=== PATIENT | female | born 1955 | race Caucasian/White ===

== ENCOUNTER 2020-09-18 14:07 | Outpatient (REF) | payer MEDICARE, MEDICAID, SELFPAY ==
--- NOTE | 2020-09-18 14:17 | XR_ITS ---
EXAMINATION: CHEST AND RIGHT RIB X-RAY CLINICAL INFORMATION: Fluoroscopy tiny COMPARISON: Previous chest x-ray October 2019 TECHNIQUE: PA and lateral chest and 4 views right RIBS FINDINGS: Chest: The cardiac and mediastinal contours are stable. The lungs are clear. There is a small right pleural effusion. There is left no pleural effusion or pneumothorax. There are old right-sided rib fractures. There is an old right clavicle fracture. There are degenerative changes of the spine. Right RIBS: There are old right second through sixth rib fractures. These appear similar to previous chest x-ray from October 2019. No acute fracture is seen. XR/XR chest 2V IMPRESSION: Small right pleural effusion. Multiple old right-sided rib fractures and right clavicle fracture similar to previous chest x-ray October 2019. No acute fracture seen.
--- NOTE | 2020-09-18 14:18 | XR_ITS ---
EXAMINATION: CHEST AND RIGHT RIB X-RAY CLINICAL INFORMATION: Fluoroscopy tiny COMPARISON: Previous chest x-ray October 2019 TECHNIQUE: PA and lateral chest and 4 views right RIBS FINDINGS: Chest: The cardiac and mediastinal contours are stable. The lungs are clear. There is a small right pleural effusion. There is left no pleural effusion or pneumothorax. There are old right-sided rib fractures. There is an old right clavicle fracture. There are degenerative changes of the spine. Right RIBS: There are old right second through sixth rib fractures. These appear similar to previous chest x-ray from October 2019. No acute fracture is seen. XR/XR ribs RT 2V IMPRESSION: Small right pleural effusion. Multiple old right-sided rib fractures and right clavicle fracture similar to previous chest x-ray October 2019. No acute fracture seen.
== END 2020-09-18 14:08 | disposition home or self-care (01) ==
LOC: HO.XRAY 14:07
PROVIDERS: PCP Internal Medicine; Visit Provider Internal Medicine
DX: R07.81 Pleurodynia (principal)
CPT/HCPCS: 71046; 71100

== ENCOUNTER 2020-10-11 13:10 | Outpatient (REF) | payer MEDICARE, SELFPAY ==
--- NOTE | 2020-10-11 13:20 | MM_ITS ---
EXAMINATION: MM SCREENING DIGITAL BREAST TOMOSYNTHESIS, BILATERAL CLINICAL INFORMATION: Screening. Asymptomatic. The lifetime risk of breast cancer based on the Tyrer-Cuzick Model is 3%. COMPARISON: Mammography: 03/01/2019, 12/24/2017, 10/30/2016. TECHNIQUE: Digital breast tomosynthesis is performed in both the craniocaudal and mediolateral oblique views along with computer-aided detection (CAD). Synthesized 2D images are generated from the tomosynthesis. Additional left MLO view is provided. FINDINGS: There are scattered areas of fibroglandular density (ACR BI-RADS breast composition Category b). There are no significant masses, abnormal calcifications, or other abnormalities. The axilla and skin contours are unremarkable. No significant changes from prior study. MM/MM tomosynthesis screening BI IMPRESSION: No mammographic evidence of malignancy. ASSESSMENT: BI-RADS 1: Negative RECOMMENDATION: Routine annual mammography screening. This patient's information was entered into a reminder system with a target due date for their next mammogram.
== END 2020-10-11 13:11 | disposition home or self-care (01) ==
LOC: HO.MAMMO 13:10
PROVIDERS: PCP Internal Medicine; Visit Provider Internal Medicine
DX: Z12.31 Encounter for screening mammogram for malignant neoplasm of breast (principal)
CPT/HCPCS: 77063; 77067

== ENCOUNTER 2021-07-18 12:04 | Outpatient (REF) | payer MEDICARE, SELFPAY ==
--- NOTE | ~2021-07-18 | XR_ITS ---
EXAMINATION: XR HAND, RIGHT CLINICAL INFORMATION: Pain right hand COMPARISON: None TECHNIQUE: PA, lateral, and oblique views of the right hand. FINDINGS: There is no acute or healing fracture, dislocation, or destructive process. The lateral view shows punctate corticated ossicle dorsum wrist and punctate corticated ossicle palmar side breast, possibly related to remote injury. The ulnar variance is borderline negative, near neutral. There is a mild broad-based short exostosis from the lateral distal ulnar head at level of radial sigmoid notch. The cortex is intact. There is small benign subcortical cyst. No reactive changes medial radius. The carpus shows no joint narrowing or erosive change or chondrocalcinosis. The MCP and interphalangeal joints show no focal narrowing or erosive change. XR/XR hand RT min 3V IMPRESSION: 1. No acute or healing fracture or destructive process. 2. No focal joint narrowing or erosive changes. 3. Punctate corticated ossicle dorsum wrist and punctate corticated ossicle volar side wrist. Short broad-based exostosis distal ulnar at the sigmoid notch.
== END 2021-07-18 12:05 | disposition home or self-care (01) ==
LOC: HO.XRAY 12:04
PROVIDERS: PCP Internal Medicine; Visit Provider Internal Medicine
DX: M79.641 Pain in right hand (principal)
CPT/HCPCS: 73130

== ENCOUNTER 2021-08-19 18:24 | Emergency (ER) | payer MEDICARE, SELFPAY ==
--- NOTE | ~2021-08-19 | CT_ITS ---
EXAMINATION: CT ABDOMEN AND PELVIS WITHOUT CONTRAST CLINICAL INFORMATION: Abdominal pain. COMPARISON: Multiple priors, most recent CT abdomen/pelvis dated 07/13/2019. TECHNIQUE: Multidetector volumetric imaging was performed from the superior aspect of the liver through the pubic symphysis. Sagittal and coronal reformatted images were obtained on the technologist's workstation. This CT examination was performed using dose optimization techniques as appropriate, variously including the following: *Automated exposure control *Adjustment of mA and/or kV according to patient size (this includes techniques or standardized protocols for targeted exams where dose is matched to indication/reason for exam; i.e. extremities or head) *Use of iterative reconstruction technique DLP: 774 mGy-cm FINDINGS: LUNG BASES: The visualized lung bases are unremarkable. LIVER, GALLBLADDER, AND BILIARY TREE: The liver is normal in size, shape, and attenuation. No focal hepatic lesion or biliary ductal dilatation is present. Status post cholecystectomy. PANCREAS: Atrophic. SPLEEN: Unremarkable. ADRENAL GLANDS: Unremarkable. KIDNEYS AND URETERS: The kidneys are normal in size, shape, and attenuation. No hydronephrosis, hydroureter, or calculi seen. No perinephric stranding. BLADDER: Partially distended with circumferential wall thickening and prominent adjacent inflammatory change, consistent with acute cystitis. No associated calcification. GASTROINTESTINAL TRACT: No bowel wall thickening or associated inflammatory change. No small or large bowel obstruction. Appendix not seen, however, no right lower quadrant inflammatory change to suggest acute appendicitis. PERITONEAL CAVITY: No intra-abdominal free air or free fluid. No intra-abdominal mass or organized fluid collection/abscess formation. ABDOMINAL WALL: No significant hernia is appreciated. LYMPH NODES: No significant lymphadenopathy. Central mesenteric stranding is unchanged. VASCULAR: Unremarkable. PELVIC VISCERA: The uterus and adnexa are unremarkable. OSSEOUS STRUCTURES: Redemonstration of a right hip effusion and right pelvic deformity. No new lytic or blastic osseous lesion. CT/CT abdomen pelvis wo con IMPRESSION: 1. Circumferential urinary bladder wall thickening with prominent adjacent fat stranding, consistent with acute cystitis. No hydronephrosis or hydroureter. No evidence of pyelonephritis. 2. No bowel wall thickening or inflammatory change. No small or large bowel obstruction. 3. No intra-abdominal mass, lymphadenopathy, or ascites.
[2021-08-19 18:36] VITALS: BP 150/80; BP 156/78; PULSE 80; RESP 18; TEMP 37; O2SAT 97; O2SAT 98; BMI 30.9
[2021-08-19 18:47] VITALS: BP 156/78; PULSE 80; RESP 18; TEMP 37; O2SAT 97
--- NOTE | 2021-08-19 18:58 | ED_ITS ---
HPI - Abdominal Pain General Chief Complaint: Abdominal Pain Stated Complaint: FLANK, PELVIC PAIN Time Seen by Provider: 08/19/21 18:52 Source: patient Mode of arrival: ambulatory Limitations: no limitations History of Present Illness HPI narrative: This is a 65 years old the female who presented to the emergency department with a chief complaint of lower abdominal pain and dysuria MD elicited complaint: abdominal pain Pertinent past history: none Onset (ago): hour(s) (12) Pain Consistency: constant Location: suprapubic Severity: moderate Radiation: none Migration to: no migration Exacerbating factors: nothing Relieving factors: nothing Related Data Previous Rx's Medication Instructions Recorded cephalexin 500 mg capsule 500 mg PO Q8H #21 cap 08/19/21 phenazopyridine 100 mg tablet 100 mg PO TID PRN #6 tab 08/19/21 (Pyridium) Allergies Allergy/AdvReac Type Severity Reaction Status Date / Time No Known Allergies Allergy Unverified 06/14/20 14:38 [No Known Allergies*] Review of Systems Review of Systems Yes all other systems are reviewed and are negative Constitutional: Reports no additional constitutional complaints and Denies fever(s) Cardiovascular: Reports no additional cardiovascular complaints Gastrointestinal: Reports no additional gastrointestinal complaints Musculoskeletal: Reports no additional musculoskeletal complaints Physical Exam Vital Signs: Vital Signs: Last Vital Signs Temp 98.6 F 08/19/21 18:47 Pulse 80 08/19/21 18:47 Resp 18 08/19/21 18:47 BP 156/78 H 08/19/21 18:47 Pulse Ox 97 08/19/21 18:47 Body Mass Index 30.9 Const: General: cooperative, no acute distress, well developed and alert Nutritional Appearance: well nourished Orientation/consciousness: patient oriented x3 HENMT: Head: Yes normal to inspection and Yes normocephalic Face and sinus: Yes normal facial exam Mouth: Normal oral and palatal mucosa present Throat: Yes posterior oropharynx normal Neck: Neck: Yes normal visual inspection and Yes full ROM Chest: Chest palpation & inspection: normal inspection of the chest Resp: Effort & Inspection: normal respiratory effort Auscultation: clear to auscultation bilaterally Cardio: Jugular venous distension: no JVD Rate: regular rate Rhythm: regular rhythm GI: Inspection: Yes normal to inspection Palpation (GI): Soft to palpation, not firm, nontender and no guarding Auscultation: normal bowel sounds Skin: General skin exam: no rashes or lesions noted, elasticity normal and turgor normal Neuro: General: patient oriented x3 Course Reevaluation(s) Reevaluation #1: THE CT SCAN OF THE ABDOMEN AND PELVIS SHOWS URINARY BLADDER WALL THICKENING CONSISTENT WITH ACUTE CYSTITIS, THE URINALYSIS SHOWS HEMATURIA 30-49 RED CELL, 1-4 WBC I WILL GIVEN THE PATIENT PYRIDIUM OF DISCOMFORT AND I WILL GIVE A COURSE OF ANTIBIOTIC WELL GIVEN THE FINDING ON THE CT MDM - Abdominal Pain Lab Data Result diagrams: 08/19/21 20:15 08/19/21 20:15 Labs: Lab Results 08/19/21 08/19/21 08/19/21 Range/Units 20:15 20:15 20:15 WBC 11.1 H (4.8-10.8) X10*3/uL RBC 4.52 (4.20-5.50) X10*6/uL Hgb 12.6 (12.0-16.0) g/dl Hct 38.7 (37.0-47.0) % MCV 85.6 (80.0-98.0) fL MCH 27.9 (27.0-33.0) pg MCHC 32.6 (31.0-35.0) g/dl RDW 13.0 (11.0-16.0) % Plt Count 271 (160-400) X10*3/uL MPV 10.3 (9.4-12.3) fL Immature Gran % (Auto) 0.4 (0.0-0.4) % Neut % (Auto) 68.4 (45-73) % Lymph % (Auto) 21.9 (20-40) % [place] % (Auto) 5.9 (2-11) % Eos % (Auto) 3.2 (0-4) % Baso % (Auto) 0.2 (0-2) % Lymph # (Auto) 2.4 (1.2-4.9) X10*3/uL [place] # (Auto) 0.7 (0.1-1.2) X10*3/uL Eos # (Auto) 0.4 (0.0-0.4) X10*3/uL Baso # (Auto) 0.0 (0.0-0.2) X10*3/uL Abs Immat Gran (auto) 0.04 H (0.00-0.03) X10*3/uL Absolute Neuts (auto) 7.6 (2.0-8.3) x10*3/uL Absolute Nucleated RBC 0.000 (0.0-0.012) X10*3/uL Nucleated RBC % (auto) 0.0 (0.0-0.2) /100WBC Sodium 139 (135-145) mmol/L Potassium 4.9 (3.3-5.1) mmol/L Chloride 100 (96-108) mmol/L Carbon Dioxide 29 (22-29) mmol/L Anion Gap 15 (12-20) BUN 8 L (9-16) mg/dL Creatinine 0.88 (0.5-1.4) mg/dL Estim Creat Clear Calc 64.9 Estimated GFR > 60 Random Glucose 321 H (60-115) mg/dL Calcium 9.7 (8.4-10.2) mg/dL Total Bilirubin 0.4 (0.0-1.0) mg/dL AST 10 (5-31) U/L ALT 11 (0-31) U/L Alkaline Phosphatase 135 H (39-117) U/L Total Protein 7.6 (6.5-8.0) g/dL Albumin 4.1 (3.5-5.0) g/dL Urine Color STRAW Urine Appearance HAZY Urine pH 6.5 (5.0-8.0) Ur Specific [place] 1.010 (1.005-1.025) Urine Protein 2+ H (NEG-TRACE) MG/DL Urine Glucose (UA) >=1000 H (NEG) MG/DL Urine Ketones NEG (NEG) MG/DL Urine Blood 3+ H (NEG) Urine Nitrite NEG (NEG) Ur Leukocyte Esterase NEG (NEG) Urine RBC 30-49 H (0) /HPF Urine WBC 1-4 (0-4) /HPF Ur Squamous Epith Cells 1+ /LPF Urine Bacteria NONE /LPF Imaging Data CT scan - abdomen: Radiologist's impression: seen, however, no right lower quadrant inflammatory change to suggest acute appendicitis. PERITONEAL CAVITY: No intra-abdominal free air or free fluid. No intra-abdominal mass or organized fluid collection/abscess formation.? ABDOMINAL WALL: No significant hernia is appreciated.? LYMPH NODES: No significant lymphadenopathy. Central mesenteric stranding is unchanged. VASCULAR: Unremarkable. PELVIC VISCERA: The uterus and adnexa are unremarkable.? OSSEOUS STRUCTURES: Redemonstration of a right hip effusion and right pelvic deformity. No new lytic or blastic osseous lesion.? CT/CT abdomen pelvis wo con IMPRESSION: ? 1. Circumferential urinary bladder wall thickening with prominent adjacent fat stranding, consistent with acute cystitis. No hydronephrosis or hydroureter. No evidence of pyelonephritis. 2. No bowel wall thickening or inflammatory change. No small or large bowel obstruction. 3. No intra-abdominal mass, lymphadenopathy, or ascites.? ? Discharge Plan Discharge Clinical Impression: Cystitis Patient Disposition: Home, Self-Care Instructions: Hematuria (ED), Dysuria (ED) Prescriptions: New cephalexin 500 mg capsule 500 mg PO Q8H Qty: 21 RF: 0 phenazopyridine [Pyridium] 100 mg tablet 100 mg PO TID PRN (Reason: pain) Qty: 6 RF: 0 Referrals: Fransisco Baires MD [Primary Care Provider] - 2 days [facility] Past Medical History Medical History Diabetes HTN (hypertension) Social History Social History Advance Directives: No
[2021-08-19 20:20] LABS: MANUAL DIFF FLAG NO
[2021-08-19 20:21] LABS: Basophils Percent Auto 0.2 % (0-2); Eosinophils Absolute Auto 0.4 X10*3/uL (0.0-0.4); Eosinophils Percent Auto 3.2 % (0-4); Hematocrit 38.7 % (37.0-47.0); Hemoglobin 12.6 g/dl (12.0-16.0); Imm Gran Abs Auto 0.04 X10*3/uL (0.00-0.03); Imm Gran Pct Auto 0.4 % (0.0-0.4); Lymphocytes Absolute Auto 2.4 X10*3/uL (1.2-4.9); Lymphocytes Percent Auto 21.9 % (20-40); Mean Corpuscular HGB Conc 32.6 g/dl (31.0-35.0); Mean Corpuscular Hemoglobin 27.9 pg (27.0-33.0); Mean Corpuscular Volume 85.6 fL (80.0-98.0); Mean Platelet Volume 10.3 fL (9.4-12.3); Monocytes Absolute Auto 0.7 X10*3/uL (0.1-1.2); Monocytes Percent Auto 5.9 % (2-11); Neutrophils Absolute Auto 7.6 x10*3/uL (2.0-8.3); Neutrophils Percent Auto 68.4 % (45-73); Platelet Count 271 X10*3/uL (160-400); Red Blood Count 4.52 X10*6/uL (4.20-5.50); White Blood Count 11.1 X10*3/uL (4.8-10.8)
[2021-08-19 20:22] LABS: Appearance Urine HAZY; Color Urine STRAW; Glucose Urine UA >=1000 MG/DL (NEG); Leukocyte Esterase Urine NEG (NEG); Nitrite Urine NEG (NEG); PH 6.5 (5.0-8.0); UACC Culture Trigger NO; Urine Blood 3+ (NEG); Urine Ketones NEG (NEG); Urine Protein 2+ MG/DL (NEG-TRACE)
[2021-08-19 20:29] LABS: RBC Urine 30-49 /HPF (0); Squamous Epithelial Cell Urine 1+ /LPF
[2021-08-19 20:36] LABS: Alanine Aminotransferase 11 U/L (0-31); Albumin Level 4.1 g/dL (3.5-5.0); Alkaline Phosphatase 135 U/L (39-117); Anion Gap 15 (12-20); Aspartate Amino Transferase 10 U/L (5-31); Bilirubin Total 0.4 mg/dL (0.0-1.0); Blood Urea Nitrogen 8 mg/dL (9-16); Calcium 9.7 mg/dL (8.4-10.2); Carbon Dioxide 29 mmol/L (22-29); Chloride 100 mmol/L (96-108); Creatinine Clr Calc Pharmacy 64.9; Estimated Glomerular Filt Rate > 60; Glucose Random 321 mg/dL (60-115); Potassium 4.9 mmol/L (3.3-5.1); Sodium 139 mmol/L (135-145); Total Protein 7.6 g/dL (6.5-8.0)
[2021-08-19] MEDS: Phenazopyridine HCL 200 MG TABLET PO (21:17)
[2021-08-19] MEDS: cephALEXin 500 MG CAPSULE PO (21:17)
== END 2021-08-19 21:59 | disposition home or self-care (01) ==
PROVIDERS: Emergency Provider Emergency Medicine; PCP Internal Medicine
DX: N30.00 Acute cystitis without hematuria (principal); E11.9 Type 2 diabetes mellitus without complications; I10 Essential (primary) hypertension
CPT/HCPCS: 36415; 74176; 80053; 81001; 85025; 99284

== ENCOUNTER 2021-08-23 21:53 | Emergency (ER) | payer MEDICARE, SELFPAY ==
[2021-08-23 22:05] VITALS: BP 127/69; PULSE 84; RESP 18; TEMP 37.3; O2SAT 95; BMI 30.1
--- NOTE | 2021-08-23 22:46 | ED_ITS ---
HPI - Female Genitourinary General Chief complaint: Urogenital-Female Stated complaint: uti Time Seen by Provider: 08/23/21 22:46 Source: patient Limitations: no limitations History of Present Illness HPI Narrative: Patient is 65 years old was seen here on 08/19 for hematuria and dysuria noticed to have circumferential urinary bladder wall thickening with prominent adjacent fat stranding consider acute cystitis although urine was negative for UTI patient started on cephalexin and Pyridium patient comes back for continued discomfort in the suprapubic area and dysuria no fever no chills no vomiting Related Data Previous Rx's Medication Instructions Recorded cephalexin 500 mg capsule 500 mg PO Q8H #21 cap 08/19/21 phenazopyridine 100 mg tablet 100 mg PO TID PRN #6 tab 08/19/21 (Pyridium) cefpodoxime 200 mg tablet 200 mg PO BID #20 tab 08/24/21 oxycodone 5 mg tablet 5 mg PO Q6H PRN #20 tab 08/24/21 Allergies Allergy/AdvReac Type Severity Reaction Status Date / Time No Known Allergies Allergy Verified 08/23/21 22:17 [No Known Allergies*] Review of Systems Review of Systems: Yes all other systems are reviewed and are negative PMFSH Past Medical History Medical History Diabetes HTN (hypertension) Social History Social History Patient Tobacco Use Status: Former Tobacco user Use of substances other than those prescribed or required for medical reasons: No Advance Directives: No Patient : No Physical Exam Vital Signs: Vital Signs: Last Vital Signs Temp 99.2 F 08/23/21 22:05 Pulse 87 08/24/21 00:40 Resp 16 08/24/21 00:40 BP 138/72 08/24/21 00:40 Pulse Ox 94 08/24/21 00:40 Body Mass Index 30.1 Appearance: Alert. Oriented X3. No acute distress. ENT: Pharynx normal. Oral Mucosa moist Neck: Normal inspection. Neck supple. CVS: Normal heart rate and rhythm. Pulses normal. Respiratory: No respiratory distress. Equal air entry bilateral, no wheezing/rales/rhonchi Abdomen: Soft , mild suprapubic tenderness, no guarding or rebound tenderness, Bowel sounds are present, no mass palpable, no CVA tenderness Skin: Skin warm and dry. Normal skin color. Normal skin turgor. Extremities: No lower extremity edema. No calf tenderness Neuro: Oriented X 3. MDM - Female Genitourinary MDM Narrative Medical decision making narrative: Patient with acute cystitis urine positive for nitrite this time on cephalexin likely resistant to the cephalexin urine cultures was ordered CBC counts are normal will discharge patient home on cefpodoxime patient already knows and aware that she has to follow with urologist Lab Data Attestation: I reviewed the patient's lab results. Result diagrams: 08/23/21 22:53 08/23/21 22:53 Labs: Lab Results 08/23/21 08/23/21 08/24/21 Range/Units 22:53 22:53 00:32 WBC 10.1 (4.8-10.8) X10*3/uL RBC 4.37 (4.20-5.50) X10*6/uL Hgb 12.1 (12.0-16.0) g/dl Hct 37.5 (37.0-47.0) % MCV 85.8 (80.0-98.0) fL MCH 27.7 (27.0-33.0) pg MCHC 32.3 (31.0-35.0) g/dl RDW 12.9 (11.0-16.0) % Plt Count 300 (160-400) X10*3/uL MPV 9.9 (9.4-12.3) fL Immature Gran % (Auto) 0.4 (0.0-0.4) % Neut % (Auto) 63.2 (45-73) % Lymph % (Auto) 24.8 (20-40) % [place] % (Auto) 7.0 (2-11) % Eos % (Auto) 4.3 H (0-4) % Baso % (Auto) 0.3 (0-2) % Lymph # (Auto) 2.5 (1.2-4.9) X10*3/uL [place] # (Auto) 0.7 (0.1-1.2) X10*3/uL Eos # (Auto) 0.4 (0.0-0.4) X10*3/uL Baso # (Auto) 0.0 (0.0-0.2) X10*3/uL Abs Immat Gran (auto) 0.04 H (0.00-0.03) X10*3/uL Absolute Neuts (auto) 6.4 (2.0-8.3) x10*3/uL Absolute Nucleated RBC 0.000 (0.0-0.012) X10*3/uL Nucleated RBC % (auto) 0.0 (0.0-0.2) /100WBC Sodium 138 (135-145) mmol/L Potassium 4.3 (3.3-5.1) mmol/L Chloride 103 (96-108) mmol/L Carbon Dioxide 26 (22-29) mmol/L Anion Gap 13 (12-20) BUN 18 H D (9-16) mg/dL Creatinine 1.03 (0.5-1.4) mg/dL Estim Creat Clear Calc 52.8 Estimated GFR 54 Random Glucose 265 H (60-115) mg/dL Calcium 9.1 D (8.4-10.2) mg/dL Total Bilirubin 0.3 (0.0-1.0) mg/dL AST 18 D (5-31) U/L ALT 16 (0-31) U/L Alkaline Phosphatase 120 H (39-117) U/L Total Protein 7.2 (6.5-8.0) g/dL Albumin 3.8 (3.5-5.0) g/dL Urine Color YELLOW Urine Appearance CLEAR Urine pH 6.0 (5.0-8.0) Ur Specific [place] 1.025 (1.005-1.025) Urine Protein NEG (NEG-TRACE) MG/DL Urine Glucose (UA) NEG (NEG) MG/DL Urine Ketones NEG (NEG) MG/DL Urine Blood 2+ H (NEG) Urine Nitrite POS H (NEG) Ur Leukocyte Esterase NEG (NEG) Urine RBC 30-49 H (0) /HPF Urine WBC 1-4 (0-4) /HPF Ur Squamous Epith Cells 1+ /LPF Urine Bacteria 1+ /LPF Discharge Plan Discharge Clinical Impression: Cystitis Patient Disposition: Home, Self-Care Instructions: Urinary Tract Infection in Women (ED) Additional Instructions: Drink plenty of water Pain medication advised Start the new antibiotic as prescribed and stop the cephalexin And follow-up with PCP/urologist for further workup 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
[2021-08-23 22:59] LABS: Basophils Percent Auto 0.3 % (0-2); Eosinophils Absolute Auto 0.4 X10*3/uL (0.0-0.4); Eosinophils Percent Auto 4.3 % (0-4); Hematocrit 37.5 % (37.0-47.0); Hemoglobin 12.1 g/dl (12.0-16.0); Imm Gran Abs Auto 0.04 X10*3/uL (0.00-0.03); Imm Gran Pct Auto 0.4 % (0.0-0.4); Lymphocytes Absolute Auto 2.5 X10*3/uL (1.2-4.9); Lymphocytes Percent Auto 24.8 % (20-40); MANUAL DIFF FLAG NO; Mean Corpuscular HGB Conc 32.3 g/dl (31.0-35.0); Mean Corpuscular Hemoglobin 27.7 pg (27.0-33.0); Mean Corpuscular Volume 85.8 fL (80.0-98.0); Mean Platelet Volume 9.9 fL (9.4-12.3); Monocytes Absolute Auto 0.7 X10*3/uL (0.1-1.2); Neutrophils Absolute Auto 6.4 x10*3/uL (2.0-8.3); Neutrophils Percent Auto 63.2 % (45-73); Platelet Count 300 X10*3/uL (160-400); Red Blood Count 4.37 X10*6/uL (4.20-5.50); Red Cell Distribution Width 12.9 % (11.0-16.0); White Blood Count 10.1 X10*3/uL (4.8-10.8)
[2021-08-23 23:17] LABS: Alanine Aminotransferase 16 U/L (0-31); Albumin Level 3.8 g/dL (3.5-5.0); Alkaline Phosphatase 120 U/L (39-117); Anion Gap 13 (12-20); Aspartate Amino Transferase 18 U/L (5-31); Bilirubin Total 0.3 mg/dL (0.0-1.0); Blood Urea Nitrogen 18 mg/dL (9-16); Calcium 9.1 mg/dL (8.4-10.2); Carbon Dioxide 26 mmol/L (22-29); Chloride 103 mmol/L (96-108); Creatinine Clr Calc Pharmacy 52.8; Estimated Glomerular Filt Rate 54; Glucose Random 265 mg/dL (60-115); Potassium 4.3 mmol/L (3.3-5.1); Sodium 138 mmol/L (135-145); Total Protein 7.2 g/dL (6.5-8.0)
[2021-08-24 00:37] LABS: Appearance Urine CLEAR; Color Urine YELLOW; Glucose Urine UA NEG (NEG); Leukocyte Esterase Urine NEG (NEG); Nitrite Urine POS (NEG); Specific Gravity - Urine 1.025 (1.005-1.025); UACC Culture Trigger YES; Urine Blood 2+ (NEG); Urine Ketones NEG (NEG); Urine Protein NEG (NEG-TRACE)
[2021-08-24] MEDS: Ketorolac Tromethamine 15 MG/ML VIAL 30 MG IVPUSH (00:38)
[2021-08-24 00:40] VITALS: BP 138/72; PULSE 87; RESP 16; O2SAT 94
[2021-08-24 00:44] LABS: RBC Urine 30-49 /HPF (0)
[2021-08-24 00:45] LABS: Bacteria Urine 1+ /LPF; Squamous Epithelial Cell Urine 1+ /LPF
--- NOTE | 2021-08-24 00:45 | PC.NURSE ---
pt a&o, no sob or chest pain. pt has no sign of distress. quach is placed. medicated per mar. Will continue to monitor.
[2021-08-24] MEDS: cefTRIAXone sodium 1 GM in 0.9 % Sodium Chloride 50 ML IV (00:56)
--- NOTE | 2021-08-24 01:41 | PC.NURSE ---
pt reports no pain. Will discharge as soon as antibiotic is completed per provider.
[2021-08-24 02:35] VITALS: RESP 20
== END 2021-08-24 02:36 | disposition home or self-care (01) ==
PROVIDERS: Emergency Provider Internal Medicine; PCP Internal Medicine
DX: N30.00 Acute cystitis without hematuria (principal); R10.30 Lower abdominal pain, unspecified; E11.9 Type 2 diabetes mellitus without complications; I10 Essential (primary) hypertension
CPT/HCPCS: 36415; 80053; 81001; 85025; 87086; 96365; 96372; 99284; 99285; J0696; J1885

== ENCOUNTER 2021-09-17 09:39 | Outpatient (REF) | payer MEDICARE, SELFPAY | END 2021-09-17 09:40 | disposition home or self-care (01) | LOC: HO.LAB 09:39 | PROVIDERS: Visit Provider Internal Medicine | DX: Z20.822 Contact with and (suspected) exposure to COVID-19 (principal) | CPT/HCPCS: C9803; U0003; U0005 ==

== ENCOUNTER 2022-10-29 14:48 | Emergency (ER) | payer MEDICARE, SELFPAY ==
--- NOTE | ~2022-10-29 | CT_ITS ---
Indication: Fall EXAMINATION: CT brain, CT facial bones, CT cervical spine. Axial imaging with coronal and sagittal reformatted images. This CT examination was performed using dose optimization techniques as appropriate, variously including the following: *Automated exposure control *Adjustment of mA and/or kV according to patient size (this includes techniques or standardized protocols for targeted exams where dose is matched to indication/reason for exam; i.e. extremities or head) *Use of iterative reconstruction technique. Radiation dose 655, [address] brain; There is no midline shift. There is no mass effect. There is no hemorrhage. The basal cisterns appear patent. The posterior fossa is grossly within normal limits. There is no extra-axial collection. White matter ischemic changes are noted. Probable soft tissue hematoma anterior. No fracture is seen on the bone windows. CT cervical spine; Straightening of the normal lordosis and degenerative changes. No acute fracture or dislocation. CT facial bones; Limitation from motion. Fracture of the medial orbital wall. Os.. This could possibly involve a small amount of the medial rectus muscle on the left. CT/CT head/brain wo IV con IMPRESSION: Negative acute noncontrast CT of the brain. Soft tissue hematoma seen anterior. No acute fracture or dislocation of the cervical spine. Posterior medial orbital wall fracture on the left with displacement of bone into the ethmoid region. This could possibly involve part of the left medial rectus muscle
--- NOTE | ~2022-10-29 | XR_ITS ---
EXAMINATION: XR BILATERAL HIPS WITH AP PELVIS CLINICAL INFORMATION: Fall, trauma, pain COMPARISON: CT abdomen and pelvis 07/30/2021, radiographs right hip 08/13/2018, lumbar radiographs 10/26/2017 TECHNIQUE: AP pelvis is performed along with bilateral AP and frog-lateral projections of each hip. There are a total of 5 views. FINDINGS: There is a partially corticated triangular ossification between the lower sacrum and left bony pelvis approximately 0.8 x 1.2 cm and new finding from CT pelvis 08/19/2021. The location may correspond to the course of the sacro-spinous ligament, possibly avulsion of the left ischial spine. This could be further correlated with pelvic CT. There is no other acute fracture or dislocation. Multilevel degenerative changes are present lower lumbar spine. The SI joints and pubis show no diastases. The left hip shows no fracture or dislocation. There is incidental chronic small oval mineralization adjacent to the ischial tuberosity likely related to calcific tendinosis. The right hip again shows chronic deformity with bony ankylosis. Bowel gas is unremarkable. XR/XR hips KATERINA min 3V IMPRESSION: 1. New triangular ossification between lower sacrum and left bony pelvis 0.8 x 1.2 cm, possibly avulsion of the left ischial spine. This could be further correlated with pelvic CT. 2. No other acute fracture or dislocation. 3. 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
--- NOTE | ~2022-10-29 | CT_ITS ---
Indication: Fall EXAMINATION: CT brain, CT facial bones, CT cervical spine. Axial imaging with coronal and sagittal reformatted images. This CT examination was performed using dose optimization techniques as appropriate, variously including the following: *Automated exposure control *Adjustment of mA and/or kV according to patient size (this includes techniques or standardized protocols for targeted exams where dose is matched to indication/reason for exam; i.e. extremities or head) *Use of iterative reconstruction technique. Radiation dose 655, [address] brain; There is no midline shift. There is no mass effect. There is no hemorrhage. The basal cisterns appear patent. The posterior fossa is grossly within normal limits. There is no extra-axial collection. White matter ischemic changes are noted. Probable soft tissue hematoma anterior. No fracture is seen on the bone windows. CT cervical spine; Straightening of the normal lordosis and degenerative changes. No acute fracture or dislocation. CT facial bones; Limitation from motion. Fracture of the medial orbital wall. Os.. This could possibly involve a small amount of the medial rectus muscle on the left. CT/CT cervical spine wo IV con IMPRESSION: Negative acute noncontrast CT of the brain. Soft tissue hematoma seen anterior. No acute fracture or dislocation of the cervical spine. Posterior medial orbital wall fracture on the left with displacement of bone into the ethmoid region. This could possibly involve part of the left medial rectus muscle
--- NOTE | ~2022-10-29 | CT_ITS ---
EXAMINATION: CT CHEST, ABDOMEN AND PELVIS WITHOUT CONTRAST CLINICAL INFORMATION: Fall. COMPARISON: CT abdomen pelvis 08/19/2021. Chest x-ray 11/22/2019 TECHNIQUE: Multidetector volumetric CT imaging of the chest, abdomen and pelvis was obtained without oral or intravenous contrast. Coronal and sagittal reformatted images are performed at CT scanner [This CT examination was performed using dose optimization techniques as appropriate, variously including the following: *Automated exposure control *Adjustment of mA and/or kV according to patient size (this includes techniques or standardized protocols for targeted exams where dose is matched to indication/reason for exam; i.e. extremities or head) *Use of iterative reconstruction technique] DLP: 1617 mGy-cm. FINDINGS: CT CHEST: Lungs: Breathing motion limits detail. No acute airspace disease. No bronchiectasis. Central bronchial airways are open. Mediastinum: Heart size is prominent. No pericardial effusion. Aorta and great vessels unremarkable. Thyroid normal. No mediastinal mass or significant lymphadenopathy Pleura: There is no pleural effusion. No pleural mass or thickening. Axilla: No lymphadenopathy. CT ABDOMEN AND PELVIS: Liver, Gallbladder and Biliary Tree: The liver is normal in size, shape, and attenuation. No focal hepatic lesion or biliary ductal dilatation is present. The gallbladder is unremarkable with no evidence of radiopaque gallstones, gallbladder wall thickening, or obvious pericholecystic inflammatory changes. Pancreas: No acute change of the pancreas. No mass. No pancreatic duct dilatation. Spleen: Spleen normal in size and contour. No focal lesion. Adrenal Glands: Adrenal glands are normal in size. No focal mass. Kidneys and Ureters: Right kidney and ureter are normal. No hydronephrosis or calculus. In the left kidney there is a 1 mm stone in the lower pole. 1 mm stone at the upper pole left kidney. There is no ureteral stone. There is no hydronephrosis. Compared to the CAT scan 08/19/2021 there is no change. Bladder: Unremarkable. Gastrointestinal Tract: There are scattered diverticula of the colon. There is no diverticulitis. There is no bowel wall thickening /edema. There is no bowel obstruction. There is a moderate to large volume of stool in the colon. The appendix is normal . The small bowel loops are unremarkable. The stomach is normal. There is no hiatal hernia. Mesentery: Subtle haziness in the mid mesentery similar prior CAT scan 2020. No mass or significant lymphadenopathy. No focal fluid collection. No free air or free fluid. Abdominal Wall: No significant hernia is appreciated. Lymph Nodes: Normal. Vascular: Unremarkable. Pelvic Viscera: Unremarkable. Osseous Structures: Multilevel degenerative spondylosis spine. No acute osseous abnormality. There are old healed fracture with residual deformity of the right anterior second through fifth ribs. There is osseous fusion of the right hip which is old. There is associated atrophy of the surrounding muscles of the right hip and gluteal region. CT/CT abdomen pelvis wo IV con IMPRESSION: CT CHEST: No acute abnormality. CT ABDOMEN PELVIS: No acute abnormality the abdomen or pelvis.
--- NOTE | ~2022-10-29 | CT_ITS ---
Indication: Fall EXAMINATION: CT brain, CT facial bones, CT cervical spine. Axial imaging with coronal and sagittal reformatted images. This CT examination was performed using dose optimization techniques as appropriate, variously including the following: *Automated exposure control *Adjustment of mA and/or kV according to patient size (this includes techniques or standardized protocols for targeted exams where dose is matched to indication/reason for exam; i.e. extremities or head) *Use of iterative reconstruction technique. Radiation dose 655, [address] brain; There is no midline shift. There is no mass effect. There is no hemorrhage. The basal cisterns appear patent. The posterior fossa is grossly within normal limits. There is no extra-axial collection. White matter ischemic changes are noted. Probable soft tissue hematoma anterior. No fracture is seen on the bone windows. CT cervical spine; Straightening of the normal lordosis and degenerative changes. No acute fracture or dislocation. CT facial bones; Limitation from motion. Fracture of the medial orbital wall. Os.. This could possibly involve a small amount of the medial rectus muscle on the left. CT/CT facial bones wo IV con IMPRESSION: Negative acute noncontrast CT of the brain. Soft tissue hematoma seen anterior. No acute fracture or dislocation of the cervical spine. Posterior medial orbital wall fracture on the left with displacement of bone into the ethmoid region. This could possibly involve part of the left medial rectus muscle
--- NOTE | ~2022-10-29 | XR_ITS ---
EXAMINATION: XR KNEE, RIGHT XR KNEE, LEFT CLINICAL INFORMATION: Fall, trauma, pain COMPARISON: Radiographs right knee 12/29/2016 and left knee 06/30/2013. TECHNIQUE: Each knee is imaged in 4 views. There are a total of 8 views. FINDINGS: Right: There is no fracture or dislocation. No bony destructive process. There is an old healed fracture involving the proximal right fibula similar to prior exam 2017. There is no joint narrowing or erosive change. There is spurring at the quadriceps insertion patella. No gross effusion. Left: No fracture or dislocation or destructive process. No joint narrowing or erosive change. Mild thickening distal quadriceps with spurring at the insertion patella. There is also spurring at the origin and insertion patella tendon. Deep infrapatellar recess is preserved. No gross effusion. XR/XR knee RT 4V IMPRESSION: 1. No fracture or dislocation or definite effusion. 2. Old healed fracture proximal right fibula.
--- NOTE | ~2022-10-29 | XR_ITS ---
EXAMINATION: XR KNEE, RIGHT XR KNEE, LEFT CLINICAL INFORMATION: Fall, trauma, pain COMPARISON: Radiographs right knee 12/29/2016 and left knee 06/30/2013. TECHNIQUE: Each knee is imaged in 4 views. There are a total of 8 views. FINDINGS: Right: There is no fracture or dislocation. No bony destructive process. There is an old healed fracture involving the proximal right fibula similar to prior exam 2017. There is no joint narrowing or erosive change. There is spurring at the quadriceps insertion patella. No gross effusion. Left: No fracture or dislocation or destructive process. No joint narrowing or erosive change. Mild thickening distal quadriceps with spurring at the insertion patella. There is also spurring at the origin and insertion patella tendon. Deep infrapatellar recess is preserved. No gross effusion. XR/XR knee LT 4V IMPRESSION: 1. No fracture or dislocation or definite effusion. 2. Old healed fracture proximal right fibula.
[2022-10-29 15:07] VITALS: BP 184/120; PULSE 92; O2SAT 98
[2022-10-29 15:09] VITALS: BP 198/97; PULSE 95; RESP 17; O2SAT 97
[2022-10-29 16:59] VITALS: BP 172/89; PULSE 82; RESP 16; O2SAT 95
[2022-10-29] MEDS: Ondansetron ODT 4 MG TAB.RAPDIS TRANSLINGU (17:12)
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
--- NOTE | 2022-10-29 17:24 | PC.NURSE ---
pt stated that she wanted to leave, refuses PT at this time. pt was able to get oob with very minimal assistance in WC- pt only complaint at this time is the pain in her left eye. provider aware- awaiting new orders
--- NOTE | 2022-10-29 17:25 | MHC.EDTECH ---
patient refused PT/ and wanted to go home. she walked to the wheelchair with minimal assistance , to show us she could walk.
[2022-10-29] MEDS: oxyCODONE HCl Immed Release 5 MG TABLET PO (17:38)
[2022-10-29] MEDS: Erythromycin Base 0.5% Oph Oin 1 GM TUBE 1 CM EYE-LEFT (17:39)
--- NOTE | 2022-10-29 17:40 | PC.NURSE ---
pt given medication for pain per order. reports 9/10 pain around eye injury. Local antibiotic given.
== END 2022-10-29 18:33 | disposition home or self-care (01) ==
PROVIDERS: Emergency Provider Student in an Organized Health Care Education/Training Program; PCP Internal Medicine
DX: S02.85XA Fracture of orbit, unspecified, initial encounter for closed fracture (principal); S32.602A Unspecified fracture of left ischium, initial encounter for closed fracture; R51.9 Headache, unspecified; M54.2 Cervicalgia; R10.2 Pelvic and perineal pain; M25.562 Pain in left knee; M25.561 Pain in right knee; M54.6 Pain in thoracic spine; W01.0XXA Fall on same level from slipping, tripping and stumbling without subsequent striking against object, initial encounter; Y93.9 Activity, unspecified; Y92.9 Unspecified place or not applicable; Y99.9 Unspecified external cause status; Z79.899 Other long term (current) drug therapy
CPT/HCPCS: 70450; 70486; 71250; 72125; 73522; 73564; 74176; 99284

== ENCOUNTER 2023-01-16 08:45 | Outpatient (REF) | payer MEDICARE, SELFPAY ==
--- NOTE | ~2023-01-16 | XR_ITS ---
EXAMINATION: XR HIP, RIGHT CLINICAL INFORMATION: Pain COMPARISON: Previous hip x-ray most recent October 2012 TECHNIQUE: Two views of the right hip and one view of the pelvis. FINDINGS: There is chronic deformity with the bony ankylosis at the right hip joint. Similar to previous exam. The previously identified triangular shaped ossification in the left pelvis on October 2022 exam is no longer seen. The left hip joint is normal. Bones of the pelvis are normal. There is arthritis of the visualized lower lumbar spine. Soft tissues are unremarkable. 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
== END 2023-01-16 08:46 | disposition home or self-care (01) ==
LOC: HO.HOSX 08:45
PROVIDERS: Visit Provider Physician Assistant
DX: M24.651 Ankylosis, right hip (principal)
CPT/HCPCS: 73502; 99202

== ENCOUNTER 2023-05-28 02:28 | Emergency (ER) | payer MEDICARE, SELFPAY ==
--- NOTE | ~2023-05-28 | XR_ITS ---
EXAMINATION: XR CHEST CLINICAL INFORMATION: Pain. COMPARISON: 09/18/2020 TECHNIQUE: 2 views of the chest were obtained. FINDINGS: The cardiomediastinal silhouette is normal. There is no focal lung consolidation or pleural effusion. The bony structures and soft tissues are stable in appearance. Old right rib and right clavicular fractures are again seen. The soft tissues are unremarkable. XR/XR chest 2V IMPRESSION: No active cardiopulmonary disease. No significant change
--- NOTE | ~2023-05-28 | XR_ITS ---
EXAMINATION: XR HIP, RIGHT CLINICAL INFORMATION: Pain. COMPARISON: 01/16/2023. TECHNIQUE: Two views of the right hip. FINDINGS: There is again seen deformity of the right femoral head with bony ankylosis of the right hip/acetabulum. There is no acute fracture. The soft tissues are unremarkable. 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 No fracture seen.
--- NOTE | 2023-05-28 02:28 | ECG_ITS ---
Test Reason : CHEST PAIN Blood Pressure : / mmHG Vent. Rate : 087 BPM Atrial Rate : 087 BPM P-R Int : 182 ms QRS Dur : 070 ms QT Int : 350 ms P-R-T Axes : 034 013 070 degrees QTc Int : 421 ms Sinus rhythm with Premature atrial complexes Low voltage QRS Cannot rule out Anterior infarct , age undetermined Abnormal ECG When compared with ECG of 09-FEB-2019 21:53, Premature atrial complexes are now Present Referred By: Generic ED Physician Electronically Signed By:SALENA CONSTANTINO
[2023-05-28 02:35] VITALS: BP 159/70; PULSE 70; O2SAT 99; BMI 28.3
[2023-05-28 02:39] VITALS: BP 126/61; PULSE 84; PULSE 86; RESP 19; TEMP 36.6; O2SAT 96
[2023-05-28 02:44] LABS: MANUAL DIFF FLAG NO
[2023-05-28 02:46] LABS: Basophils Percent Auto 0.2 % (0-2); Eosinophils Absolute Auto 0.4 X10*3/uL (0.0-0.4); Eosinophils Percent Auto 3.1 % (0-4); Hemoglobin 12.5 g/dl (12.0-16.0); Imm Gran Abs Auto 0.03 X10*3/uL (0.00-0.03); Imm Gran Pct Auto 0.3 % (0.0-0.4); Lymphocytes Absolute Auto 3.2 X10*3/uL (1.2-4.9); Mean Corpuscular HGB Conc 32.1 g/dl (31.0-35.0); Mean Corpuscular Hemoglobin 27.3 pg (27.0-33.0); Mean Corpuscular Volume 85.2 fL (80.0-98.0); Mean Platelet Volume 9.5 fL (9.4-12.3); Monocytes Absolute Auto 0.8 X10*3/uL (0.1-1.2); Monocytes Percent Auto 7.2 % (2-11); Neutrophils Absolute Auto 6.7 x10*3/uL (2.0-8.3); Neutrophils Percent Auto 60.2 % (45-73); Platelet Count 299 X10*3/uL (160-400); Red Blood Count 4.58 X10*6/uL (4.20-5.50); Red Cell Distribution Width 13.2 % (11.0-16.0); White Blood Count 11.1 X10*3/uL (4.8-10.8)
--- NOTE | 2023-05-28 02:47 | PC.NURSE ---
Pt aox4 resting at the bedside. No apparent distress noted. VSS. NSR on monitor with HR 86. Breaths are even regular and unlabored. Skin wpd. Reports chest pain, 9/10, with LUE numbness that began while resting about an hour ago. Pt also reports chronic right hip pain. 20G IV line place on the R AC. Labs drawn and sent. Pending lab results and physician melquiades.
[2023-05-28 03:09] LABS: Alanine Aminotransferase 23 U/L (0-31); Albumin Level 3.9 g/dL (3.5-5.0); Alkaline Phosphatase 147 U/L (39-117); Anion Gap 15 (12-20); Aspartate Amino Transferase 28 U/L (5-31); Bilirubin Total 0.2 mg/dL (0.0-1.0); Blood Urea Nitrogen 14 mg/dL (9-16); Carbon Dioxide 25 mmol/L (22-29); Chloride 106 mmol/L (96-108); Creatinine Clr Calc Pharmacy 62.5; Estimated Glomerular Filt Rate > 60; Glucose Random 162 mg/dL (60-115); Potassium 4.3 mmol/L (3.3-5.1); Sodium 142 mmol/L (135-145); Total Protein 7.9 g/dL (6.5-8.0); Troponin-I High Sensitivity < 2.7 ng/L (<3.5-17.0)
--- NOTE | 2023-05-28 03:19 | ED_ITS ---
HPI - Chest Pain General Chief Complaint: Chest Pain Stated Complaint: cp Time Seen by Provider: 05/28/23 03:18 Source: patient Mode of arrival: ambulatory Limitations: no limitations History of Present Illness HPI narrative: Patient with history of hypertension diabetes anxiety depression high cholesterol comes here with midsternal chest pain started at midnight while watching TV at rest patient feels burning pain with numbness in the left arm slight shortness of breath no diaphoresis felt slightly nauseated patient felt better after taking nitroglycerin given by EMS no known coronary artery disease patient pain get worse on movements and taking deep breath no cough also patient complaining of right hip pain for some time no known injury Related Data Previous Rx's Medication Instructions Recorded cephalexin 500 mg capsule 500 mg PO Q8H #21 caps 08/19/21 phenazopyridine 100 mg tablet 100 mg PO TID PRN pain 6 doses #6 08/19/21 (Pyridium) tabs cefpodoxime 200 mg tablet 200 mg PO BID #20 tabs 08/24/21 oxycodone 5 mg tablet 5 mg PO Q6H PRN Pain, Moderate #20 08/24/21 tabs amoxicillin 875 mg-potassium 1 tab PO BID 10 days #20 tabs 10/29/22 clavulanate 125 mg tablet oxycodone 5 mg tablet 5 mg PO Q6H PRN pain #14 tabs 10/29/22 ibuprofen 600 mg tablet 600 mg PO Q6H PRN fever or pain 05/28/23 #30 tabs tramadol 50 mg tablet 50 mg PO Q6H PRN pain #20 tabs 05/28/23 Allergies Allergy/AdvReac Type Severity Reaction Status Date / Time No Known Allergies Allergy Verified 08/23/21 22:17 [No Known Allergies*] Review of Systems Review of Systems: Yes all other systems are reviewed and are negative PMFSH Past Medical History Medical History Diabetes HTN (hypertension) Social History Social History Patient Tobacco Use Status: Former Tobacco user Smoked in Last 30 Days: No Use of substances other than those prescribed or required for medical reasons: No Advance Directives: No Advance Directives Information Provided: No Physical Exam Vital Signs: Vital Signs: Last Vital Signs Temp 97.9 F 08/31/23 06:18 Pulse 77 05/28/23 06:18 Resp 14 05/28/23 06:18 BP 96/51 L 05/28/23 06:18 Pulse Ox 97 05/28/23 06:18 O2 Del Method Room Air 05/28/23 06:18 BMI result Body Mass Index 28.3 Appearance: Alert. Oriented X3. No acute distress. Eyes: PERRLA, No Nystagmus ENT: Pharynx normal. Oral Mucosa moist Neck: Normal inspection. Neck supple. CVS: Normal heart rate and rhythm. Pulses normal. Chest wall tenderness Respiratory: No respiratory distress. Equal air entry bilateral, no wheezing/rales/rhonchi Abdomen: Soft and nontender. Bowel sounds are present, no mass palpable, no CVA tenderness Skin: Skin warm and dry. Normal skin color. Normal skin turgor. Extremities: No lower extremity edema. No calf tenderness tenderness at right lateral aspect of the hip especially on abduction Neuro: Oriented X 3. No motor deficit. No sensory deficit.No cerebellar signs , cranial nerves II-XII intact Medications Administered Discontinued Medications Generic Name Dose Route Start Last Admin Trade Name Freq PRN Reason Stop Dose Admin Ketorolac Tromethamine 30 mg 05/28/23 03:33 05/28/23 03:48 Ketorolac Tromethamine 30 Mg/Ml Vial IVPUSH 05/28/23 03:34 30 mg ONCE ONE Administration Medical Decision Making Medical Decision Making [facility] Narrative: Patient clinically with mid chest pain EKG was negative chest pain reproducible on palpation likely costochondritis. Repeat troponin to rule out ACS patient has pain and slight lateral aspect of the right hip likely iliotibial band syndrome , NO BUBBLE TEST WAS POSITIVE ON THE RIGHT HIP will give her tramadol for pain, 2 sets of troponin negative patient chest pain-free at time of discharge Differential Diagnosis Differential Diagnoses: The differential diagnosis associated with the presentation includes Iliotibial band syndrome/arthritis of right hip/ACS/anxiety/costochondritis Admission/Observation Consideration of admission/observation: Escalation of care including admission/observation considered Lab Data [facility] Lab Attestation statement: I reviewed the patient's lab results. 05/28/23 02:35 05/28/23 02:35 Labs: Lab Results 05/28/23 05/28/23 05/28/23 Range/Units 02:35 02:35 02:35 WBC 11.1 H (4.8-10.8) X10*3/uL RBC 4.58 (4.20-5.50) X10*6/uL Hgb 12.5 (12.0-16.0) g/dl Hct 39.0 (37.0-47.0) % MCV 85.2 (80.0-98.0) fL MCH 27.3 (27.0-33.0) pg MCHC 32.1 (31.0-35.0) g/dl RDW 13.2 (11.0-16.0) % Plt Count 299 (160-400) X10*3/uL MPV 9.5 (9.4-12.3) fL Immature Gran % (Auto) 0.3 (0.0-0.4) % Neut % (Auto) 60.2 (45-73) % Lymph % (Auto) 29.0 (20-40) % [place] % (Auto) 7.2 (2-11) % Eos % (Auto) 3.1 (0-4) % Baso % (Auto) 0.2 (0-2) % Lymph # (Auto) 3.2 (1.2-4.9) X10*3/uL [place] # (Auto) 0.8 (0.1-1.2) X10*3/uL Eos # (Auto) 0.4 (0.0-0.4) X10*3/uL Baso # (Auto) 0.0 (0.0-0.2) X10*3/uL Abs Immat Gran (auto) 0.03 (0.00-0.03) X10*3/uL Absolute Neuts (auto) 6.7 (2.0-8.3) x10*3/uL Absolute Nucleated RBC 0.000 (0.0-0.012) X10*3/uL Nucleated RBC % (auto) 0.0 (0.0-0.2) /100WBC Sodium 142 (135-145) mmol/L Potassium 4.3 (3.3-5.1) mmol/L Chloride 106 (96-108) mmol/L Carbon Dioxide 25 (22-29) mmol/L Anion Gap 15 (12-20) BUN 14 (9-16) mg/dL Creatinine 0.76 (0.5-1.4) mg/dL Estim Creat Clear Calc 62.5 Estimated GFR > 60 Random Glucose 162 H (60-115) mg/dL Calcium 10.0 D (8.4-10.2) mg/dL Total Bilirubin 0.2 (0.0-1.0) mg/dL AST 28 (5-31) U/L ALT 23 (0-31) U/L Alkaline Phosphatase 147 H (39-117) U/L Troponin I High Sens < 2.7 (<3.5-17.0) ng/L Total Protein 7.9 (6.5-8.0) g/dL Albumin 3.9 (3.5-5.0) g/dL 05/28/23 Range/Units 04:44 WBC (4.8-10.8) X10*3/uL RBC (4.20-5.50) X10*6/uL Hgb (12.0-16.0) g/dl Hct (37.0-47.0) % MCV (80.0-98.0) fL MCH (27.0-33.0) pg MCHC (31.0-35.0) g/dl RDW (11.0-16.0) % Plt Count (160-400) X10*3/uL MPV (9.4-12.3) fL Immature Gran % (Auto) (0.0-0.4) % Neut % (Auto) (45-73) % Lymph % (Auto) (20-40) % [place] % (Auto) (2-11) % Eos % (Auto) (0-4) % Baso % (Auto) (0-2) % Lymph # (Auto) (1.2-4.9) X10*3/uL [place] # (Auto) (0.1-1.2) X10*3/uL Eos # (Auto) (0.0-0.4) X10*3/uL Baso # (Auto) (0.0-0.2) X10*3/uL Abs Immat Gran (auto) (0.00-0.03) X10*3/uL Absolute Neuts (auto) (2.0-8.3) x10*3/uL Absolute Nucleated RBC (0.0-0.012) X10*3/uL Nucleated RBC % (auto) (0.0-0.2) /100WBC Sodium (135-145) mmol/L Potassium (3.3-5.1) mmol/L Chloride (96-108) mmol/L Carbon Dioxide (22-29) mmol/L Anion Gap (12-20) BUN (9-16) mg/dL Creatinine (0.5-1.4) mg/dL Estim Creat Clear Calc Estimated GFR Random Glucose (60-115) mg/dL Calcium (8.4-10.2) mg/dL Total Bilirubin (0.0-1.0) mg/dL AST (5-31) U/L ALT (0-31) U/L Alkaline Phosphatase (39-117) U/L Troponin I High Sens < 2.7 (<3.5-17.0) ng/L Total Protein (6.5-8.0) g/dL Albumin (3.5-5.0) g/dL Independent Interpretation I performed an independent interpretation of an: EKG Interpretation: Sinus rhythm heart rate 87 beats per minute few PACs no acute ST T wave changes no acute ischemic Discharge Plan Discharge Clinical Impression: Chest pain, Iliotibial band syndrome affecting right lower leg Patient Disposition: Home, Self-Care Instructions: Chest Pain (ED), Iliotibial Band Syndrome (ED) Additional Instructions: APPLY ICE AND TAKE PAIN MEDICATION FOR HIP PAIN follow-up with PCP for chest pain for further evaluation including stress test APLICAR HIELO Y GWYN MEDICAMENTOS PARA EL DOLOR DE CADERA seguimiento con el PCP por dolor en el pecho para thania evaluaci?n adicional, incluida thania prueba de esfuerzo Prescriptions: New tramadol 50 mg tablet 50 mg PO Q6H PRN (Reason: pain) Qty: 20 0RF ibuprofen 600 mg tablet 600 mg PO Q6H PRN (Reason: fever or pain) Qty: 30 0RF No Action cephalexin 500 mg capsule 500 mg PO Q8H Qty: 21 0RF phenazopyridine [Pyridium] 100 mg tablet 100 mg PO TID PRN (Reason: pain) Qty: 6 0RF amoxicillin-pot clavulanate 875-125 mg tablet 1 tab PO BID 10 Days Qty: 20 0RF oxycodone 5 mg tablet 5 mg PO Q6H PRN (Reason: pain) Qty: 14 0RF Rx Instructions: Partial Fill upon patient request. cefpodoxime 200 mg tablet 200 mg PO BID Qty: 20 0RF Rx Instructions: must administer with a meal/food oxycodone 5 mg tablet 5 mg PO Q6H PRN (Reason: Pain, Moderate) Qty: 20 0RF Interventions: ED Discharge Assessment Last Done: 05/28/23 06:53 Discharge Date/Time: 05/28/23 06:54 Print Language: Swedish
[2023-05-28] MEDS: Ketorolac Tromethamine 30 MG/ML VIAL IVPUSH (03:48)
--- NOTE | 2023-05-28 04:06 | PC.NURSE ---
Pt ambulatory with walker to the bathroom.
[2023-05-28 04:07] VITALS: BP 104/54; PULSE 82; RESP 20
[2023-05-28 05:08] LABS: Troponin-I High Sensitivity < 2.7 ng/L (<3.5-17.0)
[2023-05-28 06:18] VITALS: BP 96/51; PULSE 77; RESP 14; TEMP 36.6; O2SAT 97
== END 2023-05-28 06:54 | disposition home or self-care (01) ==
PROVIDERS: Emergency Provider Internal Medicine; PCP Internal Medicine
DX: R07.9 Chest pain, unspecified (principal); M76.31 Iliotibial band syndrome, right leg; R06.02 Shortness of breath; E11.9 Type 2 diabetes mellitus without complications; I10 Essential (primary) hypertension; E78.5 Hyperlipidemia, unspecified; Z79.899 Other long term (current) drug therapy
CPT/HCPCS: 36415; 71046; 73502; 80053; 84484; 85025; 93005; 96374; 99284; 99285; J1885

== ENCOUNTER 2023-06-24 10:08 | Outpatient (REF) | payer MEDICARE, SELFPAY | END 2023-06-24 10:09 | disposition home or self-care (01) | LOC: HO.MAMMO 10:08 | PROVIDERS: PCP Internal Medicine; Visit Provider Internal Medicine | DX: Z12.31 Encounter for screening mammogram for malignant neoplasm of breast (principal) | CPT/HCPCS: 77063; 77067 ==

== ENCOUNTER → 2023-06-24 10:30 | Outpatient (BNV) | payer MEDICARE, SELFPAY | PROVIDERS: PCP Internal Medicine; Visit Provider Radiology Diagnostic Radiology | DX: Z12.31 Encounter for screening mammogram for malignant neoplasm of breast (principal) | CPT/HCPCS: 77063; 77067 ==

== ENCOUNTER 2024-01-02 20:27 | Inpatient (IN) | payer OTHER, SELFPAY ==
--- NOTE | ~2024-01-02 | XR_ITS ---
EXAMINATION: XR CHEST CLINICAL INFORMATION: Shortness of breath COMPARISON: 05/28/2023 TECHNIQUE: Frontal view of the chest was obtained. FINDINGS: Heart is top normal in size. No acute vascular congestion. No focal opacities or pleural effusions. XR/XR chest 1V IMPRESSION: No acute process
--- NOTE | ~2024-01-02 | CT_ITS ---
EXAMINATION: CT ABDOMEN AND PELVIS WITHOUT CONTRAST CLINICAL INFORMATION: Abdominal pain. COMPARISON: CT abdomen/pelvis 10/29/2022. TECHNIQUE: Multidetector volumetric imaging was performed from the superior aspect of the liver through the pubic symphysis. Sagittal and coronal reformatted images were obtained on the technologist's workstation. This CT examination was performed using dose optimization techniques as appropriate, variously including the following: *Automated exposure control *Adjustment of mA and/or kV according to patient size (this includes techniques or standardized protocols for targeted exams where dose is matched to indication/reason for exam; i.e. extremities or head) *Use of iterative reconstruction technique DLP: 703 mGy-cm FINDINGS: The lack of intravenous contrast limits evaluation of the solid visceral organs including the liver, spleen, pancreas, and kidneys. LUNG BASES: Bronchial wall thickening with bibasilar subsegmental atelectasis. LIVER, GALLBLADDER, AND BILIARY TREE: Liver is normal in size, morphology and attenuation. The gallbladder is not seen, presumed to be surgically removed versus under distended. Stable extrahepatic biliary ductal dilatation with CBD measuring up to 1.2 cm in diameter. No significant intrahepatic biliary ductal dilatation. PANCREAS: Stable mild diffuse parenchymal atrophy. No main ductal dilatation. No peripancreatic inflammatory changes. SPLEEN: Unremarkable. ADRENAL GLANDS: Unremarkable. KIDNEYS AND URETERS: Nonobstructive left-sided renal calculi. BLADDER: Decompressed with a balloon of [place] place. Intraluminal air is nonspecific in the context of the following. Equivocal diffuse wall thickening, suboptimally assessed due to underdistention. No intraluminal calculi. No perivesical inflammatory changes. GASTROINTESTINAL TRACT: The stomach and the small bowel are nondilated. The appendix is not visualized, though there are no regional inflammatory changes to suspect acute appendicitis. Large amount of stool throughout the colon and rectum. No significant pericolonic inflammatory changes. No evidence of bowel obstruction. ABDOMINAL WALL: No significant hernia is appreciated. LYMPH NODES: No lymphadenopathy. Stable mild fatty haziness of the central mesentery. VASCULAR: Atherosclerotic disease. Normal caliber abdominal aorta. PELVIC VISCERA: Stable coarse calcifications in the uterine fundus, most likely associated with degenerative uterine fibroids and/or vascular calcifications. OSSEOUS STRUCTURES: Stable mild superior endplate deformity at L1. Degenerative changes of the spine. Chronic ankylosis/fusion of the right hip with atrophy of the surrounding muscles. CT/CT abdomen pelvis wo IV con IMPRESSION: 1. Large amount of stool in the colon and rectum suggesting constipation. 2. Nonobstructive left-sided renal calculi. 3. Stable nonspecific extrahepatic biliary ductal dilatation, possibly secondary to post cholecystectomy state. Correlate clinically. Further evaluation with MRCP could be obtained as clinically warranted. 4. Stable mild central mesenteric fatty haziness that could be seen in the context with chronic mesenteric panniculitis. 5. Bronchial wall thickening suggesting small airways disease. 6. Again noted fused/ankylotic right hip with associated muscular atrophy.
[2024-01-02 20:58] VITALS: BP 107/85; BP 152/96; PULSE 97; RESP 24; TEMP 37; O2SAT 99; BMI 35.9
[2024-01-02 21:01] VITALS: BP 118/68; PULSE 98; RESP 16; TEMP 37.2; O2SAT 97
--- NOTE | 2024-01-02 21:19 | ED.GENADULT ---
HPI - General Adult General Chief complaint: General Medical Stated complaint: NVD, chest pain, on 3L O2 via NRB Time Seen by Provider: 01/02/24 21:16 Source: patient and EMS Mode of arrival: EMS Limitations: no limitations History of Present Illness HPI narrative: Patient with history of asthma comes here for nausea vomiting for last 3 days with cough nasal congestion and fever saturating 93% at room air diffuse abdominal pain patient has vomited about 2 times today and 3 times yesterday had 2 loose bowels yesterday complaining of headache Related Data Home Medications ?Medication ?Instructions ?Recorded ?Confirmed aspirin 81 mg tablet,delayed 81 mg PO QAM 01/03/24 01/03/24 release atorvastatin 80 mg tablet 80 mg PO QAM 01/03/24 01/03/24 celecoxib 100 mg capsule 100 mg PO DAILY 01/03/24 01/03/24 dulaglutide 3 mg/0.5 mL mg subcut QWEEK 01/03/24 subcutaneous pen injector (Trulicity) gabapentin 600 mg tablet 600 mg PO TID 01/03/24 01/03/24 lisinopril 10 mg tablet 10 mg PO BEDTIME 01/03/24 01/03/24 metoprolol succinate 25 mg 25 mg PO DAILY 01/03/24 01/03/24 tablet,extended release 24 hr montelukast 10 mg tablet 10 mg PO QPM 01/03/24 01/03/24 pantoprazole 40 mg tablet,delayed 40 mg PO QAM 01/03/24 01/03/24 release sertraline 100 mg tablet 100 mg PO DAILY 01/03/24 01/03/24 Previous Rx's ?Medication ?Instructions ?Recorded cephalexin 500 mg capsule 500 mg PO Q8H #21 caps 08/19/21 phenazopyridine 100 mg tablet 100 mg PO TID PRN pain 6 doses #6 08/19/21 (Pyridium) tabs cefpodoxime 200 mg tablet 200 mg PO BID #20 tabs 08/24/21 oxycodone 5 mg tablet 5 mg PO Q6H PRN Pain, Moderate #20 08/24/21 tabs amoxicillin 875 mg-potassium 1 tab PO BID 10 days #20 tabs 10/29/22 clavulanate 125 mg tablet oxycodone 5 mg tablet 5 mg PO Q6H PRN pain #14 tabs 10/29/22 ibuprofen 600 mg tablet 600 mg PO Q6H PRN fever or pain 05/28/23 #30 tabs tramadol 50 mg tablet 50 mg PO Q6H PRN pain #20 tabs 05/28/23 Allergies Allergy/AdvReac Type Severity Reaction Status Date / Time No Known Allergies Allergy Verified 01/02/24 21:00 [No Known Allergies*] Review of Systems Review of Systems: Yes all other systems are reviewed and are negative [facility] Past Medical History Medical History HTN (hypertension) Diabetes Social History Social History Patient Tobacco Use Status: Former Tobacco user Advance Directives: No Advance Directives Information Provided: No Nutrition Risks: Acute nausea or vomiting x1 week Physical Exam ED Vital Signs: Vital Signs - 24 hr 01/02/24 20:58 01/02/24 21:01 01/02/24 21:48 Temperature 98.6 F 99.0 F Pulse Rate 97 98 97 Respiratory Rate 24 H 16 22 H Blood Pressure 107/85 118/68 Pulse Oximetry 99 97 Oxygen Delivery Method Non-Rebreather Mask Room Air Oxygen Flow Rate 01/02/24 23:40 01/03/24 01:56 Temperature 98.9 F Pulse Rate 105 H 95 Respiratory Rate 21 H 17 Blood Pressure 115/65 111/42 L Pulse Oximetry 96 94 Oxygen Delivery Method Nasal Cannula Room Air Oxygen Flow Rate 2 BMI result Body Mass Index 35.9 Appearance: Alert. Oriented X3. No acute distress. Eyes: PERRLA, No Nystagmus ENT: Pharynx normal. Oral Mucosa moist Neck: Normal inspection. Neck supple. CVS: Normal heart rate and rhythm. Pulses normal. Respiratory: No respiratory distress. Equal air entry bilateral, bilateral wheezing Abdomen: Soft and nontender. Bowel sounds are present, no mass palpable, no CVA tenderness Skin: Skin warm and dry. Normal skin color. Normal skin turgor. Extremities: No lower extremity edema. No calf tenderness Neuro: Oriented X 3. No motor deficit. Medications Administered Generic Name Dose Route Start Last Admin Trade Name Freq PRN Reason Stop Dose Admin Albuterol Sulfate 4 puff 01/03/24 02:30 01/03/24 03:46 Albuterol Sulfate 90 Mcg 8 Gm Inhaler INHALE Not Given RQ4H WHILE AWAKE ENEDINA Guaifenesin/Dextromethorphan 2 tab 01/03/24 02:30 01/03/24 03:16 Guaifenesin Dm 600/30 1 Tab Tab.Er.12h PO Not Given BID ENEDINA Lactated Ringer's 1,000 mls @ 100 mls/hr 01/03/24 02:30 01/03/24 03:00 Lr IVCONT 100 mls/hr .Q10H ENEDINA Administration Insulin Human Lispro 0 unit 01/03/24 02:45 01/03/24 03:26 Insulin Lispro 100 Unit/Ml 3 Ml Vial SUBCUT 8 unit Q6H ENEDINA Administration Protocol Ondansetron HCl 4 mg 01/03/24 02:30 01/03/24 02:59 Ondansetron Hcl 4 Mg/2 Ml Vial IVPUSH 4 mg Q8H ENEDINA Administration Pantoprazole Sodium 40 mg 01/03/24 02:25 01/03/24 03:00 Pantoprazole Sodium 40 Mg/10 Ml Vial IVPUSH 40 mg DAILY ENEDINA Administration Discontinued Medications Generic Name Dose Route Start Last Admin Trade Name Freq PRN Reason Stop Dose Admin Benzonatate 200 mg 01/02/24 23:54 01/03/24 00:24 Benzonatate 100 Mg Capsule PO 01/02/24 23:55 200 mg ONCE ONE Administration Albuterol Sulfate 2.5 mg/ 0 mg 01/02/24 21:31 01/02/24 21:47 Albuterol/Ipratropium 3 ml INHALE 01/02/24 21:32 2.5 dose ONCE ONE Administration Hydromorphone HCl 1 mg 01/03/24 02:17 01/03/24 02:59 Hydromorphone Hcl 1 Mg/Ml Syringe IVPUSH 01/03/24 02:18 1 mg ONCE STA Administration Protocol Sodium Chloride 1,000 mls @ 999 mls/hr 01/02/24 21:31 01/02/24 23:15 Ns IV 01/02/24 22:31 Infused .Q1H1M ONE Infusion Lactated Ringer's 1,000 mls @ 999 mls/hr 01/03/24 02:30 01/03/24 04:00 Lr IV 01/03/24 03:30 Infused .Q1H1M ENEDINA Infusion Methylprednisolone Sodium Succinate 125 mg 01/02/24 23:54 01/03/24 00:24 Methylprednisolone Sod Succ 125 Mg/2 Ml Vial IVPUSH 01/02/24 23:55 125 mg ONCE ONE Administration Morphine Sulfate 4 mg 01/02/24 23:13 01/02/24 23:39 Morphine Sulfate 4 Mg/Ml Cartridge IVPUSH 01/02/24 23:14 4 mg ONCE ONE Administration Protocol Ondansetron HCl 4 mg 01/02/24 21:31 01/02/24 22:14 Ondansetron Hcl 4 Mg/2 Ml Vial IVPUSH 01/02/24 21:32 4 mg ONCE ONE Administration Oseltamivir Phosphate 75 mg 01/02/24 23:53 01/03/24 00:24 Oseltamivir Phosphate 75 Mg Capsule PO 01/02/24 23:54 75 mg ONCE ONE Administration Medical Decision Making Medical Decision Making [facility] Narrative: Patient with influenza a with nausea vomiting weakness cough with history of asthma lives alone feeling very weak in the ER patient was unable to go to the bathroom of her own , 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 will admit patient for supportive treatment started Tamiflu Patient's symptoms are from viral infection influenza a not bacterial infection patient does not not meet the criteria for bacterial sepsis Differential Diagnosis Differential Diagnoses: The differential diagnosis associated with the presentation includes Asthma/pneumonia/influenza/COVID/CHF/bronchitis Admission/Observation Consideration of admission/observation: Escalation of care including admission/observation considered Consult Healthcare Provider Management of the patient was discussed with: Hospitalist Lab Data [facility] Lab Attestation statement: I reviewed the patient's lab results. 01/02/24 22:03 01/02/24 22:03 Labs: Lab Results 01/02/24 Range/Units 22:03 WBC 5.9 (4.8-10.8) X10*3/uL RBC 5.03 (4.20-5.50) X10*6/uL Hgb 14.0 (12.0-16.0) g/dl Hct 42.5 (37.0-47.0) % MCV 84.5 (80.0-98.0) fL MCH 27.8 (27.0-33.0) pg MCHC 32.9 (31.0-35.0) g/dl RDW 13.7 (11.0-16.0) % Plt Count 248 (160-400) X10*3/uL MPV 9.3 L (9.4-12.3) fL Immature Gran % (Auto) 0.3 (0.0-0.4) % Neut % (Auto) 52.9 (45-73) % Lymph % (Auto) 29.3 (20-40) % [place] % (Auto) 17.3 H (2-11) % Eos % (Auto) 0.0 (0-4) % Baso % (Auto) 0.2 (0-2) % Lymph # (Auto) 1.7 (1.2-4.9) X10*3/uL Early # (Auto) 1.0 (0.1-1.2) X10*3/uL Eos # (Auto) 0.0 (0.0-0.4) X10*3/uL Baso # (Auto) 0.0 (0.0-0.2) X10*3/uL Abs Immat Gran (auto) 0.02 (0.00-0.03) X10*3/uL Absolute Neuts (auto) 3.1 (2.0-8.3) x10*3/uL Absolute Nucleated RBC 0.000 (0.0-0.012) X10*3/uL Nucleated RBC % (auto) 0.0 (0.0-0.2) /100WBC Sodium 137 (135-145) mmol/L Potassium 3.5 (3.3-5.1) mmol/L Chloride 102 (96-108) mmol/L Carbon Dioxide 22 (22-29) mmol/L Anion Gap 17 (12-20) BUN 26 H (9-16) mg/dL Creatinine 0.86 (0.5-1.4) mg/dL Estim Creat Clear Calc 59.1 Estimated GFR > 60 Random Glucose 165 H (60-115) mg/dL Calcium 9.6 (8.4-10.2) mg/dL Magnesium 2.2 (1.6-2.6) mg/dL Total Bilirubin 0.4 (0.0-1.0) mg/dL AST 54 H (5-31) U/L ALT 38 H (0-31) U/L Alkaline Phosphatase 98 (39-117) U/L Troponin I High Sens 8.2 D (<3.5-17.0) ng/L B-Natriuretic Peptide 11 (<100) pg/mL Total Protein 8.6 H (6.5-8.0) g/dL Albumin 4.2 (3.5-5.0) g/dL Influenza Type A (PCR) POSITIVE A (Negative) Influenza Type B (PCR) NEGATIVE (Negative) RSV RNA Qual (PCR) NEGATIVE (Negative) SARS-CoV-2 RNA (RT-PCR) NEGATIVE (Negative) Independent Interpretation I performed an independent interpretation of an: EKG and Plain X-Ray Interpretation: Sinus tachycardia with heart rate [address]-T changes no acute ischemia Radiology Impression Discussion of test interpretation with radiology: I have reviewed the radiologist's reading. Radiologist Impression: Negative chest x-ray Discharge Plan Discharge Clinical Impression: Influenza A, Weakness Patient Disposition: Admitted As Inpatient
--- NOTE | 2024-01-02 21:31 | ECG_ITS ---
Test Reason : SOB Blood Pressure : / mmHG Vent. Rate : 114 BPM Atrial Rate : 114 BPM P-R Int : 136 ms QRS Dur : 078 ms QT Int : 326 ms P-R-T Axes : 036 014 039 degrees QTc Int : 449 ms Sinus tachycardia Nonspecific ST and T wave abnormality Abnormal ECG When compared with ECG of 28-MAY-2023 02:35, Premature atrial complexes are no longer Present Nonspecific T wave abnormality now evident in Inferior leads Nonspecific T wave abnormality now evident in Lateral leads Referred By: Kris Redd Electronically Signed By:INDIRA PALMER MD
[2024-01-02] MEDS: Albuterol Sulfate 2.5 MG, Albuterol/Iprat 2.5/0.5MG 3 ML 3 ML INHALE (21:47)
[2024-01-02 21:48] VITALS: PULSE 97; RESP 22; O2SAT 95
[2024-01-02 22:11] LABS: MANUAL DIFF FLAG NO
[2024-01-02 22:12] LABS: Basophils Percent Auto 0.2 % (0-2); Hematocrit 42.5 % (37.0-47.0); Imm Gran Abs Auto 0.02 X10*3/uL (0.00-0.03); Imm Gran Pct Auto 0.3 % (0.0-0.4); Lymphocytes Absolute Auto 1.7 X10*3/uL (1.2-4.9); Lymphocytes Percent Auto 29.3 % (20-40); Mean Corpuscular HGB Conc 32.9 g/dl (31.0-35.0); Mean Corpuscular Hemoglobin 27.8 pg (27.0-33.0); Mean Corpuscular Volume 84.5 fL (80.0-98.0); Mean Platelet Volume 9.3 fL (9.4-12.3); Monocytes Percent Auto 17.3 % (2-11); Neutrophils Absolute Auto 3.1 x10*3/uL (2.0-8.3); Neutrophils Percent Auto 52.9 % (45-73); Platelet Count 248 X10*3/uL (160-400); Red Blood Count 5.03 X10*6/uL (4.20-5.50); Red Cell Distribution Width 13.7 % (11.0-16.0); White Blood Count 5.9 X10*3/uL (4.8-10.8)
[2024-01-02] MEDS: 0.9 % Sodium Chloride 1,000 ML 999 ML IV (22:14)
[2024-01-02] MEDS: ondansetron HCL 4 MG/2 ML VIAL IVPUSH (22:14)
[2024-01-02 22:26] LABS: Alanine Aminotransferase 38 U/L (0-31); Albumin Level 4.2 g/dL (3.5-5.0); Alkaline Phosphatase 98 U/L (39-117); Anion Gap 17 (12-20); Aspartate Amino Transferase 54 U/L (5-31); Bilirubin Total 0.4 mg/dL (0.0-1.0); Blood Urea Nitrogen 26 mg/dL (9-16); Calcium 9.6 mg/dL (8.4-10.2); Carbon Dioxide 22 mmol/L (22-29); Chloride 102 mmol/L (96-108); Creatinine Clr Calc Pharmacy 59.1; Estimated Glomerular Filt Rate > 60; Glucose Random 165 mg/dL (60-115); Magnesium 2.2 mg/dL (1.6-2.6); Potassium 3.5 mmol/L (3.3-5.1); Sodium 137 mmol/L (135-145); Total Protein 8.6 g/dL (6.5-8.0)
[2024-01-02 22:32] LABS: B Type Natriuretic Peptide 11 pg/mL (<100); Troponin-I High Sensitivity 8.2 ng/L (<3.5-17.0)
[2024-01-02 23:25] LABS: Influenza A PCR POSITIVE (Negative); Influenza B PCR NEGATIVE (Negative); Resp Syncy Virus RNA Qual PCR NEGATIVE (Negative); SARS COV2 PCR INHOUSE NEGATIVE (Negative)
[2024-01-02] MEDS: Morphine Sulfate 4 MG/ML CARTRIDGE IVPUSH (23:39)
[2024-01-02 23:40] VITALS: BP 115/65; PULSE 105; RESP 21; O2SAT 96
[2024-01-03] VITALS (12 sets, daily range): BP systolic 105–149; BP diastolic 42–113; PULSE 75–95; RESP 16–22; TEMP 36.6–37.2; O2SAT 91–97
[2024-01-03] MEDS: methylPREDNISolone Sod Succ 125 MG/2 ML VIAL IVPUSH (00:24)
[2024-01-03] MEDS: Benzonatate 100 MG CAPSULE 200 MG PO (00:24)
[2024-01-03] MEDS: Oseltamivir Phosphate 75 MG CAPSULE PO ×3 (00:24→20:58)
[2024-01-03] MEDS: HYDROmorphone HCl 1 MG/ML SYRINGE IVPUSH (02:59)
[2024-01-03] MEDS: ondansetron HCL 4 MG/2 ML VIAL IVPUSH ×3 (02:59→18:58)
[2024-01-03] MEDS: Pantoprazole Sodium 40 MG/10 ML VIAL IVPUSH (03:00)
[2024-01-03] MEDS: Lactated Ringers 1,000 ML 100 ML IVCONT ×2 (03:00→11:57)
[2024-01-03] MEDS: Lactated Ringers 1,000 ML 999 ML IV (03:00)
[2024-01-03 03:05] LABS: Glucose, Whole Blood 331 mg/dL (60-115)
[2024-01-03 03:24] LABS: Appearance Urine Clear; Color Urine Yellow; Glucose Urine UA Negative (Negative); Leukocyte Esterase Urine Negative (Negative); Nitrite Urine Negative (Negative); Specific Gravity - Urine 1.025 (1.005-1.025); Urine Blood Negative (Negative); Urine Ketones Trace mg/dL (Negative); Urine Protein Trace mg/dL (Neg-Trace)
[2024-01-03] MEDS: Insulin Lispro 100 UNIT/ML 3 ML VIAL SUBCUT ×4 (03:26→20:58)
--- NOTE | 2024-01-03 04:00 | PC.NURSE ---
Radha Willams, sister [phone]. can call her with updates.
[2024-01-03 07:05] LABS: Hematocrit 36.9 % (37.0-47.0); Hemoglobin 12.2 g/dl (12.0-16.0); Mean Corpuscular HGB Conc 33.1 g/dl (31.0-35.0); Mean Corpuscular Hemoglobin 27.9 pg (27.0-33.0); Mean Corpuscular Volume 84.4 fL (80.0-98.0); Mean Platelet Volume 9.7 fL (9.4-12.3); Platelet Count 216 X10*3/uL (160-400); Red Blood Count 4.37 X10*6/uL (4.20-5.50); Red Cell Distribution Width 13.5 % (11.0-16.0); White Blood Count 5.2 X10*3/uL (4.8-10.8)
[2024-01-03 07:15] LABS: Glucose, Whole Blood 273 mg/dL (60-115)
[2024-01-03] MEDS: Albuterol Sulfate 90 MCG 8 GM INHALER 4 PUFF INHALE ×4 (08:01→19:54)
--- NOTE | 2024-01-03 08:34 | PM.IMHP ---
History of Present Illness Date of Service: 01/03/24 Attending physician on admission: Jesus Montez Chief Complaint: Shortness of breaths Esthela Flannery is [place]raltarian-speaking 67 years old woman with past medical history significant for type 2 diabetes mellitus and essential hypertension presents to the emergency department complaining of sore throat, worsening shortness of breath, cough, headache, nasal congestion or wheezing. She also complained of abdominal pain, nausea, vomiting, diarrhea and inability to urinate. She reported subjective fever and chills. She denied chest pain, palpitations or dizziness. Denies alcohol abuse, tobacco smoking or illicit drug use. In the ED, she was found to tachycardia and tachypnea. Oxygen saturation room air is 91%. Blood workup showed no leukocytosis. Hemoglobin and platelets are normal. Electrolytes are normal. Creatinine is 0.86. Transaminases are elevated. Bilirubin and alk phos are normal. Troponin and BNP are negative. Urinalysis showed. Viral testing is positive for influenza A. CXR is negative. ED tx: Tamiflu 75 mg p.o. daily, morphine 4 mg IV, albuterol headache, Zofran 4 mg IV, NS 1 L bolus and Solu-Medrol 125 mg IV. Review of Systems Review of Systems: All 12 systems were reviewed and normal except as noted in HPI. [facility] Medical History HTN (hypertension) Diabetes Social History Patient Tobacco Use Status: Former Tobacco user Advance Directives: No Advance Directives Information Provided: No Nutrition Risks: Acute nausea or vomiting x1 week Meds Allergies Allergy/AdvReac Type Severity Reaction Status Date / Time No Known Allergies Allergy Verified 01/02/24 21:00 [No Known Allergies*] Active Medications: Current Medications Acetaminophen (Acetaminophen 325 Mg Tablet) 975 mg PO Q6H PRN PRN Reason: Pain, Mild (Pain Scale 1-3) Albuterol Sulfate (Albuterol Sulfate 90 Mcg 8 Gm Inhaler) 4 puff INHALE RQ4H WHILE AWAKE [facility] Last Admin: 01/03/24 08:01 Dose: 4 puff Atorvastatin Calcium (Atorvastatin Calcium 80 Mg Tablet) 80 mg PO DAILY [facility] Glucose (Glucose Gel 15 Gm Gel..Gram.) 15 gm PO Q15M PRN; Protocol PRN Reason: per Hypoglycemia Standing Ord. Guaifenesin/Dextromethorphan (Guaifenesin Dm 600/30 1 Tab Tab.Er.12h) 2 tab PO BID [facility] Last Admin: 01/03/24 03:16 Dose: Not Given Heparin Sodium (Porcine) (Heparin Sodium,Porcine 5,000 Unit/Ml Vial) 5,000 unit SUBCUT Q8H [facility] Lactated Ringer's (Lr) 1,000 mls @ 100 mls/hr IVCONT .Q10H [facility] Last Admin: 01/03/24 03:00 Dose: 100 mls/hr Dextrose (D10) 250 mls @ 750 mls/hr IV Q15M PRN; Protocol PRN Reason: per Hypoglycemia Standing Ord. Insulin Human Lispro (Insulin Lispro 100 Unit/Ml 3 Ml Vial) 0 unit SUBCUT Q6H [facility]; Protocol Last Admin: 01/03/24 03:26 Dose: 8 unit Methylprednisolone Sodium Succinate (Methylprednisolone Sod Succ 40 Mg/Ml Vial) 40 mg IVPUSH BID [facility] Montelukast Sodium (Montelukast Sodium 10 Mg Tablet) 10 mg PO BEDTIME [facility] Ondansetron HCl (Ondansetron Hcl 4 Mg/2 Ml Vial) 4 mg IVPUSH Q8H [facility] Last Admin: 01/03/24 02:59 Dose: 4 mg Oseltamivir Phosphate (Oseltamivir Phosphate 75 Mg Capsule) 75 mg PO BID [facility] Stop: 01/07/24 09:01 Pantoprazole Sodium (Pantoprazole Sodium 40 Mg/10 Ml Vial) 40 mg IVPUSH DAILY [facility] Last Admin: 01/03/24 03:00 Dose: 40 mg Sertraline HCl (Sertraline Hcl 100 Mg Tablet) 100 mg PO DAILY [facility] Sodium Chloride (0.9 % Sodium Chloride Flush 3 Ml Syringe) 3 ml IVFLUSH QSHIFT [facility] Home Medications ?Medication ?Instructions ?Recorded ?Confirmed ?Last Taken ?Type aspirin 81 mg tablet,delayed 81 mg PO DAILY 01/03/24 01/03/24 Unknown History release atorvastatin 80 mg tablet 80 mg PO DAILY 01/03/24 01/03/24 Unknown History calcium carbonate 600 mg-vitamin 1 tab PO BID 01/03/24 01/03/24 Unknown History D3 10 mcg (400 unit) tablet calcium polycarbophil 625 mg 625 mg PO BID 01/03/24 01/03/24 Unknown History tablet (Fiber-Lax) celecoxib 100 mg capsule 100 mg PO DAILY 01/03/24 01/03/24 Unknown History docusate sodium 100 mg capsule 100 mg PO BID 01/03/24 Unknown History dulaglutide 3 mg/0.5 mL 3 mg subcut QWEEK 01/03/24 Unknown History subcutaneous pen injector (Trulicity) gabapentin 600 mg tablet 600 mg PO TID 01/03/24 01/03/24 Unknown History insulin glargine 100 unit/mL (3 10 unit subcut DAILY 01/03/24 Unknown History mL) subcutaneous pen (Lantus Solostar U-100 Insulin) lisinopril 10 mg tablet 10 mg PO BEDTIME 01/03/24 01/03/24 Unknown History melatonin 5 mg tablet 5 mg PO BEDTIME 01/03/24 01/03/24 Unknown History metoprolol succinate 25 mg 25 mg PO DAILY 01/03/24 01/03/24 Unknown History tablet,extended release 24 hr montelukast 10 mg tablet 10 mg PO QPM 01/03/24 01/03/24 Unknown History pantoprazole 40 mg tablet,delayed 40 mg PO DAILY@0630 01/03/24 01/03/24 Unknown History release sertraline 100 mg tablet 100 mg PO DAILY 01/03/24 01/03/24 Unknown History Physical Exam Vital Signs and Narrative: Vital Signs: Last Vital Signs Temp 98.9 F 01/03/24 05:45 Pulse 80 01/03/24 08:03 Resp 18 01/03/24 08:03 BP 123/66 01/03/24 05:45 Pulse Ox 91 L 01/03/24 05:45 O2 Del Method Room Air 01/03/24 05:45 O2 Flow Rate 2 01/02/24 23:40 BMI result Body Mass Index 35.9 Constitutional - Awake and Alert. Looks in distress due to severe abdominal pain. Afebrile. HEENT - pupils equally round. Normal sclerae. Hyperemic oropharynx. Heart r - S1S2, RRR. Lungs - Normal lung expansion, Normal respiratory effort, No respiratory distress. Tachypnea. End expiratory wheezes. Abdomen - pelvic tenderness. Normal bowel sounds. No rebound. No guarding Extremities - no calf tenderness bilaterally, no swelling Musculoskeletal - Normal inspection, normal ROM Skin - Warm/Dry Neurological - Alert & oriented x3. No focal weakness. Normal speech Psychological - Appropriate affect Results Labs 01/03/24 05:47 01/02/24 22:03 Labs: Laboratory Results - last 24 hr 01/02/24 01/03/24 01/03/24 22:03 03:00 03:14 MCV 84.5 MCH 27.8 MCHC 32.9 RDW 13.7 Plt Count 248 MPV 9.3 L Immature Gran % (Auto) 0.3 Neut % (Auto) 52.9 Lymph % (Auto) 29.3 [place] % (Auto) 17.3 H Eos % (Auto) 0.0 Baso % (Auto) 0.2 Lymph # (Auto) 1.7 [place] # (Auto) 1.0 Eos # (Auto) 0.0 Baso # (Auto) 0.0 Abs Immat Gran (auto) 0.02 Absolute Neuts (auto) 3.1 Absolute Nucleated RBC 0.000 Nucleated RBC % (auto) 0.0 Anion Gap 17 Estim Creat Clear Calc 59.1 Estimated GFR > 60 POC Glucose 331 H Random Glucose 165 H Calcium 9.6 Magnesium 2.2 Total Bilirubin 0.4 AST 54 H ALT 38 H Alkaline Phosphatase 98 Troponin I High Sens 8.2 D B-Natriuretic Peptide 11 Total Protein 8.6 H Albumin 4.2 Urine Color Yellow Urine Appearance Clear Urine pH 6.0 Ur Specific [place] 1.025 Urine Protein Trace Urine Glucose (UA) Negative Urine Ketones Trace Urine Blood Negative Urine Nitrite Negative Ur Leukocyte Esterase Negative Influenza Type A (PCR) POSITIVE A Influenza Type B (PCR) NEGATIVE RSV RNA Qual (PCR) NEGATIVE SARS-CoV-2 RNA (RT-PCR) NEGATIVE 01/03/24 01/03/24 05:47 07:07 MCV 84.4 MCH 27.9 MCHC 33.1 RDW 13.5 Plt Count 216 MPV 9.7 Immature Gran % (Auto) Neut % (Auto) Lymph % (Auto) [place] % (Auto) Eos % (Auto) Baso % (Auto) Lymph # (Auto) [place] # (Auto) Eos # (Auto) Baso # (Auto) Abs Immat Gran (auto) Absolute Neuts (auto) Absolute Nucleated RBC 0.000 Nucleated RBC % (auto) 0.0 Anion Gap Estim Creat Clear Calc Estimated GFR POC Glucose 273 H Random Glucose Calcium Magnesium Total Bilirubin AST ALT Alkaline Phosphatase Troponin I High Sens B-Natriuretic Peptide Total Protein Albumin Urine Color Urine Appearance Urine pH Ur Specific [place] Urine Protein Urine Glucose (UA) Urine Ketones Urine Blood Urine Nitrite Ur Leukocyte Esterase Influenza Type A (PCR) Influenza Type B (PCR) RSV RNA Qual (PCR) SARS-CoV-2 RNA (RT-PCR) Imaging Radiologist's Impressions: Impressions Chest X-Ray 01/02/24 21:51 IMPRESSION: No acute process Assessment and Plan (1) Influenza A: Status: Acute (2) HTN (hypertension): Status: Acute (3) Diabetes: Status: Acute Plan Esthela Flannery is [place]ralt[place]-speaking 67 years old woman admitted with: Acute bronchitis secondary to influenza infection, persistent bronchospasm. Admit to hospitalist service. Telemetry. Pulse oximetry. Supplemental oxygen. Complete Tamiflu course. Continue bronchodilator and IV steroids therapy. Mucinex 2 tablets p.o. b.i.d. continue montelukast. Abdominal pain, nausea, vomiting and diarrhea. Gastroenteritis secondary to influenza infection. IV fluids and symptomatic therapy as needed. Urinary retention. Status post indwelling urinary catheter placement. Hyperlipidemia. Continue statin. Depression. Mood disorder. Type 2 diabetes mellitus. Blood glucose monitoring before meals at bedtime. Diabetic diet. Continue Trulicity and Lantus. Insulin sliding scale. DVT prophylaxis: Heparin Code status: Full Patient will need hospitalization for at least 2 midnights for acute bronchitis therapy with Quality Stroke Does the patient have a stroke diagnosis?: No VTE Prior VTE?: No VTE Risk Level:: Medical - moderate - high VTE Device Contraindication: Treatment Not Indicated VTE Drug Contraindication: N/A - Med Ordered
[2024-01-03] MEDS: Heparin Sodium,Porcine 5,000 UNIT/ML VIAL 5000 UNIT SUBCUT ×2 (08:43→18:57)
[2024-01-03] MEDS: 0.9 % Sodium Chloride Flush 3 ML SYRINGE IVFLUSH (08:43)
[2024-01-03] MEDS: methylPREDNISolone Sod Succ 40 MG/ML VIAL IVPUSH ×2 (08:44→20:58)
[2024-01-03] MEDS: Sertraline HCL 100 MG TABLET PO (08:44)
[2024-01-03] MEDS: Atorvastatin Calcium 80 MG TABLET PO (08:44)
--- NOTE | 2024-01-03 08:59 | PC.NURSE ---
pt is alert but appears slightly confused at times, is able to state that she is in a [place] hospital but does not know the day or year, not sure of pt's baseline, skin appropriate for ethnicity, respirations even and unlabored, but ls wheezing through out, pt is sating 91-92% on room air, pt put on 2l via nasal cannual, pt is reporting back pain/headache at 9/10, quach in place and draining well at this time. vs stable and ns on the monitor
--- NOTE | 2024-01-03 09:26 | P.PNIM_ITS ---
Subjective Subjective Date of Service: 01/03/24 Interval History: f/u on asthma exacerbation d/t influenza, abdominal pain, n/v Physical Exam 2 Vital Signs: Vital Signs: Last Vital Signs Temp 97.8 F 01/03/24 08:55 Pulse 75 01/03/24 08:55 Resp 20 01/03/24 08:55 BP 132/68 01/03/24 08:55 Pulse Ox 92 01/03/24 08:55 O2 Del Method Room Air 01/03/24 08:55 O2 Flow Rate 2 01/02/24 23:40 BMI result Body Mass Index 35.9 General: AO X 3, no acute distress Resp: CTA bilateral CVS: S1,S2,RRR GI: +BS, non specific tenderness, no distention Skin: No rash Neuro: motor grossly intact Psych: appropriate affect Objective Data Active Medications Acetaminophen (Acetaminophen 325 Mg Tablet) 975 mg PO Q6H PRN PRN Reason: Pain, Mild (Pain Scale 1-3) Albuterol Sulfate (Albuterol Sulfate 90 Mcg 8 Gm Inhaler) 4 puff INHALE RQ4H WHILE AWAKE [facility] Last Admin: 01/03/24 08:01 Dose: 4 puff Documented By: SHONA Atorvastatin Calcium (Atorvastatin Calcium 80 Mg Tablet) 80 mg PO DAILY [facility] Last Admin: 01/03/24 08:44 Dose: 80 mg Documented By: PRINCE Diphenoxylate HCl/Atropine (Diphenoxylate/Atrop 2.5/0.025 Tablet) 1 tab PO QID PRN PRN Reason: Diarrhea Glucose (Glucose Gel 15 Gm Gel..Gram.) 15 gm PO Q15M PRN; Protocol PRN Reason: per Hypoglycemia Standing Ord. Guaifenesin/Dextromethorphan (Guaifenesin Dm 600/30 1 Tab Tab.Er.12h) 2 tab PO BID [facility] Last Admin: 01/03/24 03:16 Dose: Not Given Documented By: SONG Non-Admin Reason: Med Not Available Heparin Sodium (Porcine) (Heparin Sodium,Porcine 5,000 Unit/Ml Vial) 5,000 unit SUBCUT Q8H [facility] Last Admin: 01/03/24 08:43 Dose: 5,000 unit Documented By: PRINCE Lactated Ringer's (Lr) 1,000 mls @ 100 mls/hr IVCONT .Q10H [facility] Last Admin: 01/03/24 03:00 Dose: 100 mls/hr Documented By: SONG Dextrose (D10) 250 mls @ 750 mls/hr IV Q15M PRN; Protocol PRN Reason: per Hypoglycemia Standing Ord. Lactated Ringer's (Lr) 1,000 mls @ 100 mls/hr IVCONT .Q10H [facility] Insulin Human Lispro (Insulin Lispro 100 Unit/Ml 3 Ml Vial) 0 unit SUBCUT Q6H [facility]; Protocol Last Admin: 01/03/24 08:42 Dose: 6 unit Documented By: PRINCE Methylprednisolone Sodium Succinate (Methylprednisolone Sod Succ 40 Mg/Ml Vial) 40 mg IVPUSH BID [facility] Last Admin: 01/03/24 08:44 Dose: 40 mg Documented By: PRINCE Metoprolol Succinate (Metoprolol Succinate Er 25 Mg Tab.Er.24h) 25 mg PO DAILY [facility]; Protocol Montelukast Sodium (Montelukast Sodium 10 Mg Tablet) 10 mg PO BEDTIME [facility] Ondansetron HCl (Ondansetron Hcl 4 Mg/2 Ml Vial) 4 mg IVPUSH Q8H [facility] Last Admin: 01/03/24 02:59 Dose: 4 mg Documented By: SONG Ondansetron HCl (Ondansetron Hcl 4 Mg/2 Ml Vial) 4 mg IVPUSH Q4H PRN PRN Reason: Nausea and Vomiting Oseltamivir Phosphate (Oseltamivir Phosphate 75 Mg Capsule) 75 mg PO BID [facility] Stop: 01/07/24 09:01 Last Admin: 01/03/24 08:44 Dose: 75 mg Documented By: PRINCE Pantoprazole Sodium (Pantoprazole Sodium 40 Mg/10 Ml Vial) 40 mg IVPUSH DAILY [facility] Last Admin: 01/03/24 03:00 Dose: 40 mg Documented By: SONG Sertraline HCl (Sertraline Hcl 100 Mg Tablet) 100 mg PO DAILY [facility] Last Admin: 01/03/24 08:44 Dose: 100 mg Documented By: PRINCE Sodium Chloride (0.9 % Sodium Chloride Flush 3 Ml Syringe) 3 ml IVFLUSH QSHIFT [facility] Last Admin: 01/03/24 08:43 Dose: 3 ml Documented By: PRINCE Labs 01/03/24 05:47 01/02/24 22:03 Labs: Laboratory Results - last 24 hr 01/02/24 01/03/24 01/03/24 22:03 03:00 03:14 MCV 84.5 MCH 27.8 MCHC 32.9 RDW 13.7 Plt Count 248 MPV 9.3 L Immature Gran % (Auto) 0.3 Neut % (Auto) 52.9 Lymph % (Auto) 29.3 [place] % (Auto) 17.3 H Eos % (Auto) 0.0 Baso % (Auto) 0.2 Lymph # (Auto) 1.7 [place] # (Auto) 1.0 Eos # (Auto) 0.0 Baso # (Auto) 0.0 Abs Immat Gran (auto) 0.02 Absolute Neuts (auto) 3.1 Absolute Nucleated RBC 0.000 Nucleated RBC % (auto) 0.0 Anion Gap 17 Estim Creat Clear Calc 59.1 Estimated GFR > 60 POC Glucose 331 H Random Glucose 165 H Calcium 9.6 Magnesium 2.2 Total Bilirubin 0.4 AST 54 H ALT 38 H Alkaline Phosphatase 98 Troponin I High Sens 8.2 D B-Natriuretic Peptide 11 Total Protein 8.6 H Albumin 4.2 Urine Color Yellow Urine Appearance Clear Urine pH 6.0 Ur Specific [place] 1.025 Urine Protein Trace Urine Glucose (UA) Negative Urine Ketones Trace Urine Blood Negative Urine Nitrite Negative Ur Leukocyte Esterase Negative Influenza Type A (PCR) POSITIVE A Influenza Type B (PCR) NEGATIVE RSV RNA Qual (PCR) NEGATIVE SARS-CoV-2 RNA (RT-PCR) NEGATIVE 01/03/24 01/03/24 05:47 07:07 MCV 84.4 MCH 27.9 MCHC 33.1 RDW 13.5 Plt Count 216 MPV 9.7 Immature Gran % (Auto) Neut % (Auto) Lymph % (Auto) [place] % (Auto) Eos % (Auto) Baso % (Auto) Lymph # (Auto) [place] # (Auto) Eos # (Auto) Baso # (Auto) Abs Immat Gran (auto) Absolute Neuts (auto) Absolute Nucleated RBC 0.000 Nucleated RBC % (auto) 0.0 Anion Gap Estim Creat Clear Calc Estimated GFR POC Glucose 273 H Random Glucose Calcium Magnesium Total Bilirubin AST ALT Alkaline Phosphatase Troponin I High Sens B-Natriuretic Peptide Total Protein Albumin Urine Color Urine Appearance Urine pH Ur Specific [place] Urine Protein Urine Glucose (UA) Urine Ketones Urine Blood Urine Nitrite Ur Leukocyte Esterase Influenza Type A (PCR) Influenza Type B (PCR) RSV RNA Qual (PCR) SARS-CoV-2 RNA (RT-PCR) Assessment and Plan (1) Weakness: Status: Acute (2) Influenza A: Status: Acute Plan 68/F with HTN, HLD, depression here with SOB, abd pain mild persistent asthma with acute exacerbation d/t influenza -Bronchidlators by Neb -IV Steroid -Mucinex Influenza--Tamiflu x 5 days Abdominal pain, nausea, vomiting and diarrhea suspect Gastroenteritis secondary to influenza infection. IV fluids and symptomatic therapy as needed. -CT of abdomen, IVF, pain medicaiton and advance diet Urinary retention. Status post indwelling urinary catheter placement. Hyperlipidemia. Continue statin. Depression. Mood disorder. Type 2 diabetes mellitus. Blood glucose monitoring before meals at bedtime. -diabetic diet when eating, SSI insulin and restart lantus when eating and med reconciled DVT prophylaxis: Heparin Code status: Full need for inpatient: Influenza causing asthma exacerbation requiring iv steroid, bronchodilators by Neb, and frequent O2 check Quality Stroke Does the patient have a stroke diagnosis?: No VTE Prior VTE?: No VTE Risk Level:: Medical - moderate - high VTE Device Contraindication: Treatment Not Indicated VTE Drug Contraindication: N/A - Med Ordered
[2024-01-03] MEDS: guaiFENesin DM 600/30 1 TAB TAB.ER.12H 2 TAB PO ×2 (09:28→20:58)
[2024-01-03] MEDS: Metoprolol Succinate ER 25 MG TAB.ER.24H PO (09:40)
--- NOTE | 2024-01-03 09:45 | PC.NURSE ---
pt had duplicate orders for lactated ringers 100ml/hr, dr roth d/c one of the orders, pt also was made npo but not clear why, new order for clear liquids until ct scan results
--- NOTE | 2024-01-03 10:30 | PC.NURSE ---
pt keeps crying out that she needs to have a bowel movement, has been on the bed cabral x2, each time a very hard small amount of stool, the second time the pct reports that when she wiped the pt noticed a large hard ball of stool in the pt's rectum
[2024-01-03 11:04] LABS: Alanine Aminotransferase 264 U/L (0-31); Albumin Level 3.5 g/dL (3.5-5.0); Alkaline Phosphatase 211 U/L (39-117); Anion Gap 14 (12-20); Aspartate Amino Transferase 680 U/L (5-31); Bilirubin Total 0.8 mg/dL (0.0-1.0); Blood Urea Nitrogen 22 mg/dL (9-16); Calcium 8.6 mg/dL (8.4-10.2); Carbon Dioxide 21 mmol/L (22-29); Chloride 102 mmol/L (96-108); Creatinine Clr Calc Pharmacy 60.4; Estimated Glomerular Filt Rate > 60; Glucose Random 303 mg/dL (60-115); Potassium 3.7 mmol/L (3.3-5.1); Sodium 133 mmol/L (135-145); Total Protein 7.2 g/dL (6.5-8.0)
--- NOTE | 2024-01-03 11:45 | PHA.MEDREC ---
Pharmacy Consult ? Medication Reconciliation Pharmacy has completed the medication reconciliation. Patient poor historian of medications. Utilized route clerk services. Patient was able to state 46 units of Lantus daily and Trulicity 3 mg every Thursday. All other meds confirmed through claim history. Left note for pharmacy to follow up with patient's pharmacy in the AM.
[2024-01-03 12:05] LABS: Alanine Aminotransferase 250 U/L (0-31); Albumin Level 3.6 g/dL (3.5-5.0); Alkaline Phosphatase 215 U/L (39-117); Anion Gap 14 (12-20); Aspartate Amino Transferase 427 U/L (5-31); Bilirubin Direct 0.2 mg/dL (0.0-0.5); Bilirubin Total 0.3 mg/dL (0.0-1.0); Blood Urea Nitrogen 19 mg/dL (9-16); Calcium 8.9 mg/dL (8.4-10.2); Carbon Dioxide 22 mmol/L (22-29); Chloride 101 mmol/L (96-108); Creatinine Clr Calc Pharmacy 59.1; Estimated Glomerular Filt Rate > 60; Glucose Random 292 mg/dL (60-115); Sodium 133 mmol/L (135-145); Total Protein 7.2 g/dL (6.5-8.0)
[2024-01-03] MEDS: Barium Sulfate Oral (Berry) 450 ML ORAL.SUSP PO (12:59)
[2024-01-03] MEDS: Barium Sulfate Oral (Mocha) 450 ML ORAL.SUSP PO (12:59)
--- NOTE | 2024-01-03 13:47 | PC.NURSE ---
pt 2 assist to bedside commode, large firm formed bowel movement. repositioned back into bed, pt reporting improvement in pain, endorsing hunger, lunch tray provided.
[2024-01-03 13:49] LABS: Glucose, Whole Blood 226 mg/dL (60-115)
[2024-01-03 19:07] LABS: Glucose, Whole Blood 312 mg/dL (60-115)
[2024-01-03 20:55] LABS: Glucose, Whole Blood 296 mg/dL (60-115)
[2024-01-03] MEDS: Montelukast Sodium 10 MG TABLET PO (20:58)
[2024-01-04] VITALS (12 sets, daily range): BP systolic 102–127; BP diastolic 50–96; PULSE 71–101; RESP 16–20; TEMP 36.8–37.7; O2SAT 92–96; BMI 37.9
[2024-01-04] MEDS: Lactated Ringers 1,000 ML 100 ML IVCONT ×3 (00:35→22:20)
[2024-01-04] MEDS: Heparin Sodium,Porcine 5,000 UNIT/ML VIAL 5000 UNIT SUBCUT ×3 (00:51→18:39)
[2024-01-04 02:38] LABS: Glucose, Whole Blood 252 mg/dL (60-115)
[2024-01-04] MEDS: Insulin Lispro 100 UNIT/ML 3 ML VIAL SUBCUT ×4 (03:25→22:21)
[2024-01-04] MEDS: ondansetron HCL 4 MG/2 ML VIAL IVPUSH (03:25)
[2024-01-04 07:14] LABS: Glucose, Whole Blood 150 mg/dL (60-115)
[2024-01-04] MEDS: Albuterol Sulfate 90 MCG 8 GM INHALER 4 PUFF INHALE ×4 (07:49→19:20)
[2024-01-04] MEDS: Oseltamivir Phosphate 75 MG CAPSULE PO ×2 (08:19→22:20)
[2024-01-04] MEDS: Atorvastatin Calcium 80 MG TABLET PO (08:19)
[2024-01-04] MEDS: Sertraline HCL 100 MG TABLET PO (08:19)
[2024-01-04] MEDS: Metoprolol Succinate ER 25 MG TAB.ER.24H PO (08:19)
[2024-01-04] MEDS: Pantoprazole Sodium 40 MG/10 ML VIAL IVPUSH (08:19)
[2024-01-04] MEDS: guaiFENesin DM 600/30 1 TAB TAB.ER.12H 2 TAB PO ×2 (08:19→22:20)
[2024-01-04] MEDS: methylPREDNISolone Sod Succ 40 MG/ML VIAL IVPUSH ×2 (08:43→22:21)
--- NOTE | 2024-01-04 09:34 | HO.PM.IMPN ---
Subjective Subjective Date of Service: 01/04/24 Interval History: f/u on asthma exacerbation d/t influenza, abdominal pain no sob, ct of abd show severe constipation.. abd is soft, pain is beter Physical Exam Vital Signs: Vital Signs: Last Vital Signs Temp 98.3 F 01/04/24 05:15 Pulse 74 01/04/24 08:23 Resp 17 01/04/24 08:23 BP 109/50 L 01/04/24 08:23 Pulse Ox 95 01/04/24 08:23 O2 Del Method Room Air 01/04/24 08:23 O2 Flow Rate 1 01/04/24 05:15 BMI result Body Mass Index 35.9 General: AO X 3, no acute distress Resp: CTA bilateral CVS: S1,S2,RRR GI: +BS, NT, no distention Skin: No rash Neuro: motor grossly intact Psych: appropriate affect Objective Data Active Medications Acetaminophen (Acetaminophen 325 Mg Tablet) 975 mg PO Q6H PRN PRN Reason: Pain, Mild (Pain Scale 1-3) Albuterol Sulfate (Albuterol Sulfate 90 Mcg 8 Gm Inhaler) 4 puff INHALE RQ4H WHILE AWAKE [facility] Last Admin: 01/04/24 07:49 Dose: 4 puff Documented By: SHONA Atorvastatin Calcium (Atorvastatin Calcium 80 Mg Tablet) 80 mg PO DAILY [facility] Last Admin: 01/04/24 08:19 Dose: 80 mg Documented By: JOSE JUAN Diphenoxylate HCl/Atropine (Diphenoxylate/Atrop 2.5/0.025 Tablet) 1 tab PO QID PRN PRN Reason: Diarrhea Glucose (Glucose Gel 15 Gm Gel..Gram.) 15 gm PO Q15M PRN; Protocol PRN Reason: per Hypoglycemia Standing Ord. Guaifenesin/Dextromethorphan (Guaifenesin Dm 600/30 1 Tab Tab.Er.12h) 2 tab PO BID [facility] Last Admin: 01/04/24 08:19 Dose: 2 tab Documented By: JOSE JUAN Heparin Sodium (Porcine) (Heparin Sodium,Porcine 5,000 Unit/Ml Vial) 5,000 unit SUBCUT Q8H [facility] Last Admin: 01/04/24 08:19 Dose: 5,000 unit Documented By: JOSE JUAN Dextrose (D10) 250 mls @ 750 mls/hr IV Q15M PRN; Protocol PRN Reason: per Hypoglycemia Standing Ord. Lactated Ringer's (Lr) 1,000 mls @ 100 mls/hr IVCONT .Q10H [facility] Last Admin: 01/04/24 00:35 Dose: 100 mls/hr Documented By: CARLOS Insulin Human Lispro (Insulin Lispro 100 Unit/Ml 3 Ml Vial) 0 unit SUBCUT Q6H [facility]; Protocol Last Admin: 01/04/24 07:17 Dose: Not Given Documented By: JOSE JUAN Non-Admin Reason: No Insulin Coverage Methylprednisolone Sodium Succinate (Methylprednisolone Sod Succ 40 Mg/Ml Vial) 40 mg IVPUSH BID [facility] Last Admin: 01/04/24 08:43 Dose: 40 mg Documented By: JOSE JUAN Metoprolol Succinate (Metoprolol Succinate Er 25 Mg Tab.Er.24h) 25 mg PO DAILY [facility]; Protocol Last Admin: 01/04/24 08:19 Dose: 25 mg Documented By: JOSE JUAN Montelukast Sodium (Montelukast Sodium 10 Mg Tablet) 10 mg PO BEDTIME [facility] Last Admin: 01/03/24 20:58 Dose: 10 mg Documented By: MAURICE Ondansetron HCl (Ondansetron Hcl 4 Mg/2 Ml Vial) 4 mg IVPUSH Q8H [facility] Last Admin: 01/04/24 03:25 Dose: 4 mg Documented By: CARLOS Ondansetron HCl (Ondansetron Hcl 4 Mg/2 Ml Vial) 4 mg IVPUSH Q4H PRN PRN Reason: Nausea and Vomiting Oseltamivir Phosphate (Oseltamivir Phosphate 75 Mg Capsule) 75 mg PO BID [facility] Stop: 01/07/24 09:01 Last Admin: 01/04/24 08:19 Dose: 75 mg Documented By: JOSE JUAN Pantoprazole Sodium (Pantoprazole Sodium 40 Mg/10 Ml Vial) 40 mg IVPUSH DAILY [facility] Last Admin: 01/04/24 08:19 Dose: 40 mg Documented By: JOSE JUAN Sertraline HCl (Sertraline Hcl 100 Mg Tablet) 100 mg PO DAILY [facility] Last Admin: 01/04/24 08:19 Dose: 100 mg Documented By: JOSE JUAN Sodium Biphosphate/Sodium Phosphate (Sodium Phosphate,[place]-Dibasic 133 Ml Enema) 133 ml DE ONCE PRN PRN Reason: Constipation Sodium Chloride (0.9 % Sodium Chloride Flush 3 Ml Syringe) 3 ml IVFLUSH QSHIFT [facility] Last Admin: 01/04/24 08:06 Dose: Not Given Documented By: JOSE JUAN Non-Admin Reason: IV Running Labs 01/03/24 05:47 01/03/24 11:34 Labs: Laboratory Results - last 24 hr 01/03/24 01/03/24 01/03/24 05:47 11:34 13:45 Anion Gap 14 14 Estim Creat Clear Calc 60.4 59.1 Estimated GFR > 60 > 60 POC Glucose 226 H Random Glucose 303 H 292 H Calcium 8.6 D 8.9 Total Bilirubin 0.8 0.3 Direct Bilirubin 0.2 AST 680 H 427 H ALT 264 H 250 H Alkaline Phosphatase 211 H 215 H Total Protein 7.2 7.2 Albumin 3.5 3.6 01/03/24 01/03/24 01/04/24 19:04 20:52 02:34 Anion Gap Estim Creat Clear Calc Estimated GFR POC Glucose 312 H 296 H 252 H Random Glucose Calcium Total Bilirubin Direct Bilirubin AST ALT Alkaline Phosphatase Total Protein Albumin 01/04/24 07:11 Anion Gap Estim Creat Clear Calc Estimated GFR POC Glucose 150 H Random Glucose Calcium Total Bilirubin Direct Bilirubin AST ALT Alkaline Phosphatase Total Protein Albumin Assessment and Plan (1) Weakness: Status: Acute (2) Influenza A: Status: Acute Plan 68/F with HTN, HLD, depression here with SOB, abd pain mild persistent asthma with acute exacerbation d/t influenza -Bronchidlators by Neb -IV Steroid -Mucinex Influenza--Tamiflu x 5 days Abdominal pain, nausea, vomiting--CT show constipation, add bowel regimen with Enema, lactulose or Miralax Urinary retention, likely casused by constipation, remove catheter once moving bowel. Hyperlipidemia. Continue statin. Elevated LFTs with rapid rise ALT 38 --> 264--> 250, AST 54-->680-->427 ? passed stone, hold Lipitor, repeat LFTs, and GI input Depression. Mood disorder. Sertraline Type 2 diabetes mellitus. Blood glucose monitoring before meals at bedtime. -diabetic diet when eating, SSI insulin, on Lantus 46 at home and presently on liquid diet. Fasting glucse of 150.. Add Lantus 10 and monitor DVT prophylaxis: Heparin Code status: Full need for inpatient: Influenza causing asthma exacerbation requiring iv steroid, bronchodilators by Neb, and frequent O2 check Quality Stroke Does the patient have a stroke diagnosis?: No VTE Prior VTE?: No VTE Risk Level:: Medical - moderate - high VTE Device Contraindication: Treatment Not Indicated VTE Drug Contraindication: N/A - Med Ordered
[2024-01-04 10:12] LABS: Alanine Aminotransferase 161 U/L (0-31); Albumin Level 3.5 g/dL (3.5-5.0); Alkaline Phosphatase 168 U/L (39-117); Aspartate Amino Transferase 150 U/L (5-31); Bilirubin Direct 0.2 mg/dL (0.0-0.5); Bilirubin Total 0.3 mg/dL (0.0-1.0); Total Protein 6.7 g/dL (6.5-8.0)
--- NOTE | 2024-01-04 10:48 | PM.GICN ---
History of Present Illness Data of Consult Service Date: 01/04/24 Requesting physician: Nga Luciano Primary Care Provider: Unknown Physician HPI Reason for consult: Elevated LFTs This is a 68-year-old female with past medical history of type 2 diabetes, hypertension, who presented to the hospital yesterday for shortness of breath, cough and headache. Was found to have influenza a infection. Gastroenterology has been consulted for elevated LFTs. Patient thinks that likely contracted influenza due to contact with a sick tenant in her building. Otherwise, does not report any abdominal pain, nausea, vomiting to me. Although, was seen to be documented at the time of admission. Initially tachycardic but now stable vitals. Labs significant for rapidly climbing LFTs that are now down trending within [address] abdomen pelvis without IV contrast did not show any significant CBD dilation compared to before. No distinct CBD obstruction noted. Review of Systems Review of Systems: Yes all other systems are reviewed and are negative PMF Past Medical History Medical History HTN (hypertension) Diabetes Social History Social History Patient Tobacco Use Status: Former Tobacco user Advance Directives: No Advance Directives Information Provided: No Nutrition Risks: Acute nausea or vomiting x1 week Meds Allergies Allergy/AdvReac Type Severity Reaction Status Date / Time No Known Allergies Allergy Verified 01/02/24 21:00 [No Known Allergies*] Active Medications: Current Medications Acetaminophen (Acetaminophen 325 Mg Tablet) 975 mg PO Q6H PRN PRN Reason: Pain, Mild (Pain Scale 1-3) Albuterol Sulfate (Albuterol Sulfate 90 Mcg 8 Gm Inhaler) 4 puff INHALE RQ4H WHILE AWAKE [facility] Last Admin: 01/04/24 07:49 Dose: 4 puff Diphenoxylate HCl/Atropine (Diphenoxylate/Atrop 2.5/0.025 Tablet) 1 tab PO QID PRN PRN Reason: Diarrhea Glucose (Glucose Gel 15 Gm Gel..Gram.) 15 gm PO Q15M PRN; Protocol PRN Reason: per Hypoglycemia Standing Ord. Guaifenesin/Dextromethorphan (Guaifenesin Dm 600/30 1 Tab Tab.Er.12h) 2 tab PO BID [facility] Last Admin: 01/04/24 08:19 Dose: 2 tab Heparin Sodium (Porcine) (Heparin Sodium,Porcine 5,000 Unit/Ml Vial) 5,000 unit SUBCUT Q8H [facility] Last Admin: 01/04/24 08:19 Dose: 5,000 unit Dextrose (D10) 250 mls @ 750 mls/hr IV Q15M PRN; Protocol PRN Reason: per Hypoglycemia Standing Ord. Lactated Ringer's (Lr) 1,000 mls @ 100 mls/hr IVCONT .Q10H [facility] Last Admin: 01/04/24 10:36 Dose: 100 mls/hr Insulin Glargine (Insulin Glargine,Hum.Rec.Anlog 100 Unit/Ml 10 Ml Vial) 10 unit SUBCUT DAILY [facility] Insulin Human Lispro (Insulin Lispro 100 Unit/Ml 3 Ml Vial) 0 unit SUBCUT Q6H [facility]; Protocol Last Admin: 01/04/24 07:17 Dose: Not Given Methylprednisolone Sodium Succinate (Methylprednisolone Sod Succ 40 Mg/Ml Vial) 40 mg IVPUSH BID [facility] Last Admin: 01/04/24 08:43 Dose: 40 mg Metoprolol Succinate (Metoprolol Succinate Er 25 Mg Tab.Er.24h) 25 mg PO DAILY [facility]; Protocol Last Admin: 01/04/24 08:19 Dose: 25 mg Montelukast Sodium (Montelukast Sodium 10 Mg Tablet) 10 mg PO BEDTIME [facility] Last Admin: 01/03/24 20:58 Dose: 10 mg Ondansetron HCl (Ondansetron Hcl 4 Mg/2 Ml Vial) 4 mg IVPUSH Q8H [facility] Last Admin: 01/04/24 03:25 Dose: 4 mg Ondansetron HCl (Ondansetron Hcl 4 Mg/2 Ml Vial) 4 mg IVPUSH Q4H PRN PRN Reason: Nausea and Vomiting Oseltamivir Phosphate (Oseltamivir Phosphate 75 Mg Capsule) 75 mg PO BID [facility] Stop: 01/07/24 09:01 Last Admin: 01/04/24 08:19 Dose: 75 mg Pantoprazole Sodium (Pantoprazole Sodium 40 Mg/10 Ml Vial) 40 mg IVPUSH DAILY [facility] Last Admin: 01/04/24 08:19 Dose: 40 mg Sertraline HCl (Sertraline Hcl 100 Mg Tablet) 100 mg PO DAILY [facility] Last Admin: 01/04/24 08:19 Dose: 100 mg Sodium Biphosphate/Sodium Phosphate (Sodium Phosphate,[place]-Dibasic 133 Ml Enema) 133 ml MD ONCE PRN PRN Reason: Constipation Sodium Chloride (0.9 % Sodium Chloride Flush 3 Ml Syringe) 3 ml IVFLUSH QSHIFT [facility] Last Admin: 01/04/24 08:06 Dose: Not Given Home Medications ?Medication ?Instructions ?Recorded ?Confirmed ?Last Taken ?Type aspirin 81 mg tablet,delayed 81 mg PO DAILY 01/03/24 01/03/24 01/03/24 06:00 History release atorvastatin 80 mg tablet 80 mg PO DAILY 01/03/24 01/03/24 01/03/24 06:00 History calcium carbonate 600 mg-vitamin 1 tab PO BID 01/03/24 01/03/24 01/03/24 06:00 History D3 10 mcg (400 unit) tablet calcium polycarbophil 625 mg 625 mg PO BID 01/03/24 01/03/24 01/03/24 06:00 History tablet (Fiber-Lax) celecoxib 100 mg capsule 100 mg PO DAILY 01/03/24 01/03/24 01/03/24 06:00 History docusate sodium 100 mg capsule 100 mg PO BID 01/03/24 01/03/24 01/03/24 06:00 History dulaglutide 3 mg/0.5 mL 3 mg subcut SA@0900 01/03/24 01/03/24 01/02/24 History subcutaneous pen injector (Trulicity) gabapentin 600 mg tablet 600 mg PO TID 01/03/24 01/03/24 01/03/24 06:00 History insulin glargine 100 unit/mL (3 46 unit subcut DAILY 01/03/24 01/03/24 Unknown History mL) subcutaneous pen (Lantus Solostar U-100 Insulin) lisinopril 10 mg tablet 10 mg PO BEDTIME 01/03/24 01/03/24 Unknown History melatonin 5 mg tablet 5 mg PO BEDTIME 01/03/24 01/03/24 Unknown History metoprolol succinate 25 mg 25 mg PO DAILY 01/03/24 01/03/24 01/03/24 06:00 History tablet,extended release 24 hr montelukast 10 mg tablet 10 mg PO BEDTIME 01/03/24 01/03/24 Unknown History pantoprazole 40 mg tablet,delayed 40 mg PO DAILY@0630 01/03/24 01/03/24 01/03/24 06:00 History release sertraline 100 mg tablet 100 mg PO DAILY 01/03/24 01/03/24 01/03/24 06:00 History Physical Exam Vital Signs: Vital Signs: Last Vital Signs Temp 98.3 F 01/04/24 05:15 Pulse 74 01/04/24 08:23 Resp 17 01/04/24 08:23 BP 109/50 L 01/04/24 08:23 Pulse Ox 95 01/04/24 08:23 O2 Del Method Room Air 01/04/24 08:23 O2 Flow Rate 1 01/04/24 05:15 BMI result Body Mass Index 35.9 No acute distress Nonicteric No overt respiratory distress Abdomen soft, nontender, nondistended Mild lower extremity edema Results Labs 01/03/24 05:47 01/03/24 11:34 Labs: BMP 01/03/24 01/03/24 05:47 11:34 Sodium 133 L 133 L Potassium 3.7 4.0 Chloride 102 101 Carbon Dioxide 21 L 22 BUN 22 H 19 H Creatinine 0.84 0.86 Calcium 8.6 D 8.9 Liver Function 01/03/24 01/03/24 01/04/24 Range/Units 05:47 11:34 09:51 Total Bilirubin 0.8 0.3 0.3 (0.0-1.0) mg/dL Direct Bilirubin 0.2 0.2 (0.0-0.5) mg/dL AST 680 H 427 H 150 H (5-31) U/L ALT 264 H 250 H 161 H (0-31) U/L Alkaline Phosphatase 211 H 215 H 168 H (39-117) U/L Albumin 3.5 3.6 3.5 (3.5-5.0) g/dL Assessment and Plan (1) Elevated LFTs: Status: Acute (2) Influenza A: Status: Acute (3) Asthma exacerbation: Status: Acute Plan Overall clinical picture consistent with mild hypoxic hepatitis secondary to ongoing infection and asthma exacerbation. LFTs kamlesh sharply and are now downtrending already which is also characteristic of hypoxic hepatitis. No clinical evidence of biliary obstruction at this time. Monitor LFTs, and if continue to normalize, no further workup warranted at this time Thank you for allowing me to participate in her care. Please do not hesitate to reach out for any questions or concerns Procedures Date of Service Date of Service: 01/04/24
--- NOTE | 2024-01-04 11:21 | PC.NURSE ---
spoke with pt using science interpreter. pt reports that she wants food now. t/w requested diet order from MD Tellez. informed of order change to diabetic diet 1800 calories. pt denies having BM today but reports yesterday she had 4 BM. pt refused her lantus as she reports it makes her sick - offered zofran as pt has is scheduled and she refused that as well. MD Tellez made aware
--- NOTE | 2024-01-04 12:54 | MHC.CM.PN ---
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 Original Note: Attempted to meet with patient in regards to discharge planning. Patient currently sleeping. No family present. Will attempt to meet again. Continue to monitor for d/c needs.
[2024-01-04 13:10] LABS: Glucose, Whole Blood 247 mg/dL (60-115)
[2024-01-04 16:50] LABS: Glucose, Whole Blood 337 mg/dL (60-115)
[2024-01-04 18:43] LABS: Glucose, Whole Blood 290 mg/dL (60-115)
[2024-01-04 22:06] LABS: Glucose, Whole Blood 213 mg/dL (60-115)
[2024-01-04] MEDS: Melatonin 3 MG TABLET 6 MG PO (22:20)
[2024-01-04] MEDS: Montelukast Sodium 10 MG TABLET PO (22:20)
[2024-01-04] MEDS: Acetaminophen 325 MG TABLET 975 MG PO (22:20)
[2024-01-04] MEDS: 0.9 % Sodium Chloride Flush 3 ML SYRINGE IVFLUSH (22:21)
[2024-01-05] VITALS (9 sets, daily range): BP systolic 117–158; BP diastolic 58–81; PULSE 63–82; RESP 14–20; TEMP 36.2–37; O2SAT 94–97
[2024-01-05] MEDS: Heparin Sodium,Porcine 5,000 UNIT/ML VIAL 5000 UNIT SUBCUT ×3 (01:12→16:48)
--- NOTE | 2024-01-05 06:23 | PC.NURSE ---
Patient admitted to s4 from ED at 20:40 via stretcher. Pt seen this admission for acute asthma exacerbation, +Flu found in ED. Patient continues on droplet precautions, on scheduled tamiflu. A&Ox4, [place] speaking only. Billing Representative used at bedside. Pt requesting something for sleep due to pt reported insomnia at baseline. Covering Dr. Mcdonald notified, melatonin ordered and given with +effect. SR with occassional PACs on tele. Denies chest pain and sob. Breathing is even and unlabored without distress on RA. Spo2 maintained low to mid 90's on continuous spo2 monitoring as ordered. 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 Reported pain described in sides/ribs due to coughing, given prn tylenol with +effect and educated on splinting with coughing. Patient repositions herself in bed without issues. Rand placed in ED for retention remains patent of odorless cyu. POC ACHS was 213. Continues on LR at 100/hr as ordered. Bed alarm on and safety measures in place.
[2024-01-05 06:59] LABS: Glucose, Whole Blood 257 mg/dL (60-115)
[2024-01-05 07:21] LABS: Blood Urea Nitrogen 23 mg/dL (9-16); Calcium 9.5 mg/dL (8.4-10.2); Creatinine Clr Calc Pharmacy 62.3; Estimated Glomerular Filt Rate > 60; Glucose Random 293 mg/dL (60-115)
[2024-01-05 07:47] LABS: Anion Gap 16 (12-20); Carbon Dioxide 25 mmol/L (22-29); Chloride 104 mmol/L (96-108); Potassium 4.9 mmol/L (3.3-5.1); Sodium 140 mmol/L (135-145)
[2024-01-05] MEDS: methylPREDNISolone Sod Succ 40 MG/ML VIAL IVPUSH ×2 (07:53→20:51)
[2024-01-05] MEDS: guaiFENesin DM 600/30 1 TAB TAB.ER.12H 2 TAB PO ×2 (07:53→20:50)
[2024-01-05] MEDS: Pantoprazole Sodium 40 MG/10 ML VIAL IVPUSH (07:53)
[2024-01-05] MEDS: Metoprolol Succinate ER 25 MG TAB.ER.24H PO (07:54)
[2024-01-05] MEDS: Oseltamivir Phosphate 75 MG CAPSULE PO ×2 (07:54→20:50)
[2024-01-05] MEDS: Sertraline HCL 100 MG TABLET PO (07:54)
[2024-01-05] MEDS: 0.9 % Sodium Chloride Flush 3 ML SYRINGE IVFLUSH ×3 (07:55→20:51)
[2024-01-05] MEDS: Insulin Glargine,Hum.rec.anlog 100 UNIT/ML 10 ML VIAL 10 UNIT SUBCUT (08:10)
[2024-01-05] MEDS: Insulin Lispro 100 UNIT/ML 3 ML VIAL SUBCUT ×4 (08:11→20:51)
--- NOTE | 2024-01-05 08:15 | P.DS_ITS ---
DS: Providers Provider Date of Service: 01/06/24 Date of admission: 01/03/24 02:20 Primary care physician: Fransisco Baires MD Consults: 01/03/24 12:45 Consult to Gastroenterology Routine Consulting Provider: Kasey Benitez Reason for consultation: acute hepatitis, abdominal pain Has provider been notified: No DS: Diagnosis Discharge Diagnosis (1) Elevated LFTs: Status: Resolved (2) Influenza A: Status: Acute (3) Asthma exacerbation: Status: Resolved DS: Summary Hospital Course Hospital Course: admission hpi Chief Complaint: Shortness of breaths Esthela Flannery is Polish-speaking 67 years old woman with past medical history significant for type 2 diabetes mellitus and essential hypertension presents to the emergency department complaining of sore throat, worsening shortness of breath, cough, headache, nasal congestion or wheezing. She also complained of abdominal pain, nausea, vomiting, diarrhea and inability to urinate. She reported subjective fever and chills. She denied chest pain, palpitations or dizziness. Denies alcohol abuse, tobacco smoking or illicit drug use. In the ED, she was found to tachycardia and tachypnea. Oxygen saturation room air is 91%. Blood workup showed no leukocytosis. Hemoglobin and platelets are normal. Electrolytes are normal. Creatinine is 0.86. Transaminases are elevated. Bilirubin and alk phos are normal. Troponin and BNP are negative. Urinalysis showed. Viral testing is positive for influenza A. CXR is negative. ED tx: Tamiflu 75 mg p.o. daily, morphine 4 mg IV, albuterol headache, Zofran 4 mg IV, NS 1 L bolus and Solu-Medrol 125 mg IV. Hospital course: persistent asthma with acute exacerbation d/t influenza, treated with bronchodilators by Neb, IV steroid and doing better, no wheezing no O2 need, transition to oral steroid for 5 days total. Duoneb PRN Influenza-- to complete Tamiflu x 5 days Abdominal pain, nausea, vomiting--CT show constipation, improved with bowel regimen and will prescribe colace, miralax as needed Urinary retention, likely caused by constipation, had a catheter, and later did well with voiding trial Hyperlipidemia. Continue statin. Elevated LFTs with rapid rise ALT 38 --> 264--> 250-->161, AST 54-->680-->427--> 150? passed stone, hold Lipitor, repeat LFTs. Was seen by GI, LFTs pattern suggestive of Hypoxic hepatitis and labs improving and therefore no further testing at this time Depression. Mood disorder. Sertraline Type 2 diabetes mellitus. Patient has been getting less insulin while in the hospital with Lantus 10 and now sugars are going up, confirmed with VNA she was getting 56 units, at this time will discharge with 25 units and adding sliding sclae and will be given by VNA, she has in the past about her given herself insulin but is now agreable for VNA to give it to her. Ultimately she may nee more insulin if sugars are high Dispo: PT saw her and recommends home with services Time Attestation Discharge Coordination Time (in mins): 35 Quality: Safe Use of Opioids Does Pt have an Active Cancer Diagnosis on the Problem List?: No Quality: Stroke Does the patient have a stroke diagnosis?: No Physical Exam Vital Signs: Vital Signs: Selected Entries 01/06/24 07:03 01/06/24 08:02 Temperature 97.1 F Pulse Rate 65 Respiratory Rate 20 Blood Pressure 147/76 H Pulse Oximetry 95 Oxygen Delivery Me thod Room Air General: AO X 3, no acute distress Resp: CTA bilateral CVS: S1,S2,RRR GI: +BS, NT, no distention Skin: No rash Neuro: motor grossly intact Psych: appropriate affect DS: Data Data Completed and Pending Labs on day of discharge: Laboratory Results - last 24 hr 01/04/24 01/04/24 01/04/24 09:51 13:06 16:42 Hold Purple Top Sodium Potassium Chloride Carbon Dioxide Anion Gap BUN Creatinine Estim Creat Clear Calc Estimated GFR POC Glucose 247 H 337 H Random Glucose Calcium Total Bilirubin 0.3 Direct Bilirubin 0.2 AST 150 H ALT 161 H Alkaline Phosphatase 168 H Total Protein 6.7 Albumin 3.5 01/04/24 01/04/24 01/05/24 18:25 22:03 06:48 Hold Purple Top SEE NOTE Sodium 140 Potassium 4.9 D Chloride 104 Carbon Dioxide 25 Anion Gap 16 BUN 23 H Creatinine 0.84 Estim Creat Clear Calc 62.3 Estimated GFR > 60 POC Glucose 290 H 213 H Random Glucose 293 H Calcium 9.5 D Total Bilirubin Direct Bilirubin AST ALT Alkaline Phosphatase Total Protein Albumin 01/05/24 06:54 Hold Purple Top Sodium Potassium Chloride Carbon Dioxide Anion Gap BUN Creatinine Estim Creat Clear Calc Estimated GFR POC Glucose 257 H Random Glucose Calcium Total Bilirubin Direct Bilirubin AST ALT Alkaline Phosphatase Total Protein Albumin Discharge Plan Discharge Anticipated Discharge Date/Time: 01/06/24 10:46 Patient Disposition: Home Health Service Discharge Diagnosis: Influenza A, asthma exacerbation, constipation, elevated LfTs Referrals: [facility] [Outside] - 1 Week Frasnisco Baires MD [Primary Care Provider] - 1 Week Discharge Medications: New oseltamivir [Tamiflu] 75 mg Capsule 75 mg PO BID Qty: 2 0RF prednisone 20 mg tablet 20 mg PO DAILY Qty: 2 0RF polyethylene glycol 3350 [Miralax] 17 gram/dose powder 17 g PO DAILY PRN (Reason: constipation) Qty: 238 0RF docusate sodium [Colace] 100 mg capsule 100 mg PO BID Qty: 60 0RF ipratropium-albuterol 0.5 mg-3 mg(2.5 mg base)/3 mL Solution For Nebulization 3 ml inhalation Q4H PRN (Reason: Wheezing) Qty: 120 3RF insulin lispro [Admelog SoloStar U-100 Insulin] 100 unit/mL insulin pen 1 sliding scale dose subcut USEASDIRECTD MDD 40 Qty: 15 0RF Rx Instructions: BG <111 0 units, 111-150 - 0 units, 151-200 2 units, 201-250 4 units, 251-300 6 units, 301-350 8 units, >350 10 units Continued aspirin 81 mg tablet,delayed release (DR/EC) 81 mg PO DAILY atorvastatin 80 mg tablet 80 mg PO DAILY celecoxib 100 mg capsule 100 mg PO DAILY gabapentin 600 mg tablet 600 mg PO TID lisinopril 10 mg tablet 10 mg PO BEDTIME metoprolol succinate 25 mg tablet extended release 24 hr 25 mg PO DAILY Trulicity 3 mg/0.5 mL pen injector 3 mg subcut SA@0900 sertraline 100 mg tablet 100 mg PO DAILY pantoprazole 40 mg tablet,delayed release (DR/EC) 40 mg PO DAILY@0630 montelukast 10 mg tablet 10 mg PO BEDTIME calcium polycarbophil [Fiber-Lax] 625 mg tablet 625 mg PO BID docusate sodium 100 mg capsule 100 mg PO BID calcium carbonate-vitamin D3 600 mg-10 mcg (400 unit) tablet 1 tab PO BID melatonin 5 mg tablet 5 mg PO BEDTIME Changed insulin glargine [Lantus Solostar U-100 Insulin] 100 unit/mL (3 mL) insulin pen 25 unit subcut DAILY Qty: 15 0RF Rx Instructions: to be given between 10 and 11 Discharge Orders: Discharge Order (Routine); Ordered 01/06/24 Ordered By: Mode Tellez Diet: Diabetic diet Activity on Discharge: As tolerated Stand Alone Forms: Patient Portal Discharge page Print Language: Polish Care Plan Goals: recovery from influenza, asthma exacerbation a Health Concerns: asthma influenza constipation elevated LFTs Plan of Treatment: take tamiflu for flu take Prednisone for asthma use inhalers as directed follow up with your doctor in a week Please note that insulin dose has been modified You will take Lantus 25 units in the morning to be given by nurse and insulin sliding scale twice daily per scale as below to be given by nurse BG <111 0 units, 111-150 - 0 units, 151-200 2 units, 201-250 4 units, 251-300 6 units, 301-350 8 units, >350 10 units Please check sugars before meals and at bedtime Assessment: see above Discharge Date/Time: 01/06/24 14:20
--- NOTE | 2024-01-05 09:41 | MHC.CM.PN ---
IMM 01/05/24, Pt lives alone, she has BOARD WORKER services 22 hours a week. She said that she does not have some medical supplies at home, namely, diabetic supplies and a nebulizer, CM will follow up with provider to see if we can help her get these things. CM discussed HCP with pt. and she declined to complete one. BOARD WORKER can transport home at DC. PCP is confirmed: Fransisco Baires. DC plan is home, resume services. CM will follow and assist as needed with DC plan.
[2024-01-05] MEDS: Docusate Sodium 100 MG CAPSULE PO ×2 (10:31→20:51)
[2024-01-05] MEDS: ondansetron HCL 4 MG/2 ML VIAL IVPUSH (10:31)
[2024-01-05 10:56] LABS: Glucose, Whole Blood 223 mg/dL (60-115)
[2024-01-05] MEDS: Albuterol Sulfate 90 MCG 8 GM INHALER 4 PUFF INHALE ×3 (11:54→19:33)
[2024-01-05 16:35] LABS: Glucose, Whole Blood 317 mg/dL (60-115)
[2024-01-05 19:38] LABS: Glucose, Whole Blood 245 mg/dL (60-115)
[2024-01-05] MEDS: Montelukast Sodium 10 MG TABLET PO (20:50)
[2024-01-05] MEDS: Acetaminophen 325 MG TABLET 975 MG PO (20:51)
[2024-01-06] MEDS: Heparin Sodium,Porcine 5,000 UNIT/ML VIAL 5000 UNIT SUBCUT ×2 (00:41→08:03)
[2024-01-06 04:00] VITALS: BP 135/72; PULSE 73; RESP 16; TEMP 36.8; O2SAT 94
[2024-01-06 06:58] LABS: Glucose, Whole Blood 223 mg/dL (60-115)
[2024-01-06 07:03] VITALS: BP 147/76; PULSE 65; RESP 20; TEMP 36.2; O2SAT 95
[2024-01-06] MEDS: Albuterol Sulfate 90 MCG 8 GM INHALER 4 PUFF INHALE ×2 (08:01→11:38)
[2024-01-06 08:02] VITALS: PULSE 65; RESP 20; O2SAT 96
[2024-01-06] MEDS: Insulin Glargine,Hum.rec.anlog 100 UNIT/ML 10 ML VIAL 10 UNIT SUBCUT (08:02)
[2024-01-06] MEDS: Insulin Lispro 100 UNIT/ML 3 ML VIAL SUBCUT ×2 (08:02→11:59)
[2024-01-06] MEDS: methylPREDNISolone Sod Succ 40 MG/ML VIAL IVPUSH (08:03)
[2024-01-06] MEDS: guaiFENesin DM 600/30 1 TAB TAB.ER.12H 2 TAB PO (08:03)
[2024-01-06] MEDS: 0.9 % Sodium Chloride Flush 3 ML SYRINGE IVFLUSH (08:03)
[2024-01-06] MEDS: Metoprolol Succinate ER 25 MG TAB.ER.24H PO (08:04)
[2024-01-06] MEDS: Oseltamivir Phosphate 75 MG CAPSULE PO (08:04)
[2024-01-06] MEDS: Docusate Sodium 100 MG CAPSULE PO (08:04)
[2024-01-06] MEDS: Sertraline HCL 100 MG TABLET PO (08:04)
[2024-01-06] MEDS: Acetaminophen 325 MG TABLET 975 MG PO (08:12)
[2024-01-06 10:56] LABS: Glucose, Whole Blood 267 mg/dL (60-115)
[2024-01-06 11:03] VITALS: BP 156/82; PULSE 69; RESP 20; TEMP 36.7; O2SAT 94
--- NOTE | 2024-01-06 11:03 | MHC.CM.PN ---
Pt has been medically cleared for DC, she will go home and resume her [employer] Her PRODUCT SUPPORT CONSULTANT will bring her home.
[2024-01-06 11:39] VITALS: PULSE 69; RESP 20; O2SAT 96
[2024-01-06] MEDS: Insulin Glargine,Hum.rec.anlog 100 UNIT/ML 10 ML VIAL SUBCUT (14:06)
--- NOTE | 2024-01-06 15:25 | P.F2F_ITS ---
Service Date Service Date: 01/06/24 Encounter Date of encounter: 01/06/24 Reasons for Services Signs and symptoms assessed: weakness from asthma and influenza Reason for long term: diabetic teaching, medication treatment and teach disease management Homebound: Leaving the home is medically contraindicated at this time without the asist of a device and/or another person due th the listed conditions above and below. Reason homebound: weakness related to hospital stay and unable to drive Homebound supporting statement: homebound due to weakness from hospitalization, influenza and therefor needs the assistance of another person Certification: Based on the above findings, I certify that this patient is confined to the home and needs intermittent long term care, physical therapy and/or speech therapy, or continues to need occupational therapy. The patient is under my care, and I have initiated the establishment of the plan of care. The patient will be followed by a physician who will periodically review the plan of care. Time Spent With Patient Time: Total time managing care of this patient today ____ minutes.
== END 2024-01-06 14:20 | disposition home health service (06) | DRG 194 ==
LOC: HO.ED 21:29 → HO.EDOVER 01-03 02:24 → HO.IMC 01-04 19:38
PROVIDERS: Internal Medicine; Admitting Provider Internal Medicine; Emergency Provider Internal Medicine; PCP Internal Medicine; Visit Provider Internal Medicine
DX: J10.1 Influenza due to other identified influenza virus with other respiratory manifestations (principal); J45.31 Mild persistent asthma with (acute) exacerbation; J10.2 Influenza due to other identified influenza virus with gastrointestinal manifestations; J20.8 Acute bronchitis due to other specified organisms; E78.5 Hyperlipidemia, unspecified; I10 Essential (primary) hypertension; R33.9 Retention of urine, unspecified; F32.A Depression, unspecified; E11.9 Type 2 diabetes mellitus without complications; Z20.822 Contact with and (suspected) exposure to COVID-19; Z87.891 Personal history of nicotine dependence; Z79.4 Long term (current) use of insulin; Z79.82 Long term (current) use of aspirin; Z79.85 Long-term (current) use of injectable non-insulin antidiabetic drugs; Z79.899 Other long term (current) drug therapy
CPT/HCPCS: 0241U; 36415; 71045; 74176; 80048; 80053; 80076; 81003; 82947; 83735; 83880; 84484; 85025; 85027; 93005; 94640; 97162; 99285; C1758; C9113; J1170; J1644; J2270; J2405; J2920; J2930; J7120

== ENCOUNTER → 2024-01-02 21:31 | Outpatient (BNV) | payer MEDICARE, SELFPAY | PROVIDERS: Admitting Provider Internal Medicine; Emergency Provider Internal Medicine; Visit Provider Internal Medicine Cardiovascular Disease | DX: R06.02 Shortness of breath (principal) | CPT/HCPCS: 93010 ==

== ENCOUNTER → 2024-01-03 02:20 | Outpatient (BNV) | payer MEDICARE, SELFPAY | PROVIDERS: Admitting Provider Internal Medicine; Emergency Provider Internal Medicine; Visit Provider Internal Medicine | DX: J10.1 Influenza due to other identified influenza virus with other respiratory manifestations (principal); R74.01 Elevation of levels of liver transaminase levels; J45.901 Unspecified asthma with (acute) exacerbation | CPT/HCPCS: 99223; 99232; 99239; 99499; G0180 ==

== ENCOUNTER → 2024-01-03 02:20 | Outpatient (BNV) | payer OTHER, SELFPAY | PROVIDERS: Admitting Provider Internal Medicine; Emergency Provider Internal Medicine; PCP Internal Medicine; Visit Provider Internal Medicine | DX: R74.01 Elevation of levels of liver transaminase levels (principal); J10.1 Influenza due to other identified influenza virus with other respiratory manifestations; J45.901 Unspecified asthma with (acute) exacerbation | CPT/HCPCS: 99222 ==

== ENCOUNTER 2024-04-18 12:47 | Outpatient (REF) | payer OTHER, SELFPAY ==
[2024-04-18 16:18] LABS: Estimated Average Glucose 177 mg/dL; Hemoglobin A1c % 7.8 % (<6.0)
[2024-04-18 16:22] LABS: Alanine Aminotransferase 27 U/L (0-31); Albumin Level 4.1 g/dL (3.5-5.0); Alkaline Phosphatase 104 U/L (39-117); Anion Gap 14 (12-20); Aspartate Amino Transferase 29 U/L (5-31); Bilirubin Direct 0.2 mg/dL (0.0-0.5); Bilirubin Total 0.5 mg/dL (0.0-1.0); Blood Urea Nitrogen 21 mg/dL (9-16); Calcium 10.1 mg/dL (8.4-10.2); Carbon Dioxide 26 mmol/L (22-29); Chloride 107 mmol/L (96-108); Cholesterol 142 mg/dL (<200); Estimated Glomerular Filt Rate > 60; Glucose Fasting 62 mg/dL (60-99); HDL Cholesterol 58 mg/dL (>40); LDL Cholesterol Calculated 65 mg/dL (<100); Potassium 3.7 mmol/L (3.3-5.1); Sodium 143 mmol/L (135-145); Total Protein 7.6 g/dL (6.5-8.0); Triglycerides 95 mg/dL (<150)
[2024-04-18 16:28] LABS: Thyroid Stimulating Hormone 2.06 uIU/mL (0.32-4.0)
[2024-04-18 16:44] LABS: Folate 7.6 ng/mL (> or = 4.0); Vitamin B12 336 pg/mL (200-900)
== END 2024-04-18 12:48 | disposition home or self-care (01) ==
LOC: HO.HHCL 12:47
PROVIDERS: Visit Provider Internal Medicine
DX: E11.42 Type 2 diabetes mellitus with diabetic polyneuropathy (principal); Z79.4 Long term (current) use of insulin
CPT/HCPCS: 36415; 80048; 80061; 80076; 82607; 82746; 83036; 84443

== ENCOUNTER 2024-04-19 09:43 | Outpatient (REF) | payer OTHER, SELFPAY ==
[2024-04-19 12:19] LABS: Creatinine Urine 159.36 mg/dL; Microalbum/Creatinine Ratio Ur 23.8 ug/mg cr (<30)
== END 2024-04-19 09:44 | disposition home or self-care (01) ==
LOC: HO.HHCLNP 09:43
PROVIDERS: Visit Provider Internal Medicine
DX: E11.42 Type 2 diabetes mellitus with diabetic polyneuropathy (principal); Z79.4 Long term (current) use of insulin
CPT/HCPCS: 82043; 82570

== ENCOUNTER 2024-06-02 10:31 | Outpatient (REF) | payer OTHER, SELFPAY ==
--- NOTE | ~2024-06-02 | XR_ITS ---
EXAMINATION: XR CHEST CLINICAL INFORMATION: Shortness of breath, cough, mild persistent asthma with acute exacerbation. COMPARISON: X-ray chest 05/28/2023, 01/02/2024. TECHNIQUE: 3 views of the chest. FINDINGS: Redemonstration of old right rib and right clavicular fractures. Lung volumes are low. There is no gross pneumothorax. Heart size upper limits of normal. Degenerative changes in the thoracic spine. No pleural effusion. No focal consolidation. XR/XR chest 2V IMPRESSION: No evidence of pneumonia. Electronically signed by: Mariya Parry MD 06/20/2024 10:55 AM EDT
== END 2024-06-02 10:32 | disposition home or self-care (01) ==
LOC: HO.HHCX 10:31
PROVIDERS: Visit Provider Internal Medicine
DX: J45.31 Mild persistent asthma with (acute) exacerbation (principal)
CPT/HCPCS: 71046

== ENCOUNTER 2024-09-13 23:38 | Emergency (ER) | payer OTHER, SELFPAY ==
--- NOTE | 2024-09-13 | ECG_ITS ---
Test Reason : ABDOMINAL PAIN Blood Pressure : / mmHG Vent. Rate : 073 BPM Atrial Rate : 073 BPM P-R Int : 164 ms QRS Dur : 080 ms QT Int : 362 ms P-R-T Axes : 020 016 034 degrees QTc Int : 398 ms Normal sinus rhythm Normal ECG When compared with ECG of 02-JAN-2024 21:59, Vent. rate has decreased BY 41 BPM Nonspecific T wave abnormality no longer evident in Lateral leads Referred By: Generic ED Physician Electronically Signed By:ADA TOLLIVER
--- NOTE | ~2024-09-13 | XR_ITS ---
EXAMINATION: XR ABDOMEN KUB CLINICAL INDICATION: abd distension COMPARISON: None available. TECHNIQUE: AP view of the abdomen. FINDINGS: There is gas seen throughout large and small bowel loops in a nonspecific bowel gas pattern. No unusual soft tissue calcifications are noted. There is no acute osseous abnormality. XR/XR KUB IMPRESSION: Nonspecific bowel gas pattern with gas seen throughout large and small bowel loops. Electronically signed by: Silver Waldron MD 09/14/2024 04:41 AM [facility]
--- OUTSIDE RECORDS SUMMARY | 2024-09-13 23:31 | XMS_ITS | Data Portability ---
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 I provided real -time medical direction via phone for this encounter, and was available for additional phone based assistance as needed. Patient given the opportunity to ask questions. Medic had very little phone service- unable to stack supervisor Language line. I was able to converse with the patient in Ethiopian- explain possible dx/ need to stay on light diet/ stay hydrated janis w/ clear liquids / review concerns and red flags. Patient unable to give a urine spec but did not appear dehydrated and has no UTI s/s. Medic did not have I-stat or lev to check chemistries in home. Pat denies hx allergies or kidney issues Not available 07/11/2022 15:55:54 Plan of Treatment Reminders Order Date Submit Date Provider Last Modified By Organization Details Last Modified Time Details Appointments None recorded. Lab None recorded. Referral None recorded. Procedures None recorded. Surgeries None recorded. Imaging None recorded. Medication Orders ketorolac 30 mg/mL (1 mL) injection solution 2021 022 [email or web address] [id number] Not available 14:22:03 Patient TargetsNo targets recorded. Patient InstructionsNo instructions recorded. Reason for Referral None Reported. Medical Equipment None Reported. Allergies No known drug allergies Medications Name Sig Start Date Stop Date Status Note LastModified by Organization Details LastModified Time atorvastatin 80 mg tablet TAKE 1 TABLET BY MOUTH EVERY MORNING active Not Available Not Available No t Available gabapentin 600 mg tablet TAKE 1 TABLET BY MOUTH THREE TIMES DAILY IN THE MORNING, AT NOON, AND AT BEDTIME active Not Available Not Available N ot Available albuterol sulfate 2.5 mg/3 mL (0.083 %) solution for nebulization INHALE 1 AMPULE USING A NEBULIZER FOUR TIMES DAILY NEEDED active Not Available Not Available No t Available cefpodoxime 200 mg tablet TAKE 1 TABLET BY MOUTH TWICE DAILY UNTIL GONE. TAKE WITH FOOD active Not Available Not Available No t Available sertraline 100 mg tablet TAKE 1 TABLET BY MOUTH EVERY MORNING active Not Available Not Available No t Available glipizide ER 5 mg tablet, extended release 24 hr TAKE 1 TABLET BY MOUTH EVERY MORNING active Not Available Not Available No t Available aspirin 81 mg tablet,delay ed release TAKE 1 TABLET BY MOUTH EVERY MORNING active Not Available Not Available No t Available ketorolac 30 mg/mL (1 mL) injection solution 30 mg IM x1 2021 active Not Available Not Available Not Avai lable phenazopyrid ine 100 mg tablet TAKE 1 TABLET BY MOUTH THREE TIMES DAILY AFTER MEALS NEEDED FOR PAIN active Not Available Not Available No t Available cephalexin 500 mg capsule TAKE 1 CAPSULE BY MOUTH EVERY 8 HOURS UNTIL FINISHED active Not Available Not Available No t Available pantoprazole 40 mg tablet,delay ed release TAKE 1 TABLET BY MOUTH EVERY MORNING active Not Available Not Available No t Available lisinopril 10 mg tablet TAKE 1 TABLET BY MOUTH AT BEDTIME active Not Available Not Available No t Available docusate sodium 100 mg capsule TAKE 1 CAPSULE BY MOUTH TWICE DAILY IN THE MORNING AND AT BEDTIME active Not Available Not Available No t Available montelukast 10 mg tablet TAKE 1 TABLET BY MOUTH EVERY EVENING active Not Available Not Available No t Available zolpidem 5 mg tablet TAKE 1 TABLET BY MOUTH AT BEDTIME active Not Available Not Available No t Available metoprolol succinate ER 25 mg tablet,exten ded release 24 hr TAKE 1 TABLET BY MOUTH EVERY MORNING active Not Available Not Available No t Available celecoxib 100 mg capsule TAKE 1 CAPSULE BY MOUTH ONCE DAILY active Not Available Not Available No t Available oxycodone 5 mg tablet TOME AKILA TABLETA CADA SEIS HORAS CUANDO SEA NECESARIO PARA [place] DOLOR active Not Available Not Available No t Available Fiber-Lax 625 mg tablet TAKE 1 TABLET BY MOUTH TWICE DAILY IN THE MORNING AND IN THE EVENING active Not Available Not Available No t Available calcium 600 mg (as carbonate)-v itamin D3 10 mcg (400 unit) tablet TAKE 1 TABLET BY MOUTH TWICE DAILY IN THE MORNING AND IN THE EVENING active Not Available Not Available No t Available FreeStyle Lite Strips TEST BLOOD SUGAR THREE TIMES DAILY active Not Available Not Available Not Available Lantus Solostar U-100 Insulin 100 unit/mL (3 mL) subcutaneous pen INJECT 56 UNITS SUBCUTANEOU SLY ONCE DAILY active Not Available Not Available No t Available TRUEplus Lancets 33 gauge TEST BLOOD SUGAR THREE TIMES DAILY active Not Available Not Available Not Available Trulicity 0.75 mg/0.5 mL subcutaneous pen injector INJECT ONE PEN (=0.75MG) SUBCUTANEOU SLY ONCE A WEEK DIRECTED active Not Available Not Available No t Available Pentips Pen Needle 32 gauge x / USE DIRECTED active Not Available Not Available No t Available Vitals Date Recorded Respiratory rate Oxygen saturation Oxygen saturation in Arterial blood by Pulse oximetry Heart rate Body temperature Systolic blood pressure Diastolic blood pressure Provider Name and Address Organization Details Last Updated DateTime 2 18 /min 98 % 98 % 76 /min 97.8 [degF] 132 mm[Hg] 78 mm[Hg] Not Available [facility] - production 2 14:15:12 Social History None recorded. Functional Status None recorded. Mental Status None recorded. Family History Nothing Reported. Medical History No medical history recorded. Gynecological HistoryNo gynecological history recorded. Obstetrics History GPAL:G 0 P 0 0 0 0 Past Encounters Encounter ID Performer Location Encounter Start Date Encounter Closed Date Diagnosis/Indication Diagnosis SNOMED-CT Code Diagnosis ICD10 Code [id number] Nay Acosta MD [facility] [address] [place] [phone] 07/11/2022 14:12:05 07/14/2022 11:34:38 Right upper quadrant pain 128260603 R10.11 Health Concerns Section Related Observation LastModified by Organization Detai ls LastModified Time None Recorded Concern Status LastModified by Organization Details LastModified Time None Recorded Advance Directives Directive None Recorded Payers Encounter Date Sequence Insurance Name Policy Number Policy Joe Covered Member ID Joe Member ID Guarantor Name 07/11/2022 1 [facility] - DOS PRIOR TO 2022 - DUAL ELIGIBLE (MEDICARE REPLACEMENT/ADV ANTAGE - HMO) Esthela Flannery [id number] Esthela Prudencio Notes Date Note Type Note Provider Name and Address Organization Details Recorded Time 07/11/2022 text/html HPI: Call from pt [employer]ONEWORKING BELT SANDER reporting pt having intermittent abdominal pain , rates 06/07. No vomiting, diarrhea, fever or other sx. Per STONEWORKING BELT SANDER pt declines to come into office for assessment. Agrees to visit form [facility] for assessment. Pt recently had Flu vaccine administered 07/08/22. .................. .................. .................. .................. .................. .................. .................. ............... CRC Nursing Assessment: Comments: CRC RN did not require any additional information to process this visit. .................. .................. .................. .................. .................. .................. .................. ............... [employer] Superintendent Note: Patient chief complaint of URQ abdominal pain for one day. Language barrier present. Patient vitals WNL. Patient abdominal auscultation reveals bowel sounds x 4 quadrants. Patient has URQ tenderness upon palpation. No CVA tenderness. Patient given 30mg ketorolac IM left self at [facility] request. Patient education given, red flags discussed. .................. .................. .................. .................. .................. .................. .................. ............... Disposition: FulfilledSEGMD: as above- pat could not recollect what she had for lunch yesterday- got abd pain sometime yesterday afternoon. Had only fidencio chicken noodle soup for dinner/ + coffee today . No fever/ diarrhea/n/v. Pain does not appear to radiate. Her sister had cholecystectomy. Nay Acosta MD [address] [place] [address],[address], [place], [phone], [place] [facility] 07/11/2022 15:56:06 OBGyn Episode No OBEpisode recorded.
[2024-09-13 23:38] VITALS: BP 118/68; BP 122/75; PULSE 75; PULSE 80; RESP 16; TEMP 36.9; O2SAT 99; BMI 37.8
[2024-09-13 23:56] LABS: Basophils Percent Auto 0.2 % (0-2); Eosinophils Absolute Auto 1.6 X10*3/uL (0.0-0.4); Eosinophils Percent Auto 14.7 % (0-4); Hematocrit 37.4 % (37.0-47.0); Hemoglobin 12.5 g/dl (12.0-16.0); Imm Gran Abs Auto 0.03 X10*3/uL (0.00-0.03); Imm Gran Pct Auto 0.3 % (0.0-0.4); Lymphocytes Absolute Auto 2.7 X10*3/uL (1.2-4.9); Lymphocytes Percent Auto 25.4 % (20-40); MANUAL DIFF FLAG NO; Mean Corpuscular HGB Conc 33.4 g/dl (31.0-35.0); Mean Corpuscular Hemoglobin 28.7 pg (27.0-33.0); Mean Corpuscular Volume 85.8 fL (80.0-98.0); Mean Platelet Volume 9.4 fL (9.4-12.3); Monocytes Absolute Auto 0.8 X10*3/uL (0.1-1.2); Monocytes Percent Auto 7.5 % (2-11); Neutrophils Absolute Auto 5.6 x10*3/uL (2.0-8.3); Neutrophils Percent Auto 51.9 % (45-73); Platelet Count 275 X10*3/uL (160-400); Red Blood Count 4.36 X10*6/uL (4.20-5.50); Red Cell Distribution Width 12.8 % (11.0-16.0); White Blood Count 10.7 X10*3/uL (4.8-10.8)
[2024-09-14 00:17] LABS: Alanine Aminotransferase 42 U/L (0-31); Albumin Level 3.9 g/dL (3.5-5.0); Alkaline Phosphatase 126 U/L (39-117); Anion Gap 15 (12-20); Aspartate Amino Transferase 39 U/L (5-31); Bilirubin Total 0.4 mg/dL (0.0-1.0); Blood Urea Nitrogen 15 mg/dL (9-16); Calcium 9.4 mg/dL (8.4-10.2); Carbon Dioxide 27 mmol/L (22-29); Chloride 103 mmol/L (96-108); Creatinine Clr Calc Pharmacy 71.7; Estimated Glomerular Filt Rate > 60; Glucose Random 148 mg/dL (60-115); Lipase 16 U/L (8-78); Potassium 4.6 mmol/L (3.3-5.1); Sodium 140 mmol/L (135-145); Total Protein 7.4 g/dL (6.5-8.0)
[2024-09-14 00:22] LABS: Troponin-I High Sensitivity < 2.7 ng/L (<3.5-17.0)
--- NOTE | 2024-09-14 01:01 | ED_ITS ---
HPI - Abdominal Pain General Chief Complaint: Abdominal Pain Stated Complaint: abd pain Time Seen by Provider: 09/14/24 00:58 Source: patient Mode of arrival: EMS Limitations: no limitations History of Present Illness ED Provider: HPI narrative: Patient with history of chronic constipation comes here for difficulty in urinating for last 3 days patient is not able to take MiraLax or milk of magnesia as she does not like them and make her vomit taking Colace without much response last bowel movement was about 5 days ago now having watery stool no fever no chills no nausea no vomiting feels bloated Related Data Home Medications ?Medication ?Instructions ?Recorded ?Confirmed aspirin 81 mg tablet,delayed 81 mg PO DAILY 01/03/24 01/03/24 release atorvastatin 80 mg tablet 80 mg PO DAILY 01/03/24 01/03/24 calcium 600 mg (as 1 tab PO BID 01/03/24 01/03/24 carbonate)-vitamin D3 10 mcg (400 unit) tablet calcium polycarbophil 625 mg 625 mg PO BID 01/03/24 01/03/24 tablet (Fiber-Lax) celecoxib 100 mg capsule 100 mg PO DAILY 01/03/24 01/03/24 docusate sodium 100 mg capsule 100 mg PO BID 01/03/24 01/03/24 dulaglutide 3 mg/0.5 mL 3 mg subcut SA@0900 01/03/24 01/03/24 subcutaneous pen injector (Trulicity) gabapentin 600 mg tablet 600 mg PO TID 01/03/24 01/03/24 lisinopril 10 mg tablet 10 mg PO BEDTIME 01/03/24 01/03/24 melatonin 5 mg tablet 5 mg PO BEDTIME 01/03/24 01/03/24 metoprolol succinate 25 mg 25 mg PO DAILY 01/03/24 01/03/24 tablet,extended release 24 hr montelukast 10 mg tablet 10 mg PO BEDTIME 01/03/24 01/03/24 pantoprazole 40 mg tablet,delayed 40 mg PO DAILY@0630 01/03/24 01/03/24 release sertraline 100 mg tablet 100 mg PO DAILY 01/03/24 01/03/24 Previous Rx's ?Medication ?Instructions ?Recorded docusate sodium 100 mg capsule 100 mg PO BID #60 caps 01/06/24 (Colace) insulin glargine 100 unit/mL (3 25 unit (0.25 mL) subcut DAILY #15 01/06/24 mL) subcutaneous pen (Lantus mL Solostar U-100 Insulin) insulin lispro 100 unit/mL 1 sliding scale dose subcut 01/06/24 subcutaneous pen (Admelog SoloStar USEASDIRECTD #15 mL U-100 Insulin lispro) ipratropium 0.5 mg-albuterol 3 mg 3 ml inhalation Q4H PRN Wheezing 01/06/24 (2.5 mg base)/3 mL nebulization #120 mL soln oseltamivir 75 mg capsule (Tamiflu) 75 mg PO BID #2 caps 01/06/24 polyethylene glycol 3350 17 17 g PO DAILY PRN constipation 01/06/24 gram/dose oral powder (Miralax) #238 grams prednisone 20 mg tablet 20 mg PO DAILY #2 tabs 01/06/24 cefuroxime axetil 500 mg tablet 500 mg PO BID 7 days #14 tabs 09/14/24 sennosides 8.6 mg tablet (Senna 8.6 mg PO BID #60 tabs 09/14/24 Lax) Allergies Allergy/AdvReac Type Severity Reaction Status Date / Time No Known Allergies Allergy Verified 09/13/24 23:40 [No Known Allergies*] Review of Systems Review of Systems Yes all other systems are reviewed and are negative [facility] Past Medical History Medical History HTN (hypertension) Diabetes Social History Social History Household Members: None Housing: Apartment Do you presently have visiting nurse or other home services: Yes (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 RN and [employer]) Patient Tobacco Use Status: Former Tobacco user Smoked in Last 30 Days: No e-Cigarette/Vaping Use: Never Used Second Hand Smoke Exposure: No Use of substances other than those prescribed or required for medical reasons: No Advance Directives: No Do you have a plan to hurt others: No Plan service: No Physical Exam ED Vital Signs: Vital Signs - 24 hr 09/13/24 23:38 09/14/24 02:03 09/14/24 04:45 Temperature 98.4 F 98.0 F 98.5 F Pulse Rate 75 73 74 Respiratory Rate 16 20 17 Blood Pressure 118/68 115/57 L 107/59 L Pulse Oximetry 99 96 96 Oxygen Delivery Method Room Air Room Air Room Air 09/14/24 05:13 Temperature 98.5 F Pulse Rate 74 Respiratory Rate 17 Blood Pressure 107/59 L Pulse Oximetry 96 Oxygen Delivery Method Room Air BMI result Body Mass Index 37.8 Appearance: Alert. Oriented X3. No acute distress. Eyes: No pallor or icterus ENT: Pharynx normal. Oral Mucosa moist Neck: Normal inspection. Neck supple. CVS: Normal heart rate and rhythm. Pulses normal. Respiratory: No respiratory distress. Equal air entry bilateral, Abdomen: Soft and diffuse tenderness no rebound tenderness or guarding. Bowel sounds are present, no mass palpable, no CVA tenderness Skin: Skin warm and dry. Normal skin color. Normal skin turgor. Extremities: No lower extremity edema. No calf tenderness Neuro: Oriented X 3. No motor deficit. Medical Decision Making Medical Decision Making MDM Narrative: Patient has chronic constipation UTI will prescribe Ceftin was given milk of magnesia in the ER patient does not want to take milk of magnesia or MiraLax because of the taste will prescribe center advised elisa, drink plenty of fluids Lab Data 09/13/24 23:51 09/13/24 23:51 Labs: Lab Results 09/13/24 09/14/24 Range/Units 23:51 01:11 WBC 10.7 (4.8-10.8) X10*3/uL RBC 4.36 (4.20-5.50) X10*6/uL Hgb 12.5 (12.0-16.0) g/dl Hct 37.4 (37.0-47.0) % MCV 85.8 (80.0-98.0) fL MCH 28.7 (27.0-33.0) pg MCHC 33.4 (31.0-35.0) g/dl RDW 12.8 (11.0-16.0) % Plt Count 275 D (160-400) X10*3/uL MPV 9.4 (9.4-12.3) fL Immature Gran % (Auto) 0.3 (0.0-0.4) % Neut % (Auto) 51.9 (45-73) % Lymph % (Auto) 25.4 (20-40) % [place] % (Auto) 7.5 (2-11) % Eos % (Auto) 14.7 H (0-4) % Baso % (Auto) 0.2 (0-2) % Lymph # (Auto) 2.7 (1.2-4.9) X10*3/uL [place] # (Auto) 0.8 (0.1-1.2) X10*3/uL Eos # (Auto) 1.6 H (0.0-0.4) X10*3/uL Baso # (Auto) 0.0 (0.0-0.2) X10*3/uL Abs Immat Gran (auto) 0.03 (0.00-0.03) X10*3/uL Absolute Neuts (auto) 5.6 (2.0-8.3) x10*3/uL Absolute Nucleated RBC 0.000 (0.0-0.012) X10*3/uL Nucleated RBC % (auto) 0.0 (0.0-0.2) /100WBC Sodium 140 (135-145) mmol/L Potassium 4.6 D (3.3-5.1) mmol/L Chloride 103 (96-108) mmol/L Carbon Dioxide 27 (22-29) mmol/L Anion Gap 15 (12-20) BUN 15 (9-16) mg/dL Creatinine 0.73 (0.5-1.4) mg/dL Estim Creat Clear Calc 71.7 Estimated GFR > 60 Random Glucose 148 H (60-115) mg/dL Calcium 9.4 D (8.4-10.2) mg/dL Total Bilirubin 0.4 (0.0-1.0) mg/dL AST 39 H (5-31) U/L ALT 42 H (0-31) U/L Alkaline Phosphatase 126 H (39-117) U/L Troponin I High Sens < 2.7 D (<3.5-17.0) ng/L Total Protein 7.4 (6.5-8.0) g/dL Albumin 3.9 (3.5-5.0) g/dL Lipase 16 (8-78) U/L Urine Color Yellow Urine Appearance Cloudy Urine pH 7.5 (5.0-9.0) Ur Specific [place] 1.015 (1.005-1.025) Urine Protein 30 (1+) H (Neg-Trace) mg/dL Urine Glucose (UA) Negative (Negative) mg/dL Urine Ketones Negative (Negative) mg/dL Urine Blood Moderate (2+) H (Negative) Urine Nitrite Positive H (Negative) Ur Leukocyte Esterase Large (3+) H (Negative) Urine RBC >20 H (0-2) /HPF Urine WBC >50 H (0-5) /HPF Ur Squamous Epith Cells 0-2 (0-2) /HPF Urine Bacteria 4+ (None Seen) Hyaline Casts 0-2 (0-2) /LPF Medications Administered Discontinued Medications Generic Name Dose Route Start Last Admin Trade Name Freq PRN Reason Stop Dose Admin Bisacodyl 10 mg 09/14/24 04:08 09/14/24 05:02 Bisacodyl 5 Mg Tablet.Dr PO 09/14/24 04:09 10 mg ONCE ONE Administration Cefuroxime Axetil 500 mg 09/14/24 02:20 09/14/24 04:11 Cefuroxime Axetil 500 Mg Tablet PO 09/14/24 02:21 500 mg ONCE ONE Administration Magnesium Hydroxide 30 ml 09/14/24 04:08 09/14/24 05:02 Milk Of Magnesia 30 Ml Oral.Susp PO 09/14/24 04:09 30 ml ONCE ONE Administration Discharge Plan Discharge Clinical Impression: UTI (urinary tract infection), Constipation Patient Disposition: Home, Self-Care Instructions: Constipation (ED), Urinary Tract Infection in Women (ED) Additional Instructions: Drink plenty of fluids Take medication for constipation as prescribed Antibiotic for UTI Follow with your PCP Prescriptions: New cefuroxime axetil 500 mg tablet 500 mg PO BID 7 Days Qty: 14 0RF sennosides [Senna Lax] 8.6 mg tablet 8.6 mg PO BID Qty: 60 0RF No Action aspirin 81 mg tablet,delayed release (DR/EC) 81 mg PO DAILY atorvastatin 80 mg tablet 80 mg PO DAILY celecoxib 100 mg capsule 100 mg PO DAILY gabapentin 600 mg tablet 600 mg PO TID lisinopril 10 mg tablet 10 mg PO BEDTIME metoprolol succinate 25 mg tablet extended release 24 hr 25 mg PO DAILY Trulicity 3 mg/0.5 mL pen injector 3 mg subcut SA@0900 sertraline 100 mg tablet 100 mg PO DAILY pantoprazole 40 mg tablet,delayed release (DR/EC) 40 mg PO DAILY@0630 montelukast 10 mg tablet 10 mg PO BEDTIME calcium polycarbophil [Fiber-Lax] 625 mg tablet 625 mg PO BID docusate sodium 100 mg capsule 100 mg PO BID calcium carbonate-vitamin D3 600 mg-10 mcg (400 unit) tablet 1 tab PO BID melatonin 5 mg tablet 5 mg PO BEDTIME oseltamivir [Tamiflu] 75 mg Capsule 75 mg PO BID Qty: 2 0RF prednisone 20 mg tablet 20 mg PO DAILY Qty: 2 0RF polyethylene glycol 3350 [Miralax] 17 gram/dose powder 17 g PO DAILY PRN (Reason: constipation) Qty: 238 0RF docusate sodium [Colace] 100 mg capsule 100 mg PO BID Qty: 60 0RF ipratropium-albuterol 0.5 mg-3 mg(2.5 mg base)/3 mL Solution For Nebulization 3 ml inhalation Q4H PRN (Reason: Wheezing) Qty: 120 3RF insulin glargine [Lantus Solostar U-100 Insulin] 100 unit/mL (3 mL) insulin pen 25 unit subcut DAILY Qty: 15 0RF Rx Instructions: to be given between 10 and 11 insulin lispro [Admelog SoloStar U-100 Insulin] 100 unit/mL insulin pen 1 sliding scale dose subcut USEASDIRECTD MDD 40 Qty: 15 0RF Rx Instructions: BG <111 0 units, 111-150 - 0 units, 151-200 2 units, 201-250 4 units, 251-300 6 units, 301-350 8 units, >350 10 units Interventions: ED Discharge Assessment Last Done: 09/14/24 05:13 Discharge Date/Time: 09/14/24 05:14 Print Language: [place]
--- NOTE | 2024-09-14 01:15 | PC.NURSE ---
pt urinated approx 200mL. UA sent to lab.
[2024-09-14 01:27] LABS: Appearance Urine Cloudy; Color Urine Yellow; Glucose Urine UA Negative (Negative); Leukocyte Esterase Urine Large (3+) (Negative); Nitrite Urine Positive (Negative); PH 7.5 (5.0-9.0); Specific Gravity - Urine 1.015 (1.005-1.025); UMIC TRIGGER UACC YES; Urine Blood Moderate (2+) (Negative); Urine Ketones Negative (Negative); Urine Protein 30 (1+) mg/dL (Neg-Trace)
[2024-09-14 01:32] LABS: Bacteria Urine 4+ (None Seen); Hyaline Casts Urine 0-2 /LPF (0-2); Squamous Epithelial Cell Urine 0-2 /HPF (0-2); UACC Culture Trigger YES; WBC Urine >50 /HPF (0-5)
[2024-09-14 01:41] LABS: RBC Urine >20 /HPF (0-2)
[2024-09-14 02:03] VITALS: BP 115/57; PULSE 73; RESP 20; TEMP 36.7; O2SAT 96
[2024-09-14] MEDS: cefuroxime axetiL 500 MG TABLET PO (04:11)
[2024-09-14 04:45] VITALS: BP 107/59; PULSE 74; RESP 17; TEMP 36.9; O2SAT 96
[2024-09-14] MEDS: Milk of Magnesia 30 ML ORAL.SUSP PO (05:02)
[2024-09-14] MEDS: bisacodyL 5 MG TABLET.DR 10 MG PO (05:02)
[2024-09-14 05:13] VITALS: BP 107/59; PULSE 74; RESP 17; TEMP 36.9; O2SAT 96
== END 2024-09-14 05:14 | disposition home or self-care (01) ==
PROVIDERS: Emergency Provider Internal Medicine
DX: N39.0 Urinary tract infection, site not specified (principal); K59.00 Constipation, unspecified; R10.2 Pelvic and perineal pain; R33.9 Retention of urine, unspecified; R11.10 Vomiting, unspecified; Z87.891 Personal history of nicotine dependence; Z79.899 Other long term (current) drug therapy
CPT/HCPCS: 36415; 74018; 80053; 81001; 83690; 84484; 85025; 87086; 93005; 99283; 99285

== ENCOUNTER → 2024-09-13 23:57 | Outpatient (BNV) | payer OTHER, SELFPAY | PROVIDERS: Emergency Provider Internal Medicine; Visit Provider Internal Medicine | DX: R10.9 Unspecified abdominal pain (principal) | CPT/HCPCS: 93010 ==

== ENCOUNTER 2024-11-28 09:16 | Emergency (ER) | payer OTHER, SELFPAY ==
--- NOTE | ~2024-11-28 | XR_ITS ---
.EXAMINATION: XR CHEST CLINICAL INFORMATION: chest pain COMPARISON: June 02, 2024. TECHNIQUE: 2 views of the chest were obtained. FINDINGS: Poor inspiration/no hyperinflation. No consolidation, pleural effusion or pneumothorax. Cardiomediastinal silhouette size is normal. Calcified plaque thoracic aorta. Multilevel thoracic and upper lumbar spondylosis. 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 XR/XR chest 2V IMPRESSION: No acute airspace disease. Electronically signed by: Nick Major MD 11/28/2024 10:46 AM ALEXIA JADE
--- NOTE | ~2024-11-28 | NM_ITS ---
EXAMINATION: Nuclear medicine perfusion scan. CLINICAL INDICATION: Elevated d-dimer. Shortness of breath. COMPARISON: Chest x-ray 11/28/2024. TECHNIQUE: Following intravenous administration of 3.4 mCi of 99m Tc MAA imaging over chest was obtained in multiple projections. Ventilation study was not performed. FINDINGS: There is normal perfusion in all segments of both lungs without any focal segmental or nonsegmental defects seen. Ventilation study was not performed. FINDINGS: No evidence of PE. Electronically signed by: Garrison Lara MD 11/28/2024 04:27 PM ALEXIA
--- NOTE | 2024-11-28 09:25 | ECG_ITS ---
Test Reason : chest pain Blood Pressure : */* mmHG Vent. Rate : 72 BPM Atrial Rate : 72 BPM P-R Int : 156 ms QRS Dur : 78 ms QT Int : 386 ms P-R-T Axes : 0 11 49 degrees QTcB Int : 422 ms Normal sinus rhythm Normal ECG When compared with ECG of 13-Sep-2024 23:57, No significant change was found Referred By: Esther Christina Electronically Signed By: INDIRA PALMER MD
--- NOTE | 2024-11-28 09:25 | ED.CHESTPAIN ---
HPI - Chest Pain General Chief Complaint: Chest Pain Stated Complaint: NON RAD CP SINCE LAST NOC PER EMS Time Seen by Provider: 11/28/24 09:19 Source: patient, EMS, RN notes reviewed, old records reviewed and stull hewer (Cypriot) Mode of arrival: EMS Limitations: language barrier (Cypriot) History of Present Illness ED Provider: ESTHER CHRISTINA PA-C HPI narrative: 68-year-old Cypriot-speaking female with pmhx significant for HTN and DM presents to the ED today via EMS from home for evaluation of intermittent chest pain which began last night while seated, watching TV. Pain is located sternally and does not radiate. She states it comes and goes. When the pain occurs, it lasts for hours before resolving. Also endorsing associated headache and shortness of breath. She has been using her albuterol inhaler at home as needed. She has not had to increase her use. Denies known sick contacts. She lives alone. She did not trialed any pain medication. She was given aspirin by EMS en route. Reports minimal improvement in pain. No recent travel or long car rides. No known sick contacts. Denies fever, chills, palpitations, cough, hemoptysis, LE pain/swelling, N/V. Related Data Home Medications ?Medication ?Instructions ?Recorded ?Confirmed aspirin 81 mg tablet,delayed 81 mg PO DAILY 01/03/24 01/03/24 release atorvastatin 80 mg tablet 80 mg PO DAILY 01/03/24 01/03/24 calcium 600 mg (as 1 tab PO BID 01/03/24 01/03/24 carbonate)-vitamin D3 10 mcg (400 unit) tablet calcium polycarbophil 625 mg 625 mg PO BID 01/03/24 01/03/24 tablet (Fiber-Lax) celecoxib 100 mg capsule 100 mg PO DAILY 01/03/24 01/03/24 docusate sodium 100 mg capsule 100 mg PO BID 01/03/24 01/03/24 dulaglutide 3 mg/0.5 mL 3 mg subcut SA@0900 01/03/24 01/03/24 subcutaneous pen injector (Trulicity) gabapentin 600 mg tablet 600 mg PO TID 01/03/24 01/03/24 lisinopril 10 mg tablet 10 mg PO BEDTIME 01/03/24 01/03/24 melatonin 5 mg tablet 5 mg PO BEDTIME 01/03/24 01/03/24 metoprolol succinate 25 mg 25 mg PO DAILY 01/03/24 01/03/24 tablet,extended release 24 hr montelukast 10 mg tablet 10 mg PO BEDTIME 01/03/24 01/03/24 pantoprazole 40 mg tablet,delayed 40 mg PO DAILY@0630 01/03/24 01/03/24 release sertraline 100 mg tablet 100 mg PO DAILY 01/03/24 01/03/24 Previous Rx's ?Medication ?Instructions ?Recorded docusate sodium 100 mg capsule 100 mg PO BID #60 caps 01/06/24 (Colace) insulin glargine 100 unit/mL (3 25 unit (0.25 mL) subcut DAILY #15 01/06/24 mL) subcutaneous pen (Lantus mL Solostar U-100 Insulin) insulin lispro 100 unit/mL 1 sliding scale dose subcut 01/06/24 subcutaneous pen (Admelog SoloStar USEASDIRECTD #15 mL U-100 Insulin lispro) ipratropium 0.5 mg-albuterol 3 mg 3 ml inhalation Q4H PRN Wheezing 01/06/24 (2.5 mg base)/3 mL nebulization #120 mL soln oseltamivir 75 mg capsule (Tamiflu) 75 mg PO BID #2 caps 01/06/24 polyethylene glycol 3350 17 17 g PO DAILY PRN constipation 01/06/24 gram/dose oral powder (Miralax) #238 grams prednisone 20 mg tablet 20 mg PO DAILY #2 tabs 01/06/24 cefuroxime axetil 500 mg tablet 500 mg PO BID 7 days #14 tabs 09/14/24 sennosides 8.6 mg tablet (Senna 8.6 mg PO BID #60 tabs 09/14/24 Lax) prednisone 20 mg tablet 40 mg (2 x 20 mg) PO DAILY 4 days 11/28/24 #8 tabs Allergies Allergy/AdvReac Type Severity Reaction Status Date / Time No Known Allergies Allergy Verified 11/28/24 10:02 [No Known Allergies*] Review of Systems Review of Systems: Constitutional: No fever, chills, fatigue, night sweats, weight changes ENT/Mouth: No ear pain, hearing loss, nasal congestion, sinus pain, rhinorrhea, sore throat Eyes: No eye pain, swelling, redness, vision changes, discharge Cardio: No palpitations, CAMERON, orthopnea, peripheral edema, +chest pain Pulm: No cough, sputum, wheezing, dyspnea, hemoptysis, +sob GI: No nausea, vomiting, hematemesis, abdominal pain, diarrhea, constipation, hematochezia, melena : No irregular bleeding, dysuria, frequency, urgency, hesitancy, hematuria, flank pain, urinary flow changes, urinary incontinence or retention MSK: No back pain, neck pain, joint pain, myalgias Skin: No lesions, rashes Neuro: No weakness, numbness, paresthesias, LOC, dizziness, headache Psych: No anxiety/panic, depression, SI/HI, AH/VH All other systems reviewed and are negative. [facility] Past Medical History Attestation statement: The following information was validated with the patient. Source: old records reviewed and nursing notes reviewed Medical History HTN (hypertension) Diabetes Social History Social History Household Members: None Housing: Apartment Do you presently have visiting nurse or other home services: Yes (Visiting RN and [employer]) Patient Tobacco Use Status: Former Tobacco user Smoked in Last 30 Days: No e-Cigarette/Vaping Use: Never Used Second Hand Smoke Exposure: No Use of substances other than those prescribed or required for medical reasons: No Advance Directives: No Advance Directives Information Provided: Yes service: No Physical Exam Vital Signs: Vital Signs: Last Vital Signs Temp 97.7 F 11/28/24 18:01 Pulse 92 11/28/24 18:01 Resp 20 11/28/24 18:01 BP 156/67 H 11/28/24 18:01 Pulse Ox 93 11/28/24 18:01 O2 Del Method Room Air 11/28/24 18:01 BMI result Body Mass Index 31.9 vital signs stable, not hypoxic or tachycardic General: Well appearing, in no acute distress. Skin: Warm, dry, intact. No rashes or lesions. Head: Normocephalic, atraumatic. EENT: Hearing is intact b/l. Conjunctiva clear. PERRLA. EOM intact. Moist mucous membranes.? Neck: Supple without LAD Cardiac: Chest wall symmetric. RRR. No JVD. Lungs: Normal respiratory effort without accessory muscle use. No tripoding. No cough. scattered wheezes. Abdomen: Soft, non-tender, non-distended. No rebound tenderness or guarding. Positive BS x4. Back: No midline spinous or paraspinal tenderness. No step off deformity. Ext: Upper and lower extremities atraumatic, without tenderness, deformity, swelling or erythema. no pitting edema, no calf tenderness. Neuro: AOx3. Normal speech. Ambulating with steady gait assisted. Psych: Appropriate mood and affect. Responds appropriately to questions. Course Course Course Narrative: 1511 -- CBC without leukocytosis or left shift. Normocytic anemia, H and H appears to be around patient's baseline and above transfusion threshold. Chemistry without acute electrolyte abnormality requiring intervention. No TARA. Normal liver function. lipase wnl. Troponin 2.7 - given timing of pain to presentation, will not repeat for delta as ACS is unlikely. EKG shows normal sinus rhythm with a rate of 72 beats per minute, QT 386, QTC 422, no acute ischemic changes or ST elevations. Negative COVID, flu, RSV. Chest x-ray does not demonstrate infiltrate or consolidation to suggest pneumonia. > patient received toradol for pain and albuterol/ solumedrol for breathing with good effect > patient's D-dimer elevated to 429. Age adjusted D-dimer cutoff is 345. concern for PE. we have had difficulty establishing an acceptable line for CTA chest. Radiology attempted scan however line infiltrated. discussed w/ my attending dr. galdamez. order for VQ scan placed 1540 -- line established. transporter at bedside to take patient to VQ scan. Hemodynamically stable at this time. 1707 -- VQ scan without evidence of PE. Patient has sustained O2 saturation of 94-95% on RA during ambulatory trial. She was noted to be tachycardic during trial however likely d/t exertion as patient typically ambulates with a walker. she reports improvement with Toradol and breathing treatment. Will treat for asthma exacerbation. Prednisone sent to pharmacy. Educated on hyperglycemia associated with steroid use. Advised to monitor sugars at home. she feels safe for discharge. Patient has remained stable throughout ED visit today. Discussed worrisome signs and symptoms and when to return to the ED. All questions answered at this time. Patient is agreeable with disposition and stable for discharge. Medications Administered Discontinued Medications Generic Name Dose Route Start Last Admin Trade Name Sahil PRN Reason Stop Dose Admin Albuterol/Ipratropium 3 ml 11/28/24 11:10 11/28/24 11:12 Albuterol/Iprat 2.5/0.5mg 3 Ml Ampul.Neb INHALE 11/28/24 11:11 3 ml ONCE ONE Administration Magnesium Sulfate 2 gm in 50 mls @ 25 mls/hr 11/28/24 16:52 11/28/24 17:28 Magnesium Sulfate/H2o IV 11/28/24 18:51 25 mls/hr ONCE ONE Administration Ketorolac Tromethamine 15 mg 11/28/24 10:33 11/28/24 10:49 Ketorolac Tromethamine 15 Mg/Ml Vial IVPUSH 11/28/24 10:34 15 mg ONCE ONE Administration Methylprednisolone Sodium Succinate 80 mg 11/28/24 10:33 11/28/24 10:52 Methylprednisolone Sod Succ 125 Mg/2 Ml Vial IVPUSH 11/28/24 10:34 80 mg ONCE ONE Administration Medical Decision Making Medical Decision Making [facility] Narrative: 68-year-old Cypriot-speaking female with pmhx significant for HTN and DM presents to the ED today via EMS from home for evaluation of intermittent chest pain which began last night while seated, watching TV. Vital signs are stable. Not hypoxic. Not tachycardic. She is nontoxic-appearing and in no acute distress. No respiratory distress, no tripoding. No cough. Lungs with minimal scattered wheezes. No other adventitious breath sounds. RRR. No calf tenderness bilaterally. No pitting edema. Differential diagnosis includes anemia, electrolyte abnormality, viral syndrome, bronchitis, pneumonia, asthma exacerbation Exam without evidence of volume overload. EKG without signs of active ischemia. Given the timing of pain to ED presentation, plan to send single troponin to evaluate for NSTEMI. PERC 1 - will obtain ddimer to r/o PE. Presentation not consistent with pneumothorax, thoracic aortic dissection, cardiac effusion or tamponade. Plan: labs, troponin, EKG, CXR, pain control, reassessment Differential Diagnosis Differential Diagnoses: The differential diagnosis associated with the presentation includes as above. Admission/Observation Consideration of admission/observation: Escalation of care including admission/observation considered admission considered Lab Data [facility] Lab Attestation statement: I reviewed the patient's lab results. as above. 11/28/24 10:04 11/28/24 10:04 Labs: Lab Results 11/28/24 11/28/24 Range/Units 10:04 15:24 WBC 9.8 (4.8-10.8) X10*3/uL RBC 4.16 L (4.20-5.50) X10*6/uL Hgb 11.9 L (12.0-16.0) g/dl Hct 36.8 L (37.0-47.0) % MCV 88.5 (80.0-98.0) fL MCH 28.6 (27.0-33.0) pg MCHC 32.3 (31.0-35.0) g/dl RDW 12.8 (11.0-16.0) % Plt Count 259 (160-400) X10*3/uL MPV 9.5 (9.4-12.3) fL Immature Gran % (Auto) 0.4 (0.0-0.4) % Neut % (Auto) 52.8 (45-73) % Lymph % (Auto) 31.5 (20-40) % Dickens % (Auto) 7.4 (2-11) % Eos % (Auto) 7.5 H (0-4) % Baso % (Auto) 0.4 (0-2) % Lymph # (Auto) 3.1 (1.2-4.9) X10*3/uL Dickens # (Auto) 0.7 (0.1-1.2) X10*3/uL Eos # (Auto) 0.7 H (0.0-0.4) X10*3/uL Baso # (Auto) 0.0 (0.0-0.2) X10*3/uL Abs Immat Gran (auto) 0.04 H (0.00-0.03) X10*3/uL Absolute Neuts (auto) 5.2 (2.0-8.3) x10*3/uL Absolute Nucleated RBC 0.000 (0.0-0.012) X10*3/uL Nucleated RBC % (auto) 0.0 (0.0-0.2) /100WBC PT 11.6 (10.9-12.4) SEC INR 1.0 (0.9-1.1) D-Dimer High Sensitivty 429 NG/ML Sodium 143 (135-145) mmol/L Potassium 3.5 D (3.3-5.1) mmol/L Chloride 109 H (96-108) mmol/L Carbon Dioxide 23 (22-29) mmol/L Anion Gap 15 (12-20) BUN 10 (9-16) mg/dL Creatinine 0.61 (0.5-1.4) mg/dL Estim Creat Clear Calc 88.1 Estimated GFR > 60 POC Glucose 189 H (60-115) mg/dL Random Glucose 103 (60-115) mg/dL Calcium 9.0 (8.4-10.2) mg/dL Magnesium 1.8 (1.6-2.6) mg/dL Total Bilirubin 0.3 (0.0-1.0) mg/dL AST 22 (5-31) U/L ALT 23 (0-31) U/L Alkaline Phosphatase 108 (39-117) U/L Troponin I High Sens 2.7 (<3.5-17.0) ng/L Total Protein 7.6 (6.5-8.0) g/dL Albumin 3.7 (3.5-5.0) g/dL Lipase 15 (8-78) U/L Influenza Type A (PCR) NEGATIVE (Negative) Influenza Type B (PCR) NEGATIVE (Negative) RSV RNA Qual (PCR) NEGATIVE (Negative) SARS-CoV-2 RNA (RT-PCR) NEGATIVE (Negative) Independent Interpretation I performed an independent interpretation of an: EKG, Plain X-Ray and CT Scan (VQ SCAN) Interpretation: ekg showing normal sinus rhythm with a rate of 72 beats per minute, QT 386, QTC 422, no acute ischemic changes or ST elevations cxr without infiltrate or consolidation VQ scan without PE Radiology Impression Discussion of test interpretation with radiology: I have reviewed the radiologist's reading. Radiologist Impression: Procedure(s): XR chest 2V Accession Number(s): [id number] cc: Indira Newsome MD; Esther Christina~ .EXAMINATION: XR CHEST CLINICAL INFORMATION: chest pain COMPARISON: June 02, 2024. TECHNIQUE: 2 views of the chest were obtained. FINDINGS: Poor inspiration/no hyperinflation. No consolidation, pleural effusion or pneumothorax. Cardiomediastinal silhouette size is normal. Calcified plaque thoracic aorta. Multilevel thoracic and upper lumbar spondylosis. 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 XR/XR chest 2V IMPRESSION: No acute airspace disease. Electronically signed by: Nick Major MD 11/28/2024 10:46 AM EST RP Procedure(s): NM pul perfusion Accession Number(s): [id number] cc: German Galdamez MD; Indira Newsome MD~ EXAMINATION: Nuclear medicine perfusion scan. CLINICAL INDICATION: Elevated d-dimer. Shortness of breath. COMPARISON: Chest x-ray 11/28/2024. TECHNIQUE: Following intravenous administration of 3.4 mCi of 99m Tc MAA imaging over chest was obtained in multiple projections. Ventilation study was not performed. FINDINGS: There is normal perfusion in all segments of both lungs without any focal segmental or nonsegmental defects seen. Ventilation study was not performed. FINDINGS: No evidence of PE. Electronically signed by: Garrison Lara MD 11/28/2024 04:27 PM EST RP Independent Historian Clinical information obtained from an independent historian. History obtained from or confirmed by: EMS External Record Review External record reviewed: Inpatient record, Office record, Outpatient record, Prior outpatient labs and Prior outpatient radiology Prescription Management I considered prescription management with: Pain Medication Chronic Conditions Patient?s care impacted by: Diabetes and Hypertension Social Determinants Patient?s care significantly limited by Social Determinants of Health including: Other Social Determinant of Health Critical Care Time Critical Care Time Critical Care Time: No Discharge Plan Discharge Clinical Impression: Atypical chest pain, Asthma exacerbation Patient Disposition: Home, Self-Care Instructions: Asthma (ED), Noncardiac Chest Pain (ED) Additional Instructions: You were evaluated in the Emergency Department today for chest pain. Your evaluation has shown no signs of medical conditions requiring emergent intervention at this time, however I recommend that you follow up with your primary care provider or your retail center receptionist as soon as possible for further testing as an outpatient. If you do not have one, a referral has been provided. Please call them to make an appointment, they will not call you. You may take tylenol/ motrin at home as needed for pain/ discomfort. I am sending a course of prednisone to your pharmacy for your breathing. take your next dose tomorrow. take this as prescribed. You have diabetes. It is important that you monitor your blood sugar at home as prednisone can increase this. If you find that your blood sugar is higher than normal, please discontinue use of prednisone. Return to the Emergency Department if you experience worsening or uncontrolled chest pain, shortness of breath, light headedness, feeling faint, nausea, vomiting, or any other concerning symptoms. Prescriptions: New prednisone 20 mg tablet 40 mg PO DAILY 4 Days Qty: 8 0RF No Action aspirin 81 mg tablet,delayed release (DR/EC) 81 mg PO DAILY atorvastatin 80 mg tablet 80 mg PO DAILY celecoxib 100 mg capsule 100 mg PO DAILY gabapentin 600 mg tablet 600 mg PO TID lisinopril 10 mg tablet 10 mg PO BEDTIME metoprolol succinate 25 mg tablet extended release 24 hr 25 mg PO DAILY Trulicity 3 mg/0.5 mL pen injector 3 mg subcut SA@0900 sertraline 100 mg tablet 100 mg PO DAILY pantoprazole 40 mg tablet,delayed release (DR/EC) 40 mg PO DAILY@0630 montelukast 10 mg tablet 10 mg PO BEDTIME calcium polycarbophil [Fiber-Lax] 625 mg tablet 625 mg PO BID docusate sodium 100 mg capsule 100 mg PO BID calcium carbonate-vitamin D3 600 mg-10 mcg (400 unit) tablet 1 tab PO BID melatonin 5 mg tablet 5 mg PO BEDTIME oseltamivir [Tamiflu] 75 mg Capsule 75 mg PO BID Qty: 2 0RF prednisone 20 mg tablet 20 mg PO DAILY Qty: 2 0RF polyethylene glycol 3350 [Miralax] 17 gram/dose powder 17 g PO DAILY PRN (Reason: constipation) Qty: 238 0RF docusate sodium [Colace] 100 mg capsule 100 mg PO BID Qty: 60 0RF ipratropium-albuterol 0.5 mg-3 mg(2.5 mg base)/3 mL Solution For Nebulization 3 ml inhalation Q4H PRN (Reason: Wheezing) Qty: 120 3RF insulin glargine [Lantus Solostar U-100 Insulin] 100 unit/mL (3 mL) insulin pen 25 unit subcut DAILY Qty: 15 0RF Rx Instructions: to be given between 10 and 11 insulin lispro [Admelog SoloStar U-100 Insulin] 100 unit/mL insulin pen 1 sliding scale dose subcut USEASDIRECTD MDD 40 Qty: 15 0RF Rx Instructions: BG <111 0 units, 111-150 - 0 units, 151-200 2 units, 201-250 4 units, 251-300 6 units, 301-350 8 units, >350 10 units cefuroxime axetil 500 mg tablet 500 mg PO BID 7 Days Qty: 14 0RF sennosides [Senna Lax] 8.6 mg tablet 8.6 mg PO BID Qty: 60 0RF Referrals: Indira Newsome MD [Primary Care Provider] - Interventions: ED Discharge Assessment Last Done: 11/28/24 18:01 Discharge Date/Time: 11/28/24 18:02 Print Language: Cypriot
[2024-11-28 09:59] VITALS: BP 130/72; BP 167/100; PULSE 72; PULSE 73; RESP 18; TEMP 36.8; O2SAT 97; O2SAT 98; BMI 31.9
[2024-11-28 10:02] VITALS: PULSE 73; RESP 18; O2SAT 97
[2024-11-28 10:08] LABS: MANUAL DIFF FLAG NO
[2024-11-28 10:10] LABS: Basophils Percent Auto 0.4 % (0-2); Eosinophils Absolute Auto 0.7 X10*3/uL (0.0-0.4); Eosinophils Percent Auto 7.5 % (0-4); Hematocrit 36.8 % (37.0-47.0); Hemoglobin 11.9 g/dl (12.0-16.0); Imm Gran Abs Auto 0.04 X10*3/uL (0.00-0.03); Imm Gran Pct Auto 0.4 % (0.0-0.4); Lymphocytes Absolute Auto 3.1 X10*3/uL (1.2-4.9); Lymphocytes Percent Auto 31.5 % (20-40); Mean Corpuscular HGB Conc 32.3 g/dl (31.0-35.0); Mean Corpuscular Hemoglobin 28.6 pg (27.0-33.0); Mean Corpuscular Volume 88.5 fL (80.0-98.0); Mean Platelet Volume 9.5 fL (9.4-12.3); Monocytes Absolute Auto 0.7 X10*3/uL (0.1-1.2); Monocytes Percent Auto 7.4 % (2-11); Neutrophils Absolute Auto 5.2 x10*3/uL (2.0-8.3); Neutrophils Percent Auto 52.8 % (45-73); Platelet Count 259 X10*3/uL (160-400); Red Blood Count 4.16 X10*6/uL (4.20-5.50); Red Cell Distribution Width 12.8 % (11.0-16.0); White Blood Count 9.8 X10*3/uL (4.8-10.8)
[2024-11-28 10:16] LABS: Prothrombin Time 11.6 SEC (10.9-12.4)
[2024-11-28 10:24] LABS: Alanine Aminotransferase 23 U/L (0-31); Albumin Level 3.7 g/dL (3.5-5.0); Alkaline Phosphatase 108 U/L (39-117); Anion Gap 15 (12-20); Aspartate Amino Transferase 22 U/L (5-31); Bilirubin Total 0.3 mg/dL (0.0-1.0); Blood Urea Nitrogen 10 mg/dL (9-16); Carbon Dioxide 23 mmol/L (22-29); Chloride 109 mmol/L (96-108); Creatinine Clr Calc Pharmacy 88.1; Estimated Glomerular Filt Rate > 60; Glucose Random 103 mg/dL (60-115); Lipase 15 U/L (8-78); Magnesium 1.8 mg/dL (1.6-2.6); Potassium 3.5 mmol/L (3.3-5.1); Sodium 143 mmol/L (135-145); Total Protein 7.6 g/dL (6.5-8.0)
[2024-11-28 10:31] LABS: Troponin-I High Sensitivity 2.7 ng/L (<3.5-17.0)
[2024-11-28] MEDS: Ketorolac Tromethamine 15 MG/ML VIAL IVPUSH (10:49)
[2024-11-28] MEDS: methylPREDNISolone Sod Succ 125 MG/2 ML VIAL 80 MG IVPUSH (10:52)
[2024-11-28 10:56] LABS: Influenza A PCR NEGATIVE (Negative); Influenza B PCR NEGATIVE (Negative); Resp Syncy Virus RNA Qual PCR NEGATIVE (Negative); SARS COV2 PCR INHOUSE NEGATIVE (Negative)
[2024-11-28 11:12] VITALS: PULSE 70; RESP 18; O2SAT 99
[2024-11-28] MEDS: Albuterol/Iprat 2.5/0.5MG 3 ML AMPUL.NEB INHALE (11:12)
--- OUTSIDE RECORDS SUMMARY | 2024-11-28 11:32 | XMS_ITS | Encounter Summary ---
Author Organization [employer] Address [address] [facility] [address] [place] [address] Care Team Providers Care Wildlife Forensic Geneticist Name Role Phone Fransisco Goldsmith MD Primary Care Provide r Reason for Visit * Reason Comments Med Refill Encounter Details Date Type Department Care Team ([facility] st Contact Info) Description 11/09/2024 Refill [facility] [address] [place], [place] [phone] Fransisco Goldsmith MD [address] [place], [place] [phone] Osteoarthritis, unspecified osteoarthritis type, unspecified site Social History Tobacco Use Types Packs/Day Years Used Date Smoking Tobacco: Never Passive Smoke Exposure: Never Smokeless Tobacco: Never Depression Answer Date Recorded Patient Health Questionnaire-9 Score 4 06/02/2024 Patient Health Questionnaire-9 Score 4 06/02/2024 Last PHQ-9: Questionnaire Data Not on file 0 06/02/2024 Housing Stability Answer Date Recorded What is your housing situation today? I have cher jackson 07/19/[address] you li ve. Do you have problems with any of the following? None of the above 07/19/2023 Food Insecurity Answer Date Recorded Within the past 12 months, y ou worried that your food would run out before you got money to buy more: Never True 07/19/2023 Within the past 12 months,th e food you bought just didn't last and you didn't have enough money to get more: Never True Transportation Answer Date Recorded In the past 12 months, has l ack of transportation kept you from medical appts, meetings, work or from getting things needed for daily living? No 07/19/2023 Utilities Answer Date Recorded In the past 12 months, has t he electric, gas, oil or water company threatened to shut off services in your home? No 07/19/2023 Depression Answer Date Recorded Patient Health Questionnaire-2 Score 1 06/02/2024 Internet Access Answer Date Recorded Internet Access Q1 No 09/22/2024 Internet Access Q2 I do not want or need it 08/29 Comments Unknown Sex and Gender Information Value Date Recorded Sex Assigned at Female 07/28/2022 10:16 AM EDT Legal Sex Female 10:16 AM EDT Gender Identity Female 07/28/2022 10:16 AM EDT Sexual Orientation Straight 07/28/2022 10 :16 AM EDT documented as of this encounter Plan of Treatment Upcoming Encounters Date Type Department Care Team (Late st Contact Info) Description 11/29/2024 10:00 AM EST Office Visit [facility] [address] [place] [phone] Fransisco Goldsmith MD [address] [place] [phone] 12/22/2024 9:30 AM EDT Medication Management [facility] [address] [place] [phone] Christie Biswas, PharmD [address] [place] [phone] documented as of this encounter Visit Diagnoses Diagnosis Osteoarthritis, unspecified osteoarthritis type, unspecified site documented in this encounter Additional Health Concerns Assessment Noted Time PHQ-9 Depression Total Score: 4 06/02/20 24 9:28 AM EDT documented as of this encounter Care Teams Wildlife Forensic Geneticist Relationship Specialty Start Date End Date Fransisco Goldsmith MD [address] [place] [phone] PCP - General Internal Medicine 05/18/14 [facility] 01/06/24 documented as of this encounter
--- OUTSIDE RECORDS SUMMARY | 2024-11-28 11:32 | XMS_ITS | Encounter Summary ---
Author Organization [employer] Address [address] [facility] [address] [place] [address] Care Team Providers Care Manager Rn Case Name Role Phone Fransisco Goldsmith MD Primary Care Provide r Reason for Visit * Reason Comments Med Refill Encounter Details Date Type Department Care Team ([facility] st Contact Info) Description 11/04/2024 Refill [facility] [address] [place], [place] [phone] Fransisco Goldsmith MD [address] [place], [place] [phone] Constipation, unspecified constipation type Social History Tobacco Use Types Packs/Day Years [...] Description 11/29/2024 10:00 AM EST Office Visit [facility] [address] [place] [phone] Fransisco Goldsmith MD [address] [place] [phone] 12/22/2024 9:30 AM EDT Medication Management [facility] [address] [place] [phone] Christie Biswas, PharmD [address] [place] [phone] documented as of this encounter Visit Diagnoses Diagnosis Constipation, unspecified constipation type documented in this encounter Additional Health Concerns Assessment Noted Time PHQ-9 Depression Total Score: 4 06/02/20 24 9:28 AM EDT documented as of this encounter Care Teams Manager Rn Case Relationship Specialty Start Date End Date Fransisco Goldsmith MD [address] [place] [phone] PCP - General Internal Medicine 05/18/14 [facility] 01/06/24 documented as of this encounter
--- OUTSIDE RECORDS SUMMARY | 2024-11-28 11:32 | XMS_ITS | Encounter Summary ---
Author Organization [employer] Address [address] [place] [address] Care Team Providers Care Transfer Pumper Name Role Phone Fransisco Goldsmith MD Primary Care Provide r Christie Biswas PharmD Unavailable [phone] Reason for Visit * Reason Comments Pre-visit Planning SDOH Screening negat minnie and Tobacco screening negative Encounter Details Date Type Department Care Team ([facility] st Contact Info) Description 11/22/2024 Patient Outreach [facility] MEDICINE [address] [place] [address] Fransisco Goldsmith MD [address], [place] [phone] Pre-visit Planning (SDOH Screening negative and Tobacco screening negative) Social History Tobacco Use Types Packs/Day Years Used Date Smoking Tobacco: Never Passive Smoke Exposure: Never Smokeless Tobacco: Never Depression Answer Date Recorded Patient Health Questionnaire-9 Score 4 06/02/2024 Patient Health Questionnaire-9 Score 4 06/02/2024 Last PHQ-9: Questionnaire Data Not on file 0 06/02/2024 Housing Stability Answer Date Recorded What is your housing situation today? I have cher jackson 11/22/[address] you li ve. Do you have problems with any of the following? None of the above 11/22/2024 Food Insecurity Answer Date Recorded Within the past 12 months, y ou worried that your food would run out before you got money to buy more: Never True 11/22/2024 Within the past 12 months,th e food you bought just didn't last and you didn't have enough money to get more: Never True Transportation Answer Date Recorded In the past 12 months, has l ack of transportation kept you from medical appts, meetings, work or from getting things needed for daily living? No 11/22/2024 Utilities Answer Date Recorded In the past 12 months, has t he electric, gas, oil or water company threatened to shut off services in your home? No 11/22/2024 Depression Answer Date Recorded Patient Health Questionnaire-2 [...] AM EDT documented as of this encounter Progress Notes * Ana Adler - 11/22/2024 9:38 AM EST CC Ana Grider placed successful outbound call to patient for pre-visit planning. Patient name and confirmed by Bria. Patient confirms appt date and time, and has transportation arrangements. Biggest concern for appointment at this time is no concerns. Patient advised to bring to appointment a photo id and insurance card. Appropriate screenings completed in anticipation of appointment. documented in this encounter Plan of Treatment Upcoming Encounters Date Type Department Care Team (Late st Contact Info) Description 11/29/2024 10:00 AM EST Office Visit [facility] MEDICINE [address] [place] [id number] Fransisco Goldsmith MD [address] [place] [address] 12/22/2024 9:30 AM EDT Medication Management [facility] MEDICINE [address] [place] [address] Christie Biswas, PharmD [address] [place] [address] documented as of this encounter Visit Diagnoses Not on filedocumented in this encounter Additional Health Concerns Assessment Noted Time PHQ-9 Depression Total Score: 4 06/02/20 24 9:28 AM EDT documented as of this encounter Care Teams Transfer Pumper Relationship Specialty Start Date End Date Fransisco Goldsmith MD [address], [place] [phone] PCP - General Internal Medicine 05/18/14 Christie Biswas PharmD [address] [place] [address] Pharmacist Internal Medicine 11/22/24 [facility] 01/06/24 Sanket - PM visiting nurse 11/22/24 documented as of this encounter
--- OUTSIDE RECORDS SUMMARY | 2024-11-28 11:32 | XMS_ITS | Clinical Summary ---
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 022 Active zolpidem (Ambien) 5 MG tablet TAKE 1 TABLET BY MOUTH AT BEDTIME 022 Active Blood Glucose Monitoring Suppl (FreeStyle glucose monitoring) kitIndications:T ype 2 diabetes mellitus with diabetic polyneuropathy, with long-term current use of insulin ([facility]) 1 each if needed (test FSBS three times a day). 1 each 023 Active aspirin (Aspirin Low Dose) 81 MG EC tablet Take 1 tablet (81 mg) by mouth in the morning. 90 tablet 3 024 Active UltiGuard SafePack Pen Needle 32G X 4 MM misc USE DIRECTED 100 each 3 024 Active gabapentin (Neurontin) 600 MG tabletIndication s:Diabetic polyneuropathy associated with type 2 diabetes mellitus (CMS/HCC) TAKE 1 TABLET BY MOUTH THREE TIMES DAILY IN THE MORNING, AT NOON, AND AT BEDTIME 270 tablet 2 024 Active pantoprazole (ProtoNix) 40 MG EC tabletIndication s:Gastroesophage al reflux disease without esophagitis TAKE 1 TABLET BY MOUTH EVERY MORNING 90 tablet 2 Active sertraline (Zoloft) 100 MG tabletIndication s:Episode of recurrent major depressive disorder, unspecified depression episode severity (CMS/HCC) TAKE 1 TABLET BY MOUTH EVERY MORNING 90 tablet 2 024 Active metoprolol succinate XL (Toprol-XL) 25 MG 24 hr tabletIndication s:Primary hypertension TAKE 1 TABLET BY MOUTH EVERY MORNING 90 tablet 2 024 Active Alcohol Swabs (Alcohol Pads) 70 % pads Use as directed on skin 100 each 11 Active azithromycin (Zithromax Z-Raj) 250 MG tabletIndication s:Mild persistent asthma with acute exacerbation Take 2 tabs po x 1 day then 1 daily x 4 days 6 tablet Active albuterol 108 (90 Base) MCG/ACT inhaler Inhale 2 puffs every 4 (four) hours if needed for wheezing (cough). 18 g 3 Active Fiber-Lax 625 MG tabletIndication s:Constipation, unspecified constipation type TAKE 1 TABLET BY MOUTH TWICE DAILY IN THE MORNING AND IN THE EVENING 180 tablet 1 Active insulin lispro (HumaLOG KWIKPEN) 100 UNIT/ML injection Administer per sliding scale before meals three times per day: BG <111 0 units, 111-150 - 0 units, 151-200 2 units, 201-250 4 units, 251-300 6 units, 301-350 8 units, >350 10 units 3 mL Active montelukast (Singulair) 10 MG tablet TAKE 1 TABLET BY MOUTH EVERY EVENING 90 tablet 3 Active clotrimazole (Lotrimin) 1 % cream APPLY 1 GRAM TOPICALLY TOPICALLY AFFECTED AREA(S) TWICE DAILY Active Athletes Foot Powder [place] 2 % aerosol powder APPLY TOPICALLY TO THE AFFECTED AREA(S) EVERY DAY Active Lantus SoloStar 100 UNIT/ML penIndications:T ype 2 diabetes mellitus without complication, with long-term current use of insulin (CMS/HCC) INJECT 46 UNITS SUBCUTANEOUSLY AT BEDTIME 15 mL 5 Active melatonin 5 MG tabletIndication s:Primary insomnia TAKE 1 TABLET BY MOUTH AT BEDTIME 30 tablet 3 Active FREESTYLE LITE test stripIndications :Type 2 diabetes mellitus with diabetic polyneuropathy, with long-term current use of insulin ([facility]) TEST BLOOD SUGAR THREE TIMES DAILY 100 strip Active TRUEplus Lancets 33G miscIndications: Type 2 diabetes mellitus with diabetic polyneuropathy, with long-term current use of insulin ([facility]) TEST BLOOD SUGAR THREE TIMES DAILY 100 each Active docusate sodium (Colace) 100 MG capsuleIndicatio ns:Constipation, unspecified constipation type TAKE 1 CAPSULE BY MOUTH TWICE DAILY IN THE MORNING AND AT BEDTIME 180 capsule 3 025 Active lisinopril 10 MG tabletIndication s:Type 2 diabetes mellitus with diabetic polyneuropathy, with long-term current use of insulin ([facility]) TAKE 1 TABLET BY MOUTH AT BEDTIME 90 tablet 3 025 Active Calcium Carb-Cholecalcif kell 600-10 MG-MCG tabletIndication s:Constipation, unspecified constipation type TAKE 1 TABLET BY MOUTH TWICE DAILY IN THE MORNING AND IN THE EVENING 180 tablet 3 025 Active celecoxib (CeleBREX) 100 MG capsuleIndicatio ns:Osteoarthriti s, unspecified osteoarthritis type, unspecified site TAKE 1 CAPSULE BY MOUTH EVERY MORNING 30 capsule 025 Active rosuvastatin (Crestor) 40 MG tablet Take 1 tablet (40 mg) by mouth Once per day. 90 tablet 3 025 2025 Active semaglutide (Ozempic, 1 MG/DOSE,) 4 MG/3ML solution pen-injectorIndi cations:Type 2 Diabetes Mellitus Inject 1 mg under the skin 1 (one) time per week. 3 mL 025 Active lisinopril 10 MG tabletIndication s:Type 2 diabetes mellitus with diabetic polyneuropathy, with long-term current use of insulin ([facility]) TAKE 1 TABLET BY MOUTH AT BEDTIME 90 tablet 3 024 2024 Discontinued docusate sodium (Colace) 100 MG capsuleIndicatio ns:Constipation, unspecified constipation type TAKE 1 CAPSULE BY MOUTH TWICE DAILY IN THE MORNING AND AT BEDTIME 180 capsule 1 024 2024 Discontinued Calcium Carb-Cholecalcif kell 600-10 MG-MCG tabletIndication s:Constipation, unspecified constipation type TAKE 1 TABLET BY MOUTH TWICE DAILY TWICE DAILY IN THE MORNING AND IN THE EVENING 180 tablet 024 2024 Discontinued atorvastatin (Lipitor) 80 MG tabletIndication s:Mixed hyperlipidemia TAKE 1 TABLET BY MOUTH EVERY MORNING 90 tablet 1 024 2024 Discontinued(D ose adjustment) Ozempic, 0.25 or 0.5 MG/DOSE, 2 MG/3ML solution pen-injectorIndi cations:Type 2 diabetes mellitus with diabetic polyneuropathy, with long-term current use of insulin ([facility]) INJECT 0.5 MG SUBCUTANEOUSLY EVERY 7 DAYS IN THE ABDOMEN, THIGHS, OR UPPER ARM, ROTATE INJECTION SITES. 3 mL 1 024 2024 Discontinued celecoxib (CeleBREX) 100 MG capsuleIndicatio ns:Osteoarthriti s, unspecified osteoarthritis type, unspecified site Take 1 capsule (100 mg) by mouth in the morning. 30 capsule 025 2024 Discontinued Active Problems Problem Noted Date Diagnosed Date Skin lesion of cheek 06/02/2023 Assessment & Plan (06/02/2024 12:38 PM EDT): Pt with a previously identified hyperkeratotic lesion on the right cheek Comes and goes per her report On exam there is still hyperpigmentation and hyperkeratosis, no redness, no swelling, no abcess, nothing to suggest infection Patient was referred to Dermatology last year. A letter was sent to her . It appears she did not go Will refer back. I have asked her MEDICAL PHYSICS RESEARCHER to contact us if she does not hear about the referral within the next couple of weeks. Assessment & Plan (06/02/2023 9:38 AM EDT): Pt with hyperkeratotic lesion on the right cheek Has not gone away for over 2 months On exam there is hyperpigmentation and hyperkeratosis, no redness, no swelling, no abcess, nothing to suggest infection Plan: Dermatology appointment shawn Urge incontinence of urine 11/11/2022 Assessment & Plan (11/11/2022 9:12 AM EST): Evaluated by Urology in 2019 recommended Oxybutynin Gastroesophageal reflux disease without esophagi tis 11/11/2022 Assessment & Plan (11/11/2022 9:14 AM EST): Pt onProtonix 40 mg po daily GI evaluation to r/o PUD pt referred to Gastroenterology. Damaris Lin in the past Preventative health care 11/11/2022 Assessment & Plan (11/11/2022 9:17 AM EST): Mammogram: NL 10/11/2020 Pap Smear: last 07/05/2008 NL Colonoscopy: NL 09/05/2008 Dr Plunkett Closed nondisplaced avulsion fracture of left is chium 11/11/2022 Assessment & Plan (11/11/2022 9:24 AM EST): X-rays in the ER showed: New triangular ossification between lower sacrum and left bony pelvis 0.8 x 1.2 cm, possibly avulsion of the left ischial spine. Plan: Orthopaedic consult as requested by ER Class 3 severe obesity due t o excess calories with serious comorbidity and body mass index (BMI) of 40.0 to 44.9 in adult 11/11/2022 Assessment & Plan (11/11/2022 9:27 AM EST): Patient has been counseled and educated about diet and exercise. Personal goal of weight loss discussedPatient has comorbidity of: DM Closed fracture of left orbit 11/10/2022 Assessment & Plan (11/11/2022 9:48 AM EST): Patient here for a HDF Feels ok, denies any double vision, on exam full rom extraocular muscles She initially presented to the ED via EMS [place] Patient fell face forward from chair into the dirt, however denied loss of consciousness or prolonged down time. Patient complaining of left facial pain, right hip pain, and bilateral knee pain. X-ray of the knees was done and was within normal limits. Patient denied interest in PT services and short term rehab at this time. Imaging showed left orbital and ? fracture and pelvic fracture. Patient given course of antibiotics for infection prophylaxis and oxycodone for pain. Patient discharged home to F/U with ear nose and throat and I have placed a referral to Ophthalmology as well Hospital discharge follow-up 11/10/2022 Type 2 diabetes mellitus 02/17/2019 Overview (04/18/2024): Pharmacotherapy: (Updated 04/18/24) - Lantus Solostar - 46 units daily - Humalog sliding scale (administered by VNA nurse) - Not Rx'd by [facility] - Trulicity 3mg weekly (has not filled since December 2023 due to shortage) History: (Updated 04/18/24) Started CDTM April 18, 2024. Patient states she feels her DM is uncontrolled. Has VNA that comes daily. Reports that there are 2 insulins. Only Lantus in medlist, per VNA letter, Humalog being injected via SS. Identified to have been rx'd by Dr. Tellez during admission in December and has been continued by VNA. Reviewed BG and patient has been having multiple hypoglycemic events. Does not inject Humalog if meals are being skipped. Has not filled trulicity since December. - On ASA: Y - On Statin: Y - Last Eye Exam: - Last Dental Exam: Assessment & Plan (06/02/2024 12:39 PM EDT): Pt is here for a f/u visit I contacted our Pharmacy, it appears her Trulicity was switched to Ozempic due to a shortage of Trulicity She is on Ozempic 0.25 once a week and Lantus 46 units sc q pm Pt reported severe stomach upset and diarrhea with Metformin. so this was discontinued Hgb A1c 04/18/2024: 7.8 Pt has been referred to both Check Airman and rotor plate washer, did not f/u Unfortunately she is non compliant Plan: Increase Ozempic to 0.5 mg once a week. Continue Lantus to 46 units sq pm Pt denies hx of thyroid cancer or pancreatitis f/u 3 months Eye exam done on: 11/13/2022 Microalbumin checked on: 10/27/2019 was: 8 Pt on an NELY inhibitor (lisinopril) Foot check risk of one Pt reports compliance with Asa 81 mg po daily Pt advised to: adhere to diabetic diet check your blood sugars regularly check your feet on a daily basis. Assessment & Plan (04/18/2024 6:05 PM EDT): Images from the original note were not included. Assessment: - NOT at goal of A1c less than 7% or fasting BG between 70-130 mg/dL per ADA guidelines. Plan/ Recommendations: - CHANGE Trulicity to Ozempic. START 0.25mg weekly x 4 weeks, then inc. To 0.5mg weekly - VNA nurse has been informed of change - F/U in 1 month Monitoring: Hemoglobin A1c Date Value 04/18/2024 7.8 % (H) 08/27/2020 11.3 % of total Hgb (H) Hemoglobin A1C (%) Date Value 06/02/2023 8.3 (A) 11/11/2022 9.1 (A) LDL Cholesterol (mg/dL (calc)) Date Value 11/11/2022 71 HDL Cholesterol (mg/dL) Date Value 11/11/2022 49 (L) No results found for: B12 Assessment & Plan (06/02/2023 9:41 AM EDT): Pt is here for a f/u visit She is on Trulicity 1.5 once a week and Lantus 56 units sc q pm Pt reported severe stomach upset and diarrhea with Metformin. so this was discontinued Hgb A1c 06/02/2023 was 8.3 from 9.1 Pt has been referred to both Check Airman and rotor plate washer, did not f/u Unfortunately she is non compliant Plan: Increase Trulicity to 3 mg once a week. Lower Lantus to 46 units sq pm Pt denies hx of thyroid cancer or pancreatitis f/u 3 months Eye exam done on: 11/13/2022 Microalbumin checked on: 10/27/2019 was: 8 Pt on an NELY inhibitor (lisinopril) Foot check risk of one Pt reports compliance with Asa 81 mg po daily Pt advised to: adhere to diabetic diet check your blood sugars regularly check your feet on a daily basis. Assessment & Plan (11/11/2022 9:49 AM EST): Pt is here for a f/u visit Her daughter is her MEDICAL PHYSICS RESEARCHER. She is on Trulicity 0.75 once a week and Lantus 56 units sc q pm Pt reported severe stomach upset and diarrhea with Metformin. so this was discontinued Hgb A1c 11/10/2022 was 9.1 Pt has been referred to both Check Airman and rotor plate washer, did not f/u Unfortunately she is non compliant Glucometer review today showed BG fluctuating between 148 and 235 Plan: increase trulicity to 1.5 mg once a week Pt denies hx of thyroid cancer or pancreatitis f/u 3 months Eye exam done on: 12/22/2013 by [facility] (manager commercial sales) Microalbumin checked on: 10/27/2019 was: 8 Pt on an NELY inhibitor (lisinopril) Foot check risk of one Pt reports compliance with Asa 81 mg po daily Pt advised to: adhere to diabetic diet check your blood sugars regularly check your feet on a daily basis. Mild persistent asthma with acute exacerbation 0 01/25/2018 Assessment & Plan (06/02/2024 12:36 PM EDT): Pt with c/o new onset of dry cough, mild sob and wheezing She is supposed to be on a regimen of: Qvar 80 mcg 2 puffs BID, and Pro Air HFA q 6 hrs prn. pt reports compliance No recent PFTS, will consider ordering next visit. Exam suggestive of Asthma exacerbation, Both rapid Covid and Flu were negative Plan: Plain chest x-ray, Prednisone taper, Z-pack, Albuterol around the clock, follow up if worsening or no improvement Assessment & Plan (11/11/2022 9:11 AM EST): No recent exacerbations She is on a regimen of: Qvar 80 mcg 2 puffs BID, and Pro Air HFA q 6 hrs prn. pt reports compliance No recent PFTS, will consider ordering next visit. Mixed hyperlipidemia 07/17/2016 Assessment & Plan (06/02/2024 9:23 AM EDT): atient here for a f/u Patient with elevated lipids. Most recent lipid profile from: Lab Results Component Value Date TRIG 95 04/18/2024 TRIG 110 11/11/2022 CHOL 142 04/18/2024 LDLCHOLCAL 65 04/18/2024 HDL 58 04/18/2024 Currently on a regimen of: Atorvastatin 80 mg po q pm. Plan: continue current regimen. advised to try to adhere to a low cholesterol diet, counseled and educated about diet and exercise, Patient encouraged to come up with a personal goal for weight loss. Assessment & Plan (06/02/2023 9:32 AM EDT): atient here for a f/u Patient with elevated lipids. Most recent lipid profile from: 11/11/2022 shows a total cholesterol of: 140 triglycerides of: 110 HDL of: 49 and LDL of: 70 Currently on a regimen of: Atorvastatin 80 mg po q pm. Plan: continue current regimen. Will repeat advised to try to adhere to a low cholesterol diet, counseled and educated about diet and exercise, Patient encouraged to come up with a personal goal for weight loss. Assessment & Plan (11/10/2022 3:02 PM EST): atient here for a f/u Patient with elevated lipids. Most recent lipid profile from: 05/08/2022 shows a total cholesterol of: 156 triglycerides of: 126 HDL of: 52 and LDL of: 81 Currently on a regimen of: Atorvastatin 80 mg po q pm. Plan: continue current regimen advised to try to adhere to a low cholesterol diet, counseled and educated about diet and exercise, Patient encouraged to come up with a personal goal for weight loss. Chronic neck pain 04/15/2016 Assessment & Plan (11/11/2022 9:15 AM EST): Pt with chronic, good and bad days Pt with chronic ever present neck and hip pain has a Hx of chronic pain/severe deg arthritis of hips as well as Chronic neck pain with HNP of c-spine, I previously discontinued Oxycodone 5mg po q 8 hrs due to violation of Narcotic contract We have tried NSAIDS such as Meloxicam pt states not effective, or tylenol and Nabumetone. In the past kept asking for Percocet Using electric scooter Had a previous Hx of abuse of prescription narcotics, Pt will benefit from a positioning bed for SAFETY and Medical necessity Substance abuse 04/15/2016 Obstructive sleep apnea syndrome 04/20/2013 Peripheral neuropathy 04/20/2013 Assessment & Plan (11/11/2022 9:13 AM EST): Pt has peripheral neuropathy and chronic neck and back pain. She requires also a walker and needs to sit frequently, a cane would not suffice She is on Gabapentin 600 mg TID. Pain in right leg 07/05/2012 Simple renal cyst 03/28/2012 Anxiety state 03/08/2012 Depressive disorder 03/08/2012 Assessment & Plan (11/11/2022 9:16 AM EST): Pt not seeing a psychotherapy, refuses On: sertraline 100 mg po daily Pt c/o Insomnia, good sleep hygiene habits discussed Ambien 10 mg po qhs Essential hypertension 03/08/2012 Assessment & Plan (06/02/2024 9:56 AM EDT): Pt here for a f/u BP remains uncontrolled due to acute asthma exacerbation currently on a regimen of: Toprol Xl 25 mg po daily and Lisinopril 10 mg po daily Most recent electrolytes, Bun and Creatinine done on: 04/18/2024 were within normal limits. patient advised to adhere to a low sodium diet, encouraged about medication compliance, counseled about weight loss. Assessment & Plan (06/02/2023 9:30 AM EDT): Pt here for a f/u BP remains controlled currently on a regimen of: Toprol Xl 25 mg po daily and Lisinopril 10 mg po daily Most recent electrolytes, Bun and Creatinine done on: 11/11/2022 were within normal limits. patient advised to adhere to a low sodium diet, encouraged about medication compliance, counseled about weight loss. Assessment & Plan (11/10/2022 3:02 PM EST): Pt here for a f/u BP remains controlled currently on a regimen of: Toprol Xl 25 mg po daily and Lisinopril 10 mg po daily Most recent electrolytes, Bun and Creatinine done on: 05/08/2022 were within normal limits. patient advised to adhere to a low sodium diet, encouraged about medication compliance, counseled about weight loss. Kidney stone 06/05/2010 Osteopenia 02/26/2005 Encounters Date Type Department Care Team Description 11/28/2024 Orders Only [facility] External Provider, [facility] 11/22/2024 Travel 11/22/2024 Patient Outreach [facility] [address] [place] [address] Fransisco Goldsmith MD Pre-visit Planning (SDOH Screening negative and Tobacco screening negative) 11/15/2024 Telephone [facility] [address] [place] [address] Fransisco Goldsmith MD Med Refill 11/11/2024 Telephone [facility] [address] [place] [address] Fransisco Goldsmith MD Chart Prep 11/10/2024 Refill [facility] [address] [place] [address] Fransisco Goldsmith MD Osteoarthritis, unspecified osteoarthritis type, unspecified site 11/10/2024 Refill [facility] [address] [place] [address] Fransisco Goldsmith MD Osteoarthritis, unspecified osteoarthritis type, unspecified site 11/09/2024 Refill [facility] [address] [place] [address] Fransisco Goldsmith MD Osteoarthritis, unspecified osteoarthritis type, unspecified site 11/09/2024 Refill [facility] [address] [place] [address] Fransisco Goldsmith MD Osteoarthritis, unspecified osteoarthritis type, unspecified site 11/04/2024 Refill [facility] [address] [place] [address] Fransisco Goldsmith MD Constipation, unspecified constipation type 11/02/2024 Refill [facility] [address] [place] [address] Fransisco Goldsmith MD Constipation, unspecified constipation type; Type 2 diabetes mellitus with diabetic polyneuropathy, with long-term current use of insulin ([facility]) 10/10/2024 Refill [facility] [address] [place] [address] Fransisco Goldsmith MD Osteoarthritis, unspecified osteoarthritis type, unspecified site 09/22/2024 Patient Outreach [facility] [address] [place] [address] Fransisco Goldsmith MD Pre-visit Planning ([facility] screening was completed on 10/26/2023) 09/22/2024 Telephone [facility] [address] [place] [address] Fransisco Goldsmith MD Chart Prep 09/21/2024 Refill [facility] [address] [place] [address] Fransisco Goldsmith MD Type 2 diabetes mellitus with diabetic polyneuropathy, with long-term current use of insulin ([facility]) 09/12/2024 Refill [facility] [address], [place] [phone] Fransisco Goldsmith MD Mixed hyperlipidemia; Osteoarthritis, unspecified osteoarthritis type, unspecified site; Type 2 diabetes mellitus with diabetic polyneuropathy, with long-term current use of insulin ([facility]) 09/03/2024 Refill [facility] [address] [place] [address] Fransisco Goldsmith MD Primary insomnia 08/30/2024 Telephone [facility] [address] [place] [id number] Euince Hooper MA DME L&C from Last 3 Months Immunizations Name Administration Dates Next Due Influenza High-dose Quadriva lent Preservative Free 07/08/2022,07/09/2021,09/18/2020 Influenza injectable quadriv alent IIV4 with preservative 06/29/2018,07/17/2016,09/04/2015 Influenza injectable quadriv alent preservative free 12/09/2013 Influenza, Split (incl. taryn fied surface antigen) 07/05/2012 Influenza, seasonal, injecta ble, preservative free 11/22/2024 Pfizer Covid-19 Vaccine 12+ Bivalent 07/08/2022 Pneumococcal Conjugate PCV 13 09/18/2020, 014 Pneumococcal Polysaccharide PPSV23 01/19/2019,,08/19/2004 Tdap 11/22/2024,07/05/2012 Zoster, Recombinant 07/08/2022 Zoster, live 01/30/2015 Social History Tobacco Use Types Packs/Day Years Used Date Smoking Tobacco: Never Passive Smoke Exposure: Never Smokeless Tobacco: Never Tobacco Cessation:Counseling Given: Not Answered Depression Answer Date Recorded Patient Health Questionnaire-9 [...] Orientation Straight 07/28/2022 10 :16 AM EDT Last Filed Vital Signs Vital Sign Reading Time Taken Comments Blood Pressure 160/86 06/02/2024 9:27 AM EDT Pulse 84 06/02/2024 9:27 AM EDT Temperature 36.4 ??C (97.5 ??F) 06/02/2024 9:27 AM ED T Respiratory Rate 20 06/02/2024 9:27 AM EDT Oxygen Saturation 96% 06/02/2024 9:27 AM EDT Inhaled Oxygen Concentration - - Weight 88.9 kg (196 lb) 06/02/2024 9:27 AM EDT Height 144.8 cm (4' 9 ) 06/02/2024 9:27 AM EDT Body Mass Index 42.41 06/02/2024 9:27 AM EDT Plan of Treatment Upcoming Encounters Date Type Department Care Team (Late st Contact Info) Description 11/29/2024 10:00 AM EST Office Visit [facility] [address] [place] [phone] Fransisco Goldsmith MD [address] [place] [address] 12/22/2024 9:30 AM EDT Medication Management [facility] [address] [place] [phone] Christie Biswas, PharmD [address] [place] [address] Health Maintenance Due Date Last Done Comments CT Colonography 1954 Colonoscopy 1954 Colorectal Cancer Screening 1954 FIT DNA/Cologuard 1954 FIT 1954 FOBT 1954 Sigmoidoscopy 1954 Diabetes: Foot Exam 1964 Eye Exam 1964 Alcohol/Substance Use Screening 1966 RSV Patients and Patients Aged 60 years or older (1 - Risk 60-74 years 1-dose series) 2014 Zoster Vaccines (3 of 3) 09/02/2022 07/08/2022, 05/0 01/2015 COVID-19 Vaccine ( season) 2024 07/08/2022, 01/08/2021, 12/12/2020 Mammogram 06/24/2024 06/24/2023, 05/30, 10/11/2020, Additional history exists Diabetes: Hemoglobin A1C 02/19/2025 025, 04/18/2024, 06/02/2023, Additional history exists Lipid Panel 04/18/2025 04/18/2024, 10/29, 05/08/2022, Additional history exists Diabetes: Urine Protein Screening 04/19/2025 04/19/2024, 11/11/2022, 05/08/2022, Additional history exists Depression Screening 06/02/2025 06/02/2024, 06/02/20 Tobacco Screening 06/02/2025 06/02/2024 Pneumococcal Vaccine: 50+ Years (3 of 3 - PCV20 or PCV21) 09/18/2025 09/18/2020, 01/19/2019, 12/09/2013, Additional history exists SDOH Screening 11/22/2025 11/22/2024 DTaP/Tdap/Td Vaccines (3 - Td or Tdap) 11/22/2034 11/22/2024, 07/05/2012 Hepatitis C Screening Completed 11/11/2022, 022 Influenza Vaccine Completed 11/22/2024, , 07/09/2021, Additional history exists HIB Vaccines Aged Out No longer eligi ble based on patient's age to complete this topic HPV Vaccines Aged Out No longer eligi ble based on patient's age to complete this topic Hepatitis A Vaccines Aged Out No long er eligible based on patient's age to complete this topic Hepatitis B Vaccines Aged Out No long er eligible based on patient's age to complete this topic IPV Vaccines Aged Out No longer eligi ble based on patient's age to complete this topic Meningococcal Vaccine Aged Out No princess morris eligible based on patient's age to complete this topic RSV under 20 months Aged Out No longe r eligible based on patient's age to complete this topic Rotavirus Vaccines Aged Out No longer eligible based on patient's age to complete this topic Procedures Procedure Name Priority Date/Time Associated Diagnosis Comments XR CHEST 2 VIEWS Routine 11/28/2024 10:3 0 AM EST POCT GLYCATED HEMOGLOBIN, TOTAL Routine 11/22/2024 11:08 AM EST Type 2 diabetes mellitus with diabetic polyneuropathy, with long-term current use of insulin (CMS/HCC) ALBUMIN, RANDOM URINE W/CREATININE Routine 04/19/2024 10:00 AM EDT LIPID PANEL, STANDARD Routine 04/18/2024 12:52 PM EDT BI MAMMOGRAM SCREENING TOMOSYNTHESIS BILATERAL Routine 06/24/2023 10:35 AM EDT HEPATITIS C AB W/REFL TO HCV RNA, QN, PCR Routine 11/11/2022 9:56 AM EST Type 2 diabetes mellitus with diabetic polyneuropathy, with long-term current use of insulin (CMS/HCC) from Last 3 Months or Most Recently Relevant to Health Maintenance Results * XR Chest 2 Views (11/28/2024 10:30 AM EST) Anatomical Region Laterality Modality Chest Radiographic Yuliet ging 11/28/2024 10:3 0 AM EST Narrative 11/28/2024 10:49 AM EST ? [facility] ?[address] ?[place] [address] ?XRay Report ? Signed ? Patient: Prudencio,Esthela ?MR#: [id number] ?? 73 ? : 1955 ?Acct:[id number] ? Age/Sex: 68 / F ?ADM Date: 11/28/24 ? Loc: HO.ED ? Attending Dr: ? Ordering Physician: Esther Christina ?? Date of Service: 11/28/24 ?? Procedure(s): XR chest 2V ?? Accession Number(s): [id number] ? cc: Indira Newsome MD; Esther Christina ? .EXAMINATION: ?? XR CHEST ? CLINICAL INFORMATION: ?? chest pain ? COMPARISON: ?? June 02, 2024. ? TECHNIQUE: ?? 2 views of the chest were obtained. ? FINDINGS: ?? Poor inspiration/no hyperinflation. ?? No consolidation, pleural effusion or pneumothorax. ?? Cardiomediastinal silhouette size is normal. Calcified plaque thoracic ?? aorta. Multilevel thoracic and upper lumbar spondylosis. ?? 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 ? XR/XR chest 2V ?? IMPRESSION: ?? No acute airspace disease. ? Electronically signed by: ??Nick Major MD ??11/28/2024 10:46 AM ?? EST RP ? Dictated By: ?Nick Archer MD ? Signed By: ?<Electronically signed by Nick Ervin MD in OV> ? 11/28/24 1046 ? DD/ 1030 ? TD/TT: 11/28/24 1035 ? Lamp Shade Assembler: ? Procedure Note Bacilio, Image - 11/28/2024 [place] [address] XRay Report Signed Patient: Iliana Flannery#: [id number] 73 : 5Acct:[id number] Age/Sex: 68 / FADM Date: 11/28/24 Loc: HO.ED Attending Dr: Ordering Physician: Esther Christina Date of Service: 11/28/24 Procedure(s): XR chest 2V Accession Number(s): [id number] cc: Indira Newsome MD; Esther Christina .EXAMINATION: XR CHEST CLINICAL INFORMATION: chest pain COMPARISON: June 02, 2024. TECHNIQUE: 2 views of the chest were obtained. FINDINGS: Poor inspiration/no hyperinflation. No consolidation, pleural effusion or pneumothorax. Cardiomediastinal silhouette size is normal. Calcified plaque thoracic aorta. Multilevel thoracic and upper lumbar spondylosis. 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 XR/XR chest 2V IMPRESSION: No acute airspace disease. Electronically signed by: Nick Major MD 11/28/2024 10:46 AM EST Dictated By: Nick Archer MD Signed By: <Electronically signed by Nick Ervin MDin OV> 11/28/24 1046 DD/ 1030 TD/TT: 11/28/24 1035 Lamp Shade Assembler: [facility] External Provider IMG XR PROCEDURES Final Result * (ABNORMAL) POCT HGB A1C (11/22/2024 11:08 AM EST) Hemoglobin A1C 8.3(A) 4.0 - 6.0 % QC Media Lot # [id number] Lot# Expiration Date [id number] Blood 11/22/2024 11:0 8 AM EST Joleen Marin MD POINT OF CARE TEST ENTER/ED IT ORDERABLES Final Result * Albumin, Random Urine W/Creatinine (04/19/2024 10:00 AM EDT) Creatinine, Urine 159.36 mg/dL [facility] Microalbumin Urine 38.0 mg/L [facility] Microalbum Creatinine Ratio Ur 23.8 <30 ug/mg cr [facility] Comment:Albumin/Creatinine R atio Reference Ranges: Normal: < 30 ug/mg creatinine Microalbuminuria: 30 - 300 ug/mg creatinineClinical Albuminuria: > 300 ug/mg creatinine 04/19/2024 10:0 0 AM EDT 04/19/2024 11:13 AM EDT Fransisco Ramon MD LAB URINE ORDERABLES Final Result [facility] [address], [place] [phone] * Lipid Panel, Standard (04/18/2024 12:52 PM EDT) Triglycerides 95 <150 mg/dL [facility] Comment:Desirable Triglyceri de: less than 150 mg/dLBorderline High Triglyceride 150-199 mg/dLHigh Triglyceride: 200-499 mg/dLVery High Triglyceride: greater than or equal to 5OO mg/dL Cholesterol 142 <200 mg/dL [facility] Comment:Desirable Cholestero l: less than 200 mg/dLBorderline High Cholesterol: 200-239 mg/dLHigh Cholesterol: greater than 239 mg/dL LDL Cholesterol Calculated 65 <100 mg/dL [facility] Comment:Desirable LDL: less than 100 mg/dLNear Optimal/Above Optimal LDL: 110- 129 mg/dLBorderline High LDL: 130-159 mg/dLHigh LDL: 160-189 mg/dLVery High LDL: greater than or equal to 190 mg/dL HDL Cholesterol 58 >40 mg/dL [facility] Comment:Desirable HDL: great er than 40 mg/dL Note: This HDL assay may give artificially low results in patients with liver disease. 04/18/2024 12:5 2 PM EDT 04/18/2024 3:51 PM EDT Fransisco Ramon MD LAB BLOOD ORDERABLES Final Result [facility] [address] [place] [address] [phone] * BI Mammogram Screening Tomosynthesis Bilateral (06/24/2023 10:35 AM EDT) Anatomical Region Laterality Modality Breast Bilateral Mammography 06/24/2023 10:3 5 AM EDT Narrative 07/19/2023 7:17 AM EDT ? [facility] [place] ? [address] ?[place] [address] ? Mammography Report ? Signed ? Patient: Prudencio,Esthela ?MR#: [id number] ?? 73 ? : 1955 ?Acct:[id number] ? Age/Sex: 67 / F ?ADM Date: 09/27/23 ? Loc: HO.MAMMO ? Attending Dr: Fransisco Baires MD ? Ordering Physician: Fransisco Baires MD ?Resu ?? lts: 1Negative ? Date of Service: 06/24/23 ?Follow Up: 1 Year From Orig ?? inal Mammogram ? Procedure(s): MM tomosynthesis screening BI ?? Accession Number(s): [id number] ? cc: Fransisco Baires MD ? EXAMINATION: ?? MM SCREENING DIGITAL BREAST TOMOSYNTHESIS, BILATERAL ? CLINICAL INFORMATION: ? Screening. Asymptomatic. ? COMPARISON: ?? Mammography: This study is compared with prior exams dating back to ?? 2017. ? TECHNIQUE: ?? Digital breast tomosynthesis is performed in both the craniocaudal and ?? mediolateral oblique views along with computer-aided detection (CAD). ?? Synthesized 2D images are generated from the tomosynthesis. ? FINDINGS: ?? There are scattered areas of fibroglandular density (ACR BI-RADS breast ?? composition Category b). ? There are no significant masses, abnormal calcifications, or other ?? abnormalities. ? MM/MM tomosynthesis screening BI ?? IMPRESSION: ?? No mammographic evidence of malignancy. ? ASSESSMENT: ? BI-RADS BI-RADS 1 - Negative ? RECOMMENDATION: ?? Routine annual mammography screening. ? 1 year F/U ? This examination should not preclude the clinical evaluation of a ?? suspicious palpable abnormality. ? This patient's information was entered into a reminder system with a ?? target due date for their next mammogram. ? Dictated By: ?Nisa Easley MD ? Signed By: ?<Electronically signed by Nisa Easley MD in OV> ? 07/19/23712 ? DD/ 34 ? TD/TT: ? Lamp Shade Assembler: ? Procedure Note Donstormy, Image - 07/19/[facility] [address] [place] [address] Mammography Report Signed Patient: Federico FlanneryR#: [id number] 73 : 5Acct:[id number] Age/Sex: 67 / FADM Date: 06/24/23 Loc: [place] Attending Dr: Fransisco Baires MD Ordering Physician: Fransisco Baires MDResu lts: 1Negative Date of Service: 06/24/23Follow Up: 1 Year From Orig inal Mammogram Procedure(s): MM tomosynthesis screening BI Accession Number(s): [id number] cc: Fransisco Baires MD EXAMINATION: MM SCREENING DIGITAL BREAST TOMOSYNTHESIS, BILATERAL CLINICAL INFORMATION: Screening. Asymptomatic. COMPARISON: Mammography: This study is compared with prior exams dating back to 2017. TECHNIQUE: Digital breast tomosynthesis is performed in both the craniocaudal and mediolateral oblique views along with computer-aided detection (CAD). Synthesized 2D images are generated from the tomosynthesis. FINDINGS: There are scattered areas of fibroglandular density (ACR BI-RADS breast composition Category b). There are no significant masses, abnormal calcifications, or other abnormalities. MM/MM tomosynthesis screening BI IMPRESSION: No mammographic evidence of malignancy. ASSESSMENT: BI-RADS BI-RADS 1 - Negative RECOMMENDATION: Routine annual mammography screening. 1 year F/U This examination should not preclude the clinical evaluation of a suspicious palpable abnormality. This patient's information was entered into a reminder system with a target due date for their next mammogram. Dictated By: Nisa Easley MD Signed By: <Electronically signed by Nisa Easley MD in OV> 07/19/23 0713 DD/ 1035 TD/TT: Lamp Shade Assembler: Fransisco Ramon MD IMG BI PROCEDURES Fin al Result * Hepatitis C Antibody with Reflex to HCV, RNA, Quantitative, Real-Time PCR (11/11/2022 9:56 AM EST) Hepatitis C Antibody NON-REACT EMILY NON-REACT EMILY [facility] Index 0.05 <1.00 [facility] Comment: HCV antibody was non-reactive. There is no laboratory evidence of HCV infection. In most cases, no further action is required. However, if recent HCV exposure is suspected, a test for HCV RNA (test code 19692) is suggested. For additional information please refer to http://[email or web address]/ZES24s9 (This link is being provided for informational/ educational purposes only.) Blood Venous blood specimen / Unknown 11/11/2022 9:56 AM EST 11/11/2022 9:57 AM EST Narrative [facility] - 11/11/2022 10:40 PM EST FASTING:YES FASTING: YES Fransisco Ramon MD LAB BLOOD ORDERABLES Final Result [facility] [address], [place] [address] [employer] [address] [facility], ([address]) [place] [address] from Last 3 Months or Most Recently Relevant to Health Maintenance Insurance [facility] Care Teams Plastic Production Machine Setter Relationship Specialty Start Date End Date Fransisco Goldsmith MD [address] [place] [address] PCP - General Internal Medicine 05/18/14 Christie Biswas, Cristian [address] [place] [address] Pharmacist Internal Medicine 11/22/24 [facility] 01/06/24 Sanket - visiting nurse 11/22/24
--- OUTSIDE RECORDS SUMMARY | 2024-11-28 11:32 | XMS_ITS | Encounter Summary ---
Author Organization [employer] [facility] Address [address] 7t [place] [address] Care Team Providers Care Convenience Recycle Center Tech Name Role Phone Fransisco Goldsmith MD Primary Care Provide r Christie Biswas PharmD Unavailable [phone] Encounter Details Date Type Department Care Team (Late st Contact Info) Description 11/03/2022 Orders Only [facility] [address] [place], [place] [phone] Elli Bakre LPN Social History Tobacco Use Types Packs/Day Years Used Date Smoking Tobacco: Never Assessed Comments Unknown Sex and Gender Information Value [...] Description 11/29/2024 10:00 AM EST Office Visit [facility] [address] [place] [phone] Fransisco Goldsmith MD [address] [place] [address] [phone] 12/22/2024 9:30 AM EDT Medication Management [facility] [address] [place] [phone] Christie Biswas, PharmD [address] [place], [place] [phone] documented as of this encounter Visit Diagnoses Not on filedocumented in this encounter Care Teams Convenience Recycle Center Tech Relationship Specialty Start Date End Date Fransisco Goldsmith MD [address] [place], [place] [phone] PCP - General Internal Medicine 05/18/14 Christie Biswas PharmD [address] [place] [address] Pharmacist Internal Medicine 11/22/24 [facility] 01/06/24 Sanket - visiting nurse 11/22/24 documented as of this encounter
--- OUTSIDE RECORDS SUMMARY | 2024-11-28 11:32 | XMS_ITS | Encounter Summary ---
Author Organization [employer] Address [address] [facility] 7t [place] [address] Care Team Providers Care Full Stack Web Developer Name Role Phone Fransisco Goldsmith MD Primary Care Provide r Christie Biswas PharmD Unavailable [phone] Encounter Details Date Type Department Care Team (Latest Contact Info) Description 11/22/2024 Travel Social History Tobacco Use Types Packs/Day Years [...] Description 11/29/2024 10:00 AM EST Office Visit [facility] [address] [place] [address] Fransisco Goldsmith MD [address] [place] [phone] 12/22/2024 9:30 AM EDT Medication Management [facility] [address] [place] [address] Christie Biswas PharmD [address] [place] [phone] documented as of this encounter Visit Diagnoses Not on filedocumented in this encounter Additional Health Concerns Assessment Noted Time PHQ-9 Depression Total Score: 4 06/02/20 24 9:28 AM EDT documented as of this encounter Care Teams Full Stack Web Developer Relationship Specialty Start Date End Date Fransisco Goldsmith MD [address] [place] [phone] PCP - General Internal Medicine 05/18/14 Christie Biswas PharmD [address] [place] [phone] Pharmacist Internal Medicine 11/22/24 [facility] 01/06/24 Sanket - PM visiting nurse 11/22/24 documented as of this encounter
--- OUTSIDE RECORDS SUMMARY | 2024-11-28 11:32 | XMS_ITS | Encounter Summary ---
Author Organization [employer] [facility] Address [address] [facility] [address] [place] [address] Care Team Providers Care Security Management Specialist Name Role Phone Fransisco Goldsmith MD Primary Care Provide r Christie Biswas PharmD Unavailable [phone] Reason for Visit * Reason Comments Med Refill Encounter Details Date Type Department Care Team (Late st Contact Info) Description 06/10/2023 Refill [facility] [address] [place], [place] [phone] Fransisco Goldsmith MD [address] [place], [place] [phone] Type 2 diabetes mellitus with diabetic polyneuropathy, with long-term current use of insulin ([facility]) Social History Tobacco Use Types Packs/Day Years Used Date Smoking Tobacco: Never Smokeless Tobacco: Never Depression Answer Date Recorded Patient Health Questionnaire-2 Score 2 11/11/2022 Comments Unknown Sex and Gender Information Value [...] Description 11/29/2024 10:00 AM EST Office Visit [facility] [address], [place] [phone] Fransisco Goldsmith MD [address] [place], [place] [phone] 12/22/2024 9:30 AM EDT Medication Management [facility] [address], [place] [phone] Christie Biswas PharmD [address] [place] [address] documented as of this encounter Visit Diagnoses Diagnosis Type 2 diabetes mellitus with diabetic polyneuropathy, with long-term current use of insulin ([facility]) documented in this encounter Care Teams Security Management Specialist Relationship Specialty Start Date End Date Fransisco Goldsmith MD [address] [place] [address] [phone] PCP - General Internal Medicine 05/18/14 Christie Biswas PharmD [address] [place] [address] [phone] Pharmacist Internal Medicine 11/22/24 [facility] 01/06/24 Sanket - visiting nurse 11/22/24 documented as of this encounter
--- OUTSIDE RECORDS SUMMARY | 2024-11-28 11:32 | XMS_ITS | Encounter Summary ---
Author Organization [employer] Address [address] [facility] 7t [place] [address] Care Team Providers Care Pipeline Technician Name Role Phone Fransisco Goldsmith MD Primary Care Provide r Reason for Visit * Reason Onset Date Comments Chart Prep 11/11/2024 Encounter Details Date Type Department Care Team ([facility] st Contact Info) Description 11/11/2024 Telephone [facility] [address] [place], [place] [phone] Fransisco Goldsmith MD [address] [place], [place] [phone] Chart Prep Social History Tobacco Use Types Packs/Day Years [...] AM EDT documented as of this encounter Miscellaneous Notes * Telephone Encounter - Erin Aguilera [place] - 11/11/2024 10:33 AM EST Chart Prep Labs: not applicable Images: done Vaccines due: Covid Due, Tdap Due, Flu Due, RSV in Pharmacy Due, and Shingles in pharmacy Due Referrals: Optometry pt cancelled appt on 11/03/2024 and Dermatology Pending appointment on 11/17/2024 Screenings: Colonoscopy and Mammogram Overdue care gaps: A1C, Glucose, Sbirt, and SDOH Chart prep for upcoming appt with Dr.Esparza enrique. LB documented in this encounter Plan of Treatment Upcoming Encounters Date Type Department Care Team (Late st Contact Info) Description 11/29/2024 10:00 AM EST Office Visit [facility] MEDICINE [address] [place] [phone] Fransisco Goldsmith MD [address] [place] [address] 12/22/2024 9:30 AM EDT Medication Management [facility] [address] [place] [phone] Christie Biswas, PharmD [address] [place] [address] documented as of this encounter Visit Diagnoses Not on filedocumented in this encounter Additional Health Concerns Assessment Noted Time PHQ-9 Depression Total Score: 4 06/02/20 24 9:28 AM EDT documented as of this encounter Care Teams Pipeline Technician Relationship Specialty Start Date End Date Fransisco Goldsmith MD [address] [place] [address] PCP - General Internal Medicine 05/18/14 [facility] 01/06/24 documented as of this encounter
--- OUTSIDE RECORDS SUMMARY | 2024-11-28 11:32 | XMS_ITS | Encounter Summary ---
Author Organization [employer] Address [address] [facility] 7t [place] [address] Care Team Providers Care Auto Polisher Name Role Phone Fransisco Goldsmith MD Primary Care Provide r Reason for Visit * Reason Comments Med Refill Encounter Details Date Type Department Care Team ([facility] st Contact Info) Description 11/02/2024 Refill [facility] [address] [place], [place] [phone] Fransisco Goldsmith MD [address] [place], [place] [phone] Constipation, unspecified constipation type; Type 2 diabetes mellitus with diabetic polyneuropathy, with long-term current use of insulin ([facility]) Social History Tobacco Use Types Packs/Day Years [...] Description 11/29/2024 10:00 AM EST Office Visit [facility] [address] [place] [phone] Fransisco Goldsmith MD [address] [place] [phone] 12/22/2024 9:30 AM EDT Medication Management [facility] [address] [place] [phone] Christie Biswas, PharmD [address] [place] [phone] documented as of this encounter Visit Diagnoses Diagnosis Constipation, unspecified constipation type Type 2 diabetes mellitus with diabetic polyneuropathy, with long-term current use of insulin ([facility]) documented in this encounter Additional Health Concerns Assessment Noted Time PHQ-9 Depression Total Score: 4 06/02/20 24 9:28 AM EDT documented as of this encounter Care Teams Auto Polisher Relationship Specialty Start Date End Date Fransisco Goldsmith MD [address] [place] [phone] PCP - General Internal Medicine 05/18/14 [facility] 01/06/24 documented as of this encounter
--- OUTSIDE RECORDS SUMMARY | 2024-11-28 11:32 | XMS_ITS | Encounter Summary ---
Author Organization [employer] Address [address] [facility] 7t [place] [address] Care Team Providers Care Restorative Art Embalmer Name Role Phone Fransisco Goldsmith MD Primary Care Provide r Christie Biswas PharmD Unavailable [phone] Encounter Details Date Type Department Care Team (Late st Contact Info) Description 11/10/2024 Refill [facility] [address] [place] [address] Fransisco Goldsmith MD [address] [place], [place] [phone] Osteoarthritis, unspecified osteoarthritis type, unspecified site Social [...] Description 11/29/2024 10:00 AM EST Office Visit [facility] [address] [place] [phone] Fransisco Goldsmith MD [address] [place] [phone] 12/22/2024 9:30 AM EDT Medication Management [facility] [address] [place] [phone] Christie Biswas PharmD [address] [place] [phone] documented as of this encounter Visit Diagnoses Diagnosis Osteoarthritis, unspecified osteoarthritis type, unspecified site documented in this encounter Additional Health Concerns Assessment Noted Time PHQ-9 Depression Total Score: 4 06/02/20 24 9:28 AM EDT documented as of this encounter Care Teams Restorative Art Embalmer Relationship Specialty Start Date End Date Fransisco Goldsmith MD [address] [place] [phone] PCP - General Internal Medicine 05/18/14 Christie Biswas PharmD [address] [place] [phone] Pharmacist Internal Medicine 11/22/24 [facility] 01/06/24 Sanket - LILIANA visiting nurse 11/22/24 documented as of this encounter
--- OUTSIDE RECORDS SUMMARY | 2024-11-28 11:32 | XMS_ITS | Encounter Summary ---
Author Organization [employer] [facility] Address [address] [facility] [address] [place] [address] Care Team Providers Care Lead Bi Developer Name Role Phone Fransisco Goldsmith MD Primary Care Provide r Christie Biswas PharmD Unavailable [phone] Encounter Details Date Type Department Care Team (Late st Contact Info) Description 10/14/2022 Orders Only [facility] [address] [place] [phone] Rochelle Rosa LPN Social History Tobacco Use Types Packs/Day [...] AM EST Office Visit [facility] [address] [place] [phone] Fransisco Goldsmith MD [address] [place], [place] [phone] 12/22/2024 9:30 AM EDT Medication Management [facility] [address] [place] [phone] Christie Biswas, PharmD [address] [place] [address] documented as of this encounter Visit Diagnoses Not on filedocumented in this encounter Care Teams Lead Bi Developer Relationship Specialty Start Date End Date Fransisco Goldsmith MD [address] [place], [place] [phone] PCP - General Internal Medicine 05/18/14 Christie Biswas PharmD 230 [place] [address] Pharmacist Internal Medicine 11/22/24 [facility] 01/06/24 Sanket - visiting nurse 11/22/24 documented as of this encounter
--- OUTSIDE RECORDS SUMMARY | 2024-11-28 11:32 | XMS_ITS | Encounter Summary ---
Author Organization [employer] Address [address] [facility] 7t [place] [address] Care Team Providers Care Banana Room Cutter Name Role Phone Fransisco Goldsmith MD Primary Care Provide r Christie Biswas PharmD Unavailable [phone] Encounter Details Date Type Department Care Team (Late st Contact Info) Description 11/10/2024 Refill [facility] 230 [place] [address] Fransisco Goldsmith MD 230 [place], [place] [phone] Osteoarthritis, unspecified osteoarthritis type, unspecified site Social [...] Description 11/29/2024 10:00 AM EST Office Visit [facility] [address] [place] [address] Fransisco Goldsmith MD [address] [place] [address] 12/22/2024 9:30 AM EDT Medication Management [facility] [address] [place] [address] Christie Biswas PharmD [address] [place] [address] documented as of this encounter Visit Diagnoses Diagnosis Osteoarthritis, unspecified osteoarthritis type, unspecified site documented in this encounter Additional Health Concerns Assessment Noted Time PHQ-9 Depression Total Score: 4 06/02/20 24 9:28 AM EDT documented as of this encounter Care Teams Banana Room Cutter Relationship Specialty Start Date End Date Fransisco Goldsmith MD [address] [place] [address] PCP - General Internal Medicine 05/18/14 Christie Biswas PharmD [address] [place] [address] Pharmacist Internal Medicine 11/22/24 [facility] 01/06/24 Sanket - LILIANA visiting nurse 11/22/24 documented as of this encounter
--- OUTSIDE RECORDS SUMMARY | 2024-11-28 11:32 | XMS_ITS | Data Portability ---
Author Organization [employer] [employer] [facility] Address [address] [place] [phone] Care Team Providers Care Salesperson Recreational Vehicles Name Role Phone [facility] Referring Provider [facility] Referring Provider Assessment Encounter Date Assessment Date Assessment LastModified by Organization Details LastModified Time 07/11/2022 07/11/2022 I have reviewed and agree with the Assessment and Plan as documented by the Matrix Drier Tender. I provided real -time medical direction via phone for this encounter, and was available for additional phone based assistance as needed. Patient given the opportunity to ask questions. Medic had very little phone service- unable to paper cup handle machine operator Language line. I was able to converse with the patient in Montenegrin- explain possible dx/ need to stay on light diet/ stay hydrated janis w/ clear liquids / review concerns and red flags. Patient unable to give a urine spec but did not appear dehydrated and has no UTI s/s. Medic did not have I-stat or lev to check chemistries in home. Pat denies hx allergies or kidney issues [email or web address] Not available 07/11/2022 15:55:54 Plan of Treatment [...] [degF] 132 mm[Hg] 78 mm[Hg] Not Available [facility] - production 2 14:15:12 Social History None recorded. Functional Status None recorded. Mental Status None recorded. Family History Nothing Reported. Medical History No medical history recorded. Gynecological HistoryNo gynecological history recorded. Obstetrics History GPAL:G 0 P 0 0 0 0 Past Encounters Encounter ID Performer Location Encounter Start Date Encounter Closed Date Diagnosis/Indication Diagnosis SNOMED-CT Code Diagnosis ICD10 Code Diagnosis Note [id number] Nay Acosta MD Main - [facility] [address] [place] [phone] 07/11/2022 14:12:05 07/14/2022 11:34:38 Right upper quadrant pain 757114662 R10.11 possible biliary- sister has hx of same- will trial one dose of ketorolac for discomfort . Advised in Montenegrin if develops hi fever- vomiting/ uncontroll ed pain to go to the ER- otherwise call pcp 07/14/22 for further testing /labs/ US. Health Concerns Section Related Observation LastModified by Organization Detai ls LastModified Time None Recorded Concern Status LastModified by Organization Details LastModified Time None Recorded Advance Directives Directive None Recorded Payers Encounter Date Sequence Insurance Name Policy Number Policy Joe Covered Member ID Joe Member ID Guarantor Name 07/11/2022 1 [facility] - DOS PRIOR TO 2022 - DUAL ELIGIBLE (MEDICARE REPLACEMENT/ADV ANTAGE - HMO) Esthela Flannery [id number] Esthela Flannery Notes Date Note Type Note Provider Name and Address Organization Details Recorded Time 07/11/2022 text/html HPI: Call from pt [employer] reporting pt having intermittent abdominal pain , rates 9/10. No vomiting, diarrhea, fever or other sx. Per [employer] pt declines to come into office for assessment. [facility]. [facility] recently had Flu vaccine administered 07/08/22. .................. .................. .................. .................. .................. .................. .................. ............... CRC Nursing Assessment: Comments: CRC RN did not require any additional information to process this visit. .................. .................. .................. .................. .................. .................. .................. ............... Matrix Drier Tender Note: Patient chief complaint of URQ abdominal pain for one day. Language barrier present. Patient vitals WNL. Patient abdominal auscultation reveals bowel sounds x 4 quadrants. Patient has URQ tenderness upon palpation. No CVA tenderness. Patient given 30mg ketorolac IM left self at [facility] request. Patient education given, red flags discussed. .................. .................. .................. .................. .................. .................. .................. ............... Disposition: FulfilledSEGMD: as above- pat could not recollect what she had for lunch yesterday- got abd pain sometime yesterday afternoon. Had only fidencio chicken noodle soup for dinner/ + coffee today . No fever/ diarrhea/n/v. Pain does not appear to radiate. Her sister had cholecystectomy. Nay Acosta MD [address] [facility],[address], [place], [phone], [employer] [facility] [employer] 07/11/2022 15:56:06 OBGyn Episode No OBEpisode recorded.
--- OUTSIDE RECORDS SUMMARY | 2024-11-28 11:32 | XMS_ITS | Encounter Summary ---
Author Organization [employer] Address [address] [facility] 7t [place] [address] Care Team Providers Care Automation Technologist Name Role Phone Fransisco Goldsmith MD Primary Care Provide r Christie Biswas PharmD Unavailable [phone] Encounter Details Date Type Department Care Team ([facility] st Contact Info) Description 08/15/2024 Telephone [facility] 230 [place], [place] [phone] Fransisco Goldsmith MD 230 [place], [place] [phone] Social History Tobacco Use Types Packs/Day Years [...] Recorded Patient Health Questionnaire-2 Score 1 06/02/2024 Comments Unknown Sex and Gender Information Value [...] Description 11/29/2024 10:00 AM EST Office Visit [facility] [address] [place] [address] Fransisco Goldsmith MD [address] [place] [address] 12/22/2024 9:30 AM EDT Medication Management [facility] [address] [place] [address] Christie Biswas PharmD [address] [place] [address] documented as of this encounter Visit Diagnoses Not on filedocumented in this encounter Additional Health Concerns Assessment Noted Time PHQ-9 Depression Total Score: 4 06/02/20 24 9:28 AM EDT documented as of this encounter Care Teams Automation Technologist Relationship Specialty Start Date End Date Fransisco Goldsmith MD [address] [place] [address] PCP - General Internal Medicine 05/18/14 Christie Biswas PharmD [address] [place] [address] Pharmacist Internal Medicine 11/22/24 [facility] 01/06/24 Sanket - PM visiting nurse 11/22/24 documented as of this encounter
--- OUTSIDE RECORDS SUMMARY | 2024-11-28 11:32 | XMS_ITS | Encounter Summary ---
Author Organization [employer] Address [address] [facility] 7t [place] [address] Care Team Providers Care Criminal Researcher Name Role Phone Fransisco Goldsmith MD Primary Care Provide r Christie Biswas PharmD Unavailable [phone] Encounter Details Date Type Department Care Team (Late st Contact Info) Description 11/09/2024 Refill [facility] 230 [place] [address] Fransisco Goldsmith MD 230 [place], [place] [phone] Osteoarthritis, unspecified osteoarthritis type, unspecified site Social [...] 11/29/2024 10:00 AM EST Office Visit [facility] [address] [place] [address] Fransisco Goldsmith MD [address] [place] [address] 12/22/2024 9:30 AM EDT Medication Management [facility] [address] [place] [address] Christie Biswas PharmD [address] [place] [address] documented as of this encounter Visit Diagnoses Diagnosis Osteoarthritis, unspecified osteoarthritis type, unspecified site documented in this encounter Additional Health Concerns Assessment Noted Time PHQ-9 Depression Total Score: 4 06/02/20 24 9:28 AM EDT documented as of this encounter Care Teams Criminal Researcher Relationship Specialty Start Date End Date Fransisco Goldsmith MD [address] [place] [address] PCP - General Internal Medicine 05/18/14 Christie Biswas PharmD [address] [place] [address] Pharmacist Internal Medicine 11/22/24 [facility] 01/06/24 Sanket - LILIANA visiting nurse 11/22/24 documented as of this encounter
--- OUTSIDE RECORDS SUMMARY | 2024-11-28 11:32 | XMS_ITS | Encounter Summary ---
Author Organization [employer] Address [address] [facility] 7t [place] [address] Care Team Providers Care On Air Talent Name Role Phone Fransisco Goldsmith MD Primary Care Provide r Christie Biswas PharmD Unavailable [phone] Encounter Details Date Type Department Care Team (Late st Contact Info) Description 11/28/2024 Orders Only [facility] External Provider, [facility] Social History Tobacco Use Types Packs/Day Years [...] Description 11/29/2024 10:00 AM EST Office Visit [facility] [address] [place] [address] Fransisco Goldsmith MD 230 [place] [address] 12/22/2024 9:30 AM EDT Medication Management [facility] 230 [place] [address] Christie Biswas, PharmD [address] [place] [address] documented as of this encounter Procedures Procedure Name Priority Date/Time Associated Diagnosis Comments XR CHEST 2 VIEWS Routine 11/28/2024 10:3 0 AM EST documented in this encounter Results * XR Chest 2 Views (11/28/2024 10:30 AM EST) Anatomical Region Laterality Modality Chest Radiographic Yuliet ging 11/28/2024 10:3 0 AM EST Narrative 11/28/2024 10:49 AM EST ? [facility] ?[address] ?[place] [address] ?XRay Report ? Signed ? Patient: Prudencio,Esthela ?MR#: [id number] ?? 73 ? : 1955 ?Acct:[id number] ? Age/Sex: 68 / F ?ADM Date: 03/03/25 ? Loc: HO.ED ? Attending Dr: ? Ordering Physician: Esther Christina ?? Date of Service: 11/28/24 ?? Procedure(s): XR chest 2V ?? Accession Number(s): [id number] ? cc: Indira Newsome MD; Esther Christina [...] DD/ 1030 ? TD/TT: 11/28/24 1035 ? Electrical Manufacturing Technician: ? Procedure Note Bac[place], Image - 11/28/2024 [place] [address] XRay Report Signed Patient: Iliana Flannery#: [id number] 73 : 5Acct:[id number] Age/Sex: 68 / FADM Date: 11/28/24 Loc: HO.ED Attending Dr: Ordering Physician: Esther Christina Date of Service: 11/28/24 Procedure(s): XR chest 2V Accession Number(s): [id number] cc: Indira Newsome MD; Esther Christina .EXAMINATION: [...] Nick Major MD 11/28/2024 10:46 AM EST RP Dictated By: Nick Archer MD Signed By: <Electronically signed by Nick Ervin MDin OV> 11/28/24 1046 DD/ 1030 TD/TT: 11/28/24 1035 Electrical Manufacturing Technician: [facility] External Provider IMG XR PROCEDURES Final Result documented in this encounter Visit Diagnoses Not on filedocumented in this encounter Additional Health Concerns Assessment Noted Time PHQ-9 Depression Total Score: 4 06/02/20 24 9:28 AM EDT documented as of this encounter Care Teams On Air Talent Relationship Specialty Start Date End Date Fransisco Goldsmith MD 230 [place] [address] PCP - General Internal Medicine 05/18/14 Christie Biswas PharmD [address] [place] [address] Pharmacist Internal Medicine 11/22/24 [facility] 01/06/24 Sanket - visiting nurse 11/22/24 documented as of this encounter
--- OUTSIDE RECORDS SUMMARY | 2024-11-28 11:32 | XMS_ITS | Encounter Summary ---
Author Organization [employer] Address [address] [facility] 7t [place] [address] Care Team Providers Care Stemming Machine Operator Name Role Phone Fransisco Goldsmith MD Primary Care Provide r Christie Biswas PharmD Unavailable [phone] Reason for Visit * Reason Onset Date Comments Appointment Request 08/02/2024 Encounter Details Date Type Department Care Team ([facility] st Contact Info) Description 08/02/2024 Telephone [facility]ICINE 230 [place], [place] [phone] Fransisco Goldsmith MD 230 [place] [address] Appointment Request Social History Tobacco Use Types Packs/Day Years [...] encounter Miscellaneous Notes * Telephone Encounter - Luis Miguel Aldridge - 08/02/2024 12:35 PM EST TC from pt and niece phi that canceled tomrrows 08/03 pharmacist visit . Wanting to reschedule for another date . Pt phone not working at this time / niece requesting call to [phone] documented in this encounter Plan of Treatment Upcoming Encounters Date Type Department Care Team (Late st Contact Info) Description 11/29/2024 10:00 AM EST Office Visit [facility] [address] [place] [phone] Fransisco Goldsmith MD 230 [place] [address] 12/22/2024 9:30 AM EDT Medication Management [facility] [address] [place] [address] Christie Biswas, CarolynD [address] [place] [address] documented as of this encounter Visit Diagnoses Not on filedocumented in this encounter Additional Health Concerns Assessment Noted Time PHQ-9 Depression Total Score: 4 06/02/20 24 9:28 AM EDT documented as of this encounter Care Teams Stemming Machine Operator Relationship Specialty Start Date End Date Fransisco Goldsmith MD 230 [place] [address] PCP - General Internal Medicine 05/18/14 Christie Biswas PharmD [address] [place] [address] Pharmacist Internal Medicine 11/22/24 [facility] 01/06/24 Sanket - visiting nurse 11/22/24 documented as of this encounter
--- OUTSIDE RECORDS SUMMARY | 2024-11-28 11:32 | XMS_ITS | Encounter Summary ---
Author Organization [employer] Address [address] [facility] 7t [place] [address] Care Team Providers Care General Magistrate Name Role Phone Fransisco Goldsmith MD Primary Care Provide r Christie Biswas PharmD Unavailable [phone] Encounter Details Date Type Department Care Team (Late st Contact Info) Description 10/06/2022 Orders Only [facility] [address] [place], [place] [phone] Elli Baker LPN Social History Tobacco Use Types Packs/Day [...] Description 11/29/2024 10:00 AM EST Office Visit [facility] [address] [place] [address] Fransisco Goldsmith MD [address] [place] [address] [phone] 12/22/2024 9:30 AM EDT Medication Management [facility] [address] [place] [address] Christie Biswas, PharmD [address] [place], [place] [phone] documented as of this encounter Visit Diagnoses Not on filedocumented in this encounter Care Teams General Magistrate Relationship Specialty Start Date End Date Fransisco Goldsmith MD [address] [place], [place] [phone] PCP - General Internal Medicine 05/18/14 Christie Biswas PharmD [address] [place] [address] Pharmacist Internal Medicine 11/22/24 [facility] 01/06/24 Sanket - visiting nurse 11/22/24 documented as of this encounter
--- OUTSIDE RECORDS SUMMARY | 2024-11-28 11:32 | XMS_ITS | Encounter Summary ---
Author Organization [employer] Address [address] [facility] 7t [place] [address] Care Team Providers Care Shearing Machine Operator Name Role Phone Fransisco Goldsmith MD Primary Care Provide r Christie Biswas PharmD Unavailable [phone] Reason for Visit * Reason Comments Med Refill Encounter Details Date Type Department Care Team ([facility] st Contact Info) Description 05/19/2024 Refill [facility]INE 230 [place], [place] [phone] Fransisco Goldsmith MD 230 [place], [place] [phone] Mixed hyperlipidemia Social History Tobacco Use Types Packs/Day Years Used Date Smoking Tobacco: Never Smokeless Tobacco: Never Housing Stability Answer Date Recorded What is [...] Description 11/29/2024 10:00 AM EST Office Visit [facility] [address] [place] [address] Fransisco Goldsmith MD [address] [place] [address] 12/22/2024 9:30 AM EDT Medication Management [facility] [address] [place] [address] [phone] Christie Biswas PharmD [address] [place] [address] documented as of this encounter Visit Diagnoses Diagnosis Mixed hyperlipidemia documented in this encounter Care Teams Shearing Machine Operator Relationship Specialty Start Date End Date Fransisco Goldsmith MD [address] [place] [address] PCP - General Internal Medicine 05/18/14 Christie Biswas PharmD [address] [place] [address] Pharmacist Internal Medicine 11/22/24 [facility] 01/06/24 Sanket - visiting nurse 11/22/24 documented as of this encounter
--- OUTSIDE RECORDS SUMMARY | 2024-11-28 11:32 | XMS_ITS | Encounter Summary ---
Author Organization [employer] Address [address] [facility] 7t [place] [address] Care Team Providers Care Deaf And Hard Of Hearing Teacher Name Role Phone Fransisco Goldsmith MD Primary Care Provide r Reason for Visit * Reason Onset Date Comments Med Refill 11/15/2024 Encounter Details Date Type Department Care Team ([facility] st Contact Info) Description 11/15/2024 Telephone [facility] MED[facility]INE 230 [place], [place] [phone] Fransisco Goldsmith MD [address] [place], [place] [phone] Med Refill Social History Tobacco Use Types Packs/Day Years [...] encounter Miscellaneous Notes * Telephone Encounter - Gilma Johnson RN - 11/18/2024 11:51 AM EST Telephone call x2 to RASHMI Coles to ask about insulin use and refills needed. No answer, left voicemail asking for call back to [facility]. Will task to call again. * Telephone Encounter - Cindy Ervin RN - 11/17/2024 1:15 PM EST Telephone call placed to pt's WATER PUMP SERVICER Bria on HIPAA and main number in chart regarding below messages.She states doesn't know what pt takes for insulin or what she needs a refill of. I would have to speak to the VNA. She supplied number of VNA as . Telephone call placed top VNA number above. V/m states belongs to Sanket. Left vague V/M requesting VNA of pt return my call to my direct ext. Will retask to call again if no returned call. Please contact teacher kindergarten . Has patient been using Sliding scale all along ? And if yes, it is ok to refill, if that is the case please queue * Telephone Encounter - Timoteo Rojas RN - 11/15/2024 4:03 PM EST TC received from WATER PUMP SERVICER who is requesting refills of patients insulin, WATER PUMP SERVICER unsure what the name of it is unable to give that info to RN. RN called pharmacy who reports that patient has refills of lantuson file. Vaishnaviic will need a refill but patient just picked it up on 11/04/24 so theres no naik on that but states humalog pen sliding scale insulin they would need a new refill for if that is something patient should still be taking. RN reviewed last office note unclear if patient should continue humalog pen. Message sent to PCP for review and advise. documented in this encounter Plan of Treatment Upcoming Encounters Date Type Department Care Team (Late st Contact Info) Description 11/29/2024 10:00 AM EST Office Visit [facility] MEDICINE [address] [place] [address] Fransisco Goldsmith MD [address] [place] [address] 12/22/2024 9:30 AM EDT Medication Management [facility] MEDICINE [address] [place] [address] Christie Biswas, PharmD 230 [place] [address] documented as of this encounter Visit Diagnoses Not on filedocumented in this encounter Additional Health Concerns Assessment Noted Time PHQ-9 Depression Total Score: 4 06/02/20 24 9:28 AM EDT documented as of this encounter Care Teams Deaf And Hard Of Hearing Teacher Relationship Specialty Start Date End Date Fransisco Goldsmith MD [address] [place] [address] PCP - General Internal Medicine 05/18/14 [facility] 01/06/24 documented as of this encounter
[2024-11-28 12:13] VITALS: BP 155/74; PULSE 84; RESP 16; O2SAT 96
--- NOTE | 2024-11-28 12:59 | PC.NURSE ---
CTA ordered, U/S guided 18g to left upper arm placed by Dr Swan. Pt states CP is unchanged, request food. NSR on tele
[2024-11-28 14:53] LABS: D Dimer High Sensitivity 429 NG/ML
[2024-11-28 15:28] LABS: Glucose, Whole Blood 189 mg/dL (60-115)
--- NOTE | 2024-11-28 15:57 | PC.NURSE ---
U/S guided IV placed infiltrated with CTA attempt, D dimer ordered and Positive. Pt to VQ scan at this time
[2024-11-28 16:18] VITALS: BP 156/67; PULSE 92; RESP 20; TEMP 36.5; O2SAT 93
--- NOTE | 2024-11-28 17:08 | MHC.EDTECH ---
pt ambulated with oxygen stating between 94%-95%
[2024-11-28] MEDS: Magnesium Sulfate/H2O 2 GM/50 ML PIGGYBACK IV (17:28)
[2024-11-28 18:01] VITALS: BP 156/67; PULSE 92; RESP 20; TEMP 36.5; O2SAT 93
== END 2024-11-28 18:02 | disposition home or self-care (01) ==
PROVIDERS: Physician Assistant Medical; Emergency Provider Emergency Medicine; PCP Student in an Organized Health Care Education/Training Program
DX: J45.901 Unspecified asthma with (acute) exacerbation (principal); R07.89 Other chest pain; R79.1 Abnormal coagulation profile; I10 Essential (primary) hypertension; E11.9 Type 2 diabetes mellitus without complications; Z03.818 Encounter for observation for suspected exposure to other biological agents ruled out
CPT/HCPCS: 0241U; 71046; 78580; 80053; 82947; 83690; 83735; 84484; 85025; 85379; 85610; 93005; 94640; 96374; 96375; 99284; 99285; A9540; J1885; J2919; J3475

== ENCOUNTER → 2024-11-28 09:25 | Outpatient (BNV) | payer OTHER, SELFPAY | PROVIDERS: Emergency Provider Emergency Medicine; PCP Student in an Organized Health Care Education/Training Program; Visit Provider Internal Medicine Cardiovascular Disease | DX: R07.9 Chest pain, unspecified (principal) | CPT/HCPCS: 93010 ==

== ENCOUNTER → 2024-11-28 09:25 | Outpatient (BNV) | payer OTHER, SELFPAY | PROVIDERS: Emergency Provider Emergency Medicine; PCP Student in an Organized Health Care Education/Training Program; Visit Provider Radiology Diagnostic Radiology | DX: R06.02 Shortness of breath (principal); R07.1 Chest pain on breathing | CPT/HCPCS: 71046; 78580 ==

== ENCOUNTER 2024-11-29 10:22 | Outpatient (REF) | payer OTHER, SELFPAY ==
[2024-11-29 12:29] LABS: Alanine Aminotransferase 22 U/L (0-31); Alkaline Phosphatase 128 U/L (39-117); Anion Gap 18 (12-20); Aspartate Amino Transferase 26 U/L (5-31); Bilirubin Total 0.3 mg/dL (0.0-1.0); Blood Urea Nitrogen 18 mg/dL (9-16); Calcium 9.4 mg/dL (8.4-10.2); Carbon Dioxide 22 mmol/L (22-29); Chloride 107 mmol/L (96-108); Cholesterol 160 mg/dL (<200); Estimated Glomerular Filt Rate > 60; Glucose Random 217 mg/dL (60-115); HDL Cholesterol 57 mg/dL (>40); LDL Cholesterol Calculated 87 mg/dL (<100); Potassium 4.6 mmol/L (3.3-5.1); Sodium 142 mmol/L (135-145); Total Protein 8.2 g/dL (6.5-8.0); Triglycerides 83 mg/dL (<150)
--- OUTSIDE RECORDS SUMMARY | 2024-11-29 12:34 | XMS_ITS | Encounter Summary ---
Author Organization [employer] Address 75 [facility] 7t [place] [address] Care Team Providers Care Complex Manager Name Role Phone Fransisco Goldsmith MD Primary Care Provide r Reason for Visit * Reason Onset Date Comments Chart Prep 11/11/2024 Encounter Details Date Type Department Care Team ([facility] st Contact Info) Description 11/11/2024 Telephone [facility] [address] [place], [place] [phone] Fransisco Goldsmith MD [address] [place], [place] [phone] Chart Prep Social History Tobacco Use Types [...] Care Team (Late st Contact Info) Description 12/22/2024 9:30 AM EDT Medication Management [facility] [address] [place] [phone] Christie Biswas, CarolynD [address] [place] [address] 03/02/2025 9:15 AM EDT Office Visit [facility] [address] [place] [address] Fransisco Goldsmith MD [address] [place] [address] documented as of this encounter Visit Diagnoses Not on filedocumented in this encounter Additional Health Concerns Assessment Noted Time PHQ-9 Depression Total Score: 4 06/02/20 24 9:28 AM EDT documented as of this encounter Care Teams Complex Manager Relationship Specialty Start Date End Date Fransisco Goldsmith MD [address] [place] [address] PCP - General Internal Medicine 05/18/14 [facility] 01/06/24 documented as of this encounter
--- OUTSIDE RECORDS SUMMARY | 2024-11-29 12:34 | XMS_ITS | Encounter Summary ---
Author Organization [employer] Address 75 [facility] 7t [place] [address] Care Team Providers Care Infant Toddler Lead Teacher Name Role Phone Fransisco Goldsmith MD Primary Care Provide r Reason for Visit * Reason Comments Med Refill Encounter Details Date Type Department Care Team ([facility] st Contact Info) Description 11/02/2024 Refill [facility] [address] [place], [place] [phone] Fransisco Goldsmith MD 230 [place], [place] [phone] Constipation, unspecified constipation type; Type 2 diabetes mellitus with diabetic polyneuropathy, with long-term current use of insulin ([facility]) Social History Tobacco Use Types Packs/Day [...] Description 12/22/2024 9:30 AM EDT Medication Management [facility] [address] [place] [phone] Christie Biswas, PharmD [address] [place] [address] 03/02/2025 9:15 AM EDT Office Visit [facility] [address] [place] [address] Fransisco Goldsmith MD [address] [place] [phone] documented as of this encounter Visit Diagnoses Diagnosis Constipation, unspecified constipation type Type 2 diabetes mellitus with diabetic polyneuropathy, with long-term current use of insulin ([facility]) documented in this encounter Additional Health Concerns Assessment Noted Time PHQ-9 Depression Total Score: 4 06/02/20 24 9:28 AM EDT documented as of this encounter Care Teams Infant Toddler Lead Teacher Relationship Specialty Start Date End Date Fransisco Goldsmith MD [address] [place] [phone] PCP - General Internal Medicine 05/18/14 [facility] 01/06/24 documented as of this encounter
--- OUTSIDE RECORDS SUMMARY | 2024-11-29 12:34 | XMS_ITS | Encounter Summary ---
Author Organization [employer] Address 75 [facility] 7t [place] [address] Care Team Providers Care Art Preparator Name Role Phone Fransisco Goldsmith MD Primary Care Provide r Christie Biswas PharmD Unavailable [phone] Encounter Details Date Type Department Care Team (Latest Contact Info) Description 11/29/2024 Travel Social History Tobacco Use Types Packs/Day [...] Description 12/22/2024 9:30 AM EDT Medication Management [facility] [address] [place] [address] Christie Biswas PharmD 230 [place] [address] 03/02/2025 9:15 AM EDT Office Visit [facility] [address] [place] [address] Fransisco Goldsmith MD [address] [place] [phone] documented as of this encounter Visit Diagnoses Not on filedocumented in this encounter Additional Health Concerns Assessment Noted Time PHQ-9 Depression Total Score: 4 06/02/20 24 9:28 AM EDT documented as of this encounter Care Teams Art Preparator Relationship Specialty Start Date End Date Fransisco Goldsmith MD [address] [place] [phone] PCP - General Internal Medicine 05/18/14 Christie Biswas, Cristian [address] [place] [phone] Pharmacist Internal Medicine 11/22/24 [facility] 01/06/24 Sanket - visiting nurse 11/22/24 documented as of this encounter
--- OUTSIDE RECORDS SUMMARY | 2024-11-29 12:34 | XMS_ITS | Encounter Summary ---
Author Organization [employer] Address 75 [facility] 7t [place] [address] Care Team Providers Care Summer Associate Name Role Phone Fransisco Goldsmith MD Primary Care Provide r Christie Biswas PharmD Unavailable [phone] Encounter Details Date Type Department Care Team (Late st Contact Info) Description 11/10/2024 Refill [facility]INE [address] [place] [address] Fransisco Goldsmith MD [address] [place], [place] [phone] Osteoarthritis, unspecified osteoarthritis type, unspecified site Social [...] Description 12/22/2024 9:30 AM EDT Medication Management [facility] [address] [place] [phone] Christie Biswas PharmD [address] [place] [phone] 03/02/2025 9:15 AM EDT Office Visit [facility] [address] [place] [address] Fransisco Goldsmith MD [address] [place] [address] documented as of this encounter Visit Diagnoses Diagnosis Osteoarthritis, unspecified osteoarthritis type, unspecified site documented in this encounter Additional Health Concerns Assessment Noted Time PHQ-9 Depression Total Score: 4 06/02/20 24 9:28 AM EDT documented as of this encounter Care Teams Summer Associate Relationship Specialty Start Date End Date Fransisco Goldsmith MD [address] [place] [phone] PCP - General Internal Medicine 05/18/14 Christie Biswas PharmD [address] [place] [phone] Pharmacist Internal Medicine 11/22/24 [facility] 01/06/24 Sanket FORD visiting nurse 11/22/24 documented as of this encounter
--- OUTSIDE RECORDS SUMMARY | 2024-11-29 12:34 | XMS_ITS | Encounter Summary ---
Author Organization [employer] Address 75 [facility] 7t [place] [address] Care Team Providers Care Corporate Real Estate Manager Name Role Phone Fransisco Goldsmith MD Primary Care Provide r Reason for Visit * Reason Comments Med Refill Encounter Details Date Type Department Care Team ([facility] st Contact Info) Description 11/04/2024 Refill [facility] [address] [place], [place] [phone] Fransisco Goldsmith MD [address] [place], [place] [phone] Constipation, unspecified constipation type Social History Tobacco [...] Description 12/22/2024 9:30 AM EDT Medication Management [facility] [address] [place] [phone] Christie Biswas, PharmD [address] [place] [phone] 03/02/2025 9:15 AM EDT Office Visit [facility] [address] [place] [address] Fransisco Goldsmith MD [address] [place] [address] documented as of this encounter Visit Diagnoses Diagnosis Constipation, unspecified constipation type documented in this encounter Additional Health Concerns Assessment Noted Time PHQ-9 Depression Total Score: 4 06/02/20 24 9:28 AM EDT documented as of this encounter Care Teams Corporate Real Estate Manager Relationship Specialty Start Date End Date Fransisco Goldsmith MD [address] [place] [address] PCP - General Internal Medicine 05/18/14 [facility] 01/06/24 documented as of this encounter
--- OUTSIDE RECORDS SUMMARY | 2024-11-29 12:34 | XMS_ITS | Encounter Summary ---
Author Organization [employer] Address 75 [facility] 7t [place] [address] Care Team Providers Care Lens Examiner Name Role Phone Fransisco Goldsmith MD Primary Care Provide r Christie Biswas PharmD Unavailable [phone] Encounter Details Date Type Department Care Team ([facility] st Contact Info) Description 08/15/2024 Telephone [facility] [address] [place], [place] [phone] Fransisco Goldsmith MD [address] [place], [place] [phone] Social History Tobacco Use Types Packs/Day Years [...] Description 12/22/2024 9:30 AM EDT Medication Management [facility] [address] [place] [phone] Christie Biswas PharmD [address] [place] [phone] 03/02/2025 9:15 AM EDT Office Visit [facility] [address] [place] [address] Fransisco Goldsmith MD [address] [place] [phone] documented as of this encounter Visit Diagnoses Not on filedocumented in this encounter Additional Health Concerns Assessment Noted Time PHQ-9 Depression Total Score: 4 06/02/20 24 9:28 AM EDT documented as of this encounter Care Teams Lens Examiner Relationship Specialty Start Date End Date Fransisco Goldsmith MD [address] [place] [phone] PCP - General Internal Medicine 05/18/14 Christie Biswas PharmD [address] [place] [phone] Pharmacist Internal Medicine 11/22/24 [facility] 01/06/24 Sanket - visiting nurse 11/22/24 documented as of this encounter
--- OUTSIDE RECORDS SUMMARY | 2024-11-29 12:34 | XMS_ITS | Encounter Summary ---
Author Organization [employer] Address 75 [facility] 7t [place] [address] Care Team Providers Care Credit Relationship Manager Name Role Phone Fransisco Goldsmith MD Primary Care Provide r Christie Biswas PharmD Unavailable [phone] Encounter Details Date Type Department Care Team ([facility] st Contact Info) Description 11/29/2024 Telephone [facility] [address] [place], [place] [phone] Fransisco Goldsmith MD [address] [place], [place] [phone] Social History Tobacco Use Types Packs/Day Years [...] Telephone Encounter - Erin Aguilera [place] - 11/29/2024 10:16 AM EST Rescheduled Dermatology appt for pt, appt will be 05/05/2025 @10:15AM at [address] [place] [address]. LB documented in this encounter Plan of Treatment Upcoming Encounters Date Type Department Care Team (Late st Contact Info) Description 12/22/2024 9:30 AM EDT Medication Management [facility] [address] [place] [phone] Christie Biswas, PharmD [address] [place] [phone] 03/02/2025 9:15 AM EDT Office Visit [facility] [address] [place] [phone] Fransisco Goldsmith MD [address] [place] [phone] documented as of this encounter Visit Diagnoses Not on filedocumented in this encounter Additional Health Concerns Assessment Noted Time PHQ-9 Depression Total Score: 4 06/02/20 24 9:28 AM EDT documented as of this encounter Care Teams Credit Relationship Manager Relationship Specialty Start Date End Date Fransisco Goldsmith MD [address] [place] [address] PCP - General Internal Medicine 05/18/14 Christie Biswas PharmD [address] [place] [address] Pharmacist Internal Medicine 11/22/24 [facility] 01/06/24 Sanket - visiting nurse 11/22/24 documented as of this encounter
--- OUTSIDE RECORDS SUMMARY | 2024-11-29 12:34 | XMS_ITS | Clinical Summary ---
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 Donstormy, Image - 07/19/2023 [facility] [address] [place] [address] Mammography Report Signed Patient: Iliana Flannery#: [id number] 73 : 5Acct:[id number] Age/Sex: 67 / FADM Date: 06/24/23 Loc: [place] Attending Dr: Fransisco Baires MD Ordering Physician: Fransisco Baires MDResu lts: 1Negative Date of Service: 06/24/23Follow Up: 1 Year From Orig inal Mammogram Procedure(s): MM tomosynthesis screening BI Accession Number(s): [id number] cc: Fransisco Baires MD EXAMINATION: MM SCREENING [...] in OV> 07/19/23 0713 DD/ 1035 TD/TT: Billing Customer Service Representative: Fransisco Ramon MD IMG BI PROCEDURES Fin al Result * Hepatitis C Antibody with Reflex to HCV, RNA, Quantitative, Real-Time PCR (11/11/2022 9:56 AM EST) Hepatitis C Antibody NON-REACT EMILY NON-REACT EMILY [employer] Index 0.05 <1.00 [employer] Comment: HCV antibody was non-reactive. There is no laboratory evidence of HCV infection. In most cases, no further action is required. However, if recent HCV exposure is suspected, a test for HCV RNA (test code 42491) is suggested. For additional information please refer to http://education.[employer]/faq/JUP13i5 (This link is being provided for informational/ educational purposes only.) Blood Venous blood specimen / Unknown 11/11/2022 9:56 AM EST 11/11/2022 9:57 AM EST Narrative [facility] - 11/11/2022 10:40 PM EST FASTING:YES FASTING: YES Fransisco Ramon MD LAB BLOOD ORDERABLES Final Result [facility] [address], [place] [address] [employer] [address] [facility], ([address]) [place] [address] from Last 3 Months or Most Recently Relevant to Health Maintenance Insurance [facility] Care Teams Seed Specialist Relationship Specialty Start Date End Date Fransisco Goldsmith MD [address] [place] [address] PCP - General Internal Medicine 05/18/14 Christie Biswas PharmD [address] [place] [address] Pharmacist Internal Medicine 11/22/24 [facility] 01/06/24 Sanket - visiting nurse 11/22/24
--- OUTSIDE RECORDS SUMMARY | 2024-11-29 12:34 | XMS_ITS | Encounter Summary ---
Author Organization [employer] Address [address] [facility] 7[address] [place] [address] Care Team Providers Care Cook Helper Pastry Name Role Phone Fransisco Goldsmith MD Primary Care Provide r Christie Biswas PharmD Unavailable [phone] Encounter Details Date Type Department Care Team (Late st Contact Info) Description 11/09/2024 Refill [facility] [address] [place] [address] Fransisco Goldsmith MD [address] [place], [place] [phone] Osteoarthritis, unspecified osteoarthritis type, unspecified site Social [...] Management [facility] [address] [place] [phone] Christie Biswas PharmD [address] [place] [phone] 03/02/2025 9:15 AM EDT Office Visit [facility] [address] [place] [phone] Fransisco Goldsmith MD [address] [place] [phone] documented as of this encounter Visit Diagnoses Diagnosis Osteoarthritis, unspecified osteoarthritis type, unspecified site documented in this encounter Additional Health Concerns Assessment Noted Time PHQ-9 Depression Total Score: 4 06/02/20 24 9:28 AM EDT documented as of this encounter Care Teams Cook Helper Pastry Relationship Specialty Start Date End Date Fransisco Goldsmith MD [address] [place] [phone] PCP - General Internal Medicine 05/18/14 Christie Biswas PharmD [address] [place] [phone] Pharmacist Internal Medicine 11/22/24 [facility] 01/06/24 Sanket FORD visiting nurse 11/22/24 documented as of this encounter
--- OUTSIDE RECORDS SUMMARY | 2024-11-29 12:34 | XMS_ITS | Encounter Summary ---
Author Organization [employer] [facility] Address [address] [facility] [address] [place] [address] Care Team Providers Care Turnaround Planner Name Role Phone Fransisco Goldsmith MD Primary Care Provide r Christie Biswas PharmD Unavailable [phone] Reason for Visit * Reason Comments Med Refill Encounter Details Date Type Department Care Team (Late st Contact Info) Description 06/10/[address] [facility] [address] [place] [address] Fransisco Goldsmith MD [address] [place], [place] [phone] Type 2 diabetes mellitus with diabetic polyneuropathy, with long-term current use of insulin ([facility]) Social History Tobacco Use Types Packs/Day Years [...] Description 12/22/2024 9:30 AM EDT Medication Management [facility] [address] [place], [place] [phone] Christie Biswas, PharmD [address] [place], [place] [phone] 03/02/2025 9:15 AM EDT Office Visit [facility] [address] [place], [place] [phone] Fransisco Goldsmith MD [address] [place], [place] [phone] documented as of this encounter Visit Diagnoses Diagnosis Type 2 diabetes mellitus with diabetic polyneuropathy, with long-term current use of insulin ([facility]) documented in this encounter Care Teams Turnaround Planner Relationship Specialty Start Date End Date Fransisco Goldsmith MD [address] [place], [place] [phone] PCP - General Internal Medicine 05/18/14 Christie Biswas PharmD [address] [place] [address] [phone] Pharmacist Internal Medicine 11/22/24 [facility] 01/06/24 Sanket - PM visiting nurse 11/22/24 documented as of this encounter
--- OUTSIDE RECORDS SUMMARY | 2024-11-29 12:34 | XMS_ITS | Encounter Summary ---
Author Organization [employer] Address [address] [facility] 7[address] [place] [address] Care Team Providers Care Forest Botany Instructor Name Role Phone Fransisco Goldsmith MD Primary Care Provide r Christie Biswas PharmD Unavailable [phone] Encounter Details Date Type Department Care Team (Late st Contact Info) Description 11/10/[address] [facility] [address] [place] [address] Fransisco Goldsmith MD [address] [place], [place] [phone] Osteoarthritis, unspecified osteoarthritis type, unspecified site Social [...] Description 12/22/2024 9:30 AM EDT Medication Management [facility] [address] [place] [phone] hCristie Biswas PharmD [address] [place] [phone] 03/02/2025 9:15 AM EDT Office Visit [facility] [address] [place] [phone] Fransisco Goldsmith MD [address] [place] [phone] documented as of this encounter Visit Diagnoses Diagnosis Osteoarthritis, unspecified osteoarthritis type, unspecified site documented in this encounter Additional Health Concerns Assessment Noted Time PHQ-9 Depression Total Score: 4 06/02/20 24 9:28 AM EDT documented as of this encounter Care Teams Forest Botany Instructor Relationship Specialty Start Date End Date Fransisco Goldsmith MD [address] [place] [phone] PCP - General Internal Medicine 05/18/14 Christie Biswas PharmD [address] [place] [phone] Pharmacist Internal Medicine 11/22/24 [facility] 01/06/24 Sanket FORD visiting nurse 11/22/24 documented as of this encounter
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
--- OUTSIDE RECORDS SUMMARY | 2024-11-29 12:34 | XMS_ITS | Encounter Summary ---
Author Organization [employer] Address [address] [facility] 7t [place] [address] Care Team Providers Care Cementing Machine Operator Name Role Phone Fransisco Goldsmith MD Primary Care Provide r Reason for Visit * Reason Comments Med Refill Encounter Details Date Type Department Care Team ([facility] st Contact Info) Description 11/09/2024 Refill [facility] [address] [place], [place] [phone] Fransisco Goldsmith MD [address] [place], [place] [phone] Osteoarthritis, unspecified osteoarthritis type, unspecified site Social [...] Description 12/22/2024 9:30 AM EDT Medication Management [facility] [address] [place] [phone] Christie Biswas, CarolynD [address] [place] [phone] 03/02/2025 9:15 AM EDT Office Visit [facility] [address] [place] [phone] Fransisco Goldsmith MD [address] [place] [phone] documented as of this encounter Visit Diagnoses Diagnosis Osteoarthritis, unspecified osteoarthritis type, unspecified site documented in this encounter Additional Health Concerns Assessment Noted Time PHQ-9 Depression Total Score: 4 06/02/20 9:28 AM EDT documented as of this encounter Care Teams Cementing Machine Operator Relationship Specialty Start Date End Date Fransisco Goldsmith MD [address] [place] [phone] PCP - General Internal Medicine 05/18/14 [facility] 01/06/24 documented as of this encounter
--- OUTSIDE RECORDS SUMMARY | 2024-11-29 12:34 | XMS_ITS | Data Portability ---
Author Organization [employer] Address [address] [place] [phone] Care Team Providers Care Practice Specialist Name Role Phone [facility] Referring Provider [facility] Referring Provider Assessment Encounter Date Assessment Date Assessment LastModified by Organization Details LastModified Time 07/11/2022 07/11/2022 I have reviewed and agree with the Assessment and Plan as documented by the Sampler Tester. I provided real -time medical direction via phone for this encounter, and was available for additional phone based assistance as needed. Patient given the opportunity to ask questions. Medic had very little phone service- unable to wind farm support specialist Language line. I was able to converse with the patient in Nepalese- explain possible dx/ need to stay on light diet/ stay hydrated janis w/ clear liquids / review concerns and red flags. Patient unable to give a urine spec but did not appear dehydrated and has no UTI s/s. Medic did not have I-stat or lev to check chemistries in home. Pat denies hx allergies or kidney issues [email or web address] Not available 07/11/2022 15:55:54 Plan of Treatment [...] [degF] 132 mm[Hg] 78 mm[Hg] Not Available [employer] - production 2 14:15:12 Social History None [...] [phone] Nay Acosta MD Main - [facility] [address] [place] [phone] 07/11/2022 14:12:05 07/14/2022 11:34:38 Right upper quadrant pain [id number] R10.11 possible biliary- sister has hx of same- will trial one dose of ketorolac for discomfort . Advised in Nepalese if develops hi fever- vomiting/ uncontroll ed [...] Joe Member ID Guarantor Name 07/11/2022 1 [facility] - DOS PRIOR TO 2022 - DUAL ELIGIBLE (MEDICARE REPLACEMENT/ADV ANTAGE - HMO) Esthela Flannery [id number] Esthela Flannery Notes Date Note Type Note Provider Name and Address Organization Details Recorded Time 07/11/2022 text/html HPI: Call from pt ROUTE MANAGER reporting pt having intermittent abdominal pain , rates 9/10. No vomiting, diarrhea, fever or other sx. Per ROUTE MANAGER pt declines to come into office for assessment. Agrees to visit [email or web address] for assessment. Pt recently had Flu vaccine administered 07/08/22. .................. .................. .................. .................. .................. .................. .................. ............... CRC Nursing Assessment: Comments: CRC RN did not require any additional information to process this visit. .................. .................. .................. .................. .................. .................. .................. ............... Sampler Tester Note: Patient chief complaint of URQ abdominal pain for one day. Language barrier present. Patient vitals WNL. Patient abdominal auscultation reveals bowel sounds x 4 quadrants. Patient has URQ tenderness upon palpation. No CVA tenderness. Patient given 30mg ketorolac IM [place] [facility] [place]. Patient education given, red flags discussed. [...] sister had cholecystectomy. Nay Acosta MD [address] [facility],[address], [place], [phone], [employer] 07/11/2022 15:56:06 OBGyn Episode No OBEpisode recorded.
--- OUTSIDE RECORDS SUMMARY | 2024-11-29 12:34 | XMS_ITS | Encounter Summary ---
Author Organization [employer] Address [address] [facility] 7t [place] [address] Care Team Providers Care Diesel Powerplant Supervisor Name Role Phone Fransisco Goldsmith MD Primary Care Provide r Christie Biswas PharmD Unavailable [phone] Reason for Visit * Reason Comments Med Refill Encounter Details Date Type Department Care Team ([facility] st Contact Info) Description 05/19/[address] [facility] [address] [place], [place] [phone] Fransisco Goldsmith MD [address] [place], [place] [phone] Mixed hyperlipidemia Social History Tobacco Use Types [...] [facility] [address] [place] [phone] Christie Biswas PharmD [address] [place] [phone] 03/02/2025 9:15 AM EDT Office Visit [facility] [address] [place] [phone] Fransisco Goldsmith MD [address] [place] [phone] documented as of this encounter Visit Diagnoses Diagnosis Mixed hyperlipidemia documented in this encounter Care Teams Diesel Powerplant Supervisor Relationship Specialty Start Date End Date Fransisco Goldsmith MD [address] [place] [phone] PCP - General Internal Medicine 05/18/14 Christie Biswas PharmD [address] [place] [phone] Pharmacist Internal Medicine 11/22/[address] [facility] 01/06/24 Sanket - visiting nurse 11/22/24 documented as of this encounter
--- OUTSIDE RECORDS SUMMARY | 2024-11-29 12:34 | XMS_ITS | Encounter Summary ---
Author Organization [employer] Address 75 [facility] 7t [place] [address] Care Team Providers Care Link Trainer Maintenance Man Name Role Phone Fransisco Goldsmith MD Primary Care Provide r Reason for Visit * Reason Onset Date Comments Med Refill 11/15/2024 Encounter Details Date Type Department Care Team ([facility] st Contact Info) Description 11/15/2024 Telephone [facility] MEDICINE [address] [place], [place] [phone] Fransisco Goldsmith MD [address] [place], [place] [phone] Med Refill Social History Tobacco Use Types [...] left voicemail asking for call back to [facility]. Will task to call again. * Telephone Encounter - Cindy Ervin RN - 11/17/2024 1:15 PM EST Telephone call placed to pt's WELL LOGGER Bria on HIPAA and main number in [...] again if no returned call. Please contact classified ad taker . Has patient been using Sliding scale all along ? And if yes, it is ok to refill, if that is the case please queue * Telephone Encounter - Timoteo Rojas RN - 11/15/2024 4:03 PM EST TC received from WELL LOGGER who is requesting refills of patients insulin, WELL LOGGER unsure what the name of it is [...] 9:30 AM EDT Medication Management [facility] MED[facility] [address] [place] [address] Christie Biswas, PharmD [address] [place] [address] 03/02/2025 9:15 AM EDT Office Visit [facility] [address] [place] [address] Fransisco Goldsmith MD [address] [place] [address] documented as of this encounter Visit Diagnoses Not on filedocumented in this encounter Additional Health Concerns Assessment Noted Time PHQ-9 Depression Total Score: 4 06/02/20 24 9:28 AM EDT documented as of this encounter Care Teams Link Trainer Maintenance Man Relationship Specialty Start Date End Date Fransisco Goldsmith MD [address] [place] [address] PCP - General Internal Medicine 05/18/14 [facility] 01/06/24 documented as of this encounter
--- OUTSIDE RECORDS SUMMARY | 2024-11-29 12:35 | XMS_ITS | Encounter Summary ---
Author Organization [employer] Address 75 [facility] 7t [place] [address] Care Team Providers Care Pilot Boat Operator Name Role Phone Fransisco Goldsmith MD Primary Care Provide r Christie Biswas PharmD Unavailable [phone] Encounter Details Date Type Department Care Team (Late st Contact Info) Description 10/06/2022 Orders Only [facility] [address] [place], [place] [phone] Elli Baker LPN Social History Tobacco Use [...] Description 12/22/2024 9:30 AM EDT Medication Management [facility] [address] [place] [address] Christie Biswas, PharmD [address] [place] [address] 03/02/2025 9:15 AM EDT Office Visit [facility] [address] [place] [address] Fransisco Goldsmith MD [address] [place], [place] [phone] documented as of this encounter Visit Diagnoses Not on filedocumented in this encounter Care Teams Pilot Boat Operator Relationship Specialty Start Date End Date Fransisco Goldsmith MD [address] [place], [place] [phone] PCP - General Internal Medicine 05/18/14 Christie Biswas PharmD [address] [place] [address] Pharmacist Internal Medicine 11/22/24 [facility] 01/06/24 Sanket - visiting nurse 11/22/24 documented as of this encounter
--- OUTSIDE RECORDS SUMMARY | 2024-11-29 12:35 | XMS_ITS | Encounter Summary ---
Author Organization [facility] Address 75 [facility] 7t [place] [address] Care Team Providers Care Mems Engineer Name Role Phone Fransisco Goldsmith MD Primary Care Provide r Christie Biswas PharmD Unavailable [phone] Encounter Details Date Type Department Care Team (Late st Contact Info) Description 10/14/2022 Orders Only [facility] MEDICINE [address] [place] [address] Rochelle Rosa LPN Social History Tobacco Use [...] Description 12/22/2024 9:30 AM EDT Medication Management [facility] MED[facility]INE [address] [place] [address] Christie Biswas, PharmD [address] [place] [address] 03/02/2025 9:15 AM EDT Office Visit [facility] MED[facility]INE [address] [place] [address] Fransisco Goldsmith MD [address] [place], [place] [phone] documented as of this encounter Visit Diagnoses Not on filedocumented in this encounter Care Teams Mems Engineer Relationship Specialty Start Date End Date Fransisco Goldsmith MD [address] [place] [address] PCP - General Internal Medicine 05/18/14 Christie Biswas PharmD [address] [place] [address] Pharmacist Internal Medicine 11/22/24 [facility] 01/06/24 Sanket - visiting nurse 11/22/24 documented as of this encounter
--- OUTSIDE RECORDS SUMMARY | 2024-11-29 12:35 | XMS_ITS | Encounter Summary ---
Author Organization [employer] Address 75 [facility] 7t [place] [address] Care Team Providers Care Power Supply Engineer Name Role Phone Fransisco Goldsmith MD Primary Care Provide r Christie Biswas PharmD Unavailable [phone] Encounter Details Date Type Department Care Team [...] Description 12/22/2024 9:30 AM EDT Medication Management [facility] MEDICINE [address] [place] [address] Christie Biswas PharmD 230 [place] [address] 03/02/2025 9:15 AM EDT Office Visit [facility] MEDICINE [address] [place] [address] Fransisco Goldsmith MD [address] [place] [address] documented as of this encounter Visit Diagnoses Not on filedocumented in this encounter Additional Health Concerns Assessment Noted Time PHQ-9 Depression Total Score: 4 06/02/20 24 9:28 AM EDT documented as of this encounter Care Teams Power Supply Engineer Relationship Specialty Start Date End Date Fransisco Goldsmith MD [address] [place] [address] PCP - General Internal Medicine 05/18/14 Christie Biswas, Cristian [address] [place] [address] Pharmacist Internal Medicine 11/22/24 [facility] 01/06/24 Sanket - visiting nurse 11/22/24 documented as of this encounter
--- OUTSIDE RECORDS SUMMARY | 2024-11-29 12:35 | XMS_ITS | Encounter Summary ---
Author Organization [employer] Address 75 [facility] 7t [place] [address] Care Team Providers Care Tape Cutter Name Role Phone Fransisco Goldsmith MD Primary Care Provide r Christie Biswas PharmD Unavailable [phone] Reason for Visit * Reason Comments Pre-visit Planning SDOH Screening negat minnie and Tobacco screening negative Encounter Details Date Type Department Care Team ([facility] st Contact Info) Description 11/22/2024 Patient Outreach [facility] MEDICINE [address] [place] [address] Fransisco Goldsmith MD [address] [place], [place] [phone] Pre-visit Planning (SDOH Screening negative and Tobacco [...] 9:30 AM EDT Medication Management [facility] MEDICINE [address] [place] [address] Christie Biswas, CarolynD [address] [place] [address] 03/02/2025 9:15 AM EDT Office Visit [facility] MEDICINE [address] [place] [address] Fransisco Goldsmith MD [address] [place] [address] documented as of this encounter Visit Diagnoses Not on filedocumented in this encounter Additional Health Concerns Assessment Noted Time PHQ-9 Depression Total Score: 4 06/02/20 24 9:28 AM EDT documented as of this encounter Care Teams Tape Cutter Relationship Specialty Start Date End Date Fransisco Goldsmith MD [address] [place], [place] [phone] PCP - General Internal Medicine 05/18/14 Christie Biswas PharmD [address] [place] [address] Pharmacist Internal Medicine 11/22/24 [facility] 01/06/24 Sanket - visiting nurse 11/22/24 documented as of this encounter
--- OUTSIDE RECORDS SUMMARY | 2024-11-29 12:35 | XMS_ITS | Encounter Summary ---
Author Organization [employer] Address 75 [facility] 7t [place] [address] Care Team Providers Care Biological Inspector Name Role Phone Fransisco Goldsmith MD Primary Care Provide r Christie Biswas PharmD Unavailable [phone] Reason for Visit * Reason Onset Date Comments Appointment Request 08/02/2024 Encounter Details Date Type Department Care Team ([facility] st Contact Info) Description 08/02/2024 Telephone [facility] MEDICINE [address] [place], [place] [phone] Fransisco Goldsmith MD 230 [place] [address] Appointment Request Social History Tobacco Use Types [...] this time / niece requesting call to [phone] documented in this encounter Plan of Treatment Upcoming Encounters Date Type Department Care Team (Late st Contact Info) Description 12/22/2024 9:30 AM EDT Medication Management [facility] MEDICINE [address] [place] [address] Christie Biswas, PharmD [address] [place] [address] 03/02/2025 9:15 AM EDT Office Visit [facility] MEDICINE [address] [place] [address] Fransisco Goldsmith MD [address] [place] [address] documented as of this encounter Visit Diagnoses Not on filedocumented in this encounter Additional Health Concerns Assessment Noted Time PHQ-9 Depression Total Score: 4 06/02/20 24 9:28 AM EDT documented as of this encounter Care Teams Biological Inspector Relationship Specialty Start Date End Date Fransisco Goldsmith MD [address] [place], [place] [phone] PCP - General Internal Medicine 05/18/14 Christie Biswas PharmD [address] [place], [place] [phone] Pharmacist Internal Medicine 11/22/24 [facility] 01/06/24 Sanket - visiting nurse 11/22/24 documented as of this encounter
--- OUTSIDE RECORDS SUMMARY | 2024-11-29 12:35 | XMS_ITS | Encounter Summary ---
Author Organization [email or web address] Address 75 [facility] 7t [place] [address] Care Team Providers Care Buttonhole Maker Hand Name Role Phone Fransisco Goldsmith MD Primary Care Provide r Christie Biswas PharmD Unavailable [phone] Encounter Details Date Type Department Care Team (Late st Contact Info) Description 11/28/2024 Orders Only [facility] External Provider, [facility] Social History Tobacco Use Types Packs/Day Years [...] Description 12/22/2024 9:30 AM EDT Medication Management [facility] MEDICINE [address] [place] [address] Christie Biswas, PharmD [address] [place] [address] 03/02/2025 9:15 AM EDT Office Visit [facility] MEDICINE [address] [place] [address] Fransisco Goldsmith MD [address] [place] [address] documented as of this encounter Procedures Procedure Name Priority Date/Time Associated Diagnosis Comments NM LUNG PERFUSION Routine 11/28/2024 3:4 5 PM EST GLUCOSE, WHOLE BLOOD Routine 11/28/2024 3:24 PM EST XR CHEST 2 VIEWS Routine 11/28/2024 10:3 0 AM EST documented in this encounter Results * NM Lung Perfusion (11/28/2024 3:45 PM EST) Anatomical Region Laterality Modality Body Nuclear Medicine 11/28/2024 3:45 PM EST Narrative 11/28/2024 4:30 PM EST ? [place] [facility] ?[address] ?[place] [address] ?Nuclear Medicine Report ? Signed ? Patient: Prudencio,Esthela ?MR#: [id number] ?? 73 ? : 1955 ?Acct:[id number] ? Age/Sex: 68 / F ?ADM Date: 11/28/24 ? Loc: HO.ED ? Attending Dr: ? Ordering Physician: German Swan MD ?? Date of Service: 11/28/24 ?? Procedure(s): NM pul perfusion ?? Accession Number(s): [id number] ? cc: German Swan MD; Indira Newsome [...] signed by Garrison Lara MD in OV> ?11/28/24 1627 ? DD/ 1545 ? TD/TT: 11/28/24 1605 ? Manager Strategy: MSM ? Procedure Note Bacilio, Image - 11/28/2024 [place] [address] Nuclear Medicine Report Signed Patient: Iliana Flannery#: [id number] 73 : 5Acct:[id number] Age/Sex: 68 / FADM Date: 11/28/24 Loc: HO.ED Attending Dr: Ordering Physician: German Swan MD Date of Service: 11/28/24 Procedure(s): NM pul perfusion Accession Number(s): [id number] cc: German Swan MD; Indira Newsome MD [...] 11/28/24 1627 DD/ 1545 TD/TT: 11/28/24 1605 Manager Strategy: SHAY [facility] External Provider IMG NM PROCEDURES Final Result * (ABNORMAL) Glucose, Whole Blood (11/28/2024 3:24 PM EST) Glucose, Whole Blood 189(H) 60 - 115 mg/dL [facility] Comment:METER #: [id number] 11/28/2024 3:24 PM EST 11/28/2024 3:28 PM EST Generic External Data Provider LAB BLOOD ORDERAB LES Final Result Performing Organization Address City/State/[facility] Co de Phone Number [facility] [address] [place] [phone] * XR Chest 2 Views (11/28/2024 10:30 AM EST) Anatomical Region Laterality Modality Chest Radiographic Yuliet ging 11/28/2024 10:3 0 AM EST Narrative 11/28/2024 10:49 AM EST ? [facility] ?[address] ?[place] [address] ?XRay Report ? Signed ? Patient: Prudencio,Esthela ?MR#: [id number] ?? 73 ? : 1955 ?Acct:[id number] ? Age/Sex: 68 / F ?ADM Date: 03/03/25 ? Loc: HO.ED ? Attending Dr: ? Ordering Physician: Esther Christina ?? Date of Service: 11/28/24 ?? Procedure(s): XR chest 2V ?? Accession Number(s): [id number] ? cc: Indira Newsome MD; Esther Christina [...] DD/ 1030 ? TD/TT: 11/28/24 1035 ? Manager Strategy: ? Procedure Note Bacilio, Manuel - 11/28/2024 [place] [address] XRay Report Signed Patient: Iliana Flannery#: [id number] 73 : 5Acct:[id number] Age/Sex: 68 / FADM Date: 11/28/24 Loc: HO.ED Attending Dr: Ordering Physician: Esther Christina Date of Service: 11/28/24 Procedure(s): XR chest 2V Accession Number(s): [id number] cc: Indira Newsome MD; Esther Christina .EXAMINATION: [...] 11/28/24 1046 DD/ 1030 TD/TT: 11/28/24 1035 Manager Strategy: [facility] External Provider IMG XR PROCEDURES Final Result documented in this encounter Visit Diagnoses Not on filedocumented in this encounter Additional Health Concerns Assessment Noted Time PHQ-9 Depression Total Score: 4 06/02/20 24 9:28 AM EDT documented as of this encounter Care Teams Buttonhole Maker Hand Relationship Specialty Start Date End Date Fransisco Goldsmith MD [address] [place] [address] PCP - General Internal Medicine 05/18/14 Christie Biswas PharmD [address] [place] [address] Pharmacist Internal Medicine 11/22/24 [facility] 01/06/24 Sanket - visiting nurse 11/22/24 documented as of this encounter
--- OUTSIDE RECORDS SUMMARY | 2024-11-29 12:35 | XMS_ITS | Encounter Summary ---
Author Organization [employer] Address 75 [facility] 7t [place] [address] Care Team Providers Care Bank Guard Name Role Phone Fransisco Goldsmith MD Primary Care Provide r Christie Biswas PharmD Unavailable [phone] Encounter Details Date Type Department Care Team (Late st Contact Info) Description 11/03/2022 Orders Only [facility] [address] [place], [place] [phone] Elli Baker LPN Social History Tobacco Use [...] Description 12/22/2024 9:30 AM EDT Medication Management [facility] MEDICINE [address] [place] [address] Christie Biswas, PharmD [address] [place] [address] 03/02/2025 9:15 AM EDT Office Visit [facility] MEDICINE [address] [place] [address] Fransisco Goldsmith MD [address] [place], [place] [phone] documented as of this encounter Visit Diagnoses Not on filedocumented in this encounter Care Teams Bank Guard Relationship Specialty Start Date End Date Fransisco Goldsmith MD [address] [place], [place] [phone] PCP - General Internal Medicine 05/18/14 Christie Biswas PharmD [address] [place] [address] Pharmacist Internal Medicine 11/22/24 [facility] 01/06/24 Sanket - visiting nurse 11/22/24 documented as of this encounter
== END 2024-11-29 10:23 | disposition home or self-care (01) ==
LOC: HO.HHCL 10:22
PROVIDERS: Visit Provider Internal Medicine
DX: I10 Essential (primary) hypertension (principal); Z79.4 Long term (current) use of insulin; E11.42 Type 2 diabetes mellitus with diabetic polyneuropathy
CPT/HCPCS: 36415; 80053; 80061

== ENCOUNTER 2025-01-12 09:30 | Outpatient (REF) | payer OTHER, SELFPAY ==
--- OUTSIDE RECORDS SUMMARY | 2025-01-12 10:52 | XMS_ITS | Data Portability ---
Author Organization [employer] Address [address] [place] [phone] Care Team Providers Care Insurance Sales Specialist Name Role Phone [facility] Referring Provider [facility] Referring Provider [phone] Assessment Encounter Date Assessment Date Assessment LastModified by Organization Details LastModified Time 07/11/2022 07/11/2022 I have reviewed and agree with the Assessment and Plan as documented by the Info Specialist. I provided real -time medical direction via phone for this encounter, and was available for additional phone based assistance as needed. Patient given the opportunity to ask questions. Medic had very little phone service- unable to cabin cleaning supervisor Language line. I was able to converse with the patient in Swazi- explain possible dx/ need to stay on light diet/ stay hydrated janis w/ clear liquids / review concerns and red flags. Patient unable to give a urine spec but did not appear dehydrated and has no UTI s/s. Medic did not have I-stat or lev to check chemistries in home. Pat denies hx allergies or kidney issues [email or web address] Not available 07/11/2022 15:55:54 Plan of Treatment [...] [degF] 132 mm[Hg] 78 mm[Hg] Not Available [facility] - production 2 14:15:12 Social History None [...] 4603 Nay Acosta MD Main - instED [address] [place] [phone] 07/11/2022 14:12:05 07/14/2022 11:34:38 Right upper quadrant pain [id number] R10.11 possible biliary- sister has hx of same- will trial one dose of ketorolac for discomfort . Advised in Sw[place] if develops hi fever- vomiting/ uncontroll ed [...] Joe Member ID Guarantor Name 07/11/2022 1 [facility] - DOS PRIOR TO 2022 - DUAL ELIGIBLE (MEDICARE REPLACEMENT/ADV ANTAGE - HMO) Esthela Flannery [id number] Esthela Flannery Notes Date Note Type Note Provider Name and Address Organization Details Recorded Time 07/11/2022 text/html HPI: Call from pt BEADER TENDER reporting pt having intermittent abdominal pain , rates 9/10. No vomiting, diarrhea, fever or other sx. Per BEADER TENDER pt declines to come into office for assessment. Agrees to visit form rustED for assessment. Pt recently had Flu vaccine administered 07/08/22. .................. .................. .................. .................. .................. .................. .................. ............... CRC Nursing Assessment: Comments: CRC RN did not require any additional information to process this visit. .................. .................. .................. .................. .................. .................. .................. ............... Info Specialist Note: Patient chief complaint of URQ abdominal pain for one day. Language barrier present. Patient vitals WNL. Patient abdominal auscultation reveals bowel sounds x 4 quadrants. Patient has URQ tenderness upon palpation. No CVA tenderness. Patient given 30mg ketorolac IM left self at [facility] request. Patient education given, red flags discussed. [...] sister had cholecystectomy. Nay Acosta MD [address] [facility],[address], [place], [phone], [employer] 07/11/2022 15:56:06 OBGyn Episode No OBEpisode recorded.
== END 2025-01-12 09:31 | disposition home or self-care (01) ==
LOC: HO.MAMMO 09:30
PROVIDERS: PCP Internal Medicine; Visit Provider Internal Medicine
DX: Z12.31 Encounter for screening mammogram for malignant neoplasm of breast (principal)
CPT/HCPCS: 77063; 77067

== ENCOUNTER → 2025-01-12 10:00 | Outpatient (BNV) | payer OTHER, SELFPAY | PROVIDERS: PCP Internal Medicine; Visit Provider Internal Medicine | DX: Z12.31 Encounter for screening mammogram for malignant neoplasm of breast (principal) | CPT/HCPCS: 77063; 77067 ==

== ENCOUNTER 2025-06-29 11:24 | Outpatient (REF) | payer OTHER, SELFPAY ==
--- OUTSIDE RECORDS SUMMARY | 2025-06-29 10:30 | XMS_ITS | Encounter Summary ---
Author Organization [facility] Address [address] [place] [address] Care Team Providers Care Steel Wheel Engraver Name Role Phone Fransisco Goldsmith MD Primary Care Provide r Christie Biswas PharmD Unavailable [phone] Reason for Referral * Consultation (Routine) - Pending Review Specialty Diagnoses / Procedures Referred By Contact Referred To Contact Physical Medicine and Rehabilitation Diagnoses Chronic right-sided low back pain with right-sided sciatica Fransisco Goldsmith MD [address] [place] [address] Phone: tel: fax: Referral ID Status Reason Start Date Expiration Date Visits Requested Visits Authorized [id number] Pending Review Specialty Services Required 06/29/2025 06/29/2026 1 1 Reason for Visit * Reason Comments Annual Exam * Consultation (Routine) - Pending Review Specialty Diagnoses / Procedures Referred By Contac t Referred To Contact Pharmacy Diagnoses Type 2 diabetes mellitus with diabetic polyneuropathy, with long-term current use of insulin (HCC) Fransisco Goldsmith MD [address] [place] [address] Phone: tel: fax: Referral ID Status Reason Start Date Expiration Date Visits Requested Visits Authorized [id number] Pending Review Consult and Treat 08/03/2024 08/03/2025 6 6 Encounter Details Date Type Department Care Team (Latest Contact Info) Description 06/29/2025 10:30 AM EDT Office Visit [facility] [address] [place] [address] Fransisco Goldsmith MD [address] [place] [address] Type 2 diabetes mellitus with diabetic polyneuropathy, with long-term current use of insulin (HCC) (Primary Dx); Essential hypertension; Mixed hyperlipidemia; Depressive disorder; Urge incontinence of urine; Chronic right-sided low back pain with right-sided sciatica; Preventative health care; Osteoarthritis, unspecified osteoarthritis type, unspecified site; Encounter for immunization Social History Tobacco Use Types Packs/Day Years Used Date Smoking Tobacco: Never Passive Smoke Exposure: Never Smokeless Tobacco: Never Depression Answer Date Recorded Patient Health Questionnaire-9 Score 7 06/29/2025 Patient Health Questionnaire-9 Score 7 06/29/2025 Last PHQ-9: Questionnaire Data Not on file 1 Housing Stability Answer Date Recorded What is [...] Date Recorded Patient Health Questionnaire-2 Score 1 06/29/2025 Internet Access Answer Date Recorded Internet Access [...] Sign Reading Time Taken Comments Blood Pressure 100/60 06/29/2025 10:27 AM EDT Pulse 76 06/29/2025 10:27 AM EDT Temperature 36.6 C (97.8 F) 06/29/2025 10:27 AM EDT Respiratory Rate 19 06/29/2025 10:27 AM EDT Oxygen Saturation - - Inhaled Oxygen Concentration - - Weight 78.7 kg (173 lb 6.4 oz) 06/29/2025 10:27 AM EDT Height 144.8 cm (4' 9 ) 06/29/2025 10:27 AM EDT Body Mass Index 37.52 06/29/2025 10:27 AM EDT documented in this encounter Functional Status * Over the past 2 weeks, how often have you been bothered by any of the following problems? Question Answer Date of Assessment Author Patient Health Questionnaire -2 Score 1 06/29/2025 10:31 AM RJT Yancy Mitchell MA * Little interest or pleasure in doing things Answer Date of Assessment Author Several days 06/29/2025 10:31 AM Yancy Salcido MA * Feeling down, depressed, or hopeless Answer Date of Assessment Author Not at all 06/29/2025 10:31 AM Yancy Salcido MA * Trouble falling or staying asleep, or sleeping too much Answer Date of Assessment Author Several days 06/29/2025 10:31 AM Yancy Salcido MA * Feeling tired or having little energy Answer Date of Assessment Author Nearly every day 06/29/2025 10:31 AM Yancy Salcido MA * Poor appetite or overeating Answer Date of Assessment Author Not at all 06/29/2025 10:31 AM Yancy Salcido MA * Feeling bad about yourself - or that you are a failure or have let yourself or your family down Answer Date of Assessment Author Not at all 06/29/2025 10:31 AM Yancy Salcido MA * Trouble concentrating on things, such as reading the newspaper or watching television Answer Date of Assessment Author More than half the days 06/29/2025 10:31 AM Yancy Salcido MA * Moving or speaking so slowly that other people could have noticed? Or the opposite - being so fidgety or restless that you have been moving around a lot more than usual. Answer Date of Assessment Author Not at all 06/29/2025 10:31 AM Yancy Salcido MA * Thoughts that you would be better off or hurting yourself in some way Answer Date of Assessment Author Not at all 06/29/2025 10:31 AM Yancy Salcido MA * Patient Health Questionnaire-9 Score Answer Date of Assessment Author 7 06/29/2025 10:31 AM Yancy Salcido MA * How difficult have these problems made it for you to do your work, take care of things at home, or get along with other people? Answer Date of Assessment Author Somewhat difficult 06/29/2025 10:31 AM Yancy Moore MA * Over the last 2 weeks, how often have you been bothered by any of the following problems? Question Answer Date of Assessment Author Feeling nervous, anxious, or on edge 1 06/29/2025 10:31 AM Yancy Salcido MA Not being able to stop or co ntrol worrying 1 06/29/2025 10:31 AM Yancy Salcido MA Worrying too much about diff erent things 1 06/29/2025 10:31 AM Yancy Salcido MA Trouble relaxing 1 06/29/2025 10:31 AM Yancy Salcido MA Being so restless that it is hard to sit still 1 06/29/2025 10:31 AM Yancy Salcido MA Becoming easily annoyed or irritable 1 06/29/2025 10:31 AM Yancy Salcido MA Feeling afraid as if somethi ng awful might happen 0 06/29/2025 10:31 AM Yancy Salcido MA EARL-7 Total Score 6 06/29/2025 10:31 AM Yancy Salcido MA documented as of this encounter Progress Notes * Fransisco Ramon MD - 06/29/2025 10:30 AM EDT SUBJECTIVE Esthela Flannery is a 69 y.o. female who presents for Annual Exam. HPI Review of Systems Constitutional: Negative for appetite change, fatigue and fever. HENT: Negative for ear pain, hearing loss and sore throat. Eyes: Negative for pain and visual disturbance. Respiratory: Negative for cough and shortness of breath. Cardiovascular: Negative for chest pain and palpitations. Gastrointestinal: Negative for abdominal pain, nausea and vomiting. Genitourinary: Negative for dysuria. Skin: Negative for rash. Neurological: Negative for dizziness and headaches. Psychiatric/Behavioral: Negative for sleep disturbance. Allergies[1] OBJECTIVE Vitals: 06/29/25 1027 BP: 100/60 BP Location: Left arm Patient Position: Sitting BP Cuff Size: Large adult Pulse: 76 Resp: 19 Temp: 97.8 ??F (36.6 ??C) TempSrc: Oral Weight: 173 lb 6.4 oz (78.7 kg) Height: 4' 9 (1.448 m) Physical Exam Vitals reviewed. Constitutional: Appearance: Normal appearance. HENT: Head: Normocephalic and atraumatic. Right Ear: External ear normal. Left Ear: External ear normal. Nose: Nose normal. Mouth/Throat: Mouth: Mucous membranes are moist. Eyes: Conjunctiva/sclera: Conjunctivae normal. Cardiovascular: Rate and Rhythm: Normal rate and regular rhythm. Pulmonary: Effort: Pulmonary effort is normal. Breath sounds: Normal breath sounds. Musculoskeletal: Lumbar back: Spasms and tenderness present. Skin: General: Skin is warm. Neurological: Mental Status: She is alert. Mental status is at baseline. Assessment/Plan Problem List Items Addressed This Visit Type 2 diabetes mellitus (HCC) - Primary Pt is here for a f/u visit DM stable She is on Ozempic 1 mg once a week and Lantus 46 units sc q pm Pt reported severe stomach upset anddiarrhea with Metformin. so this was discontinued Hgb A1c 03/29/2025: 7.8 from 8.3 Pt has been referred to both [facility] and parent educator, did not f/u Unfortunately she is non compliant Plan: Increase Ozempic to 2 mg weekly Pt denies hx of thyroid cancer or pancreatitis f/u 3 months Eye exam done on: 11/13/2022 Microalbumin checked on: 10/27/2019 was: 8 Pt on an NELY inhibitor (lisinopril) Foot check risk of one Pt reports compliance with Asa 81 mg po daily Pt advised to: adhere to diabetic diet check your blood sugars regularly check your feet on a daily basis. Relevant Medications Semaglutide, 2 MG/DOSE, (Ozempic, 2 MG/DOSE,) 8 MG/3ML solution pen-injector Other Relevant Orders POCT Hgb A1c (Completed) POCT Glucose (Completed) Essential hypertension Pt here for a f/u BP stable currently on a regimen of: Toprol Xl 25 mg po daily and Lisinopril 10 mg po daily Most recent electrolytes, Bun and Creatinine done on: Lab Results Component Value Date NA 142 11/29/2024 NA 143 04/18/2024 K 4.6 11/29/2024 K 3.7 04/18/2024 CL 107 11/29/2024 CL 107 04/18/2024 BUN 18 (H) 11/29/2024 BUN 21 (H) 04/18/2024 CREATININE 0.78 11/29/2024 CREATININE 0.74 04/18/2024 were within normal limits. patient advised to adhere to a low sodium diet, encouraged about medication compliance, counseled about weight loss. Mixed hyperlipidemia atient here for a f/u Patient with elevated lipids. Most recent lipid profile from: Lab Results Component Value Date TRIG 83 11/29/2024 TRIG 95 04/18/2024 CHOL 160 11/29/2024 CHOL 142 04/18/2024 LDLCHOLCAL 87 11/29/2024 LDLCHOLCAL 65 04/18/2024 HDL 57 11/29/2024 HDL 58 04/18/2024 Currently on a regimen of: Rosuvastatin 40 mg po q pm. Plan: continue current regimen. advised to try to adhere to a low cholesterol diet, counseled and educated about diet and exercise,Patient encouraged to come up with a personal goal for weight loss. Relevant Medications Semaglutide, 2 MG/DOSE, (Ozempic, 2 MG/DOSE,) 8 MG/3ML solution pen-injector Depressive disorder Pt not seeing a psychotherapy, declines to see one, denies SI On: sertraline 100 mg po daily and Ambien 10 mg po qhs Pt c/o Insomnia, good sleep hygiene habits discussed Urge incontinence of urine Evaluated by Urology in 2019 recommended Oxybutynin Pt needs pads, gloves Chronic right-sided low back pain with right-sided sciatica Pt with c/o right sided low back pain with radiation to hip and right leg On exam there is evidence of muscle spasm Plan: Plain films LS spine, right hip/pelvis PT evaluation Pt would benefit from a power wheelchair evaluation Relevant Medications celecoxib (CeleBREX) 100 MG capsule Other Relevant Orders XR Lumbar Spine Complete 4+ Views XR Hip 2 or 3 Views Right XR Pelvis 1-2 Views Referral to Physical Medicine Rehab Preventative health care Mammogram: NL 01/12/2025 Pap Smear: last 07/05/2008 NL. Pt refuses Colonoscopy: NL 09/05/2008 Dr Plunkett. Will refer back Other Visit Diagnoses Osteoarthritis, unspecified osteoarthritis type, unspecified site Relevant Medications celecoxib (CeleBREX) 100 MG capsule Future Appointments Date Time Provider Department Center 07/11/2025 9:30 AM Betsy Ann, PharmD MEDICINE [facility] [1] No Known Allergies documented in this encounter Miscellaneous Notes * Assessment & Plan Note - Fransisco Ramon MD - 06/29/2025 10:55 AM EDT Associated Problem(s): Chronic right-sided low back pain with right-sided sciatica Pt with c/o right sided low back pain with radiation to hip and right leg On exam there is evidence of muscle spasm Plan: Plain films LS spine, right hip/pelvis PT evaluation Pt would benefit from a power wheelchair evaluation * Assessment & Plan Note - Fransisco Ramon MD - 06/29/2025 10:53 AM EDT Associated Problem(s): Urge incontinence of urine Evaluated by Urology in 2019 recommended Oxybutynin Pt needs pads, gloves * Assessment & Plan Note - Fransisco Ramon MD - 06/29/2025 10:48 AM EDT Associated Problem(s): Depressive disorder Pt not seeing a psychotherapy, declines to see one, denies SI On: sertraline 100 mg po daily and Ambien 10 mg po qhs Pt c/o Insomnia, good sleep hygiene habits discussed * Assessment & Plan Note - Fransisco Ramon MD - 06/29/2025 10:48 AM EDT Associated Problem(s): Preventative health care Mammogram: NL 01/12/2025 Pap Smear: last 07/05/2008 NL. Pt refuses Colonoscopy: NL 09/05/2008 Dr Plunkett. Will refer back * Assessment & Plan Note - Fransisco Ramon MD - 06/29/2025 10:46 AM EDT Associated Problem(s): Mixed hyperlipidemia atient here for a f/u Patient with elevated lipids. Most recent lipid profile from: Lab Results Component Value Date TRIG 83 11/29/2024 TRIG 95 04/18/2024 CHOL 160 11/29/2024 CHOL 142 04/18/2024 LDLCHOLCAL 87 11/29/2024 LDLCHOLCAL 65 04/18/2024 HDL 57 11/29/2024 HDL 58 04/18/2024 Currently on a regimen of: Rosuvastatin 40 mg po q pm. Plan: continue current regimen. advised to try to adhere to a low cholesterol diet, counseled and educated about diet and exercise,Patient encouraged to come up with a personal goal for weight loss. * Assessment & Plan Note - Fransisco Ramon MD - 06/29/2025 10:45 AM EDT Associated Problem(s): Essential hypertension Pt here for a f/u BP stable currently on a regimen of: Toprol Xl 25 mg po daily and Lisinopril 10 mg po daily Most recent electrolytes, Bun and Creatinine done on: Lab Results Component Value Date NA 142 11/29/2024 NA 143 04/18/2024 K 4.6 11/29/2024 K 3.7 04/18/2024 CL 107 11/29/2024 CL 107 04/18/2024 BUN 18 (H) 11/29/2024 BUN 21 (H) 04/18/2024 CREATININE 0.78 11/29/2024 CREATININE 0.74 04/18/2024 were within normal limits. patient advised to adhere to a low sodium diet, encouraged about medication compliance, counseled about weight loss. * Assessment & Plan Note - Fransisco Ramon MD - 06/29/2025 10:45 AM EDT Associated Problem(s): Type 2 diabetes mellitus (HCC) Pt is here for a f/u visit DM stable She is on Ozempic 1 mg once a week and Lantus 46 units sc q pm Pt reported severe stomach upset anddiarrhea with Metformin. so this was discontinued Hgb A1c 03/29/2025: 7.8 from 8.3 Pt has been referred to both [facility] and parent educator, did not f/u Unfortunately she is non compliant Plan: Increase Ozempic to 2 mg weekly Pt denies hx of thyroid cancer or pancreatitis f/u 3 months Eye exam done on: 11/13/2022 Microalbumin checked on: 10/27/2019 was: 8 Pt on an NELY inhibitor (lisinopril) Foot check risk of one Pt reports compliance with Asa 81 mg po daily Pt advised to: adhere to diabetic diet check your blood sugars regularly check your feet on a daily basis. * Addendum Note - Gretel Baker RN - 06/29/2025 10:30 AM EDTAddended by: GRETEL BAKER on: 06/29/2025 11:21 AM Modules accepted: Orders documented in this encounter Plan of Treatment Upcoming Encounters Date Type Department Care Team (Late st Contact Info) Description 07/11/2025 9:30 AM EDT Medication Management [facility] [address] [place] [address] Betsy Ann, PharmD [address] [place] [address] Scheduled Orders Name Type Priority Associated Diagnoses Orde r Schedule XR Lumbar Spine Complete 4+ Views Imaging Routine Chronic right-sided low back pain with right-sided sciatica Ordered: 06/29/2025 XR Hip 2 or 3 Views Right Imaging Routine Chronic right-sided low back pain with right-sided sciatica Expected: 06/29/2025, Expires: 06/29/2026 XR Pelvis 1-2 Views Imaging Routine Chronic right-sided low back pain with right-sided sciatica Expected: 06/29/2025, Expires: 06/29/2026 Scheduled Referrals Name Type Priority Associated Diagnoses Orde r Schedule Referral to Physical Medicine Rehab Outpatient Referral Routine Chronic right-sided low back pain with right-sided sciatica Expected: 06/29/2025 (Approximate), Expires: 06/29/2026 documented as of this encounter Procedures Procedure Name Priority Date/Time Associated Diagnosis Comments POCT GLYCATED HEMOGLOBIN, TOTAL Routine 06/29/2025 10:34 AM EDT Type 2 diabetes mellitus with diabetic polyneuropathy, with long-term current use of insulin (HCC) POCT GLUCOSE Routine 06/29/2025 10:28 AM EDT Type 2 diabetes mellitus with diabetic polyneuropathy, with long-term current use of insulin (HCC) documented in this encounter Results * (ABNORMAL) POCT Hgb A1c (06/29/2025 10:34 AM EDT) Hemoglobin A1C 7.8(A) 4.0 - 5.7 % QC Media Lot # [id number] Lot# Expiration Date 42,427 Blood 06/29/2025 10:3 4 AM EDT Fransisco Ramon MD POINT OF CARE TEST EN TER/EDIT ORDERABLES Final Result * POCT Glucose (06/29/2025 10:28 AM EDT) Glucose Blood, POC 107 60 - 200 mg/dL QC Media Lot # [id number] Lot# Expiration Date 22,726 Blood Capillary blood specimen / Unknown 06/29/2025 10:28 AM EDT Fransisco Ramon MD POINT OF CARE TEST EN TER/EDIT ORDERABLES Final Result documented in this encounter Visit Diagnoses Diagnosis Type 2 diabetes mellitus with diabetic polyneuropathy, with long-term current use of insulin (HCC)- Primary Essential hypertension Unspecified essential hypertension Mixed hyperlipidemia Depressive disorder Depressive disorder, not elsewhere classified Urge incontinence of urine Urge incontinence Chronic right-sided low back pain with right-sided sciatica Preventative health care Routine general medical examination at a health care facility Osteoarthritis, unspecified osteoarthritis type, unspecified site Encounter for immunization documented in this encounter Additional Health Concerns Assessment Noted Time PHQ-9 Depression Total Score: 7 06/29/20 25 10:31 AM EDT documented as of this encounter Care Teams Steel Wheel Engraver Relationship Specialty Start Date End Date Fransisco Goldsmith MD [address] [place] [id number] PCP - General Internal Medicine 05/18/14 Christie Biswas PharmD [address] [place] [address] Pharmacist Internal Medicine 11/22/24 [facility] [place] 01/06/24 Sanket FORD visiting nurse 11/22/24 documented as of this encounter
--- OUTSIDE RECORDS SUMMARY | 2025-06-29 13:16 | XMS_ITS | Encounter Summary ---
Author Organization [employer] Address [address] [facility] 7t [place] [address] Care Team Providers Care Crude Unit Operator Name Role Phone Fransisco Goldsmith MD Primary Care Provide r Christie Biswas PharmD Unavailable Reason for Visit * Reason Onset Date Comments chart prep 06/28/2025 Encounter Details Date Type Department Care Team ([facility] st Contact Info) Description 06/28/2025 Telephone [facility] MEDICINE [address] [place], [place] [phone] Fransisco Goldsmith MD [address] [place], [place] [phone] chart prep Social History Tobacco Use Types Packs/Day Years [...] encounter Miscellaneous Notes * Telephone Encounter - Trixie Montgomery MA - 06/28/2025 3:53 PM EDT Chart Prep Labs: done Images: done Screenings: Colonoscopy and Foot Exam Vaccines due: Covid Due, Flu Due, RSV in Pharmacy Due, and Shingles in pharmacy Due Referrals: Completed Overdue care gaps: A1C, Glucose, PHQ9, and GAD7 documented in this encounter Plan of Treatment Upcoming Encounters Date Type Department Care Team (Late st Contact Info) Description 07/11/2025 9:30 AM EDT Medication Management [facility] MEDICINE [address] [place] [address] Betsy Ann, PharmD [address] [place] [address] documented as of this encounter Visit Diagnoses Not on filedocumented in this encounter Additional Health Concerns Assessment Noted Time PHQ-9 Depression Total Score: 4 06/02/20 24 9:28 AM EDT documented as of this encounter Care Teams Crude Unit Operator Relationship Specialty Start Date End Date Fransisco Goldsmith MD [address] [place] [address] PCP - General Internal Medicine 05/18/14 Christie Biswas, CarolynD [address] [place] [address] Pharmacist Internal Medicine 11/22/24 [facility] 01/06/24 Sanket - visiting nurse 11/22/24 documented as of this encounter
--- OUTSIDE RECORDS SUMMARY | 2025-06-29 13:16 | XMS_ITS | Encounter Summary ---
Author Organization [employer] Address [address] 7t [place] [address] Care Team Providers Care Progressive Assembler And Fitter Name Role Phone Fransisco Goldsmith MD Primary Care Provide r Christie Biswas PharmD Unavailable [phone] Reason for Visit * Reason Comments Med Refill Encounter Details Date Type Department Care Team ([facility] st Contact Info) Description 06/28/2025 Refill [facility] MED & PEDS [address] [place], [place] [phone] Fransisco Goldsmith MD [address] [place] [address] Social History Tobacco Use Types Packs/Day Years [...] 9:30 AM EDT Medication Management [facility] MEDICINE [address] [place] [address] Betsy Ann PharmD [address] [place] [address] documented as of this encounter Visit Diagnoses Not on filedocumented in this encounter Additional Health Concerns Assessment Noted Time PHQ-9 Depression Total Score: 4 06/02/20 24 9:28 AM EDT documented as of this encounter Care Teams Progressive Assembler And Fitter Relationship Specialty Start Date End Date Fransisco Goldsmith MD [address] [place] [phone] PCP - General Internal Medicine 05/18/14 Christie Biswas, CarolynD [address] [place] [address] Pharmacist Internal Medicine 11/22/24 [facility] 01/06/24 Sanket - visiting nurse 11/22/24 documented as of this encounter
--- OUTSIDE RECORDS SUMMARY | 2025-06-29 13:16 | XMS_ITS | Encounter Summary ---
Author Organization [employer] Address [address] [facility] 7t [place] [address] Care Team Providers Care Bow Stapler Name Role Phone Fransisco Goldsmith MD Primary Care Provide r Christie Biswas PharmD Unavailable [phone] Reason for Visit * Reason Comments Med Refill Encounter Details Date Type Department Care Team (Late st Contact Info) Description 06/10/2023 Refill [facility] MEDICINE [address] [place] [address] Fransisco Goldsmith MD [address] [place], [place] [phone] Type 2 diabetes mellitus with diabetic polyneuropathy, with long-term current use of insulin ([facility]) Social History Tobacco Use Types Packs/Day Years [...] Description 07/11/2025 9:30 AM EDT Medication Management [facility] MEDICINE [address] [place] [address] Betsy Ann PharmD [address] [place] [address] documented as of this encounter Visit Diagnoses Diagnosis Type 2 diabetes mellitus with diabetic polyneuropathy, with long-term current use of insulin (HCC) documented in this encounter Care Teams Bow Stapler Relationship Specialty Start Date End Date Fransisco Goldsmith MD [address] [place], [place] [phone] PCP - General Internal Medicine 05/18/14 Christie Biswas PharmD [address] [place] [address] Pharmacist Internal Medicine 11/22/24 [facility] 01/06/24 Sanket - visiting nurse 11/22/24 documented as of this encounter
--- OUTSIDE RECORDS SUMMARY | 2025-06-29 13:16 | XMS_ITS | Encounter Summary ---
Author Organization [employer] Address [address] [facility] 7t [place] [address] Care Team Providers Care Pipe Wrapping Machine Operator Name Role Phone Fransisco Goldsmith MD Primary Care Provide r Christie Biswas PharmD Unavailable [phone] Encounter Details Date Type Department Care Team (Late st Contact Info) Description 11/03/2022 Orders Only [facility] CH[facility] MED & PEDS [address] [place], [place] [phone] Elli Baker LPN Social History Tobacco Use [...] 9:30 AM EDT Medication Management [facility] MEDICINE [address] [place] [address] Betsy Ann, PharmD [address] [place] [address] documented as of this encounter Visit Diagnoses Not on filedocumented in this encounter Care Teams Pipe Wrapping Machine Operator Relationship Specialty Start Date End Date Fransisco Goldsmith MD [address] [place] [address] PCP - General Internal Medicine 05/18/14 Christie Bsiwas, Cristian [address] [place] [address] Pharmacist Internal Medicine 11/22/24 [facility] 01/06/24 Sanket - visiting nurse 11/22/24 documented as of this encounter
--- OUTSIDE RECORDS SUMMARY | 2025-06-29 13:16 | XMS_ITS | Encounter Summary ---
Author Organization [employer] Address [address] [facility] 7t [place] [address] Care Team Providers Care Roofing Plant Supervisor Name Role Phone Fransisco Goldsmith MD Primary Care Provide r Christie Biswas PharmD Unavailable [phone] Reason for Visit * Reason Onset Date Comments Durable Medical Equipment 06/29/2025 Encounter Details Date Type Department Care Team (Late st Contact Info) Description 06/29/2025 Telephone [facility] MEDICINE [address] [place] [address] Fransisco Goldsmith MD [address] [place], [place] [phone] Durable Medical Equipment Social History Tobacco Use Types Packs/Day Years [...] AM EDT documented as of this encounter Functional Status * Over the [...] Salcido MA documented as of this encounter Miscellaneous Notes * Telephone Encounter - Gilma Baker RN - 06/29/2025 11:51 AM EDT Pt requesting DME supplies during PCP office visit - Gloves, wipes - script on file from 11/2024 - has refills, needs to call [facility] - [employer] - walker Pt also requesting standing electric scooter. Advised her if PCP agrees, she will need to be evaluated by [facility] wheelchair evaluation. documented in this encounter Plan of Treatment Upcoming Encounters Date Type Department Care Team (Late st Contact Info) Description 07/11/2025 9:30 AM EDT Medication Management [facility] MEDICINE [address] [place] [address] Betsy Ann PharmD [address] [place] [address] documented as of this encounter Visit Diagnoses Not on filedocumented in this encounter Additional Health Concerns Assessment Noted Time PHQ-9 Depression Total Score: 7 06/29/20 10:31 AM EDT documented as of this encounter Care Teams Roofing Plant Supervisor Relationship Specialty Start Date End Date Fransisco Goldsmith MD [address] [place] [address] PCP - General Internal Medicine 05/18/14 Christie Biswas PharmD [address] [place] [phone] Pharmacist Internal Medicine 11/22/[address] [facility] 01/06/24 Sanket - visiting nurse 11/22/24 documented as of this encounter
--- OUTSIDE RECORDS SUMMARY | 2025-06-29 13:16 | XMS_ITS | Encounter Summary ---
Author Organization [employer] Address [address] [facility] [address] 7t [place] [address] Care Team Providers Care Glass Science Engineer Name Role Phone Fransisco Goldsmith MD Primary Care Provide r Christie Biswas PharmD Unavailable [phone] Encounter Details Date Type Department Care Team (Latest Contact Info) Description 06/29/2025 Travel Social History Tobacco Use Types Packs/Day [...] Questionnaire -2 Score 1 06/29/2025 10:31 AM Yancy Salcido MA * Little interest or pleasure in [...] Assessment Author Somewhat difficult 06/29/2025 10:31 AM EDT Yancy Jiménez MA * Over the last 2 weeks, [...] Total Score 6 06/29/2025 10:31 AM Yancy Salicdo MA documented as of this encounter Plan of Treatment Upcoming Encounters Date Type Department Care Team (Late st Contact Info) Description 07/11/2025 9:30 AM EDT Medication Management [facility] MEDICINE [address] [place] [address] Betsy Ann, PharmD [address] [place] [address] documented as of this encounter Visit Diagnoses Not on filedocumented in this encounter Additional Health Concerns Assessment Noted Time PHQ-9 Depression Total Score: 7 06/29/20 25 10:31 AM EDT documented as of this encounter Care Teams Glass Science Engineer Relationship Specialty Start Date End Date Fransisco Goldsmith MD [address] [place], [place] [phone] PCP - General Internal Medicine 05/18/14 Christie Biswas PharmD [address] [place] [address] Pharmacist Internal Medicine 11/22/24 [facility] 01/06/24 Sanket - visiting nurse 11/22/24 documented as of this encounter
--- OUTSIDE RECORDS SUMMARY | 2025-06-29 13:16 | XMS_ITS | Encounter Summary ---
Author Organization [employer] Address [address] [facility] 7t [place] [address] Care Team Providers Care Solutions Executive Security Name Role Phone Fransisco Goldsmith MD Primary Care Provide r Crhistie Biswas PharmD Unavailable [phone] Reason for Visit * Reason Comments Med Refill Encounter Details Date Type Department Care Team ([facility] st Contact Info) Description 05/19/2024 Refill [facility] MEDICINE [address] [place], [place] [phone] Fransisco Goldsmith MD [address] [place], [place] [phone] Mixed hyperlipidemia Social History Tobacco Use Types [...] Description 07/11/2025 9:30 AM EDT Medication Management [facility] MEDICINE [address] [place] [address] Betsy Ann PharmD [address] [place] [address] documented as of this encounter Visit Diagnoses Diagnosis Mixed hyperlipidemia documented in this encounter Care Teams Solutions Executive Security Relationship Specialty Start Date End Date Fransisco Goldsmith MD [address] [place] [phone] PCP - General Internal Medicine 05/18/14 Christie Biswas PharmD [address] [place] [phone] Pharmacist Internal Medicine 11/22/24 [facility] 01/06/24 Sanket - visiting nurse 11/22/24 documented as of this encounter
--- OUTSIDE RECORDS SUMMARY | 2025-06-29 13:16 | XMS_ITS | Encounter Summary ---
Author Organization [employer] Address [address] [facility] [address] 7t [place] [address] Care Team Providers Care Sandstone Splitter Name Role Phone Fransisco Goldsmith MD Primary Care Provide r Christie Biswas PharmD Unavailable Encounter Details Date Type Department Care Team ([facility] st Contact Info) Description 08/15/2024 Telephone [facility] MEDICINE [address] [place], [place] [phone] Fransisco Goldsmith MD [address] [place], [place] [phone] Social History Tobacco Use Types Packs/Day Years [...] Description 07/11/2025 9:30 AM EDT Medication Management [facility] MEDICINE [address] [place] [address] Betsy Ann PharmD [address] [place] [address] documented as of this encounter Visit Diagnoses Not on filedocumented in this encounter Additional Health Concerns Assessment Noted Time PHQ-9 Depression Total Score: 4 06/02/20 24 9:28 AM EDT documented as of this encounter Care Teams Sandstone Splitter Relationship Specialty Start Date End Date Fransisco Goldsmith MD [address] [place] [address] PCP - General Internal Medicine 05/18/14 Christie Biswas PharmD [address] [place] [address] Pharmacist Internal Medicine 11/22/24 [facility] 01/06/24 Sanket - visiting nurse 11/22/24 documented as of this encounter
--- OUTSIDE RECORDS SUMMARY | 2025-06-29 13:16 | XMS_ITS | Clinical Summary ---
Author Organization [address] [facility] Address [address] [place] [address] Phone Care Team Providers Care Rehabilitation Services Counselor Name Role Phone Fransisco Baires MD Primary Care Provi tarik Allergies No known active allergies Medications CELECOXIB ORAL Take 100 mg by mouth daily. Active melatonin 5 mg tablet Take 1 Tablet by mouth daily. Active PANTOPRAZOLE SODIUM, BULK, MISC Take 40 mg by mouth daily. Active albuterol sulfate (ProAir RespiClick) 90 mcg/actuation aerosol powdr breath activated Inhale into the lungs. Active aspirin 81 mg chewable tablet Chew 1 tablet (81 mg total) 1 (one) time each day. Active atorvastatin (LIPITOR) 80 mg tablet Take 1 tablet (80 mg total) by mouth 1 (one) time each day. Active docusate sodium (COLACE) 100 mg capsule Take 1 capsule (100 mg total) by mouth 2 (two) times a day. Active dulaglutide (Trulicity) 3 mg/0.5 mL pen injector injection Inject into the skin. Active gabapentin (NEURONTIN) 600 mg tablet Take 1 tablet (600 mg total) by mouth 2 (two) times a day. Active glipiZIDE (GLUCOTROL XL) 5 mg 24 hr tablet Take 1 tablet (5 mg total) by mouth 1 (one) time each day. Active insulin glargine (LANTUS) 100 unit/mL injection Inject 100 Units into the skin at bedtime. Active lisinopriL (PRINIVIL,ZESTR IL) 10 mg tablet Take 1 tablet (10 mg total) by mouth 1 (one) time each day. Active metoprolol succinate (TOPROL-XL) 25 mg 24 hr tablet Take 1 tablet (25 mg total) by mouth 1 (one) time each day. Active miconazole nitrate 2 % aerosol,spray Apply 1 Applicator topically daily. 4 Active montelukast (SINGULAIR) 10 mg tablet Take 1 Tablet by mouth at bedtime. Active sertraline (ZOLOFT) 100 mg tablet Take 1 tablet (100 mg total) by mouth 1 (one) time each day. Active zolpidem (AMBIEN) 5 mg tablet Take 1 tablet (5 mg total) by mouth at bedtime as needed. Max Daily Amount: 5 mg Active diclofenac (Voltaren Arthritis Pain) 1 % topical gel Apply 4 g topically 2 (two) times a day. 240 g 1 5 06/12/20 25 Active Problems Problem Noted Date Diagnosed Date Anxiety state 07/05/2024 Chronic neck pain 07/05/2024 Class 3 severe obesity due t o excess calories in adult ([facility] V28) 07/05/2024 Closed fracture of left orbit ([facility] V24, [facility] V28) 07/05/2024 Depressive disorder 07/05/2024 GERD (gastroesophageal reflux disease) HTN (hypertension) 07/05/2024 Kidney stone 07/05/2024 Mild persistent asthma without complication 04/2024 Mixed hyperlipidemia 07/05/2024 CRYSTAL (obstructive sleep apnea) 07/05/2024 Osteopenia 07/05/2024 Pain in right leg 07/05/2024 Peripheral neuropathy 07/05/2024 Simple renal cyst 07/05/2024 Substance abuse ([facility] V24, [facility] V28) 07/05 T2DM (type 2 diabetes mellitus) ([facility] V24, [facility] V28) 07/05/2024 Urge incontinence of urine 07/05/2024 Encounters Date Type Department Care Team Description 04/13/2025 10:15 AM EDT Office Visit Orthopedic Surgery - [address] [phone] Eric Romero, DPM Acquired hammer toe of right foot (Primary Dx); Primary osteoarthritis of both feet; Dermatophytosis of nail; Pain in toe of right foot; Pain in toe of left foot; Corns and callosities; Type II diabetes mellitus with peripheral circulatory disorder ([facility] V24, [facility] V28); Tinea pedis of both feet; Metatarsalgia of both feet from Last 3 Months Social History Tobacco Use Types Packs/Day Years Used Date Smoking Tobacco: Never Assessed Comments Unknown Sex and Gender Information Value Date Recorded Sex Assigned at Not on file Legal Sex Female 8:03 PM EST Gender Identity Not on file Sexual Orientation Not on file Last Filed Vital Signs Vital Sign Reading Time Taken Comments Blood Pressure - - Pulse - - Temperature - - Respiratory Rate - - Oxygen Saturation - - Inhaled Oxygen Concentration - - Weight 88.7 kg (195 lb 9.6 oz) 07/07/2024 9:22 A M EDT Height 142.2 cm (4' 8 ) 07/07/2024 9:22 AM EDT Body Mass Index 43.85 07/07/2024 9:22 AM EDT Plan of Treatment Upcoming Encounters Date Type Department Care Team (Late st Contact Info) Description 07/19/2025 10:15 AM EDT Office Visit Orthopedic Surgery - [place] [id number] [phone] Eric Romero, DPM [address] [phone] Health Maintenance Due Date Last Done Comments Breast Cancer Screening 1955 Colorectal Cancer Screening: Colonoscopy 1955 Diabetes: Annual GFR (Glomerular Filtration Rate) 1954 Diabetes: Annual Foot Exam 1964 Diabetes: Annual Retina Eye Exam 1964 Hepatitis A Vaccines (1 of 2 - Risk 2-dose series) 1973 RSV Immunization Adult Patients (1 - Risk 60-74 years 1-dose series) 2014 Zoster Vaccines (3 of 3) 09/02/2022 07/08/2022, 01/2015 Diabetes: Annual Urine Albumin-Creatinine Ratio (uACR) 07/22/2024 Falls Risk Assessment 07/22/2024 Hypertension/CHF/CAD Annual BMP Blood Test 07/22/2024 Medicare Annual Wellness Visit 07/22/2024 Osteoporosis Screening (Bone Density Screening) 07/22/2024 Social Influencers of Health Screening 07/22/2024 Depression Screening 09/28/2024 COVID-19 Vaccine ( season) 2025 07/08/2022, 01/08/2021, 12/12/2020 Influenza Vaccine (#1) 2025 , 07/08/2022, 07/09/2021, Additional history exists Diabetes: Blood Sugar Control Test (HGBA1C) 06/01/2025 11/29/2024 Pneumococcal Vaccine: 50+ Years (3 of 3 - PCV20 or PCV21) 09/18/2025 09/18/2020, 01/19/2019, 12/09/2013, Additional history exists Cholesterol Screening (Lipid Panel) 11/29/2029 11/29/2024 DTaP,Tdap,and Td Vaccines (3 - Td or Tdap) 11/22/2034 11/22/2024, 07/05/2012 Hepatitis C Screening Completed 11/11/2022 HIB Vaccines Aged Out No longer eligi [...] on patient's age to complete this topic MMR Vaccines Aged Out No longer eligi ble based on patient's age to complete this topic Meningococcal ACWY Vaccine Aged Out N o longer eligible based on patient's age to complete this topic Meningococcal B Vaccine Aged Out No l onger eligible based on patient's age to complete this topic RSV Immunization Patients Under 20 months Aged Out No longer eligible based on patient's age to complete this topic Varicella Vaccines Aged Out No longer eligible based on patient's age to complete this topic Insurance [place]ICA[place] - [place] [facility] MEDICARE Member Subscriber Plan / Payer (Ef fective 2020-Present) Name:Tono Galvan Relation to Subscriber:Self Name:Tono Galvan Payer ID:[id number] Group ID:[id number] Type:Not on file Address: [address] [place] [address] Care Teams Rehabilitation Services Counselor Relationship Specialty Start Date End Date Fransisco Baires MD [address] [place] [address] [place] [phone] PCP - General 03/15/24
--- OUTSIDE RECORDS SUMMARY | 2025-06-29 13:16 | XMS_ITS | Encounter Summary ---
Author Organization [employer] Address [address] [facility] [address] [place] [address] Care Team Providers Care Assessment Manager Name Role Phone Fransisco Goldsmith MD Primary Care Provide r Christie Biswas PharmD Unavailable [phone] Encounter Details Date Type Department Care Team (Late st Contact Info) Description 10/14/2022 Orders Only [facility] MEDICINE [address] [place] [address] Rochelle Rosa LPN Social History Tobacco Use [...] Description 07/11/2025 9:30 AM EDT Medication Management [facility] MEDICINE [address] [place] [address] Betsy Ann, PharmD [address] [place] [address] documented as of this encounter Visit Diagnoses Not on filedocumented in this encounter Care Teams Assessment Manager Relationship Specialty Start Date End Date Fransisco Goldsmith MD [address] [place] [address] PCP - General Internal Medicine 05/18/14 Christie Biswas, Cristian [address] [place] [phone] Pharmacist Internal Medicine 11/22/24 [facility] 01/06/24 Sanket - visiting nurse 11/22/24 documented as of this encounter
--- OUTSIDE RECORDS SUMMARY | 2025-06-29 13:16 | XMS_ITS | Encounter Summary ---
Author Organization [employer] Address [address] [facility] [address] [place] [address] Care Team Providers Care Delivery Crew Worker Name Role Phone Fransisco Goldsmith MD Primary Care Provide r Christie Biswas PharmD Unavailable [phone] Encounter Details Date Type Department Care Team (Late st Contact Info) Description 11/09/2024 Refill [facility] MEDICINE [address] [place] [address] Fransisco Goldsmith MD [address] [place] [address] Osteoarthritis, unspecified osteoarthritis type, unspecified site Social [...] Description 07/11/2025 9:30 AM EDT Medication Management [facility] MEDICINE [address] [place] [address] Betsy Ann PharmD [address] [place] [address] documented as of this encounter Visit Diagnoses Diagnosis Osteoarthritis, unspecified osteoarthritis type, unspecified site documented in this encounter Additional Health Concerns Assessment Noted Time PHQ-9 Depression Total Score: 4 06/02/20 24 9:28 AM EDT documented as of this encounter Care Teams Delivery Crew Worker Relationship Specialty Start Date End Date Fransisco Goldsmith MD [address] [place] [phone] PCP - General Internal Medicine 05/18/14 Christie Biswas, PharmD [address] [place] [id number] Pharmacist Internal Medicine 11/22/24 [facility] 01/06/24 Sanket - visiting nurse 11/22/24 documented as of this encounter
--- OUTSIDE RECORDS SUMMARY | 2025-06-29 13:16 | XMS_ITS | Clinical Summary ---
Author Organization [employer] Address [address] [facility] 7[address] [place] [address] Care Team Providers Care Garment Sewing Machine Operator Name Role Phone Fransisco Goldsmith MD Primary Care Provide r Christie Biswas PharmD Unavailable [phone] Allergies No known active allergies Medications albuterol [...] with long-term current use of insulin (HCC) 1 each if needed (test FSBS three times a day). 1 each 023 Active albuterol 108 (90 Base) MCG/ACT inhaler Inhale 2 puffs every 4 (four) hours if needed for wheezing (cough). 18 g 3 024 Active insulin lispro (HumaLOG KWIKPEN) 100 UNIT/ML injection Administer per sliding scale before meals three times per day: BG <111 0 units, 111-150 - 0 units, 151-200 2 units, 201-250 4 units, 251-300 6 units, 301-350 8 units, >350 10 units 3 mL 024 Active clotrimazole (Lotrimin) 1 % cream APPLY 1 GRAM TOPICALLY TOPICALLY AFFECTED AREA(S) TWICE DAILY Active Athletes Foot Powder Warren 2 % aerosol powder APPLY TOPICALLY TO THE AFFECTED AREA(S) EVERY DAY Active FREESTYLE LITE test stripIndications :Type 2 diabetes mellitus with diabetic polyneuropathy, with long-term current use of insulin ([facility]) TEST BLOOD SUGAR THREE TIMES DAILY 100 strip Active TRUEplus Lancets 33G miscIndications: Type 2 diabetes mellitus with diabetic polyneuropathy, with long-term current use of insulin ([facility]) TEST BLOOD SUGAR THREE TIMES DAILY 100 each Active docusate sodium (Colace) 100 MG capsuleIndicatio ns:Constipation, unspecified constipation type TAKE 1 CAPSULE BY MOUTH TWICE DAILY IN THE MORNING AND AT BEDTIME 180 capsule Active lisinopril 10 MG tabletIndication s:Type 2 diabetes mellitus with diabetic polyneuropathy, with long-term current use of insulin ([facility]) TAKE 1 TABLET BY MOUTH AT BEDTIME 90 tablet Active Calcium Carb-Cholecalcif kell 600-10 MG-MCG tabletIndication s:Constipation, unspecified constipation type TAKE 1 TABLET BY MOUTH TWICE DAILY IN THE MORNING AND IN THE EVENING 180 tablet Active rosuvastatin (Crestor) 40 MG tablet Take 1 tablet (40 mg) by mouth Once per day. 90 tablet 025 2025 Active Aspirin EC Adult Low Dose 81 MG EC tablet TAKE 1 TABLET BY MOUTH EVERY MORNING 90 tablet 3 Active sertraline (Zoloft) 100 MG tabletIndication s:Episode of recurrent major depressive disorder, unspecified depression episode severity (CMS/HCC) TAKE 1 TABLET BY MOUTH EVERY MORNING 90 tablet 2 025 Active pantoprazole (ProtoNix) 40 MG EC tabletIndication s:Gastroesophage al reflux disease without esophagitis TAKE 1 TABLET BY MOUTH EVERY MORNING 90 tablet 2 025 Active metoprolol succinate XL (Toprol-XL) 25 MG 24 hr tabletIndication s:Primary hypertension TAKE 1 TABLET BY MOUTH EVERY MORNING 90 tablet 2 025 Active gabapentin (Neurontin) 600 MG tabletIndication s:Diabetic polyneuropathy associated with type 2 diabetes mellitus (HCC) TAKE 1 TABLET BY MOUTH THREE TIMES DAILY IN THE MORNING, AT NOON, AND AT BEDTIME 270 tablet 2 025 Active UltiGuard SafePack Pen Needle 32G X 4 MM misc USE DIRECTED 100 each 3 025 Active Lantus SoloStar 100 UNIT/ML penIndications:T ype 2 diabetes mellitus without complication, with long-term current use of insulin ([facility]) INJECT 46 UNITS SUBCUTANEOUSLY EVERY DAY AT BEDTIME 15 mL 5 025 Active melatonin 5 MG tabletIndication s:Primary insomnia TAKE 1 TABLET BY MOUTH AT BEDTIME 30 tablet 3 025 Active Alcohol Swabs (Alcohol Prep) 70 % pads USE ON SKIN DIRECTED 100 each 11 025 Active Fiber-Lax 625 MG tabletIndication s:Constipation, unspecified constipation type TAKE 1 TABLET BY MOUTH TWICE DAILY IN THE MORNING AND IN THE EVENING 180 tablet 1 025 Active montelukast (Singulair) 10 MG tablet TAKE 1 TABLET BY MOUTH EVERY EVENING 90 tablet 3 025 Active Semaglutide, 2 MG/DOSE, (Ozempic, 2 MG/DOSE,) 8 MG/3ML solution pen-injectorIndi cations:Type 2 diabetes mellitus with diabetic polyneuropathy, with long-term current use of insulin ([facility]) Inject 0.75 mL (2 mg) under the skin 1 (one) time per week. 0.75 mL 3 025 Active celecoxib (CeleBREX) 100 MG capsuleIndicatio ns:Osteoarthriti s, unspecified osteoarthritis type, unspecified site Take 1 capsule (100 mg) by mouth in the morning. 30 capsule 025 Active montelukast (Singulair) 10 MG tablet TAKE 1 TABLET BY MOUTH EVERY EVENING 90 tablet 3 024 2024 Discontinued semaglutide (Ozempic, 1 MG/DOSE,) 4 MG/3ML solution pen-injectorIndi cations:Type 2 Diabetes Mellitus Inject 1 mg under the skin 1 (one) time per week. 3 mL 11 025 2024 Discontinued celecoxib (CeleBREX) 100 MG capsuleIndicatio ns:Osteoarthriti s, unspecified osteoarthritis type, unspecified site Take 1 capsule (100 mg) by mouth in the morning. 30 capsule 025 2024 Discontinued(R eorder (will not trigger notification to Pharmacy)) Active Problems Problem Noted Date Diagnosed Date [...] Will refer back. I have asked her PHYSICAL METEOROLOGIST to contact us if she does not [...] incontinence of urine 11/11/2022 Assessment & Plan (06/29/2025 10:53 AM EDT): Evaluated by Urology in 2019 recommended Oxybutynin Pt needs pads, gloves Assessment & Plan (11/11/2022 9:12 AM EST): Evaluated by Urology in 2019 recommended Oxybutynin Gastroesophageal reflux disease without esophagi tis 11/11/2022 Assessment & Plan (11/11/2022 9:14 AM EST): Pt onProtonix 40 mg po daily GI evaluation to r/o PUD pt referred to Gastroenterology. Damaris Lin in the past Preventative health care 11/11/2022 Assessment & Plan (06/29/2025 10:48 AM EDT): Mammogram: NL 01/12/2025 Pap Smear: last 07/05/2008 NL. Pt refuses Colonoscopy: NL 09/05/2008 Dr Plunkett. Will refer back Assessment & Plan (11/29/2024 10:06 AM EST): Mammogram: NL 06/24/2023 Pap Smear: last 07/05/2008 NL. Pt refuses Colonoscopy: NL 09/05/2008 Dr Plunkett. Will refer back Assessment & Plan (11/11/2022 9:17 AM EST): Mammogram: NL 10/11/2020 Pap Smear: last 07/05/2008 NL Colonoscopy: NL 09/05/2008 Dr Plunkett Closed nondisplaced avulsion fracture of left ischium (CMS/HCC) 11/11/2022 Assessment & Plan (11/11/2022 9:24 AM [...] asthma exacerbation Type 2 diabetes mellitus 02/17/2019 Assessment & Plan (06/29/2025 11:04 AM EDT): Pt is here for a f/u visit DM stable She is on Ozempic 1 mg once a week and Lantus 46 units sc q pm Pt reported severe stomach upset and diarrhea with Metformin. so this was discontinued Hgb A1c 03/29/2025: 7.8 from 8.3 Pt has been referred to both Assembly Machine Operator and community health educator, did not f/u Unfortunately she is [...] on a daily basis. Assessment & Plan (11/29/2024 9:37 AM EST): Pt is here for a f/u visit DM stable She is on Ozempic 1 mg once a week and Lantus 46 units sc q pm Pt reported severe stomach upset and diarrhea with Metformin. so this was discontinued Hgb A1c 11/22/2024: 8.3 from 7.8 Pt has been referred to both Assembly Machine Operator and community health educator, did not f/u Unfortunately she is non compliant Plan:Continue to follow with CDTM Pt denies hx of thyroid cancer or pancreatitis f/u 3 months Eye exam done on: 11/13/2022 Microalbumin checked on: 10/27/2019 was: 8 Pt on an ENLY inhibitor (lisinopril) Foot check risk of one [...] 7.8 Pt has been referred to both Assembly Machine Operator and community health educator, did not f/u Unfortunately she is [...] 9.1 Pt has been referred to both Assembly Machine Operator and community health educator, did not f/u Unfortunately she is [...] a f/u visit Her daughter is her PHYSICAL METEOROLOGIST. She is on Trulicity 0.75 once a week and Lantus 56 units sc q pm Pt reported severe stomach upset and diarrhea with Metformin. so this was discontinued Hgb A1c 11/10/2022 was 9.1 Pt has been referred to both Assembly Machine Operator and community health educator, did not f/u Unfortunately she is non compliant Glucometer review today showed BG fluctuating between 148 and 235 Plan: increase trulicity to 1.5 mg once a week Pt denies hx of thyroid cancer or pancreatitis f/u 3 months Eye exam done on: 12/22/2013 by [facility] (cut in station operator) Microalbumin checked on: 10/27/2019 was: 8 Pt [...] visit. Mixed hyperlipidemia 07/17/2016 Assessment & Plan (06/29/2025 10:46 AM EDT): atient here for a f/u [...] goal for weight loss. Assessment & Plan (11/29/2024 9:39 AM EST): [...] for SAFETY and Medical necessity Substance abuse ([facility]) 04/15/2016 Obstructive sleep apnea syndrome 04/20/2013 Peripheral [...] She is on Gabapentin 600 mg TID. Chronic right-sided low back pain with right-jade ed sciatica 07/05/2012 Assessment & Plan (06/29/2025 10:55 AM EDT): Pt with c/o right sided low back pain with radiation to hip and right leg On exam there is evidence of muscle spasm Plan: Plain films LS spine, right hip/pelvis PT evaluation Pt would benefit from a power wheelchair evaluation Simple renal cyst 03/28/2012 Anxiety state 03/08/2012 Depressive disorder 03/08/2012 Assessment & Plan (06/29/2025 10:48 AM EDT): Pt not seeing a psychotherapy, declines to see one, denies SI On: sertraline 100 mg po daily and Ambien 10 mg po qhs Pt c/o Insomnia, good sleep hygiene habits discussed Assessment & Plan (11/11/2022 9:16 AM EST): Pt not seeing a psychotherapy, refuses On: sertraline 100 mg po daily Pt c/o Insomnia, good sleep hygiene habits discussed Ambien 10 mg po qhs Essential hypertension 03/08/2012 Assessment & Plan (06/29/2025 10:45 AM EDT): Pt here for a f/u BP stable [...] counseled about weight loss. Assessment & Plan (11/29/2024 9:38 AM EST): [...] Resolved Date Closed fracture of left orbit (CMS/[facility]) 11/10/2022 11/29/2024 Assessment & Plan (11/11/2022 9:48 [...] oxycodone for pain. Patient discharged home to [facility] with ear nose and throat and I have placed a referral to Ophthalmology as well Encounters Date Type Department Care Team Description 06/29/2025 10:30 AM EDT Office Visit [facility] [address] [facility] [place] [address] Fransisco Goldsmith MD Type 2 diabetes mellitus with diabetic polyneuropathy, with long-term current use of insulin (HCC) (Primary Dx); Essential hypertension; Mixed hyperlipidemia; Depressive disorder; Urge incontinence of urine; Chronic right-sided low back pain with right-sided sciatica; Preventative health care; Osteoarthritis, unspecified osteoarthritis type, unspecified site; Encounter for immunization 06/29/2025 Telephone [facility] [address] [place] [address] Fransisco Goldsmith MD Durable Medical Equipment 06/29/2025 Travel 06/28/2025 Telephone [facility] [address] [place] [address] Fransisco Goldsmith MD chart prep 06/28/2025 Refill [facility] [address] [place] [address] Fransisco Goldsmith MD 06/22/2025 Patient Outreach [facility] [address] [place] [address] Fransisco Goldsmith MD Pre-visit Planning ([facility] unable to reach [facility]) 05/24/2025 Refill [facility] [address] [place] [address] Fransisco Goldsmith MD Constipation, unspecified constipation type 05/03/2025 Refill [facility] [address] [place] [address] Madeline Quinn, PharmD 04/29/2025 Refill [facility] [address] [place] [address] Fransisco Goldsmith MD Primary insomnia from Last 3 Months Immunizations Immunization Administration Dates Next Due Influenza High-dose Quadriva lent Preservative Free 07/08/2022,07/09/2021,09/18/2020 Influenza injectable quadriv alent IIV4 with preservative 06/29/2018,07/17/2016,09/04/2015 Influenza injectable quadriv alent preservative free 12/09/2013 Influenza, High Dose Seasona l, Preservative Free 06/29/2025 Influenza, Split (incl. taryn fied surface antigen) 07/05/2012 Influenza, seasonal, injecta ble, preservative free 11/22/2024 Pfizer Covid-19 Vaccine 12+ Bivalent 07/08/2022 Pneumococcal Conjugate PCV 13 09/18/2020, 014 Pneumococcal Polysaccharide PPSV23 01/19/2019,,08/19/2004 Tdap 11/22/2024,07/05/2012 Zoster, Recombinant 07/08/2022 Zoster, live 01/30/2015 Family History Medical History Relation Name Comments Diabetes Sister Relation Name Status Comments Sister Social History Tobacco Use Types Packs/Day Years [...] 19 06/29/2025 10:27 AM EDT Oxygen Saturation 99% 11/29/2024 9:50 AM EST Inhaled Oxygen Concentration - - Weight 78.7 kg (173 lb 6.4 oz) 06/29/2025 10:27 AM EDT Height 144.8 cm (4' 9 ) 06/29/2025 10:27 AM EDT Body Mass Index 37.52 06/29/2025 10:27 AM EDT Plan of Treatment Upcoming Encounters Date Type Department Care Team (Late st Contact Info) Description 07/11/2025 9:30 AM EDT Medication Management [facility] [address] [place] [address] Betsy Ann, PharmD [address] [place] [address] Health Maintenance Due Date Last Done Comments CT Colonography 1955 Colonoscopy 1955 Colorectal Cancer Screening 1955 FIT DNA/Cologuard 1955 FIT 1955 FOBT 1955 Sigmoidoscopy 1955 Diabetes: Foot Exam 1964 RSV Patients and Patients Aged 60 years or older (1 - Risk 60-74 years 1-dose series) 2014 Zoster Vaccines (3 of 3) 09/02/2022 07/08/2022, 05/0 01/2015 Diabetes: Urine Protein Screening 04/19/2025 04/19/2024, 11/11/2022, 05/08/2022, Additional history exists COVID-19 Vaccine ( season) 2025 07/08/2022, 01/08/2021, 12/12/2020 Pneumococcal Vaccine: 50+ Years (3 of 3 - PCV20 or PCV21) 09/18/2025 09/18/2020, 01/19/2019, 12/09/2013, Additional history exists Diabetes: Hemoglobin A1C 09/29/2025 025, 11/29/2024, 11/22/2024, Additional history exists Alcohol/Substance Use Screening 11/29/2025 11/29/2024 Lipid Panel 11/29/2025 11/29/2024, 03/29, 11/11/2022, Additional history exists SDOH Screening 11/29/2025 11/29/2024 Mammogram 01/12/2026 01/12/2025, 05/30, 06/24/2023, Additional history exists Tobacco Screening 01/20/2026 01/20/2025 Depression Screening 06/29/2026 06/29/2025, 06/29/20 Eye Exam 01/20/2027 01/20/2025, 12/28, 01/20/2025, Additional history exists DTaP/Tdap/Td Vaccines (3 - Td or Tdap) 11/22/2034 11/22/2024, 07/05/2012 Hepatitis C Screening Completed 11/11/2022, 022 Influenza Vaccine Completed 06/29/2025, , 07/08/2022, Additional history exists HIB Vaccines Aged Out [...] with long-term current use of insulin (HCC) BI MAMMOGRAM SCREENING TOMOSYNTHESIS BILATERAL Routine 01/12/2025 9:33 AM EDT Breast cancer screening by mammogram LIPID PANEL, STANDARD Routine 11/29/2024 10:24 AM EST Type 2 diabetes mellitus with diabetic polyneuropathy, with long-term current use of insulin (CMS/HCC) ALBUMIN, RANDOM URINE W/CREATININE Routine 04/19/2024 10:00 AM EDT HEPATITIS C AB W/REFL TO HCV RNA, QN, PCR Routine 11/11/2022 9:56 AM EST Type 2 diabetes mellitus with diabetic polyneuropathy, with long-term current use of insulin (CMS/HCC) from Last 3 Months or Most Recently Relevant to Health Maintenance Results * (ABNORMAL) POCT Hgb A1c (06/29/2025 10:34 AM EDT) Hemoglobin A1C 7.8(A) 4.0 - 5.7 % QC Media Lot # [id number] Lot# Expiration Date [id number] Blood 06/29/2025 10:3 4 AM EDT us Fransisco Ramon MD POINT OF CARE TEST EN TER/EDIT ORDERABLES Final Result * POCT Glucose (06/29/2025 10:28 AM EDT) Glucose Blood, POC 107 60 - 200 mg/dL QC Media Lot # [id number] Lot# Expiration Date Blood Capillary blood specimen / Unknown 06/29/2025 10:28 AM EDT Fransisco Ramon MD POINT OF CARE TEST EN TER/EDIT ORDERABLES Final Result * BI Mammogram Screening Tomosynthesis Bilateral (01/12/2025 9:33 AM EDT) Anatomical Region Laterality Modality Breast Bilateral Mammography 01/12/2025 9:33 AM EDT Narrative 01/21/2025 8:25 PM EDT [facility] [address] [place] [address] Mammography Report Signed Patient: Esthela Flannery MR#: [id number] 73 : 1955 Acct:[id number] Age/Sex: 69 / F ADM Date: 01/12/25 Loc: HO.MAMMO Attending Dr: Fransisco Baires MD Ordering Physician: Fransisco Baires MD Resu lts: 1Negative Date of Service: 01/12/25 Follow Up: 1 Year From [facility] Mammogram Procedure(s): MM tomosynthesis screening BI Accession Number(s): [id number] cc: Fransisco Baires MD EXAMINATION: MM SCREENING DIGITAL BREAST TOMOSYNTHESIS, BILATERAL CLINICAL INFORMATION: Screening. Asymptomatic. COMPARISON: Mammography: Comparison is made with available priors TECHNIQUE: Digital breast mammography with tomosynthesis is performed in both the craniocaudal and mediolateral oblique views along with computer-aided detection (CAD). FINDINGS: There are scattered areas of fibroglandular [...] target due date for their next mammogram. Electronically signed by: Cherelle Plummer DO 01/21/2025 08:22 PM EDT RP Dictated By: Cherelle Plummer DO Signed By: <Electronically signed by Cherelle Plummer DO in OV> 01/21/252021 DD/ TD/TT: 01/12/25 1006 Hot Plate Plywood Press Feeder: Procedure Note Donotuseinterpreter, Image - [facility] [address] [place] [address] Mammography Report Signed Patient: Iliana Flannery#: [id number] [birth year] : 5Acct:[id number] Age/Sex: 69 / FADM Date: 01/12/25 Loc: HO.MAMMO Attending Dr: Fransisco Baires MD Ordering Physician: Fransisco Baires MDResu lts: 1Negative Date of Service: 01/12/25Follow Up: 1 Year From Orig inal Mammogram Procedure(s): MM tomosynthesis screening BI Accession Number(s): [id number] cc: Fransisco Baires MD EXAMINATION: MM SCREENING DIGITAL BREAST TOMOSYNTHESIS, BILATERAL CLINICAL INFORMATION: Screening. Asymptomatic. COMPARISON: Mammography: Comparison is made with available priors TECHNIQUE: Digital breast mammography with tomosynthesis is performed in both the craniocaudal and mediolateral oblique views along with computer-aided detection (CAD). FINDINGS: There are scattered areas of fibroglandular [...] target due date for their next mammogram. Electronically signed by: Cherelle Plummer DO 01/21/2025 08:22 PM EDT Dictated By: Cherelle Plummer DO Signed By: <Electronically signed by Cherelle Plummer DO in OV> 01/21/252021 DD/ 0933 TD/TT: 01/12/25 1006 Hot Plate Plywood Press Feeder: Fransisco Ramon MD IMG BI PROCEDURES Lebron domingo Result - Final * Lipid Panel, Standard (11/29/2024 10:24 AM EST) Triglycerides 83 <150 mg/dL [facility] Comment:Desirable Triglyceri de: less than 150 mg/dLBorderline High Triglyceride 150-199 mg/dLHigh Triglyceride: 200-499 mg/dLVery High Triglyceride: greater than or equal to 5OO mg/dL Cholesterol 160 <200 mg/dL [facility] Comment:Desirable Cholestero l: less than 200 mg/dLBorderline High Cholesterol: 200-239 mg/dLHigh Cholesterol: greater than 239 mg/dL LDL Cholesterol Calculated 87 <100 mg/dL [facility] Comment:Desirable LDL: less than 100 mg/dLNear Optimal/Above Optimal LDL: 110- 129 mg/dLBorderline High LDL: 130-159 mg/dLHigh LDL: 160-189 mg/dLVery High LDL: greater than or equal to 190 mg/dL HDL Cholesterol 57 >40 mg/dL [facility] Comment:Desirable HDL: grea ter than 40 mg/dL Note: This HDL assay may give artificially low results in patients with liver disease. Blood Venous blood specimen / Unknown 11/29/2024 10:24 AM EST 11/29/2024 11:19 AM EST Fransisco Ramon MD LAB BLOOD ORDERABLES Final Result [facility] [address] [place] [address] [phone] * Albumin, Random Urine W/Creatinine (04/19/2024 10:00 AM EDT) Creatinine, Urine 159.36 mg/dL [facility] Microalbumin Urine 38.0 mg/L H [facility] Microalbum Creatinine Ratio Ur 23.8 <30 ug/mg cr [facility] Comment:Albumin/Creatinine R atio Reference Ranges: Normal: < 30 ug/mg creatinine Microalbuminuria: 30 - 300 ug/mg creatinineClinical Albuminuria: > 300 ug/mg creatinine 04/19/2024 10:0 0 AM EDT 04/19/2024 11:13 AM EDT Fransisco Ramon MD LAB URINE ORDERABLES Final Result Performing Organization Address City/[facility] Co de Phone Number [facility] [address] [place] [address] [phone] * Hepatitis C Antibody with Reflex to HCV, RNA, Quantitative, Real-Time PCR (11/11/2022 9:56 AM EST) Hepatitis C Antibody NON-REACT EMILY NON-REACT EMILY [employer]Worldt Index 0.05 <1.00 [employer] Comment: HCV antibody was non-reactive. There is no laboratory evidence of HCV infection. In most cases, no further action is required. However, if recent HCV exposure is suspected, a test for HCV RNA (test code 02481) is suggested. For additional information please refer to http://education.[employer]/faq/JFN78m5 (This link is being provided for informational/ educational purposes only.) Blood Venous blood specimen / Unknown 11/11/2022 9:56 AM EST 11/11/2022 9:57 AM EST Narrative [facility] - 11/11/2022 10:40 PM EST FASTING:YES FASTING: YES Fransisco Ramon MD LAB BLOOD ORDERABLES Final Result [facility] [address] [place] [address] [facility] [address], ([address]) [place] [address] from Last 3 Months or Most Recently Relevant to Health Maintenance Insurance [facility] LONGTERM OPTIONS (HMO D-SNP) [facility] STANDARD Care Teams Garment Sewing Machine Operator Relationship Specialty Start Date End Date Fransisco Goldsmith MD [address] [place] [address] PCP - General Internal Medicine 05/18/14 Christie Biswas, Cristian [address] [place] [phone] Pharmacist Internal Medicine 11/22/24 [facility] 01/06/24 Sanket - visiting nurse 11/22/24
--- OUTSIDE RECORDS SUMMARY | 2025-06-29 13:16 | XMS_ITS | Encounter Summary ---
Author Organization [employer] Address [address] [facility] [address] [place] [address] Care Team Providers Care Tire Mechanic Name Role Phone Fransisco Goldsmith MD Primary Care Provide r Christie Biswas PharmD Unavailable [phone] Encounter Details Date Type Department Care Team (Late st Contact Info) Description 10/06/2022 Orders Only [facility] [address] [place], [place] [phone] Elli Baker LPN Social History Tobacco Use [...] Description 07/11/2025 9:30 AM EDT Medication Management [facility] [address] [place] [address] Betsy Ann, PharmD [address] [place] [address] documented as of this encounter Visit Diagnoses Not on filedocumented in this encounter Care Teams Tire Mechanic Relationship Specialty Start Date End Date Fransisco Goldsmith MD [address] [place] [address] PCP - General Internal Medicine 05/18/14 Christie Biswas, Cristian [address] [place] [phone] Pharmacist Internal Medicine 11/22/24 [facility] 01/06/24 Sanket - visiting nurse 11/22/24 documented as of this encounter
== END 2025-06-29 11:25 | disposition home or self-care (01) ==
LOC: HO.HHCX 11:24
PROVIDERS: PCP Internal Medicine; Visit Provider Internal Medicine
DX: Z13.89 Encounter for screening for other disorder (principal)

== ENCOUNTER 2025-06-30 10:18 | Outpatient (REF) | payer OTHER, SELFPAY ==
--- OUTSIDE RECORDS SUMMARY | 2025-06-29 10:30 | XMS_ITS | Encounter Summary ---
Author Organization [employer] Address [address] [facility] 7t [place] [address] Care Team Providers Care Cutter Tender Name Role Phone Fransisco Goldsmith MD Primary Care Provide r Christie Biswas PharmD Unavailable [phone] Reason for Referral * Consultation (Routine) - Closed Specialty Diagnoses / Procedures Referred By Wendy werner Referred To Contact Diagnoses Chronic right-sided low back pain with right-sided sciatica Fransisco Goldsmith MD [address] [place] [address] Phone: tel: fax: [facility] [address] Phone: tel: fax: Referral ID Status Reason Start Date Expiration Date V isits Requested Visits Authorized [id number] Closed Specialty Services Required 06/29/2025 06/29/2026 1 1 Reason for Visit * Reason Comments Annual Exam * Consultation (Routine) - Pending Review Specialty Diagnoses / Procedures Referred By Wendy t Referred To Contact Pharmacy Diagnoses Type 2 diabetes mellitus with diabetic polyneuropathy, with long-term current use of insulin (HCC) Fransisco Goldsmith MD [address] [place] [address] Phone: tel: fax: Referral ID Status Reason Start Date Expiration Date Visits Requested Visits Authorized [id number] Pending Review Consult and Treat 08/03/2024 08/03/2025 6 6 Encounter Details Date Type Department Care Team (Latest Contact Info) Description 06/29/2025 10:30 AM EDT Office Visit [facility] MEDICINE [address] [place] [address] Fransisco Goldsmith MD [address] [place] [address] Type 2 diabetes mellitus with diabetic polyneuropathy, [...] Questionnaire -2 Score 1 06/29/2025 10:31 AM EDT Yancy Mitchell MA * Little interest or pleasure in doing things Answer Date of Assessment Author Several days 06/29/2025 10:31 AM RJT Yancy Mitchell MA * Feeling down, depressed, or hopeless Answer Date of Assessment Author Not at all 06/29/2025 10:31 AM RJT Yancy Mitchell MA * Trouble falling or staying asleep, or sleeping too much Answer Date of Assessment Author Several days 06/29/2025 10:31 AM EDT Yancy Mitchell MA * Feeling tired or having little energy Answer Date of Assessment Author Nearly every day 06/29/2025 10:31 AM RJT Yancy Mitchell MA * Poor appetite or overeating Answer Date of Assessment Author Not at all 06/29/2025 10:31 AM EDT Yancy Mitchell MA * Feeling bad about yourself - [...] Trouble relaxing 1 06/29/2025 10:31 AM Yancy Salicdo MA Being so restless that it is hard to sit still 1 06/29/2025 10:31 AM Yancy Salcido MA Becoming easily annoyed or irritable 1 06/29/2025 10:31 AM Yancy Salcido MA Feeling afraid as if somethi ng awful might happen 0 06/29/2025 10:31 AM EDT Yancy Mitchell MA EARL-7 Total Score 6 06/29/2025 10:31 AM EDT Yancy Mitchell MA documented as of this encounter Progress [...] 8.3 Pt has been [facility], did not f/u Unfortunately she is non [...] Physical Medicine Rehab Preventative health care Mammogram: 01/12/2025 Pap Smear: last 07/05/2008 [place]. Pt refuses Colonoscopy: 09/05/2008 Dr Plunkett. Will refer back Other Visit Diagnoses Osteoarthritis, unspecified osteoarthritis type, unspecified site Relevant Medications celecoxib (CeleBREX) 100 MG capsule Future Appointments Date Time Provider Department Center 07/11/2025 9:30 AM Betsy Ann PharmD MEDICINE [facility] [1] No Known Allergies documented in this [...] 8.3 Pt has been referred to both [facility] and [facility], did not f/u Unfortunately she is non [...] Description 07/11/2025 9:30 AM EDT Medication Management [facility] MEDICINE [address] [place] [address] Betsy Ann, PharmD [address] [place] [address] Scheduled Orders Name Type Priority Associated Diagnoses Orde r Schedule XR Lumbar Spine Complete 4+ Views Imaging Routine Chronic right-sided low back pain with right-sided sciatica Ordered: 06/29/2025 XR Pelvis 1-2 Views Imaging Routine Chronic right-sided low back pain with right-sided sciatica Expected: 06/29/2025, Expires: 06/29/2026 Scheduled Referrals Name Type Priority Associated Diagnoses Orde r Schedule Referral to Physical Medicine Rehab Outpatient Referral Routine Chronic right-sided low back pain with right-sided sciatica Expected: 06/29/2025 (Approximate), Expires: 06/29/2026 documented as of this encounter Procedures Procedure Name Priority Date/Time Associated Diagnosis Comments XR HIP 2 OR 3 VIEWS RIGHT Routine 06/30/2025 10:39 AM EDT Chronic right-sided low back pain with right-sided sciatica POCT GLYCATED HEMOGLOBIN, TOTAL Routine 06/29/2025 10:34 AM EDT Type 2 diabetes mellitus with diabetic polyneuropathy, with long-term current use of insulin (HCC) POCT GLUCOSE Routine 06/29/2025 10:28 AM EDT Type 2 diabetes mellitus with diabetic polyneuropathy, with long-term current use of insulin (HCC) documented in this encounter Results * XR Hip 2 or 3 Views Right (06/30/2025 10:39 AM EDT) Anatomical Region Laterality Modality Lower Extremities, Hip Right Radiograp hic Imaging 06/30/2025 10:3 9 AM EDT Narrative 06/30/2025 10:45 AM EDT [address] [address] XRay Report Signed Patient: Esthela Flannery MR#: [id number] : 1955 Acct:[id number] Age/Sex: 69 / F ADM Date: 06/30/25 Loc: HO.HHCX Attending Dr: Fransisco Baires MD Ordering Physician: Fransisco Baires MD Date of Service: 06/30/25 Procedure(s): XR hip RT min 2V Accession Number(s): [id number] cc: Fransisco Baires MD Reason for Exam: PAIN EXAMINATION: XR HIP, RIGHT CLINICAL INFORMATION: PAIN COMPARISON: 05/28/2023. TECHNIQUE: Two views of the right hip. 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 There is no fracture, dislocation, or bone lesion. There is no soft tissue abnormality. 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 No acute findings. Electronically signed by: Tommie Kirby MD 06/30/2025 10:42 AM EDT Dictated By: Tommie Kirby MD Signed By: <Electronically signed by Tommie Kirby MD in OV> 06/30/25 1042 DD/ 1039 TD/TT: 06/30/25 103 Application Systems Engineer: Procedure Note Donotuseinterpreter, Image - 06/30/[address] [address] XRay Report Signed Patient: Iliana Flannery#: [id number] : 5Acct:[id number] Age/Sex: 69 / FADM Date: 06/30/25 Loc: HO.HHCX Attending Dr: Fransisco Baires MD Ordering Physician: Fransisco Baires MD Date of Service: 06/30/25 Procedure(s): XR hip RT min 2V Accession Number(s): [id number] cc: Fransisco Baires MD Reason for Exam: PAIN EXAMINATION: XR HIP, RIGHT CLINICAL INFORMATION: PAIN COMPARISON: 05/28/2023. TECHNIQUE: Two views of the right hip. 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 There is no fracture, dislocation, or bone lesion. There is no soft tissue abnormality. 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 No acute findings. Electronically signed by: Tommie Kirby MD 06/30/2025 10:42 AM EDT Dictated By: Tommie Kirby MD Signed By: <Electronically signed by Tommie Kirby MD in OV> 06/30/25 1042 DD/ 1039 TD/TT: 06/30/25 1035 Application Systems Engineer: Fransisco Ramon MD IMG XR PROCEDURES Fin al Result * (ABNORMAL) POCT Hgb A1c (06/29/2025 10:34 [...] Media Lot # [id number] Lot# Expiration Date Blood Capillary blood specimen / Unknown 06/29/2025 [...] Time PHQ-9 Depression Total Score: 7 06/29/20 10:31 AM EDT documented as of this encounter Care Teams Cutter Tender Relationship Specialty Start Date End Date Fransisco Goldsmith MD [address] [place] [address] PCP - General Internal Medicine 05/18/14 Christie Biswas PharmD [address] [place] [address] Pharmacist Internal Medicine 11/22/24 [facility] 01/06/24 Sanket - visiting nurse 11/22/24 documented as of this encounter
--- NOTE | ~2025-06-30 | XR_ITS ---
EXAMINATION: XR HIP, RIGHT CLINICAL INFORMATION: PAIN COMPARISON: 05/28/2023. TECHNIQUE: Two views of the right hip. 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 There is no fracture, dislocation, or bone lesion. There is no soft tissue abnormality. 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 No acute findings. Electronically signed by: Tommie Kirby MD 06/30/2025 10:42 AM EDT
--- NOTE | ~2025-06-30 | XR_ITS ---
EXAMINATION: XR LUMBOSACRAL SPINE CLINICAL INFORMATION: PAIN COMPARISON: October 26, 2017. TECHNIQUE: AP and lateral views FINDINGS: Syndesmophyte formation and endplate sclerosis and preservation of the intervertebral high at the lower axial skeleton the thoracic spine. Multilevel marginal osteophyte formation and syndesmophyte formation involving mostly the upper mid lumbar spine. No gross listhesis. No acute cortical disruption. No lytic or blastic lesions. Vascular calcification, aorta.. XR/XR lumbar spine 2-3V IMPRESSION: Multilevel thoracolumbar spondylosis without acute fracture or listhesis. Consider DISH, lower thoracic spine. Electronically signed by: Nick Major MD 06/30/2025 10:42 AM EDT
--- OUTSIDE RECORDS SUMMARY | 2025-06-30 11:09 | XMS_ITS | Encounter Summary ---
Author Organization [employer] Address [address] [facility] 7t [place] [address] Care Team Providers Care Preventative Maintenance Technician Name Role Phone Fransisco Goldsmith MD Primary Care Provide r Christie Biswas PharmD Unavailable [phone] Encounter Details Date Type Department Care Team (Late st Contact Info) Description 11/09/2024 Refill [facility] MEDICINE [address] [place] [address] Fransisco Goldsmith MD [address] [place] [address] Osteoarthritis, unspecified osteoarthritis type, unspecified site Social [...] 9:30 AM EDT Medication Management [facility] MEDICINE [address] [place] [address] Betsy Ann PharmD [address] [place] [address] documented as of this encounter Visit Diagnoses Diagnosis Osteoarthritis, unspecified osteoarthritis type, unspecified site documented in this encounter Additional Health Concerns Assessment Noted Time PHQ-9 Depression Total Score: 4 06/02/20 24 9:28 AM EDT documented as of this encounter Care Teams Preventative Maintenance Technician Relationship Specialty Start Date End Date Fransisco Goldsmith MD [address] [place] [address] PCP - General Internal Medicine 05/18/14 Christie Biswas, PharmD [address] [place] [address] Pharmacist Internal Medicine 11/22/24 [facility] 01/06/24 Sanket - visiting nurse 11/22/24 documented as of this encounter
--- OUTSIDE RECORDS SUMMARY | 2025-06-30 11:09 | XMS_ITS | Encounter Summary ---
Author Organization [employer] Address 75 [facility] 7t [place] [address] Care Team Providers Care Manager Electrical Name Role Phone Fransisco Goldsmith MD Primary Care Provide r Christie Biswas PharmD Unavailable [phone] Reason for Visit * Reason Comments Med Refill Encounter Details Date Type Department Care Team (Late st Contact Info) Description 06/10/2023 Refill [facility] MEDICINE 230 [place] [address] Fransisco Goldsmith MD 230 [place], [place] [phone] Type 2 diabetes mellitus with diabetic polyneuropathy, with long-term current use of insulin ([facility]) Social History Tobacco Use Types Packs/Day [...] Description 07/11/2025 9:30 AM EDT Medication Management [facility] MEDICINE [address] [place] [address] Betsy Ann PharmD [address] [place] [address] documented as of this encounter Visit Diagnoses Diagnosis Type 2 diabetes mellitus with diabetic polyneuropathy, with long-term current use of insulin (HCC) documented in this encounter Care Teams Manager Electrical Relationship Specialty Start Date End Date Franssico Goldsmith MD 230 [place], [place] [phone] PCP - General Internal Medicine 05/18/14 Christie Biswas PharmD [address] [place] [address] Pharmacist Internal Medicine 11/22/24 [facility] 01/06/24 Sanket - visiting nurse 11/22/24 documented as of this encounter
--- OUTSIDE RECORDS SUMMARY | 2025-06-30 11:09 | XMS_ITS | Clinical Summary ---
Author Organization [facility] Address 175 [place] [address] Phone Care Team Providers Care Biology Department Chair Name Role Phone Fransisco Baires MD Primary [...] due t o excess calories in adult ([facility] V28) 07/05/2024 Closed fracture of left orbit ([facility] V24, [facility] V28) 07/05/2024 Depressive disorder 07/05/2024 GERD (gastroesophageal reflux disease) HTN (hypertension) 07/05/2024 Kidney stone 07/05/2024 Mild persistent asthma without complication 04/2024 Mixed hyperlipidemia 07/05/2024 CRYSTAL (obstructive sleep apnea) 07/05/2024 Osteopenia 07/05/2024 Pain in right leg 07/05/2024 Peripheral neuropathy 07/05/2024 Simple renal cyst 07/05/2024 Substance abuse ([facility] V24, [facility] V28) 07/05 T2DM (type 2 diabetes mellitus) ([facility] V24, [facility] V28) 07/05/2024 Urge incontinence of urine 07/05/2024 Encounters Date Type Department Care Team Description 04/13/2025 10:15 AM EDT Office Visit Orthopedic Surgery - [address] [address] Eric Romero, DPM Acquired hammer toe of right foot (Primary Dx); Primary osteoarthritis of both feet; Dermatophytosis of nail; Pain in toe of right foot; Pain in toe of left foot; Corns and callosities; Type II diabetes mellitus with peripheral circulatory disorder ([facility] V24, [facility] V28); Tinea pedis of both feet; Metatarsalgia [...] AM EDT Office Visit Orthopedic Surgery - [place] [address] [address] Eric Romero, DPM [address] [phone] Health Maintenance Due Date Last Done Comments [...] complete this topic Insurance MEDICAID - [place] [employer] MEDICARE Member Subscriber Plan / Payer (Ef fective 2020-Present) Name:Tono Galvan Relation to Subscriber:Self Name:Tono Galvan Payer ID:[id number] Group ID:[id number] Type:Not on file Address: [address] [place] [address] Care Teams Biology Department Chair Relationship Specialty Start Date End Date Fransisco Baires MD [address] [place] [address] [place] [address] PCP - General 03/15/24
--- OUTSIDE RECORDS SUMMARY | 2025-06-30 11:09 | XMS_ITS | Encounter Summary ---
Author Organization [employer] Address 75 [facility] 7t [place] [address] Care Team Providers Care Tobacco Roller Name Role Phone Fransisco Goldsmith MD Primary Care Provide r Christie Biswas PharmD Unavailable [phone] Reason for Visit * Reason Onset Date Comments chart prep 06/28/2025 Encounter Details Date Type Department Care Team ([facility] st Contact Info) Description 06/28/2025 Telephone [facility] MEDICINE 230 [place], [place] [phone] Fransisco Goldsmith MD 230 [place], [place] [phone] chart prep Social History Tobacco Use Types [...] Description 07/11/2025 9:30 AM EDT Medication Management [facility] MEDICINE [address] [place] [address] Betsy Ann, PharmD [address] [place] [address] documented as of this encounter Visit Diagnoses Not on filedocumented in this encounter Additional Health Concerns Assessment Noted Time PHQ-9 Depression Total Score: 4 06/02/20 24 9:28 AM EDT documented as of this encounter Care Teams Tobacco Roller Relationship Specialty Start Date End Date Fransisco Goldsmith MD [address] [place] [address] PCP - General Internal Medicine 05/18/14 Christie Biswas, CarolynD [address] [place] [address] Pharmacist Internal Medicine 11/22/24 [facility] 01/06/24 Sanket - visiting nurse 11/22/24 documented as of this encounter
--- OUTSIDE RECORDS SUMMARY | 2025-06-30 11:09 | XMS_ITS | Encounter Summary ---
Author Organization [employer] Address 75 [facility] 7t [place] [address] Care Team Providers Care Plumber Pipe Fitting Name Role Phone Fransisco Goldsmith MD Primary Care Provide r Christie Biswas PharmD Unavailable [phone] Reason for Visit * Reason Comments Med Refill Encounter Details Date Type Department Care Team ([facility] st Contact Info) Description 05/19/2024 Refill [facility] MEDICINE 230 [place], [place] [phone] Fransisco Goldsmith MD 230 [place], [place] [phone] Mixed hyperlipidemia Social History Tobacco Use Types [...] Description 07/11/2025 9:30 AM EDT Medication Management [facility] MEDICINE [address] [place] [address] Betsy Ann PharmD 230 [place] [address] documented as of this encounter Visit Diagnoses Diagnosis Mixed hyperlipidemia documented in this encounter Care Teams Plumber Pipe Fitting Relationship Specialty Start Date End Date Fransisco Goldsmith MD [address] [place] [phone] PCP - General Internal Medicine 05/18/14 Christie Biswas PharmD [address] [place] [phone] Pharmacist Internal Medicine 11/22/24 [facility] 01/06/24 Sanket - visiting nurse 11/22/24 documented as of this encounter
--- OUTSIDE RECORDS SUMMARY | 2025-06-30 11:09 | XMS_ITS | Encounter Summary ---
Author Organization [employer] Address [address] [facility] [address] 7t [place] [address] Care Team Providers Care Sanitary Landfill Supervisor Name Role Phone Fransisco Goldsmith MD Primary Care Provide r Christie Biswas PharmD Unavailable [phone] Encounter Details Date Type Department Care Team [...] [place] documented as of this encounter Plan of Treatment Upcoming Encounters Date Type Department Care Team (Late st Contact Info) Description 07/11/2025 9:30 AM EDT Medication Management [facility] MEDICINE 230 [place] [address] Betsy Ann, PharmD 230 [place] [address] documented as of this encounter Visit Diagnoses Not on filedocumented in this encounter Additional Health Concerns Assessment Noted Time PHQ-9 Depression Total Score: 7 06/29/20 25 10:31 AM EDT documented as of this encounter Care Teams Sanitary Landfill Supervisor Relationship Specialty Start Date End Date Fransisco Goldsmith MD 230 [place], [place] [phone] PCP - General Internal Medicine 05/18/14 Christie Biswas PharmD 230 [place] [address] Pharmacist Internal Medicine 11/22/24 [facility] 01/06/24 Sanket - visiting nurse 11/22/24 documented as of this encounter
--- OUTSIDE RECORDS SUMMARY | 2025-06-30 11:09 | XMS_ITS | Encounter Summary ---
Author Organization [employer] Address [address] [facility] [address] 7t [place] [address] Care Team Providers Care Radio Adjuster Name Role Phone Fransisco Goldsmith MD Primary Care Provide r Christie Biswas PharmD Unavailable [phone] Reason for Visit * Reason Comments Med Refill Encounter Details Date Type Department Care Team ([facility] st Contact Info) Description 06/28/2025 Refill [facility] MED & PEDS [address] [place], [place] [phone] Fransisco Goldsmith MD [address] [place] [address] Social History Tobacco Use Types Packs/Day Years [...] Description 07/11/2025 9:30 AM EDT Medication Management [facility] MEDICINE 230 [place] [address] Betsy Ann PharmD [address] [place] [address] documented as of this encounter Visit Diagnoses Not on filedocumented in this encounter Additional Health Concerns Assessment Noted Time PHQ-9 Depression Total Score: 4 06/02/20 24 9:28 AM EDT documented as of this encounter Care Teams Radio Adjuster Relationship Specialty Start Date End Date Fransisco Goldsmith MD [address] [place] [address] PCP - General Internal Medicine 05/18/14 Christie Biswas, CarolynD [address] [place] [address] Pharmacist Internal Medicine 11/22/[address] [facility] 01/06/24 Sanket - visiting nurse 11/22/24 documented as of this encounter
--- OUTSIDE RECORDS SUMMARY | 2025-06-30 11:09 | XMS_ITS | Encounter Summary ---
Author Organization [employer] Address 75 [facility] 7t [place] [address] Care Team Providers Care Thrasher Feeder Name Role Phone Fransisco Goldsmith MD Primary Care Provide r Christie Biswas PharmD Unavailable [phone] Reason for Visit * Reason Onset Date Comments Durable Medical Equipment 06/29/2025 Encounter Details Date Type Department Care Team (Late st Contact Info) Description 06/29/2025 Telephone [facility] MEDICINE 230 [place] [address] Fransisco Goldsmith MD 230 [place], [place] [phone] Durable Medical Equipment Social History Tobacco Use [...] Not at all 06/29/2025 10:31 AM Yancy Salciod [place] * Trouble falling or staying asleep, [...] Encounter - Gilma Baker RN - 06/29/2025 2:22 PM EDT DME request for walker with set/wheels/breaks, and commode sent to Doc. Confirmation received. Spoke with PCP in office, pt referred to physical therapy at which need for electric scooterwill be evaluated. * Telephone Encounter - Gilma Baker RN - 06/29/2025 11:51 AM EDT Pt requesting DME supplies during PCP office visit - Gloves, wipes - script on file from 11/2024 - has refills, needs to call [facility] - Commode - walker Pt also requesting standing electric scooter. Advised her if PCP agrees, she will need to be evaluated by [facility] wheelchair evaluation. documented in this encounter Plan of Treatment Upcoming Encounters Date Type Department Care Team (Late st Contact Info) Description 07/11/2025 9:30 AM EDT Medication Management [facility] MEDICINE [address] [place] [address] Betsy Ann PharmD [address] [place] [address] documented as of this encounter Visit Diagnoses Not on filedocumented in this encounter Additional Health Concerns Assessment Noted Time PHQ-9 Depression Total Score: 7 06/29/20 25 10:31 AM EDT documented as of this encounter Care Teams Thrasher Feeder Relationship Specialty Start Date End Date Fransisco Goldsmith MD [address] [place] [address] PCP - General Internal Medicine 05/18/14 Christie Biswas, Cristian [address] [place] [address] Pharmacist Internal Medicine 11/22/24 [facility] 01/06/24 Sanket - LILIAAN visiting nurse 11/22/24 documented as of this encounter
--- OUTSIDE RECORDS SUMMARY | 2025-06-30 11:10 | XMS_ITS | Encounter Summary ---
Author Organization [employer] Address 75 [facility] 7t [place] [address] Care Team Providers Care Fire Battalion Chief Name Role Phone Fransisco Goldsmith MD Primary Care Provide r Christie Biswas PharmD Unavailable [phone] Encounter Details Date Type Department Care Team (Late st Contact Info) Description 10/14/2022 Orders Only [facility] MEDICINE [address] [place] [address] Rochelle Rosa LPN Social History Tobacco Use [...] Medication Management [facility] MEDICINE [address] [place] [address] Betsy Ann, PharmD [address] [place] [address] documented as of this encounter Visit Diagnoses Not on filedocumented in this encounter Care Teams Fire Battalion Chief Relationship Specialty Start Date End Date Fransisco Goldsmith MD 230 [place] [address] PCP - General Internal Medicine 05/18/14 Christie Biswas, Cristian [address] [place] [address] Pharmacist Internal Medicine 11/22/[address] [facility] 01/06/24 Sanket - visiting nurse 11/22/24 documented as of this encounter
--- OUTSIDE RECORDS SUMMARY | 2025-06-30 11:10 | XMS_ITS | Encounter Summary ---
Author Organization [employer] Address [address] [facility] [address] 7t [place] [address] Care Team Providers Care Platen Builder Up Name Role Phone Fransisco Goldsmith MD Primary Care Provide r Christie Biswas PharmD Unavailable [phone] Encounter Details Date Type Department Care Team ([facility] st Contact Info) Description 08/15/2024 Telephone [facility] MEDICINE [address] [place], [place] [phone] Fransisco Goldsmith MD 230 [place], [place] [phone] Social History Tobacco Use Types Packs/Day Years [...] 07/11/2025 9:30 AM EDT Medication Management [facility] MEDICINE [address] [place] [address] Betsy Ann PharmD [address] [place] [address] documented as of this encounter Visit Diagnoses Not on filedocumented in this encounter Additional Health Concerns Assessment Noted Time PHQ-9 Depression Total Score: 4 06/02/20 24 9:28 AM EDT documented as of this encounter Care Teams Platen Builder Up Relationship Specialty Start Date End Date Fransisco Goldsmith MD [address] [place] [address] PCP - General Internal Medicine 05/18/14 Christie Biswas PharmD [address] [place] [address] Pharmacist Internal Medicine 11/22/24 [facility] 01/06/24 Sanket - visiting nurse 11/22/24 documented as of this encounter
--- OUTSIDE RECORDS SUMMARY | 2025-06-30 11:10 | XMS_ITS | Encounter Summary ---
Author Organization [employer] Address 75 [facility] 7t [place] [address] Care Team Providers Care Ged Preparation Teacher Name Role Phone Fransisco Goldsmith MD Primary Care Provide r Christie Biswas PharmD Unavailable [phone] Encounter Details Date Type Department Care Team (Late st Contact Info) Description 11/03/2022 Orders Only [facility] CH[facility] MED & PEDS [address] [place], [place] [phone] Elli Baker LPN Social History Tobacco Use [...] Description 07/11/2025 9:30 AM EDT Medication Management [facility] MEDICINE 230 [place] [address] Betsy Ann, PharmD [address] [place] [address] documented as of this encounter Visit Diagnoses Not on filedocumented in this encounter Care Teams Ged Preparation Teacher Relationship Specialty Start Date End Date Fransisco Goldsmith MD [address] [place] [address] PCP - General Internal Medicine 05/18/14 Christie Biswas, Cristian [address] [place] [address] Pharmacist Internal Medicine 11/22/24 [facility] 01/06/24 Sanket - visiting nurse 11/22/24 documented as of this encounter
--- OUTSIDE RECORDS SUMMARY | 2025-06-30 11:10 | XMS_ITS | Encounter Summary ---
Author Organization [employer] Address 75 [facility] 7t [place] [address] Care Team Providers Care Roll Forger Name Role Phone Fransisco Goldsmith MD Primary Care Provide r Christie Biswas PharmD Unavailable [phone] Encounter Details Date Type Department Care Team (Late st Contact Info) Description 10/06/2022 Orders Only [facility] MED & PEDS [address] [place], [place] [phone] Elli Baker LPN Social History Tobacco Use [...] 07/11/2025 9:30 AM EDT Medication Management [facility] MEDICINE 230 [place] [address] Betsy Ann, PharmD [address] [place] [address] documented as of this encounter Visit Diagnoses Not on filedocumented in this encounter Care Teams Roll Forger Relationship Specialty Start Date End Date Fransisco Goldsmith MD [address] [place] [address] PCP - General Internal Medicine 05/18/14 Christie Biswas, Cristian [address] [place] [address] Pharmacist Internal Medicine 11/22/24 [facility] 01/06/24 Sanket - visiting nurse 11/22/24 documented as of this encounter
--- OUTSIDE RECORDS SUMMARY | 2025-06-30 11:10 | XMS_ITS | Clinical Summary ---
Author Organization [employer] Address [address] [facility] 7t [place] [address] Care Team Providers Care Faculty Physician Name Role Phone Fransisco Goldsmith MD Primary Care Provide r Christie Biswas PharmD Unavailable [phone] Allergies No known active allergies Medications albuterol [...] AREA(S) TWICE DAILY Active Athletes Foot Powder Rocky Face 2 % aerosol powder APPLY TOPICALLY TO THE AFFECTED AREA(S) EVERY DAY Active FREESTYLE LITE test stripIndications :Type 2 diabetes mellitus with diabetic polyneuropathy, with long-term current use of insulin ([facility]) TEST BLOOD SUGAR THREE TIMES DAILY 100 strip Active TRUEplus Lancets 33G miscIndications: Type 2 diabetes mellitus with diabetic polyneuropathy, with long-term current use of insulin ([facility]) TEST BLOOD SUGAR THREE TIMES DAILY 100 each Active docusate sodium (Colace) 100 MG capsuleIndicatio ns:Constipation, unspecified constipation type TAKE 1 CAPSULE BY MOUTH TWICE DAILY IN THE MORNING AND AT BEDTIME 180 capsule Active lisinopril 10 MG tabletIndication s:Type 2 diabetes mellitus with diabetic polyneuropathy, with long-term current use of insulin ([facility]) TAKE 1 TABLET BY MOUTH AT [...] complication, with long-term current use of insulin ([facility]) INJECT 46 UNITS SUBCUTANEOUSLY EVERY DAY AT [...] polyneuropathy, with long-term current use of insulin ([facility]) Inject 0.75 mL (2 mg) under the [...] Will refer back. I have asked her CUSTOMER SERVICE ENGINEER to contact us if she does not [...] 8.3 Pt has been referred to both Manager Continuous Improvement and museum educator, did not f/u Unfortunately she is [...] 7.8 Pt has been referred to both Manager Continuous Improvement and museum educator, did not f/u Unfortunately she is [...] 7.8 Pt has been referred to both Manager Continuous Improvement and museum educator, did not f/u Unfortunately she is [...] 9.1 Pt has been referred to both Manager Continuous Improvement and museum educator, did not f/u Unfortunately she is [...] a f/u visit Her daughter is her CUSTOMER SERVICE ENGINEER. She is on Trulicity 0.75 once a week and Lantus 56 units sc q pm Pt reported severe stomach upset and diarrhea with Metformin. so this was discontinued Hgb A1c 11/10/2022 was 9.1 Pt has been referred to both Manager Continuous Improvement and museum educator, did not f/u Unfortunately she is non compliant Glucometer review today showed BG fluctuating between 148 and 235 Plan: increase trulicity to 1.5 mg once a week Pt denies hx of thyroid cancer or pancreatitis f/u 3 months Eye exam done on: 12/22/2013 by [facility] (home care specialist) Microalbumin checked on: 10/27/2019 was: 8 Pt [...] for SAFETY and Medical necessity Substance abuse ([facility]) 04/15/2016 Obstructive sleep apnea syndrome 04/20/2013 Peripheral [...] Resolved Date Closed fracture of left orbit (CMS/[facility]) 11/10/2022 11/29/2024 Assessment & Plan (11/11/2022 9:48 [...] oxycodone for pain. Patient discharged home to [facility] with ear nose and throat and I have placed a referral to Ophthalmology as well Encounters Date Type Department Care Team Description 06/30/2025 Orders Only [facility] [address] [place] [address] Fransisco Goldsmith MD 06/29/2025 10:30 AM EDT Office Visit [facility] [address] [place] [address] Fransisco Goldsmith MD Type 2 diabetes mellitus with diabetic polyneuropathy, with long-term current use of insulin (HCC) (Primary Dx); Essential hypertension; Mixed hyperlipidemia; Depressive disorder; Urge incontinence of urine; Chronic right-sided low back pain with right-sided sciatica; Preventative health care; Osteoarthritis, unspecified osteoarthritis type, unspecified site; Encounter for immunization 06/29/2025 Telephone [facility] [place] [address] Fransisco Goldsmith MD Durable Medical Equipment 06/29/2025 Travel 06/28/2025 Telephone [facility] [place] [address] Fransisco Goldsmith MD chart prep 06/28/2025 Refill [facility] [address] [place], [place] [phone] Fransisco Goldsmith MD 06/22/2025 Patient Outreach [facility] [address] [place], [place] [phone] Fransisco Goldsmith MD Pre-visit Planning ([facility] unable to reach [facility]) 05/24/2025 Refill [facility] [address] [place] [address] Fransisco Goldsmith MD Constipation, unspecified constipation type 05/03/2025 Refill [facility] [address] [place] [address] Madeline Quinn, PharmD 04/29/2025 Refill [facility] [address] [facility] [place] [address] Fransisco Goldsmith MD Primary insomnia from Last [...] Description 07/11/2025 9:30 AM EDT Medication Management [facility] [address] [place] [address] Betsy Ann, PharmD [address] [place] [address] Health Maintenance Due Date Last Done Comments [...] 05/08/2022, Additional history exists COVID-19 Vaccine ( - season) 2025 07/08/2022, 01/08/2021, 12/12/2020 Pneumococcal Vaccine: [...] 01/20/2026 01/20/2025 Depression Screening 06/29/2026 06/29/2025, 06/29/20 25 Eye Exam 01/20/2027 01/20/2025, 12/28, 01/20/2025, Additional [...] right-sided low back pain with right-sided sciatica XR LUMBAR SPINE 2-3 VIEWS Routine 06/30/2025 10:30 AM EDT POCT GLYCATED HEMOGLOBIN, TOTAL Routine 06/29/2025 10:34 AM EDT Type 2 diabetes mellitus with diabetic polyneuropathy, with long-term current use of insulin (HCC) POCT GLUCOSE Routine 06/29/2025 10:28 AM EDT Type 2 diabetes mellitus with diabetic polyneuropathy, with long-term current use of insulin ([facility]) BI MAMMOGRAM SCREENING TOMOSYNTHESIS BILATERAL Routine 01/12/2025 9:33 AM EDT Breast cancer screening by mammogram LIPID PANEL, STANDARD Routine 11/29/2024 10:24 AM EST Type 2 diabetes mellitus with diabetic polyneuropathy, with long-term current use of insulin ([facility]/HCC) ALBUMIN, RANDOM URINE W/CREATININE Routine 04/19/2024 10:00 AM EDT HEPATITIS C AB W/REFL TO HCV RNA, QN, PCR Routine 11/11/2022 9:56 AM EST Type 2 diabetes mellitus with diabetic polyneuropathy, with long-term current use of insulin (CMS/HCC) from Last 3 Months or Most Recently Relevant to Health Maintenance Results * XR Hip 2 or 3 Views Right (06/30/2025 10:39 AM EDT) Anatomical Region Laterality Modality Lower Extremities, Hip Right Radiograp hic Imaging 06/30/2025 10:3 9 AM EDT Narrative 06/30/2025 10:45 AM EDT [facility] [address] [place] [address] XRay Report Signed Patient: Esthela Flannery MR#: [id number] 73 : 1955 Acct:[id number] Age/Sex: 69 / F ADM Date: 06/30/25 Loc: HO.HHCX Attending Dr: Fransisco Baires MD Ordering Physician: Fransisco Baires MD Date of Service: 06/30/25 Procedure(s): XR hip RT min 2V Accession Number(s): [id number] cc: Fransisco Baires MD Reason for Exam: [...] 06/30/25 1042 DD/ 1039 TD/TT: 06/30/25 1035 Mold Capper: Procedure Note Donotuseinterpreter, Image - 06/30/2025 [facility] [address] [place] [address] XRay Report Signed Patient: Federico FlanneryR#: [id number] 73 : 5Acct:[id number] Age/Sex: 69 / FADM Date: 06/30/25 Loc: HO.HHCX Attending Dr: Fransisco Baires MD Ordering Physician: Fransisco Baires MD Date of Service: 06/30/25 Procedure(s): XR hip RT min 2V Accession Number(s): [id number] cc: Fransisco Baires MD Reason for Exam: [...] Tommie Kirby MD 06/30/2025 10:42 AM EDT Workstation: Open [id number] Dictated By: Tommie Kirby MD Signed By: <Electronically signed by Tommie Kirby MD in OV> 06/30/25 1042 DD/ 1039 TD/TT: 06/30/25 1035 Mold Capper: us Fransisco Ramon MD IMG XR PROCEDURES Fin al Result * XR Lumbar Spine 2-3 Views (06/30/2025 10:30 AM EDT) Anatomical Region Laterality Modality Spine, L-spine Radiographic Yuliet ging 06/30/2025 10:3 0 AM EDT Narrative 06/30/2025 10:45 AM EDT [address] [address] XRay Report Signed Patient: Esthela Flannery MR#: [id number] 73 : 1955 Acct:[id number] Age/Sex: 69 / F ADM Date: 06/30/25 Loc: HO.HHCX Attending Dr: Fransisco Baires MD Ordering Physician: Fransisco Baires MD Date of Service: 06/30/25 Procedure(s): XR lumbar spine 2-3V Accession Number(s): [id number] cc: Fransisco Baires MD Reason for Exam: PAIN EXAMINATION: XR LUMBOSACRAL SPINE CLINICAL INFORMATION: PAIN COMPARISON: October 26, 2017. TECHNIQUE: AP and lateral views FINDINGS: Syndesmophyte formation and endplate sclerosis and preservation of the intervertebral high at the lower axial skeleton the thoracic spine. Multilevel marginal osteophyte formation and syndesmophyte formation involving mostly the upper mid lumbar spine. No gross listhesis. No acute cortical disruption. No lytic or blastic lesions. Vascular calcification, aorta.. XR/XR lumbar spine 2-3V IMPRESSION: Multilevel thoracolumbar spondylosis without acute fracture or listhesis. Consider DISH, lower thoracic spine. Electronically signed by: Nick Major MD 06/30/2025 10:42 AM EDT RP Dictated By: Nick Archer MD Signed By: <Electronically signed by Nick Ervin MD in OV> 06/30/25 1042 DD/ 1030 TD/TT: 06/30/25 1035 Mold Capper: Procedure Note Donotuseinterpreter, Image - 06/30/2025 [place] [address] XRay Report Signed Patient: Iliana Flannery#: [id number] 73 : 5Acct:[id number] Age/Sex: 69 / FADM Date: 06/30/25 Loc: HO.HHCX Attending Dr: Fransisco Baires MD Ordering Physician: Fransisco Baires MD Date of Service: 06/30/25 Procedure(s): XR lumbar spine 2-3V Accession Number(s): [id number] cc: Fransisco Baires MD Reason for Exam: PAIN EXAMINATION: XR LUMBOSACRAL SPINE CLINICAL INFORMATION: PAIN COMPARISON: October 26, 2017. TECHNIQUE: AP and lateral views FINDINGS: Syndesmophyte formation and endplate sclerosis and preservation of the intervertebral high at the lower axial skeleton the thoracic spine. Multilevel marginal osteophyte formation and syndesmophyte formation involving mostly the upper mid lumbar spine. No gross listhesis. No acute cortical disruption. No lytic or blastic lesions. Vascular calcification, aorta.. XR/XR lumbar spine 2-3V IMPRESSION: Multilevel thoracolumbar spondylosis without acute fracture or listhesis. Consider DISH, lower thoracic spine. Electronically signed by: Nick Major MD 06/30/2025 10:42 AM EDT RP Dictated By: Nick Archer MD Signed By: <Electronically signed by Nick Ervin MDin OV> 06/30/25 1042 DD/ 1030 TD/TT: 06/30/25 1035 Mold Capper: Fransisco Ramon MD IMG XR PROCEDURES Fin [...] specimen / Unknown 06/29/2025 10:28 AM EDT us Fransisco Ramon MD POINT OF CARE TEST EN TER/EDIT ORDERABLES Final Result * BI Mammogram Screening Tomosynthesis Bilateral (01/12/2025 9:33 AM EDT) Anatomical Region Laterality Modality Breast Bilateral Mammography 01/12/2025 9:33 AM EDT Narrative 01/21/2025 8:25 PM EDT [facility] [address] [place] [address] Mammography Report Signed Patient: Esthela Flannery MR#: [id number] 73 : 1955 Acct:[id number] Age/Sex: 69 / F ADM Date: 01/12/25 Loc: HO.MAMMO Attending Dr: Fransisco Baires MD Ordering Physician: Fransisco Baires MD Resu lts: 1Negative Date of Service: 01/12/25 Follow Up: 1 Year From Orig inal Mammogram Procedure(s): MM tomosynthesis screening BI Accession Number(s): [id number] cc: Fransisco Baires MD EXAMINATION: MM SCREENING [...] OV> 01/21/252021 DD/ 0933 TD/TT: 01/12/25 1006 Mold Capper: Procedure Note Donotuseinterpreter, Image - 01/21/2025 [facility] [address] [place] [address] Mammography Report Signed Patient: Iliana Flannery#: [id number] 73 : 5Acct:[id number] Age/Sex: 69 / FADM Date: 01/12/25 Loc: HO.MAMMO Attending Dr: Fransisco Baires MD Ordering Physician: Fransisco Baires MDResu lts: 1Negative Date of Service: 01/12/25Follow Up: 1 Year From Orig inal Mammogram Procedure(s): MM tomosynthesis screening BI Accession Number(s): [id number] cc: Fransisco Baires MD EXAMINATION: MM SCREENING [...] OV> 01/21/252021 DD/ 0933 TD/TT: 01/12/25 1006 Mold Capper: us Fransisco Ramon MD IMG BI PROCEDURES Lebron domingo Result - Final * Lipid Panel, Standard (11/29/2024 10:24 AM EST) Triglycerides 83 <150 mg/dL [facility] Comment:Desirable Triglyceri de: less than 150 mg/dLBorderline High Triglyceride 150-199 mg/dLHigh Triglyceride: 200-499 mg/dLVery High Triglyceride: greater than or equal to 5OO mg/dL Cholesterol 160 <200 mg/dL [facility] Comment:Desirable Cholestero l: less than 200 mg/dLBorderline High Cholesterol: 200-239 mg/dLHigh Cholesterol: greater than 239 mg/dL LDL Cholesterol Calculated 87 <100 mg/dL [facility] Comment:Desirable LDL: less than 100 mg/dLNear Optimal/Above Optimal LDL: 110- 129 mg/dLBorderline High LDL: 130-159 mg/dLHigh LDL: 160-189 mg/dLVery High LDL: greater than or equal to 190 mg/dL HDL Cholesterol 57 >40 mg/dL [facility] Comment:Desirable HDL: great er than 40 mg/dL Note: This HDL assay may give artificially low results in patients with liver disease. Blood Venous blood specimen / Unknown 11/29/2024 10:24 AM EST 11/29/2024 11:19 AM EST us Fransisco Ramon MD LAB BLOOD ORDERABLES Final Result [facility] [address] [place] [phone] * Albumin, Random Urine W/Creatinine (04/19/2024 10:00 AM EDT) Creatinine, Urine 159.36 mg/dL [facility] Microalbumin Urine 38.0 mg/L [facility] Microalbum Creatinine Ratio Ur 23.8 <30 ug/mg cr [facility] Comment:Albumin/Creatinine R atio Reference Ranges: Normal: < 30 ug/mg creatinine Microalbuminuria: 30 - 300 ug/mg creatinineClinical Albuminuria: > 300 ug/mg creatinine 04/19/2024 10:0 0 AM EDT 04/19/2024 11:13 AM EDT Fransisco Ramon MD LAB URINE ORDERABLES Final Result [facility] [address] [place] [address] [phone] * Hepatitis C Antibody with Reflex to HCV, RNA, Quantitative, Real-Time PCR (11/11/2022 9:56 AM EST) Hepatitis C Antibody NON-REACT EMILY NON-REACT EMILY [facility] Index 0.05 <1.00 [facility] Comment: HCV antibody was non-reactive. There is no laboratory evidence of HCV infection. In most cases, no further action is required. However, if recent HCV exposure is suspected, a test for HCV RNA (test code 52112) is suggested. For additional information please refer to http://education.[employer]/faq/UUQ56d6 (This link is being provided for informational/ educational purposes only.) Blood Venous blood specimen / Unknown 11/11/2022 9:56 AM EST 11/11/2022 9:57 AM EST Narrative [facility] - 11/11/2022 10:40 PM EST FASTING:YES FASTING: YES Fransisco Ramon MD LAB BLOOD ORDERABLES Final Result Performing Organization Address City/[facility]/ZIP Co de Phone Number [facility] [address], [place] [address] [employer] [place] [employer] [facility] [address] [facility], ([address]) [place] [address] from Last 3 Months or Most Recently Relevant to Health Maintenance Insurance [employer]M [employer] (HMO D-SNP) [facility] STANDARD Care Teams Faculty Physician Relationship Specialty Start Date End Date Fransisco Goldsmith MD [address] [place] [address] PCP - General Internal Medicine 05/18/14 Christie Biswas PharmD [address] [place] [address] Pharmacist Internal Medicine 11/22/24 [facility] 01/06/24 Sanket - visiting nurse 11/22/24
--- OUTSIDE RECORDS SUMMARY | 2025-06-30 11:10 | XMS_ITS | Encounter Summary ---
Author Organization [employer] Address [address] [facility] 7t [place] [address] Care Team Providers Care Head Start Teacher Name Role Phone Fransisco Goldsmith MD Primary Care Provide r Christie Biswas PharmD Unavailable [phone] Encounter Details Date Type Department Care Team ([facility] st Contact Info) Description 06/30/2025 Orders Only [facility] [address] [place] [address] Fransisco Goldsmith MD [address] [place] [address] Social History Tobacco Use Types Packs/Day Years [...] Description 07/11/2025 9:30 AM EDT Medication Management [facility] [address] [place] [phone] Betsy Ann, CarolynD [address] [place] [phone] documented as of this encounter Procedures Procedure Name Priority Date/Time Associated Diagnosis Comments XR LUMBAR SPINE 2-3 VIEWS Routine 06/30/2025 10:30 AM EDT documented in this encounter Results * XR Lumbar Spine 2-3 Views (06/30/2025 10:30 AM EDT) Anatomical Region Laterality Modality Spine, L-spine Radiographic Yuliet ging 06/30/2025 10:3 0 AM EDT Narrative 06/30/2025 10:45 AM EDT [address] [address] XRay Report Signed Patient: Esthela Flannery MR#: [id number] 73 : 1955 Acct:[id number] Age/Sex: 69 / F ADM Date: 06/30/25 Loc: HO.HHCX Attending Dr: Fransisco Baires MD Ordering Physician: Fransisco Baires MD Date of Service: 06/30/25 Procedure(s): XR lumbar spine 2-3V Accession Number(s): [id number] cc: Fransisco Baires MD Reason for Exam: [...] 06/30/25 1042 DD/ 1030 TD/TT: 06/30/25 1035 Gold Beater: Procedure Note Donotuseinterpreter, Image - 06/30/[address] [address] XRay Report Signed Patient: Iliana Flannery#: [id number] 73 : 5Acct:[id number] Age/Sex: 69 / FADM Date: 06/30/25 Loc: HO.HHCX Attending Dr: Fransisco Baires MD Ordering Physician: Fransisco Baires MD Date of Service: 06/30/25 Procedure(s): XR lumbar spine 2-3V Accession Number(s): [id number] cc: Fransisco Baires MD Reason for Exam: [...] 06/30/25 1042 DD/ 1030 TD/TT: 06/30/25 1035 Gold Beater: Fransisco Ramon MD IMG XR PROCEDURES Fin al Result documented in this encounter Visit Diagnoses Not on filedocumented in this encounter Additional Health Concerns Assessment Noted Time PHQ-9 Depression Total Score: 7 06/29/20 10:31 AM EDT documented as of this encounter Care Teams Head Start Teacher Relationship Specialty Start Date End Date Fransisco Goldsmith MD [address] [place] [address] PCP - General Internal Medicine 05/18/14 Christie Biswas PharmD [address] [place] [address] Pharmacist Internal Medicine 11/22/24 [facility] 01/06/24 Sanket - visiting nurse 11/22/24 documented as of this encounter
== END 2025-06-30 10:19 | disposition home or self-care (01) ==
LOC: HO.HHCX 10:18
PROVIDERS: Visit Provider Internal Medicine
DX: M54.41 Lumbago with sciatica, right side (principal); G89.29 Other chronic pain
CPT/HCPCS: 72100; 73502

== ENCOUNTER → 2025-06-30 10:30 | Outpatient (BNV) | payer OTHER, SELFPAY | PROVIDERS: Visit Provider Radiology Diagnostic Radiology | DX: M47.815 Spondylosis without myelopathy or radiculopathy, thoracolumbar region (principal); M24.651 Ankylosis, right hip | CPT/HCPCS: 72100; 73502 ==

== ENCOUNTER 2025-08-10 10:13 | Outpatient (AMB) | payer OTHER, SELFPAY ==
--- NOTE | 2025-08-10 10:26 | MHC.OFFVIS ---
Vital Signs 08/10/25 10:30 Height 5 ft BP 128/60 Blood Pressure Location Lt brachial Position Sitting Pulse 84 Pulse Source Pulse Oximeter Pulse Oximetry (%) 96 Oxygen Delivery Method Room Air Intake Visit Reasons: Chronic Right Sided Low Back Pain Intake Note: Pain today 07/07 Woodworking Machine Feeder Required: Yes Woodworking Machine Feeder Language: Sling Operator Services: Woodworking Machine Feeder Present Woodworking Machine Feeder Name: July Accompanied by: COUNSELING SERVICES MANAGER Allergies No Known Allergies (No Known Allergies*) Allergy (Verified 08/10/25 10:32) HPI Comments Details: The patient is a 69-year-old female presenting with chronic right-sided low back pain. The pain is associated with multilevel spondylosis and complete ankylosis of the right hip joint, which has been a persistent issue and underwent 4 hip fusion surgeries in [place] in the past. She reports that the back pain is localized to lower back and radiates to the right leg and is exacerbated by movement such as bending backward and forward, personal care, getting dressing, putting shoes on, showering and lifting. She lives alone and receives COUNSELING SERVICES MANAGER services. The patient has a history of diabetes mellitus, with a recent A1c of 7.8, indicating suboptimal control. She is currently managed with insulin, administered by home nursing care. Her medical history is significant for osteopenia, kidney stones, anxiety, depression, renal cysts, sleep apnea, peripheral neuropathy, and chronic neck pain. The patient has a history of substance abuse, specifically cocaine crack, which she states was a long time ago. She denies smoking or alcohol consumptions, or cannabis use. She drinks 3 cups of coffee a day. - Onset: Chronic, persistent over time - Quality: Aching, stabbing, sharp, dull, heavy, sore, shooting. - Location: Right-sided low back, radiating to the right leg. - Exacerbating factors: Movement such as bending and lifting - Affect: The pain impacts her daily activities and mobility. - Analgesia: Currently using gabapentin for pain management. - Adverse Effects: No specific adverse effects from gabapentin reported. - Activities of Daily Living: Pain limits her ability to bend and lift. - Aberrant Drug Related Behaviors: No current aberrant behaviors reported. Oswestry Low Back Pain Disability Score=29 [facility] Medical History Skin lesion of cheek GERD (gastroesophageal reflux disease) Urge incontinence of urine Substance abuse Peripheral neuropathy CRYSTAL (obstructive sleep apnea) Asthma Hyperlipidemia Chronic neck pain Simple renal cyst Depressive disorder Anxiety Kidney stones Osteopenia HTN (hypertension) Diabetes Surgical History History of hip surgery Social History Household Members: None Housing: Apartment Do you presently have visiting nurse or other home services: Yes (Visiting RN and COUNSELING SERVICES MANAGER) Patient Tobacco Use Status: Former Tobacco user e-Cigarette/Vaping Use: Never Used Second Hand Smoke Exposure: No service: No Review of Systems Const Details: - Musculoskeletal: Reports chronic right-sided low back pain radiating to the right leg. - Endocrine: Reports diabetes mellitus, managed with insulin. A1C=7.8 (down from 8.3) - Neurological: Denies current substance use, history of cocaine crack use long ago. All systems reviewed & are unremarkable except as noted in HPI and below Physical Exam Vital Signs: Last Vital Signs Pulse 84 08/10/25 10:30 BP 128/60 08/10/25 10:30 Pulse Ox 96 08/10/25 10:30 Oxygen Delivery Method Room Air 08/10/25 10:30 General: Appears afebrile. Alert and oriented. Mood and affect appropriate. Follows and participates in conversation appropriately. Respiratory effort is unlabored. No cough. Able to transition from sit to stand unassisted. Reports using cane at home. Ambulates with slow, antalgic gait. Difficulty with getting up from sitting to standing. General: Yes no CVA tenderness Back/Spine/Pelvis Other: Limited lumbar ROM due to pain. Lumbar flexion and bending is limited and reproduces mild to moderate pain, lumbar flexion 5-10 degrees reproduces moderate to severe pain. Demonstrates 5/5 left and 4/5 right strength of quadriceps bilaterally as well as flexion/dorsiflexion of bilateral feet against resistance. Right hip multile incisions well healed, muscle atrophy noted. 2+ pedal pulses bilaterally. Straight leg rise with dorsiflexion negative bilaterally. +1 patellar and diminished achilles reflexes bilaterally. Facet loading test positive bilaterally. Mild TTP to right GTB. Leg discrepancy noted. Valsalva maneuver negative. Back: no CVA tenderness Cervical Spine: cervical ROM normal, cervical muscular tenderness, pain with cervical ROM and No Cervical spine tenderness Thoracic/Lumbar Spine: thoracic and lumbar spine normal to inspection, No Thoracic/lumbar spine scar(s), Lasegue's sign negative, straight leg raise negative bilaterally, pain with thoraco-lumbar ROM, paraspinal muscle tenderness, thoraco-lumbar ROM limited, No thoracic spinal tenderness and lumbar spinal tenderness (L4-S1) Sacroiliac joints: bilaterally tender to palpation Extrem General: Yes capillary refill normal, Yes no clubbing, cyanosis or edema and Yes no calf tenderness Results Reviewed Results Reviewed: XR LUMBOSACRAL SPINE 06/30/25 CLINICAL INFORMATION: PAIN COMPARISON: October 26, 2017. TECHNIQUE: AP and lateral views FINDINGS: Syndesmophyte formation and endplate sclerosis and preservation of the intervertebral high at the lower axial skeleton the thoracic spine. Multilevel marginal osteophyte formation and syndesmophyte formation involving mostly the upper mid lumbar spine. No gross listhesis. No acute cortical disruption. No lytic or blastic lesions. Vascular calcification, aorta.. IMPRESSION: Multilevel thoracolumbar spondylosis without acute fracture or listhesis. Consider DISH, lower thoracic spine. XR HIP, RIGHT 06/30/25 CLINICAL INFORMATION: PAIN COMPARISON: 05/28/2023. TECHNIQUE: Two views of the right hip. 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 There is no fracture, dislocation, or bone lesion. There is no soft tissue abnormality. IMPRESSION: Deformity and complete ankylosis of the right hip joint. No acute findings. CT abdomen pelvis wo IV con 01/02/25 OSSEOUS STRUCTURES: Stable mild superior endplate deformity at L1. Degenerative changes of the spine. Chronic ankylosis/fusion of the right hip with atrophy of the surrounding muscles. Assessment & Plan Assessment & Plan (1) Ankylosis of right hip: Code(s): M24.651 - Ankylosis, right hip Category: Medical (2) Lumbosacral spondylosis: Code(s): M47.817 - Spondylosis without myelopathy or radiculopathy, lumbosacral region Category: Medical (3) Chronic pain syndrome: Code(s): G89.4 - Chronic pain syndrome Category: Medical (4) Lumbar degenerative disc disease: Code(s): M51.36 - Other intervertebral disc degeneration, lumbar region Category: Medical Plan The plan for managing the patient's chronic right-sided low back pain includes proceeding with diagnostic injections to assess pain relief. If the injections provide significant pain relief for approximately six hours or more, radiofrequency ablation will be considered to offer longer-term relief. Due to the patient's elevated A1c level, further procedures will be contingent upon improved glycemic control, aiming for an A1c below 7.5. The patient is advised to continue with her current diabetes management plan, including insulin administration, and to monitor her blood glucose levels closely. She is encouraged to consider restarting physical therapy to aid in managing her pain and improving mobility. Schedule diagnostic bilateral L3-L4 DR L5 medial branch blocks with local and fluoroscopy. Expectations, risks and benefits were reviewed. Patient is aware she will be contacted to schedule this procedure. All questions and concerns have been answered and patient agreed with the treatment plan. Follow up after injections and sooner as needed. Patient was informed and verbally consented to the use of an ambient scribe for clinic note documentation during this visit. Coding Level of Care Code New Pt Level 4 (05277) Diagnoses Ankylosis of right hip M24.651 Lumbosacral spondylosis M47.817 Chronic pain syndrome G89.4 Lumbar degenerative disc disease M51.36
[2025-08-10 10:30] VITALS: BP 128/60; PULSE 84; O2SAT 96
--- OUTSIDE RECORDS SUMMARY | 2025-08-10 12:16 | XMS_ITS | Clinical Summary ---
Author Organization [address] [facility] Address [address] [place] [address] Phone Care Team Providers Care Head Of Marketing Analytics Name Role Phone Fransisco Baires MD Primary [...] % aerosol,spray Apply 1 Applicator topically daily. Active montelukast (SINGULAIR) 10 mg tablet Take 1 Tablet by mouth at bedtime. Active sertraline (ZOLOFT) 100 mg tablet Take 1 tablet (100 mg total) by mouth 1 (one) time each day. Active zolpidem (AMBIEN) 5 mg tablet Take 1 tablet (5 mg total) by mouth at bedtime as needed. Max Daily Amount: 5 mg Active Active Problems Problem Noted Date Diagnosed Date Anxiety state 07/05/2024 Chronic neck pain 07/05/2024 Class 3 severe obesity due t o excess calories in adult [place] [place] 07/05/2024 Closed fracture of left orbit [place] [place], [facility] V[facility]) 07/05/2024 Depressive disorder 07/05/2024 GERD (gastroesophageal reflux disease) HTN (hypertension) 07/05/2024 Kidney stone 07/05/2024 Mild persistent asthma without complication 04/2024 Mixed hyperlipidemia 07/05/2024 CRYSTAL (obstructive sleep apnea) 07/05/2024 Osteopenia 07/05/2024 Pain in right leg 07/05/2024 Peripheral neuropathy 07/05/2024 Simple renal cyst 07/05/2024 Substance abuse [place] [place], [facility]) 07/05 T2DM (type 2 diabetes mellitus) ([facility] [place], [facility] V28) 07/05/2024 Urge incontinence of urine 07/05/2024 Encounters Date Type Department Care Team Description 07/19/2025 10:15 AM EDT Office Visit Orthopedic Surgery - [place] [address] [place] [phone] Eric Romero, DPM Primary osteoarthritis of both feet (Primary Dx); Dermatophytosis of nail; Pain in toe of right foot; Pain in toe of left foot; Metatarsalgia of both feet; Tinea pedis of both feet; Corns and callosities; Acquired hammer toe of right foot; Type II diabetes mellitus with peripheral circulatory disorder [place], [facility]) from Last 3 Months Social History Tobacco [...] Care Team (Late st Contact Info) Description 10/05/2025 12:30 PM EST Treatment [facility] - [place] [address] [facility] [address] [place] [phone] Viky Brown PT 10/19/2025 10:00 AM EST Office Visit Orthopedic Surgery - [facility] [address] [facility] [address] [facility] [address] [place] [phone] Eric Romero, DPM [address] [facility] [address] [place] [phone] Health Maintenance Due Date Last Done Comments Breast Cancer Screening 1955 Colorectal Cancer Screening: Colonoscopy 1955 Diabetes: Annual GFR (Glomerular Filtration Rate) 1954 Diabetes: Annual Foot Exam 1964 Diabetes: Annual Retina Eye Exam 1964 Hepatitis A Vaccines (1 of 2 - Risk 2-dose series) 1973 RSV Immunization Adult Patients (1 - Risk 50-74 years 1-dose series) 2004 Zoster Vaccines (3 of 3) 09/02/2022 07/08/2022, 0501/2015 Diabetes: Annual Urine Albumin-Creatinine Ratio (uACR) 07/22/2024 [...] 09/18/2020, 01/19/2019, 12/09/2013, Additional history exists Diabetes: Blood Sugar Control Test (HGBA1C) 12/28/2025 06/29/2025, 11/29/2024 Cholesterol Screening (Lipid Panel) 11/29/2029 11/29/2024 DTaP,Tdap,and Td Vaccines (3 - Td or Tdap) 11/22/2034 11/22/2024, 07/05/2012 Hepatitis C Screening Completed 11/11/2022 Influenza Vaccine Completed 06/29/2025, , 07/08/2022, Additional [...] Group ID:[id number] Type:Not on file Address: [address] [place] [id number] Care Teams Head Of Marketing Analytics Relationship Specialty Start Date End Date Fransisco Baires MD [address] [place] [address] [place] [phone] PCP - General 03/15/24
--- OUTSIDE RECORDS SUMMARY | 2025-08-10 12:16 | XMS_ITS | Encounter Summary ---
Author Organization [employer] Address [address] [facility] [address] [place] [address] Care Team Providers Care Prop And Effects Designer Name Role Phone Fransisco Goldsmith MD Primary Care Provide r Christie Biswas PharmD Unavailable [phone] Reason for Visit * Reason Onset Date Comments Referral 07/03/2025 Results 07/03/2025 Encounter Details Date Type Department Care Team ([facility] st Contact Info) Description 07/03/2025 Results Follow-Up [facility] [address] [place] [address] Fransisco Goldsmith MD [address] [place] [address] XR Hip 2 or 3 Views Right Social History Tobacco Use Types Packs/Day Years [...] encounter Miscellaneous Notes * Telephone Encounter - Damaris Washington RN - 07/03/2025 1:37 PM EDT TC placed to the pt and spoke to the pt daughter (got permission to speak on the pt behalf) in regard to the XR results indicating a chronic deformity of the right hip joint. The pt daughter was advised the PCP would like the pt to be seen by [facility] for further evaluation. RN called the office who confirmed that the pt was never seen and they could not find any referral. Pt is agreeable to being referred again and advised that the request will be sent back to PCP. ----- Message from Fransisco Ramon MD sent at 07/03/2025 1:35 PM EDT ----- Pt's x-ray shows a chronic deformity of the right hip joint. Seen at [facility] Orth[facility] back in 2022. Back then she was referred to [facility]. I do not see any notes from them in [facility]. Can we contact their office please and fins out if she was ever evaluated there ?. And if not please ask patient if she would like to be seen there and let me know ----- Message ----- From: Riki, Ris Results In Sent: 06/30/2025 10:45 AM EDT To: Fransisco Ramon MD * Result Encounter Note - Fransisco Ramon MD - 07/03/2025 1:35 PM EDT Pt's x-ray shows a chronic deformity of the right hip joint. Seen at [facility] Orth[facility] back in 2022. Back then she was referred to [facility]. I do not see any notes from them in [facility]. Can we contact their office please and fins out if she was ever evaluated there ?. And if not please ask patient if she would like to be seen there and let me know documented in this encounter Plan of Treatment Not on file documented as of this encounter Visit Diagnoses Not on filedocumented in this encounter Additional Health Concerns Assessment Noted Time PHQ-9 Depression Total Score: 7 06/29/20 25 10:31 AM EDT documented as of this encounter Care Teams Prop And Effects Designer Relationship Specialty Start Date End Date Fransisco Goldsmith MD [address] [place] [address] PCP - General Internal Medicine 05/18/14 Christie Biswas PharmD [address] [place] [address] Pharmacist Internal Medicine 11/22/24 [facility] 01/06/24 Sanket - visiting nurse 11/22/24 documented as of this encounter
--- OUTSIDE RECORDS SUMMARY | 2025-08-10 12:16 | XMS_ITS | Clinical Summary ---
Author Organization [employer] Address [address] [facility] 7t [place] [address] Care Team Providers Care Manager Administrative Name Role Phone Fransisco Goldsmith MD Primary Care Provide r Christie Biswas PharmD Unavailable [phone] Allergies No known active allergies Medications albuterol [...] AREA(S) TWICE DAILY Active Athletes Foot Powder [place] 2 % aerosol powder APPLY TOPICALLY TO THE AFFECTED AREA(S) EVERY DAY Active FREESTYLE LITE test stripIndications :Type 2 diabetes mellitus with diabetic polyneuropathy, with long-term current use of insulin ([facility]) TEST BLOOD SUGAR THREE TIMES DAILY 100 strip Active TRUEplus Lancets 33G miscIndications: Type 2 diabetes mellitus with diabetic polyneuropathy, with long-term current use of insulin ([facility]) TEST BLOOD SUGAR THREE TIMES DAILY 100 each Active docusate sodium (Colace) 100 MG capsuleIndicatio ns:Constipation, unspecified constipation type TAKE 1 CAPSULE BY MOUTH TWICE DAILY IN THE MORNING AND AT BEDTIME 180 capsule Active lisinopril 10 MG tabletIndication s:Type 2 diabetes mellitus with diabetic polyneuropathy, with long-term current use of insulin ([facility]) TAKE 1 TABLET BY MOUTH AT BEDTIME 90 tablet Active Calcium Carb-Cholecalcif kell 600-10 MG-MCG tabletIndication s:Constipation, unspecified constipation type TAKE 1 TABLET BY MOUTH TWICE DAILY IN THE MORNING AND IN THE EVENING 180 tablet Active Aspirin EC Adult Low Dose 81 MG EC tablet TAKE 1 TABLET BY MOUTH EVERY MORNING 90 tablet 3 Active sertraline (Zoloft) 100 MG tabletIndication s:Episode of recurrent major depressive disorder, unspecified depression episode severity (CMS/HCC) TAKE 1 TABLET BY MOUTH EVERY MORNING 90 tablet 2 Active pantoprazole (ProtoNix) 40 MG EC tabletIndication s:Gastroesophage al reflux disease without esophagitis TAKE 1 TABLET BY MOUTH EVERY MORNING 90 tablet 2 025 Active metoprolol succinate XL (Toprol-XL) 25 MG 24 hr tabletIndication s:Primary hypertension TAKE 1 TABLET BY MOUTH EVERY MORNING 90 tablet 2 025 Active gabapentin (Neurontin) 600 MG tabletIndication s:Diabetic polyneuropathy associated with type 2 diabetes mellitus ([facility]) TAKE 1 TABLET BY MOUTH THREE TIMES DAILY IN THE MORNING, AT NOON, AND AT BEDTIME 270 tablet 2 025 Active UltiGuard SafePack Pen Needle 32G X 4 MM misc USE DIRECTED 100 each 3 025 Active Lantus SoloStar 100 UNIT/ML penIndications:T ype 2 diabetes mellitus without complication, with long-term current use of insulin ([facility]) INJECT 46 UNITS SUBCUTANEOUSLY EVERY [...] polyneuropathy, with long-term current use of insulin ([facility]) Inject 0.75 mL (2 mg) under the skin 1 (one) time per week. 0.75 mL 3 025 Active celecoxib (CeleBREX) 100 MG capsuleIndicatio ns:Osteoarthriti s, unspecified osteoarthritis type, unspecified site Take 1 capsule (100 mg) by mouth in the morning. 30 capsule Active rosuvastatin (Crestor) 40 MG tabletIndication s:Mixed hyperlipidemia Take 1 tablet (40 mg) by mouth Once per day. 90 tablet 3 025 2025 Active rosuvastatin (Crestor) 40 MG tablet Take 1 tablet (40 mg) by mouth Once per day. 90 tablet 3 025 2024 Discontinued(Axel nunez (will not trigger notification to Pharmacy)) Active [...] Will refer back. I have asked her ARRT TECHNOLOGIST to contact us if she does not [...] 8.3 Pt has been referred to both Clinical Cytogenetics Director and medical educator, did not f/u Unfortunately she is [...] Pt has been referred to both Clinical Cytogenetics Director and medical educator, did not f/u Unfortunately she is [...] Pt has been referred to both Clinical Cytogenetics Director and medical educator, did not f/u Unfortunately she is [...] 9.1 Pt has been referred to both Clinical Cytogenetics Director and medical educator, did not f/u Unfortunately she is [...] a f/u visit Her daughter is her ARRT TECHNOLOGIST. She is on Trulicity 0.75 once a week and Lantus 56 units sc q pm Pt reported severe stomach upset and diarrhea with Metformin. so this was discontinued Hgb A1c 11/10/2022 was 9.1 Pt has been referred to both Clinical Cytogenetics Director and medical educator, did not f/u Unfortunately she is non compliant Glucometer review today showed BG fluctuating between 148 and 235 Plan: increase trulicity to 1.5 mg once a week Pt denies hx of thyroid cancer or pancreatitis f/u 3 months Eye exam done on: 12/22/2013 by [facility] (sweet potato disintegrator) Microalbumin checked on: 10/27/2019 was: 8 Pt [...] for SAFETY and Medical necessity Substance abuse ([facility]) 04/15/2016 Obstructive sleep apnea syndrome [...] Resolved Date Closed fracture of left orbit (CMS/HCC) 11/10/2022 11/29/2024 Assessment & Plan (11/11/2022 9:48 [...] oxycodone for pain. Patient discharged home to / with ear nose and throat and I have placed a referral to Ophthalmology as well Encounters Date Type Department Care Team Description 07/25/2025 Refill [facility] [address] [place] [address] Betsy Ann PharmD Mixed hyperlipidemia (Primary Dx) 07/25/2025 Telephone [facility] [address] [place] [address] Fransisco Goldsmith MD 07/24/2025 Telephone [facility] [place], [place] [address] Fransisco Goldsmith MD 07/24/2025 Telephone [facility] [address] [place], [place] [address] Fransisco Goldsmith MD 07/21/2025 Telephone [facility] [place], [place] [address] Fransisco Goldsmith MD Appointment Request 07/11/2025 Telephone [facility] [place], [place] [address] Fransisco Goldsmith MD Durable Medical Equipment 07/06/2025 Orders Only [facility] [place], [place] [address] Fransisco Goldsmith MD Chronic right-sided low back pain with right-sided sciatica (Primary Dx) 07/06/2025 Telephone [facility] [place], [place] [address] Fransisco Goldsmith MD telephone call 07/03/2025 Results Follow-Up [facility] [place], [place] [address] Fransisco Goldsmith MD XR Hip 2 or 3 Views Right 06/30/2025 Telephone [facility] [place], [place] [address] Fransisco Goldsmith MD Lab Orders 06/30/2025 Orders Only [facility] [place], [place] [address] Fransisco Goldsmith MD 06/29/2025 10:30 AM EDT Office Visit [facility] [place], [place] [address] Fransisco Goldsmith MD Type 2 diabetes mellitus with diabetic polyneuropathy, with long-term current use of insulin (HCC) (Primary Dx); Essential hypertension; Mixed hyperlipidemia; Depressive disorder; Urge incontinence of urine; Chronic right-sided low back pain with right-sided sciatica; Preventative health care; Osteoarthritis, unspecified osteoarthritis type, unspecified site; Encounter for immunization 06/29/2025 Telephone [facility] [address] [place] [address] Fransisco Goldsmith MD Durable Medical Equipment 06/29/2025 Travel 06/28/2025 Telephone [facility] [address] [place] [address] Fransisco Goldsmith MD chart prep 06/28/[address] [facility] [address] [place] [address] Fransisco Goldsmith MD 06/22/2025 Patient Outreach [facility] [address] [place] [address] Fransisco Goldsmith MD Pre-visit Planning ([facility] unable to reach [facility]) 05/24/2025 Refill [facility] [address] [place] [address] Fransisco Goldsmith MD Constipation, unspecified constipation type from Last 3 Months Immunizations Immunization Administration [...] 06/29/2025 10:27 AM EDT Plan of Treatment Health Maintenance Due Date Last Done Comments CT Colonography 1955 Colonoscopy 1955 Colorectal Cancer Screening 1955 FIT DNA/Cologuard 1955 FIT 1955 FOBT 1955 Sigmoidoscopy 1954 Diabetes: Foot Exam 1964 RSV Patients and Patients Aged 60 years or older (1 - Risk 50-74 years 1-dose series) 2004 Zoster Vaccines (3 of 3) 09/02/2022 07/08/2022, 01/2015 Diabetes: Urine Protein Screening 04/19/2025 04/19/2024, 11/11/2022, 05/08/2022, Additional history exists COVID-19 Vaccine ( season) 2025 07/08/2022, 01/08/2021, 12/12/2020 Pneumococcal Vaccine: 50+ Years (3 of 3 - PCV20 or PCV21) 09/18/2025 09/18/2020, 01/19/2019, 12/09/2013, Additional history exists Diabetes: Hemoglobin A1C 09/29/2025 025, 11/29/2024, 11/22/2024, Additional history exists Alcohol/Substance Use Screening 11/29/2025 11/29/2024 Lipid Panel 11/29/2025 11/29/2024, 072 10/2023, 11/11/2022, Additional history exists SDOH Screening 11/29/2025 11/29/2024 Mammogram 01/12/2026 01/12/2025, 0903/2023, 06/24/2023, Additional history exists Tobacco Screening 01/20/2026 01/20/2025 Depression Screening 06/29/2026 06/29/2025, 06/29/20 Eye Exam 01/20/2027 01/20/2025, 042 01/2025, 01/20/2025, Additional history exists DTaP/Tdap/Td Vaccines (3 [...] polyneuropathy, with long-term current use of insulin ([facility]) POCT GLUCOSE Routine 06/29/2025 10:28 AM EDT Type 2 diabetes mellitus with diabetic polyneuropathy, with long-term current use of insulin ([facility]) BI MAMMOGRAM SCREENING TOMOSYNTHESIS BILATERAL Routine 01/12/2025 [...] AM EDT Narrative 06/30/2025 10:45 AM EDT [address] [address] XRay Report Signed Patient: Esthela Flannery MR#: [id number] 73 : 1955 Acct:[id number] Age/Sex: 69 / F ADM Date: 06/30/25 Loc: HO.HHCX Attending Dr: Fransisco Baires MD Ordering Physician: Fransisco Baires MD Date of Service: 06/30/25 Procedure(s): XR hip RT min 2V Accession Number(s): [id number] cc: Fransisco Baires MD Reason for Exam: [...] in OV> 06/30/25 1042 DD/ 1039 TD/TT: 06/30/251034 Geography Department Chair: Procedure Note Osmanynateilyaciroter, Image - 06/30/[address] [address] XRay Report Signed Patient: Iliana Flannery#: [id number] 73 : 5Acct:[id number] Age/Sex: 69 / FADM Date: 06/30/25 Loc: HO.HHCX Attending Dr: Fransisco Baires MD Ordering Physician: Fransisco Baires MD Date of Service: 06/30/25 Procedure(s): XR hip RT min 2V Accession Number(s): [id number] cc: Fransisco Baires MD Reason for Exam: [...] in OV> 06/30/25 1042 DD/ 1039 TD/TT: 06/30/251034 Geography Department Chair: us Fransisco Ramon MD IMG XR PROCEDURES Fin al Result * XR Lumbar Spine 2-3 Views (06/30/2025 10:30 AM EDT) Anatomical Region Laterality Modality Spine, L-spine Radiographic Yuliet ging 06/30/2025 10:3 0 AM EDT Narrative 06/30/2025 10:45 AM EDT [facility] [address] [place] [address] XRay Report Signed Patient: Esthela Flannery MR#: [id number] 73 : 1955 Acct:[id number] Age/Sex: 69 / F ADM Date: 06/30/25 Loc: HO.HHCX Attending Dr: Fransisco Baires MD Ordering Physician: Fransisco Baires MD Date of Service: 06/30/25 Procedure(s): XR lumbar spine 2-3V Accession Number(s): [id number] cc: Fransisco Baires MD Reason for Exam: [...] Nick Major MD 06/30/2025 10:42 AM EDT Dictated By: Nick Archer MD Signed By: <Electronically signed by Nick Ervin MD in OV> 06/30/25 1042 DD/ 1030 TD/TT: 06/30/25 1035 Geography Department Chair: Procedure Note Donotuseinterpreter, Image - 06/30/[address] [address] XRay Report Signed Patient: Federico FlanneryR#: [id number] 73 : 5Acct:[id number] Age/Sex: 69 / FADM Date: 06/30/25 Loc: HO.HHCX Attending Dr: Fransisco Baires MD Ordering Physician: Fransisco Baires MD Date of Service: 06/30/25 Procedure(s): XR lumbar spine 2-3V Accession Number(s): [id number] cc: Fransisco Baires MD Reason for Exam: [...] Nick Major MD 06/30/2025 10:42 AM EDT Dictated By: Nick Archer MD Signed By: <Electronically signed by Nick Ervin MDin OV> 06/30/25 1042 DD/ 1030 TD/TT: 06/30/25 1035 Geography Department Chair: Fransisco Ramon MD IMG XR PROCEDURES Fin [...] AM EDT Narrative 01/21/2025 8:25 PM EDT [facility] [address] [place] [address] Mammography Report Signed Patient: Esthela Flannery MR#: [id number] 73 : 1955 Acct:[id number] Age/Sex: 69 / F ADM Date: 01/12/25 Loc: HO.MAMMO Attending Dr: Fransisco Baires MD Ordering Physician: Fransisco Baires MD Resu lts: 1Negative Date of Service: 01/12/25 Follow Up: 1 Year From [facility] ina Mammogram Procedure(s): MM tomosynthesis screening BI Accession Number(s): [id number] cc: Fransisco Baires MD EXAMINATION: MM SCREENING [...] Cherelle Plummer DO in OV> 01/21/252021 DD/ 2 TD/TT: 01/12/25 1006 Geography Department Chair: Procedure Note Donotuseinterpreter, Image - 01/21/2025 [facility] [address] [place] [address] Mammography Report Signed Patient: Iliana Flannery#: [id number] 73 : 5Acct:[id number] Age/Sex: 69 / FADM Date: 01/12/25 Loc: HO.MAMMO Attending Dr: Fransisco Baires MD Ordering Physician: Fransisco Baires MDResu lts: 1Negative Date of Service: 01/12/25Follow Up: 1 Year From Orig inal Mammogram Procedure(s): MM tomosynthesis screening BI Accession Number(s): [id number] cc: Fransisco Baires MD EXAMINATION: MM SCREENING [...] OV> 01/21/252021 DD/ 0933 TD/TT: 01/12/25 1006 Geography Department Chair: Fransisco Ramon MD IMG BI PROCEDURES Lebron domingo Result - Final * Lipid Panel, Standard (11/29/2024 10:24 AM EST) Triglycerides 83 <150 mg/dL [facility] Comment:Desirable Triglyceri de: less than 150 mg/dLBorderline High Triglyceride 150-199 mg/dLHigh Triglyceride: 200-499 mg/dLVery High Triglyceride: greater than or equal to 5OO mg/dL Cholesterol 160 <200 mg/dL [facility] Comment:Desirable Cholestero l: less than 200 mg/dLBorderline High Cholesterol: 200-239 mg/dLHigh Cholesterol: greater than 239 mg/dL LDL Cholesterol Calculated 87 <100 mg/dL [facility] Comment:Desirable LDL: less than 100 mg/dLNear Optimal/Above Optimal LDL: 110- 129 mg/dLBorderline High LDL: 130-159 mg/dLHigh LDL: 160-189 mg/dLVery High LDL: greater than or equal to 190 mg/dL HDL Cholesterol 57 >40 mg/dL [facility] Comment:Desirable HDL: great er than 40 mg/dL Note: This HDL assay may give artificially low results in patients with liver disease. Blood Venous blood specimen / Unknown 11/29/2024 10:24 AM EST 11/29/2024 11:19 AM EST Fransisco Ramon MD LAB BLOOD ORDERABLES Final Result [facility] [address] [place] [phone] * Albumin, Random Urine W/Creatinine (04/19/2024 10:00 AM EDT) Creatinine, Urine 159.36 mg/dL [facility] Microalbumin Urine 38.0 mg/L [facility] Microalbum Creatinine Ratio Ur 23.8 <30 ug/mg cr [facility] Comment:Albumin/Creatinine R atio Reference Ranges: Normal: < 30 ug/mg creatinine Microalbuminuria: 30 - 300 ug/mg creatinineClinical Albuminuria: > 300 ug/mg creatinine 04/19/2024 10:0 0 AM EDT 04/19/2024 11:13 AM EDT Fransisco Ramon MD LAB URINE ORDERABLES Final Result Performing Organization Address City/[facility]/ZIP Co de Phone Number [facility] [address] [place] [address] [phone] * Hepatitis C Antibody with Reflex to HCV, RNA, Quantitative, Real-Time PCR (11/11/2022 9:56 AM EST) Hepatitis C Antibody NON-REACT EMILY NON-REACT EMILY [employer] [employer] Index 0.05 <1.00 [employer] Comment: HCV antibody was non-reactive. There is no laboratory evidence of HCV infection. In most cases, no further action is required. However, if recent HCV exposure is suspected, a test for HCV RNA (test code 43529) is suggested. For additional information please refer to http://education.[employer]dsfutures.com.PadMatcher/faq/ALF44y9 (This link is being provided for informational/ educational purposes only.) Blood Venous blood specimen / Unknown 11/11/2022 9:56 AM EST 11/11/2022 9:57 AM EST Narrative [facility] - 11/11/2022 10:40 PM EST FASTING:YES FASTING: YES Fransisco Ramon MD LAB BLOOD ORDERABLES Final Result [facility] [address] [facility] [address] [place] [address] [facility] [address], ([address]) [place] [address] from Last 3 Months or Most Recently Relevant to Health Maintenance Insurance [facility] OPTIONS (HMO D-SNP) [facility] STANDARD Care Teams Manager Administrative Relationship Specialty Start Date End Date Fransisco Goldsmith MD [address] [place] [address] PCP - General Internal Medicine 05/18/14 Christie Biswas, CarolynD [address] [place] [phone] Pharmacist Internal Medicine 11/22/24 [facility] 01/06/24 Sanket - visiting nurse 11/22/24
--- OUTSIDE RECORDS SUMMARY | 2025-08-10 12:16 | XMS_ITS | Encounter Summary ---
Author Organization [employer] Address [address] [facility] 7t [place] [address] Care Team Providers Care Java Jsf Developer Name Role Phone Fransisco Goldsmith MD Primary Care Provide r Christie Biswas PharmD Unavailable [phone] Encounter Details Date Type Department Care Team (Late st Contact Info) Description 10/14/2022 Orders Only [facility] [address] [place] [address] Rochelle Rosa LPN Social History Tobacco Use Types Packs/Day Years Used Date Smoking Tobacco: Never Assessed Comments Unknown Sex and Gender Information Value Date Recorded Sex Assigned at Female 07/28/2022 10:16 AM EDT Legal Sex Female 10:16 AM EDT Gender Identity Female 07/28/2022 10:16 AM EDT Sexual Orientation Straight 07/28/2022 10 :16 AM EDT documented as of this encounter Plan of Treatment Not on file documented as of this encounter Visit Diagnoses Not on filedocumented in this encounter Care Teams Java Jsf Developer Relationship Specialty Start Date End Date Fransisco Goldsmith MD [address] [place] [id number] PCP - General Internal Medicine 05/18/14 Christie Biswas, PharmD [address] [place] [address] Pharmacist Internal Medicine 11/22/24 [facility] 01/06/24 Sanket - visiting nurse 11/22/24 documented as of this encounter
--- OUTSIDE RECORDS SUMMARY | 2025-08-10 12:16 | XMS_ITS | Encounter Summary ---
Author Organization [employer] Address [address] [facility] 7[address] [place] [address] Care Team Providers Care Dull Coat Mill Operator Name Role Phone Fransisco Goldsmith MD Primary Care Provide r Christie Biswas PharmD Unavailable [phone] Encounter Details Date Type Department Care Team (Late st Contact Info) Description 11/09/2024 Refill [facility] [address] [place] [address] Fransisco Goldsmith MD [address] [place] [address] Osteoarthritis, unspecified osteoarthritis type, unspecified site Social [...] documented as of this encounter Care Teams Dull Coat Mill Operator Relationship Specialty Start Date End Date Fransisco Goldsmith MD [address] [place] [address] PCP - General Internal Medicine 05/18/14 Christie Biswas PharmD [address] [place] [address] Pharmacist Internal Medicine 11/22/24 [facility] 01/06/24 Sanket - visiting nurse 11/22/24 documented as of this encounter
--- OUTSIDE RECORDS SUMMARY | 2025-08-10 12:16 | XMS_ITS | Encounter Summary ---
Author Organization [employer] Address [address] [facility] 7t [place] [address] Care Team Providers Care Professional Services Consultant Name Role Phone Fransisco Goldsmith MD Primary Care Provide r Christie Biswas PharmD Unavailable [phone] Encounter Details Date Type Department Care Team (Late st Contact Info) Description 11/03/2022 Orders Only [facility] [address] [place], [place] [phone] Elli Baker LPN Social History Tobacco Use [...] on filedocumented in this encounter Care Teams Professional Services Consultant Relationship Specialty Start Date End Date Fransisco Goldsmith MD [address] [place] [phone] PCP - General Internal Medicine 05/18/14 Christie Biswas, PharmD [address] [place] [address] Pharmacist Internal Medicine 11/22/24 [facility] 01/06/24 Sanket - PM visiting nurse 11/22/24 documented as of this encounter
--- OUTSIDE RECORDS SUMMARY | 2025-08-10 12:16 | XMS_ITS | Encounter Summary ---
Author Organization [employer] Address [address] [facility] [address] [place] [address] Care Team Providers Care Marker Hand Name Role Phone Fransisco Goldsmith MD Primary Care Provide r Christie Biswas PharmD Unavailable [phone] Encounter Details Date Type Department Care Team ([facility] st Contact Info) Description 08/15/2024 Telephone [facility] [address] [place], [place] [phone] Fransisco Goldsmith MD [address] [place] [address] Social History Tobacco Use Types Packs/Day Years [...] documented as of this encounter Care Teams Marker Hand Relationship Specialty Start Date End Date Fransisco Goldsmith MD [address] [place] [address] PCP - General Internal Medicine 05/18/14 Christie Biswas PharmD [address] [place] [address] Pharmacist Internal Medicine 11/22/24 [facility] 01/06/24 Sanket - visiting nurse 11/22/24 documented as of this encounter
--- OUTSIDE RECORDS SUMMARY | 2025-08-10 12:16 | XMS_ITS | Encounter Summary ---
Author Organization [employer] Address [address] [facility] [address] [place] [address] Care Team Providers Care Law Examiner Name Role Phone Fransisco Goldsmith MD Primary Care Provide r Christie Biswas PharmD Unavailable [phone] Reason for Visit * Reason Comments Med Refill Encounter Details Date Type Department Care Team ([facility] st Contact Info) Description 05/19/[address] [facility] [address] [place], [place] [phone] Fransisco Goldsmith MD [address] [place], [place] [phone] Mixed hyperlipidemia Social History Tobacco Use Types [...] hyperlipidemia documented in this encounter Care Teams Law Examiner Relationship Specialty Start Date End Date Fransisco Goldsmith MD [address] [place] [address] PCP - General Internal Medicine 05/18/14 Christie Biswas PharmD [address] [place] [address] Pharmacist Internal Medicine 11/22/24 [facility] 01/06/24 Sanket - PM visiting nurse 11/22/24 documented as of this encounter
--- OUTSIDE RECORDS SUMMARY | 2025-08-10 12:16 | XMS_ITS | Data Portability ---
Author Organization [employer], [facility] Address [address] [place] [address] Care Team Providers Care Hay Buckler Name Role Phone Unavailable Referring Provider [phone] [facility] Referring Provider Assessment Encounter Date Assessment Date Assessment LastModified by Organization Details LastModified Time 07/11/2022 07/11/2022 I have reviewed and agree with the Assessment and Plan as documented by the Medical Observer. I provided real -time medical direction via phone for this encounter, and was available for additional phone based assistance as needed. Patient given the opportunity to ask questions. Medic had very little phone service- unable to human resources supervisor Language line. I was able to converse with the patient in Icelandic- explain possible dx/ need to stay on light diet/ stay hydrated janis w/ clear liquids / review concerns and red flags. Patient unable to give a urine spec but did not appear dehydrated and has no UTI s/s. Medic did not have I-stat or lev to check chemistries in home. Pat denies hx allergies or kidney issues [email or web address] Not available 07/11/2022 15:55:54 Plan of Treatment [...] Available Pentips Pen Needle 32 gauge x 5/32 USE DIRECTED active Not Available Not Available No t Available Vitals Date Recorded Respiratory rate Oxygen saturation Oxygen saturation in Arterial blood by Pulse oximetry Heart rate Body temperature Systolic And Diastolic Provider Name and Address Organization Details Last Updated DateTime 2 18 /min 98 % 98 % 76 /min 97.8 [degF] 132/78 mm[Hg] Not Available [facility] - production 2 14:15:12 Social History None recorded. Functional Status None recorded. Mental Status None recorded. Family History Nothing Reported. Medical History No medical history recorded. Gynecological HistoryNo gynecological history recorded. Obstetrics History GPAL:G 0 P 0 0 0 0 Past Encounters Encounter ID Performer Location Encounter Start Date Encounter Closed Date Diagnosis/Indication Diagnosis SNOMED-CT Code Diagnosis ICD10 Code Diagnosis IMO Codes Diagnosis Note [id number] Nay Acosta MD Main - [facility] [address] [place] [phone] 07/11/2022 14:12:05 07/14/2022 11:34:38 Right upper quadrant pain 893412044 R10.11 possible biliary- sister has hx of same- will trial one dose of ketorolac for discomfort . Advised in Icelandic if develops hi fever- vomiting/ uncontroll ed pain to go to the ER- otherwise call pcp 07/14/22 for further testing /labs/ [place]. Health Concerns Section Related Observation LastModified by Organization Detai ls LastModified Time None Recorded Concern Status LastModified by Organization Details LastModified Time None Recorded Advance Directives Directive None Recorded Payers Insurance Date Sequence Insurance Name Policy Number Policy Joe Covered Member ID Joe Member ID Guarantor Name 01/02/2024 1 [facility] - DOS PRIOR TO 2022 - DUAL ELIGIBLE (MEDICARE REPLACEMENT/ADV ANTAGE - HMO) Esthela Prudencio [id number] Esthela Prudencio 01/02/2024 1 [facility] - DOS ON OR AFTER 2022 - DUAL ELIGIBLE - LONG TERM OPTIONS AND ONE CARE (MEDICARE REPLACEMENT/ADV ANTAGE - HMO) Esthela Prudencio [id number] Esthelagladys Flannery Notes Date Note Type Note Provider Name and Address Organization Details Recorded Time 07/11/2022 text/html ROS as noted in the HPI HPI: Call from pt SUPPLY CHAIN ASSISTANT reporting pt having intermittent abdominal pain , rates 9/. No vomiting, diarrhea, fever or other sx. Per SUPPLY CHAIN ASSISTANT pt declines to come into office for assessment. Agrees to visit form [facility] for assessment. Pt recently had Flu vaccine administered 07/08/22. .................. .................. .................. .................. .................. .................. .................. ............... CRC Nursing Assessment: Comments: CRC RN did not require any additional information to process this visit. .................. .................. .................. .................. .................. .................. .................. ............... Medical Observer Note: Patient chief complaint of URQ abdominal pain for one day. Language barrier present. Patient vitals WNL. Patient abdominal auscultation reveals bowel sounds x 4 quadrants. Patient has URQ tenderness upon palpation. No CVA tenderness. Patient given 30mg ketorolac IM left self at [facility] request. Patient education given, red flags discussed. [...] sister had cholecystectomy. Nay Acosta MD [address] [facility],[address], [place], [address], [employer] 07/11/2022 15:56:06 OBGyn Episode No OBEpisode recorded.
--- OUTSIDE RECORDS SUMMARY | 2025-08-10 12:16 | XMS_ITS | Encounter Summary ---
Author Organization [employer] Address [address] [facility] [address] [place] [address] Care Team Providers Care Manager Therapy Name Role Phone Fransisco Goldsmith MD Primary Care Provide r Christie Biswas PharmD Unavailable Reason for Visit * Reason Comments Med Refill Encounter Details Date Type Department Care Team (Late st Contact Info) Description 06/10/2023 Refill [facility] MEDICINE [address] [place], [place] [phone] Fransisco Goldsmith MD [address] [place], [place] [phone] Type 2 diabetes mellitus with diabetic polyneuropathy, with long-term current use of insulin ([facility]) Social History Tobacco Use Types Packs/Day [...] long-term current use of insulin ([facility]) documented in this encounter Care Teams Manager Therapy Relationship Specialty Start Date End Date Fransisco Goldsmith MD [address], [place] [phone] PCP - General Internal Medicine 05/18/14 Christie Biswas PharmD [address] [place] [phone] Pharmacist Internal Medicine 11/22/24 [facility] 01/06/24 Sanket - visiting nurse 11/22/24 documented as of this encounter
--- OUTSIDE RECORDS SUMMARY | 2025-08-10 12:16 | XMS_ITS | Encounter Summary ---
Author Organization [employer] Address [address] [facility] [address] [place] [address] Care Team Providers Care Can Sorter Name Role Phone Fransisco Goldsmith MD Primary Care Provide r Christie Biswas PharmD Unavailable [phone] Encounter Details Date Type Department Care Team (Late st Contact Info) Description 10/06/2022 Orders Only [facility] PEDS [address] [place], [place] [phone] Elli Baker LPN Social History Tobacco Use [...] on filedocumented in this encounter Care Teams Can Sorter Relationship Specialty Start Date End Date Fransisco Goldsmith MD [address] [place] [address] [phone] PCP - General Internal Medicine 05/18/14 Christie Biswas, PharmD [address] [place] [address] Pharmacist Internal Medicine 11/22/24 [facility] 01/06/24 Sanket - PM visiting nurse 11/22/24 documented as of this encounter
== END 2025-08-10 11:15 | disposition home or self-care (01) ==
PROVIDERS: PCP Internal Medicine; Referring Provider Internal Medicine; Visit Provider Nurse Practitioner Family
DX: M24.651 Ankylosis, right hip (principal); M47.817 Spondylosis without myelopathy or radiculopathy, lumbosacral region; G89.4 Chronic pain syndrome; M51.369 Other intervertebral disc degeneration, lumbar region without mention of lumbar back pain or lower extremity pain
CPT/HCPCS: 99204

== ENCOUNTER → 2025-08-10 10:13 | Outpatient (BNVA) | payer OTHER, SELFPAY | PROVIDERS: PCP Internal Medicine; Referring Provider Internal Medicine; Visit Provider Nurse Practitioner Family | DX: M51.360 Other intervertebral disc degeneration, lumbar region with discogenic back pain only (principal); G89.4 Chronic pain syndrome; M47.817 Spondylosis without myelopathy or radiculopathy, lumbosacral region; M24.651 Ankylosis, right hip | CPT/HCPCS: 99202 ==